=== PATIENT | female | born 1950 | race Caucasian/White ===

== ENCOUNTER 2019-02-05 02:49 | Emergency (ER) | payer MEDICARE, OTHER, SELFPAY ==
--- NOTE | 2019-02-05 02:56 | ED_ITS ---
HPI - General Adult General Chief complaint: Fever Stated complaint: cough, ear ache, fever Time Seen by Provider: 02/05/19 02:55 Source: patient Mode of arrival: ambulatory Limitations: no limitations History of Present Illness HPI narrative: Patient is a 68-year-old female here for evaluation of right ear pain and cough and sore throat. Patient states the symptoms been going on for the past couple days. She states she did have a fever of 100.5 at home. Has not taken anything for symptoms except for Claritin D. she recently finished a course of antibiotics for similar symptoms however after going on a trip she now has the symptoms return. Related Data Home Medications Medication Instructions Recorded Confirmed clopidogrel [Plavix] 75 mg PO QDAY #0 04/23/13 02/05/19 duloxetine [Cymbalta] 60 mg PO QDAY #0 04/23/13 02/05/19 Fish Oil 2,000 mg PO QDAY #0 08/06/16 02/05/19 [MAGNESIUM BIO CITRAT] 800 mg PO BID #0 08/06/16 02/05/19 [SUPER B COMPLEX] 1 tab PO QDAY #0 08/06/16 02/05/19 acetaminophen 650 mg PO Q6HP PRN #0 08/06/16 02/05/19 aspirin 81 mg PO QDAY #0 08/06/16 02/05/19 aspirin 325 mg PO PRN PRN #0 08/06/16 02/05/19 ranitidine HCl 75 mg PO BID #0 04/16/17 02/05/19 calcium citrate [Calcitrate] 600 mg PO BID #0 04/19/17 02/05/19 metoprolol tartrate 200 mg PO DAILY #0 04/19/17 02/05/19 Protonix 40 mg PO QDAY #0 09/17/17 02/05/19 ascorbic acid (vitamin C) 500 mg PO DAILY 02/05/19 02/05/19 biotin 1 tab PO DAILY 02/05/19 02/05/19 chlorthalidone 50 mg PO DAILY 02/05/19 02/05/19 cholecalciferol (vitamin D3) 12,000 unit PO DAILY 02/05/19 02/05/19 [Vitamin D3] lisinopril 10 mg PO DAILY 02/05/19 02/05/19 nitroglycerin 0.4 mg SUBLINGUAL Q5-15M PRN 02/05/19 02/05/19 rosuvastatin [Crestor] 40 mg PO DAILY 02/05/19 02/05/19 Previous Rx's Medication Instructions Recorded benzonatate [Tessalon Perles] 100 mg PO BID-TID PRN #30 cap 02/05/19 Allergies Allergy/AdvReac Type Severity Reaction Status Date / Time aripiprazole [From ABILIFY] Allergy Severe TREMORS, Verified 02/05/19 03:10 ANAPHYLAXIS bupropion [From WELLBUTRIN] AdvReac Severe HEADACHE Verified 02/05/19 03:10 citalopram [CITALOPRAM] AdvReac Intermediate headache, Verified 02/05/19 03:10 difficulty thinking indomethacin [INDOMETHACIN] AdvReac Intermediate GI UPSET Verified 02/05/19 03:10 phenobarbital [PHENOBARBITAL] AdvReac Intermediate DEPRESSION Verified 02/05/19 03:10 morphine [MORPHINE] AdvReac Mild 'LOOPY' Verified 02/05/19 03:10 PAPER TAPE Allergy Unknown RASH Uncoded 12/29/17 12:11 DARVON AdvReac Severe SEVERE Uncoded 12/29/17 12:11 HEADACHE PRESTIQUE AdvReac Intermediate TREMORS Uncoded 12/29/17 12:11 Review of Systems Constitutional Reports fever(s) ENT Comments: Right ear pain, sore throat, sinus congestion Respiratory Reports cough Integumentary/Breasts Denies rash Neurologic Denies behavioral changes Psychiatric Denies behavioral changes Allergic/Immunologic Denies urticaria [facility] Medical History Diabetes (Acute) Hypertension (Acute) Social History Smoking Status: Never smoker Social History Smoking Status: Never smoker Exam Initial Vital Signs Initial Vital Signs: Vital Signs Temperature 99.9 F H 02/05/19 02:58 Pulse Rate 82 02/05/19 02:58 Respiratory Rate 18 02/05/19 02:58 Blood Pressure 109/62 02/05/19 02:58 Pulse Oximetry 95 02/05/19 02:58 Const General: cooperative, well developed, well groomed and No acute distress Orientation: alert and awake HENMT Head: normal to inspection and normocephalic Ears: TM's normal bilaterally Nose: external nose normal Face and sinus: normal facial exam Mouth: oral mucosae normal Resp Effort & Inspection: normal respiratory effort Auscultation: clear to auscultation bilaterally Cardio Rate: regular rate Rhythm: regular rhythm Pulses: radial pulses present Skin Lesions: no lesions Rashes: no rashes Neuro General: alert, awake and oriented x3 Cognition: normal cognition Speech: speech normal Gait: normal gait Extrem General: normal to inspection and capillary refill normal Psych Appearance: grossly normal and well kempt Course Orders Ordered: ED Orders 02/05/19 03:03 XR chest 1V Stat Vital Signs - 8 hr 02/05/19 02:58 Temperature 99.9 F H Pulse Rate 82 Respiratory Rate 18 Blood Pressure 109/62 Pulse Oximetry 95 Medical Decision Making Imaging Data Chest x-ray: Attestation: I personally reviewed and interpreted this imaging study as follows: My impression: No focal consolidation Normal size heart MDM Narrative Medical decision making narrative: No pneumonia my read the chest x-ray. Her ears are clear. Throat is unremarkable. Not in any respiratory distress. No indication for antibiotics. This is a viral infection we did discuss the use of Claritin rather than the Claritin D since the Claritin D seems to cause her problems sleeping. Also sent home with Vinh Chin try to help with the cough. Instructed to follow up with her primary doctor. Patient expressed understanding and agreement with plan. Discharge Plan Departure Patient Disposition: Home Clinical Impression: Cough, Otalgia of right ear Upper respiratory infection Qualifiers: URI type: unspecified URI Qualified Code(s): J06.9 - Acute upper respiratory infection, unspecified Instructions: Amoxicillin Does Not Appear Effective for Acute Maxillary Sinusitis, DI for Viral Upper Respiratory Infection -- Adult Activity Restrictions/Additional Instructions: Recommend that you take a decongestant such as Claritin or Nelida or Zyrtec like we discussed. You can use the Tessalon Perles as needed for the cough. Contact your primary doctor for a follow-up. Return to the emergency department for any new or worsening symptoms Prescriptions: New benzonatate [Tessalon Perles] 100 mg capsule 100 mg PO BID-TID PRN (Reason: cough) Qty: 30 RF: 0 No Action clopidogrel [Plavix] 75 MG tablet 75 mg PO QDAY Qty: 0 RF: 0 duloxetine [Cymbalta] 60 MG capsule,delayed release(DR/EC) 60 mg PO QDAY Qty: 0 RF: 0 Fish Oil 2,000 mg PO QDAY Qty: 0 RF: 0 [SUPER B COMPLEX] 1 tab PO QDAY Qty: 0 RF: 0 aspirin 81 MG tablet,delayed release (DR/EC) 81 mg PO QDAY Qty: 0 RF: 0 [MAGNESIUM BIO CITRAT] 800 mg PO BID Qty: 0 RF: 0 acetaminophen 325 MG tablet 650 mg PO Q6HP PRN (Reason: Pain (Scale Score 1-3)) Qty: 0 RF: 0 aspirin 325 MG tablet 325 mg PO PRN PRN (Reason: Pain (Scale Score 1-3)) Qty: 0 RF: 0 ranitidine HCl 75 MG tablet 75 mg PO BID Qty: 0 RF: 0 calcium citrate [Calcitrate] 200 MG tablet 600 mg PO BID Qty: 0 RF: 0 metoprolol tartrate 100 MG tablet 200 mg PO DAILY Qty: 0 RF: 0 Protonix [address] for susp in packet 40 mg PO QDAY Qty: 0 RF: 0 chlorthalidone 50 mg Tablet 50 mg PO DAILY RF: 0 lisinopril 10 mg Tablet 10 mg PO DAILY RF: 0 rosuvastatin [Crestor] 40 mg Tablet 40 mg PO DAILY RF: 0 nitroglycerin 0.4 mg Tablet, Sublingual 0.4 mg SUBLINGUAL Q5-15M PRN (Reason: Chest Pain) RF: 0 ascorbic acid (vitamin C) 500 mg Tablet 500 mg PO DAILY RF: 0 Vitamin D3 4,000 unit Capsule 12,000 unit PO DAILY RF: 0 biotin tablet 1 tab PO DAILY RF: 0 Referrals: Tara Simons DO [Primary Care Provider] -
[2019-02-05 02:58] VITALS: BP 109/62; PULSE 82; RESP 18; TEMP 37.7; O2SAT 95; BMI 39.4
--- NOTE | 2019-02-05 03:03 | DI.RAD.S_ITS ---
PROCEDURE: XR CHEST 1V INDICATIONS: fever and cough TECHNIQUE: One view of the chest was acquired. COMPARISON: None. FINDINGS: Surgical changes and devices: None. Lungs and pleura: Lungs are clear. No pleural effusions or pneumothorax. Mediastinum: Mediastinal contours appear normal. Heart size is normal. Bones and chest wall: No suspicious bony lesions. Overlying soft tissues appear unremarkable. IMPRESSION: Negative chest. No acute cardiopulmonary process is suspected. Note: The preliminary ED findings and the final radiology report are concordant. Dictated by: Julio C Goldman M.D. on 02/05/2019 at 7:32 Approved by: Julio C Goldman M.D. on 02/05/2019 at 7:33
== END 2019-02-05 03:38 | disposition home or self-care (01) ==
LOC: ED 03:37
PROVIDERS: Emergency Provider Emergency Medicine; PCP Family Medicine
DX: J06.9 Acute upper respiratory infection, unspecified (principal); H92.01 Otalgia, right ear
CPT/HCPCS: 71045; 99282; 99283

== ENCOUNTER → 2019-06-23 09:49 | Outpatient (CLI) | payer MEDICARE, OTHER, SELFPAY | PROVIDERS: PCP Family Medicine; Visit Provider Family Medicine | DX: M85.852 Other specified disorders of bone density and structure, left thigh (principal); Z78.0 Asymptomatic menopausal state; Z82.62 Family history of osteoporosis | CPT/HCPCS: 77080; 77081 ==

== ENCOUNTER → 2019-07-14 12:03 | Outpatient (CLI) | payer MEDICARE, OTHER, SELFPAY ==
--- NOTE | 2019-07-14 | DI.MRI.S_ITS ---
PROCEDURE: MR LUMBAR SPINE WO CON INDICATIONS: Lumbago TECHNIQUE: Noncontrast sagittal T1 spin echo and T2 fast echo, sagittal STIR, axial T1 and T2 fast spin echo through the lumbar spine. In cases with scoliosis, additional coronal T2 fast spin echo may be performed. COMPARISON: Merged With [facility], MR, L-SPINE WITHOUT CONTRAST, 10/23/2014, 12:58. FINDINGS: Image quality: Excellent. Alignment and Curvature: Grade 1 anterolisthesis of L4 on L5. Levoscoliosis. Bone Marrow: Multilevel degenerative endplate sclerosis and spurring. Diffuse facet arthropathy. No acute vertebral body compression fractures. Spinal Cord: Conus medullaris terminates at the L1 level. Visualized cord demonstrates normal signal and size. Paraspinous Soft Tissues: No paravertebral masses. There is nonspecific, dependent posterior subcutaneous soft tissue edema from level of [id number] L1-L2: Minimal central canal narrowing. Lateral recesses patent Severe bilateral foraminal narrowing with nerve root compression. L2-L3: Mild canal narrowing. Partial effacement of both lateral recesses with bilaterally symmetric appearance. Severe right foraminal narrowing with nerve root compression, and moderate left foraminal narrowing . This appears progressed on the right. L3-L4: Mild central canal narrowing. Mild left foraminal narrowing. Moderate right foraminal stenosis with mild nerve root compression. L4-L5: Severe central canal narrowing. Near complete effacement of both lateral recesses with bilaterally symmetric appearance. Moderate bilateral foraminal narrowing with nerve root compression, which appears unchanged L5-S1: No definite central canal narrowing. Partial effacement of both lateral recesses with bilaterally symmetric appearance. Mild bilateral foraminal narrowing. No interval change in IMPRESSION: Multilevel lumbar spondylosis with grade 1 anterolisthesis of L4 on L5. Diffuse bilateral foraminal stenoses as detailed above by spinal level. Severe L4-L5 canal stenosis, minimally progressed. Dictated by: Malik Hodgson M.D. on 07/14/2019 at 13:20 Approved by: Malik Hodgson M.D. on 07/14/2019 at 13:29
== END ==
PROVIDERS: Family Provider Anesthesiology Pain Medicine; PCP Family Medicine; Visit Provider Acupuncturist
DX: M54.5 Low back pain (principal); M47.816 Spondylosis without myelopathy or radiculopathy, lumbar region; M43.16 Spondylolisthesis, lumbar region; M48.061 Spinal stenosis, lumbar region without neurogenic claudication; M48.07 Spinal stenosis, lumbosacral region
CPT/HCPCS: 72148

== ENCOUNTER 2019-10-25 11:13 | Inpatient (IN) | payer MEDICARE, OTHER, SELFPAY ==
[2019-10-10 14:39] VITALS: BMI 39.6
[2019-10-25] VITALS (22 sets, daily range): BP systolic 108–177; BP diastolic 63–106; PULSE 69–82; RESP 10–16; TEMP 35.9–36.8; O2SAT 91–100; BMI 42.7
--- NOTE | 2019-10-25 | DI.RAD.S_ITS ---
PROCEDURE: XR LUMBAR SPINE 2-3V INDICATIONS: L4-L5, L5-S1 TLIF TECHNIQUE: 2 views of the lumbar spine were acquired. COMPARISON: None. FINDINGS: Bones: L4-S1 transverse pedicle screw and vertical fixation lilian stabilization has been performed, performed, establishing normal alignment. Interbody disc cage prosthesis devices are present at the 2 intervening disc levels. Soft tissues: Overlying bowel gas pattern is normal. No suspicious soft tissue calcifications. IMPRESSION: Normal alignment established after L4-S1 fusion procedure. Dictated by: Ang Cornell M.D. on 10/25/2019 at 19:09 Approved by: Ang Cornell M.D. on 10/25/2019 at 19:10
[2019-10-25] MEDS: CELECOXIB 200 MG CAPSULE 400 MG PO (11:56)
[2019-10-25] MEDS: GABAPENTIN 300 MG CAPSULE PO (11:56)
[2019-10-25] MEDS: ACETAMINOPHEN 325 MG TABLET 975 MG PO (11:57)
[2019-10-25] MEDS: LACTATED RINGERS 1,000 ML 42 ML IV ×2 (12:23→17:46)
--- NOTE | 2019-10-25 13:52 | PM.PREOP ---
Pre-operative Note Interval Note History & Physical reviewed/Exam performed by Physician: Yes Changes to H&P: No
[2019-10-25] MEDS: CEFAZOLIN 2 GM/100 ML FROZ.PIGGY IV ×2 (14:40→22:12)
--- NOTE | 2019-10-25 15:14 | SUR.OPER ---
Prone on spine table, head in foam head support, padded chest and pelvic supports, gel pad at knees, lower legs supported by pillows; nipples, genitalia and toes free of pressure, arms secured on foam padded arm boards at <90 degrees abduction. Tape over blanket at thigh secured to table.
[2019-10-25] MEDS: BUPIVACAINE LIPOSOME 266 MG/20 ML VIAL INJ (15:24)
[2019-10-25] MEDS: BUPIVACAINE 0.25% W/ EPI 30 ML VIAL INJ (15:25)
--- NOTE | 2019-10-25 18:39 | P.OP_ITS ---
Operative Date/Time/Diagnoses Date of procedure: 10/25/19 Time of procedure: 13:39 Pre-op diagnosis: 1. L4-5, L5-S1 spondylolisthesis 2. L4-5, L5-S1 spinal stenosis 3. L4-5, L5-S1 spondylosis with radiculopathy Post-op diagnosis: same Procedure & Clinicians Procedure: 1. L4-5, L5-S1 Postero-lateral and posterior interbody fusion 2. L4-5, L5-S1 interbody cage placement. 3. L4-5, L5-S1 decompressive laminectomy with bilateral facetecomies 4. L4-5, L5-S1 Posterior segmental instrumentation 5. [place] of bone marrow from iliac crest 6. Utilization of microsurgical technique and operating microscope Same procedure as scheduled: Yes Indications: Patient has been having chronic back pain and worsening lumbar radiculopathy. Patient failed multiple conservative management with worsening pain weakness and numbness in her lower extremity. Patient has been having difficulty performing activity of daily living. After discussing risks benefits of treatment options, patient elected proceed with surgery. Surgeon: Rossi Gao Fine Patcher: Rebecca Crawford Click Yes if Unassisted: No Anesthesia Type: General Operative Notes Closure Type: primary Specimen(s): none sent Prosthetic devices, grafts, tissues, transplants, or devices: Globus revolve screws, Rise cages Applied: catheter Estimated Blood Loss (mL): 100 Blood products transfused: none Procedure in detail: Patient was seen in the preoperative area. Risks and benefits of the surgery was discussed with the patient. Informed consent was obtained from the patient and placed in the chart. Surgical site was marked. Patient was taken to the operative room. General anesthesia was administered. Prophylactic antibiotic was given to the patient less than 30 min before the incision was made. Patient was placed into a prone position on the George table. Patient's back was then prepped and draped in the sterile fashion. Time- out was performed at this time. Using AP and lateral C-arm imaging the interval between L4-S1 was identified and marked on patient's back. A 2 inch incision 2 in from midline was made on the left side first. The fascia was incised in line with skin incision. Globus MARS retractors was placed inside the incision and docked onto the L4 and L5 lamina. Using microsurgical technique and operating microscope, a L4 and L5 laminectomy and L4-5 L5-S1 facetectomy was performed using a Kerrison rongeur. During the process of decompression more than 75% of bilateral L4-5 L5-S1 facets were removed in order to decompress the spinal canal and the lateral recess. The L4- 5 L5-S1 level was grossly unstable after the decompression was completed and requiring the fusion procedure. The disc space at L4-5, L5-S1 was identified. And a total diskectomy was performed at L4-5, L5-S1 level. The endplates were decorticated using a rasp and shaver. The total diskectomy and decortication was performed at L4-5, L5-S1 level in order to to accomplish a L4-5, L5-S1 fusion. The local bone from the laminectomy and facetectomy was saved for local bone grafting. After the total diskectomy and decortication was completed, Bio4 bone graft material was combined with local bone that was harvested earlier. At this time, a separate skin is incision was made over the iliac crest. A Jamshidi needle was inserted into the iliac crest through a separate skin incision. 5 cc of bone marrow aspiration was obtained through the separate skin incision using a Jamshidi needle from the iliac crest. The bone marrow aspiration was combined with local bone and the Bio4 bone grafting material. The bone grafting material was placed into the L4-5, L5-S1 interbody space along with two cages, one expandable cage at each level. The cages were expanded to their maximum height using the torque limiting screwdriver. At this time a mirror image incision was made on the right side. The fascia was incised in line with the skin incision. Globus MARS retractor was inserted and docked onto the L4-5, L5-S1 posterolateral gutter. Using the power drill, posterior-lateral decortication was performed at L4-5, L5-S1 level until bleeding cortical bone was identified. The remaining bone grafting material was placed into the L4-5 L5-S1 posterior lateral gutter he order to accomplish posterolateral fusion at the L4-5 L5-S1 levels. Using the double C-arm technique, pedicle screws were placed into the L4, L5, S1 pedicles bilaterally. This was done by placing the Jamshidi needle into the pedicles, then placing the guidewires over the Jamshidi needle, and finally placing the cannulated screws over the guidewires bilaterally. After the pedicle screws were placed, 2 titanium rods was locked into the heads of the pedicle screws using locking caps and torque limiting screwdriver. Total 6 pedicles screws were placed. After all the hardware was placed, and confirmed with AP and lateral C-arm imaging, the wound was then irrigated with sterile normal saline and packed with Ray-Alicia gauze for 3 min to accomplish hemostasis. After the gauze was removed the deep fascia was closed with #1 Vicryl suture. The subcutaneous layer was closed with 2-0 Vicryl. The skin was closed with skin arabella. Patient tolerated the procedure well. There were no complications. Complications: none Post-operative Condition: stable Disposition: PACU Plan for aftercare: Admit to inpatient hospital
[2019-10-25] MEDS: HYDROMORPHONE 2 MG INJ IV (19:30)
[2019-10-25] MEDS: ONDANSETRON 4 MG/2 ML INJ IV (19:34)
[2019-10-25] MEDS: hydrOXYzine 50 MG/ML INJ 25 MG IM (19:56)
[2019-10-25] MEDS: OXYCODONE IR 5 MG TABLET PO (20:27)
[2019-10-25] MEDS: SODIUM CHLORIDE 0.9% 1,000 ML 100 ML IV (21:15)
--- NOTE | 2019-10-25 21:17 | SUR.PHASEI ---
Late entry for 2101: Transferred patient to floor in stable condition with all belongings in place. Patient AAO x 3. VSS. Report given to Eileen. Family in room on transfer. Patient remains stable.
[2019-10-25] MEDS: HYDROMORPHONE 0.5 MG INJ IV (21:18)
[2019-10-25] MEDS: DOCUSATE 100 MG CAPSULE PO (22:04)
[2019-10-25] MEDS: SENNOSIDES 8.6 MG TABLET 17.2 MG PO (22:04)
[2019-10-25] MEDS: METOPROLOL IR 50 MG TABLET 100 MG PO (22:04)
[2019-10-25] MEDS: POTASSIUM CHLORIDE 10 MEQ TAB 20 MEQ PO (22:05)
[2019-10-26] VITALS (7 sets, daily range): BP systolic 108–134; BP diastolic 61–94; PULSE 70–88; RESP 16–20; TEMP 36.4–37.6; O2SAT 90–98
[2019-10-26] MEDS: OXYCODONE IR 5 MG TABLET 10 MG PO ×6 (00:42→20:18)
--- NOTE | 2019-10-26 00:59 | PC.NURSE ---
Addendum entered by Esthela Mejia R.N. 10/26/19 06:21: States pain has now increased to 6/10 so medicated with 10mg of Oxycodone. No longer drowsy and no slurred speech. Assisted to reposition and ice applied to back. Oxygen turned off as sat is 96%; will monitor for any decrease in O2 sat on RA. Addendum entered by Esthela Mejia R.N. 10/26/19 05:48: Slept most of shift. Oxygen has been titrated down to 1L/min this morning. Denies pain and is turning well with minimal assistance. Original Note: Patient is drowsy but arouses easily although speech is slurred. Oriented except states month is September and day of week is Wednesday. Breath sounds CTA with sat of 93% on oxygen at 3L/min per NC. HRR. BP elevated at 148/94. Denies nausea. BT present but denies flatus. Indwelling catheter is patent; urine clear yellow. Able to turn with assistance for pillow placement. Dressing to back is CDI. CMS is intact. Wearing bilateral foot SCD's. After being repositioned states pain is 4/10 so medicated with 5mg of Oxycodone; verbalizes agreement with taking lower dose. Fall risk score is high and bed alarm is activated.
[2019-10-26 06:00] LABS: Hematocrit 38.4 % (36-46)
[2019-10-26] MEDS: CEFAZOLIN 2 GM/100 ML FROZ.PIGGY IV (06:19)
--- NOTE | 2019-10-26 07:17 | PM.PNPO.1 ---
Subjective Subjective Date Patient Seen: 10/26/19 Time Patient Seen: 07:17 Interval history: POD 1 s/p L45, L5S1 TLIF with Dr. Gao. Patient rates pain as 6/10 with movement, minimal at rest. Pain is in surgical site, does not radiate. Pain managed with oxycodone and vistaril. Patient has not ambulated or mobilized with PT. Yousif catheter in place. Denies fever, chills, chest pain, shortness of breath, nausea, vomiting, numbness, tingling, urinary/bowel incontinence Exam Vital Signs (past 8 hours): - 10/25/19 23:50 10/26/19 04:58 Temperature 98.2 F 97.6 F Pulse Rate 79 88 Respiratory Rate 16 16 Blood Pressure 148/94 H 134/94 H Pulse Oximetry 93 94 Oxygen Delivery Method Nasal Cannula Oxygen Flow Rate 1 Narrative Exam Narrative: 69 yo F is laying comfortably in bed, in no apparent distress. A&Ox3. Dressing CDI, SCDs in place, yousif catheter in place. Sensory function grossly intact to light touch in LE BL. Able to actively dorsiflex/plantar flex BL. Capillary refill <2 sec LE BL. Calves warm, soft, compressible, non tender to palpation. Objective Labs Result Diagrams: 10/26/19 05:35 Labs: Laboratory Results - last 24 hr 10/26/19 05:35 Hgb 13.0 Hct 38.4 Assessment & Plan Post-op Postoperative Procedures: Procedures Operation Date: 10/25/19 13:15 Actual Procedures Side Surgeon p L4-5,L5-S1 TLIF w/posterior instrumentation Rossi Gao MD Postoperative day: 1 Postoperative status: marginal pain control Postoperative plan: routine post-op care Postoperative plan narrative: Continue current pain management Continue SCDs Patient needs to mobilize with PT Keep yousif catheter in place, most likely d/c tomorrow AM Patient will likely discharge home in next 24 hours Time Spent With Patient Time with patient: less than 15 minutes
[2019-10-26] MEDS: SODIUM CHLORIDE 0.9% 1,000 ML 100 ML IV (08:20)
[2019-10-26] MEDS: ACETAMINOPHEN 325 MG TABLET 650 MG PO ×2 (08:31→15:52)
[2019-10-26] MEDS: ROSUVASTATIN 10 MG TABLET 40 MG PO ×2 (08:31→20:20)
[2019-10-26] MEDS: PANTOPRAZOLE 40 MG TABLET PO (08:31)
[2019-10-26] MEDS: DULOXETINE 30 MG CAPSULE 60 MG PO (08:32)
[2019-10-26] MEDS: MULTIVIT,CALC,MINS/IRON/FOLIC 1 TABLET 1 TAB PO (08:32)
[2019-10-26] MEDS: ASCORBIC ACID 500 MG TABLET 1000 MG PO (08:33)
[2019-10-26] MEDS: POTASSIUM CHLORIDE 10 MEQ TAB 20 MEQ PO ×2 (08:33→20:20)
[2019-10-26] MEDS: DOCUSATE 100 MG CAPSULE PO ×2 (08:33→20:19)
--- NOTE | 2019-10-26 08:47 | PC.NURSE ---
Addendum entered by Daisy Graham R.N. 10/26/19 11:49: MS/VITALS - bp 121/75, hr 78, pt assisted to dangle position, x2 person stood w/fww, gait belt, states initially a little lightheaded, stood at bedside for several minutes, lightheadedness resolved and took steps to chair, phys therapy arrived for addl mobilization. Original Note: AM NOTE - pt is awake at bedside shift report, states I'm doing OK,back discomfort /10 with earlier oxycodone, barrier dsg cdi, removed 02 and sat maintained [id number]%, enc freq use IS while awake, yousif w/clear yellow urine, bp 108/64, hr 80 this am and discussed waiting until after phys therapy and recheck before admin bp medications, denies nausea, lilia gen diet, footie scd on, denies numbness, moving le easily.
--- NOTE | 2019-10-26 10:40 | CM.DANOTE ---
DCP: Case received, EMR reviewed and met with patient. Introduced self and role. Was able to meet with patient to obtain baseline health history and activity information. DCP assessment completed with information currently available. Patient is a 69 year old female who admitted yesterday morning to the care of the orthopedic team. PCP: Dr. Simons. Payer: confirmed: Medicare/[employer]. Patient came to the hospital for a surgical procedure. She had L4-5, L5-S1 laminectomy. Patient has history of spinal stenosis. Met with patient in her room. She is alert and oriented. Stated that she has a cane and walker, stated, she mostly uses her cane, helps better because of her sciatica. 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 Patient has supportive named Adryan, and a friend named Sia, from [place], who will be staying with her for a while. P: DCP to continue to follow closely. She will be working with P.T. She should be able to go home when she is medically stable and cleared by P.T. as well. Yessenia Lynn RN/Chop Saw Operator
--- NOTE | 2019-10-26 11:25 | PT.IIE ---
Current Diagnoses Spondylolisthesis, lumbar region (10/25/19) Spinal stenosis, lumbar region with neurogenic claudication (10/25/19) Surgery Performed Operation Date: 10/25/19 13:15 Actual Procedures p L4-5,L5-S1 TLIF w/posterior instrumentation - Rossi Gao MD Surgical History (Last Updated 10/10/19 @ 16:22 by Geri Stanton, RN) H/O exploratory laparotomy (Acute ~2011) H/O heart artery stent (Acute) History of cardiac cath (Acute) History of total knee arthroplasty (Acute) History of total right hip arthroplasty (Acute) S/P foot surgery, left (Acute) S/P scar revision (Acute) Status post cataract extraction of both eyes with insertion of intraocular lens (Acute) Medical History (Last Updated 10/10/19 @ 16:22 by Geri Stanton, RN) Arthritis of both hands (Acute) Balance problem (Acute) Bilateral hearing loss (Acute) Concussion (Acute) Coronary artery disease (Acute) Diabetes (Acute) GERD (gastroesophageal reflux disease) (Acute) Hyperlipidemia (Acute) Hypertension (Acute) Mild sleep apnea (Acute) Myocardial infarction (Acute) Paraesophageal hernia (Acute) Unstable angina (Acute) Physical Therapy Inpatient Evaluation/Re-Eval M1 PT/OT-IP Prior Functional Status Start: 10/26/19 12:13 Freq: NEEDED Status: Active Protocol: Document 10/26/19 11:25 AB (Rec: 10/26/19 12:32 AB [id number]) Medical Review Prior Functional Status Medical History Reviewed Yes Communication able to make needs known Mobility and Gait pt stated that she is modified independent with all mobilities and ambulation using SPC outdoor and without AD indoors but occasionally uses SPC indoors as well Social History Household Members spouse Living Arrangements House Number of Floors (Floors) One Floor Number of Stairs To Enter/Railing? ramp to enter Home Environment High Toilet,Walk in Shower,Tub /Shower,Ramp Home Equipment Front Wheel Walker,Straight Cane,Bedside Commode,Tub Transfer Bench,Shower Seat with Backrest,Grab Bars Near Toilet,Grab Bars In Shower Additional Social History Comment friend will stay with pt for 2 weeks to assist her M2 PT-IP Current Condition Start: 10/26/19 12:13 Freq: NEEDED Status: Active Protocol: Document 10/26/19 11:25 AB (Rec: 10/26/19 12:32 AB [id number]) Physical Therapy Current Condition Current Condition Evaluation Date 10/26/19 Treatment Diagnosis s/p L4-5, L5S1 posterior fusion/lami; difficulty in walking Onset Date 10/25/2019 Precautions Lumbar Precautions Log Roll,No Twisting,Limit Bending,Lifting Restriction of 10 lbs,Gait Belt above Incisional Area M3 PT-IP Subjective Start: 10/26/19 12:13 Freq: NEEDED Status: Active Protocol: Document 10/26/19 11:25 AB (Rec: 10/26/19 12:32 AB [id number]) Subjective Physical Therapy Visit Type Type Initial Evaluation Visit Start Time 11:25 Visit Stop Time 12:08 Total Visit Minutes 43 Number of PROGRAM PROJECT ANALYST Visits 0 Physical Therapy Visit Comments Patient Comments pt is agreeable to do PT Therapy Pain Assessment Pain When Pain Assessed At Rest Pain Present Pain Present Pain Reported Location back Intensity 5 Scale Used increases to 8 with mobility Pain Management Techniques Apply Cold,Re-positioning, Timing of Activity with Medications M4 PT-IP Mobility and Gait Start: 10/26/19 12:13 Freq: NEEDED Status: Active Protocol: Document 10/26/19 11:25 AB (Rec: 10/26/19 12:32 AB [id number]) PT-Bed Mobility Assessment Rolling Type of Rolling Log Rolling Level of Assist Moderate Assistance Supine to Sit Supine to Sit Moderate Assistance Sit to Supine Sit to Supine Maximum Assistance,1 Person Assistance Scooting Scooting to Edge of Bed Minimal Assistance Scooting Up and Down in Bed Maximum Assistance PT-Transfer Assessment Sit to and From Stand Sit to and from Stand Minimal Assistance,1 Person Assistance,Use of Upper Extremities Equipment Transfer Assistive Device Gait Belt,Front Wheeled Walker Orthotic/Prosthetic Devices or Brace: No Transfers Transfer Destination Bed,Chair Transfer Technique ambulated using FWW Transfer Ability Level of Assist Minimal Assistance,1 Person Assistance,Use of Upper Extremities Comments Mobility Comments pt is sitting on chair and agreeable to do PT. reviewed back precautions and log roll bed mobility. pt completed sit to stand from chair min A and cues. ambulated in room using FWW ~ 12 ft. c/o increase back pain and lightheadedness. BP: 119/68. pt ambulated to the bed. completed bed mobility log roll sit to supine with max A to elevated BLE up to bed. required max A for positioning in bed. completed supine to sit mod A and cues. completed sit to stand from EOB min A and transferred to chair using FWW min A and cues. set up pt for lunch. call light and table placed within reach. Gait Assessment Gait Gait Assistance Required: Minimum Assistance Distance (Feet) 12 Able to Maintain Weight Bearing Status Yes During Gait Assistive Devices Assistive Device Gait Belt,Front Wheeled Walker Orthotic/Prosthetic Devices or Brace: No Gait Deviations General Gait Pattern Antalgic,Decreased Stride Length,Decreased Feet Clearance Factors Limiting Gait Function Factors Limiting Gait Function Decreased Activity Tolerance, Decreased Strength,Limited Range of Motion,Pain,Poor Balance,Poor Safety Awareness PT-Balance Assessment Sitting Balance and Reactions Static Sitting Balance Ability Good Dynamic Sitting Balance Ability Good Standing Balance and Reactions Static Standing Balance Ability Fair Dynamic Standing Balance Ability Fair Device Used FWW M5 PT-IP Objective Assessments Start: 10/26/19 12:13 Freq: NEEDED Status: Active Protocol: Document 10/26/19 11:25 AB (Rec: 10/26/19 12:32 AB [id number]) Orientation Orientation/Cognition Level of Alertness Alert Orientation Name,Place,Situation Language Function Ability Hard of Hearing Safety Awareness Decreased Safety Awareness Memory Description Short Term Impaired Gross Range of Motion Lower Extremity ROM Assessment Within Functional Limits Strength Lower Extremity Strength Hip 3+/5 Knee 4-/5 Coordination Assessment Gross Coordination Gross Coordination WNL Sensation Assessment Sensation Gross Sensation WNL Muscle Tone Muscle Tone WNL Yes M6 PT-IP Treatment Start: 10/26/19 12:13 Freq: NEEDED Status: Active Protocol: Document 10/26/19 11:25 AB (Rec: 10/26/19 12:32 AB [id number]) Physical Therapy Treatment Education Education Provided Precautions,Weight Bearing Status,Post-Op Packet,Safety M7 PT-IP Assessment and Plan Start: 10/26/19 12:13 Freq: NEEDED Status: Active Protocol: Document 10/26/19 11:25 AB (Rec: 10/26/19 12:32 AB [id number]) PT Summary Assessment and Plan Potential Rehabilitation Potential Good Status of Condition at Evaluation Stable Summary Impairments Pain,ROM,Strength,Balance, Coordination,Sensation,Tone, Cognition,Bed Mobility, Transfers,Gait,Activity Tolerance Assessment Summary pt requires min A and cues with transfers and ambulation but requires mod to max A with bed mobility. pt plans to go home and her friend will assist her at home. will conduct caregiver training when appropriate. will continue to assess progress. Goals Bed Mobility Goal Independent Transfer Goal Independent,Front Wheeled Walker Gait Goal Independent,Front Wheel Walker Gait Distance 150 Days to Meet Goals 5 Frequency of Treatment Frequency Of Treatment Twice a Day Treatment Plan Physical Therapy Treatment Plan Bed Mobility Training,Transfer Training,Gait Training, Therapeutic Exercise,Balance Retraining,Post Op Education, Discharge Planning,Hot or Cold Pack,Neuromuscular Re-ed, Coordination Retraining,Manual Therapy Other Recommendations and Next Treatment bed mobility, ambulation, Focus caregiver training Recommendations To Nursing Amount of Assist Needed 1 Person Assist Discharge Recommendations PT Discharge Recommendations Home with Assistance Transportation Needs at Discharge Private Vehicle
[2019-10-26] MEDS: METOPROLOL IR 50 MG TABLET 100 MG PO ×2 (12:15→20:20)
[2019-10-26] MEDS: CHLORTHALIDONE 25 MG TABLET 50 MG PO (12:16)
--- NOTE | 2019-10-26 14:23 | PT.IPTN ---
Current Diagnoses Spondylolisthesis, lumbar region (10/25/19) Spinal stenosis, lumbar region with neurogenic claudication (10/25/19) Surgery Performed Operation Date: 10/25/19 13:15 Actual Procedures p L4-5,L5-S1 TLIF w/posterior instrumentation - Rossi Gao MD Physical Therapy Treatment Note M2 PT-IP Current Condition Start: 10/26/19 12:13 Freq: NEEDED Status: Active Protocol: Document 10/26/19 11:25 AB (Rec: 10/26/19 12:32 AB [id number]) Physical Therapy Current Condition Current Condition Evaluation Date 10/26/19 Treatment Diagnosis s/p L4-5, L5S1 posterior fusion/lami; difficulty in walking Onset Date 10/25/2019 Precautions Lumbar Precautions Log Roll,No Twisting,Limit Bending,Lifting Restriction of 10 lbs,Gait Belt above Incisional Area M3 PT-IP Subjective Start: 10/26/19 12:13 Freq: NEEDED Status: Active Protocol: Document 10/26/19 14:23 AB (Rec: 10/26/19 16:44 AB [id number]) Subjective Physical Therapy Visit Type Type Treatment Note Visit Start Time 14:23 Visit Stop Time 15:12 Total Visit Minutes 49 Number of NAUTICAL INSTRUMENT MECHANIC Visits 0 Physical Therapy Visit Comments Patient Comments pt agreeable to do PT Therapy Pain Assessment Pain When Pain Assessed At Rest Pain Present Pain Present Pain Reported Location back Intensity 5 Scale Used Numeric (1 - 10) Pain Management Techniques Re-positioning,Timing of Activity with Medications M4 PT-IP Mobility and Gait Start: 10/26/19 12:13 Freq: NEEDED Status: Active Protocol: Document 10/26/19 14:23 AB (Rec: 10/26/19 16:44 AB [id number]) PT-Bed Mobility Assessment Rolling Type of Rolling Log Rolling Level of Assist Minimal Assistance Supine to Sit Supine to Sit Standby Assistance Sit to Supine Sit to Supine Moderate Assistance,Maximum Assistance,1 Person Assistance PT-Transfer Assessment Sit to and From Stand Sit to and from Stand Contact Guard Assistance Equipment Transfer Assistive Device Gait Belt,Front Wheeled Walker Orthotic/Prosthetic Devices or Brace: No Comments Mobility Comments pt's friend present for caregiver training. pt completed bed mobility supine <>sit log roll x 4 reps with PT assisting pt initially. pt required SBA with supine to sit but required mod A to max A for sit to supine to elevate BLE to the bed. instructed caregiver on how to assist pt and counter demonstrated and was able to assist the pt safely. pt sat on EOB. educated friend on how to use safety belt and how to assist pt. caregiver was able to put the belt on and assist the pt with sit to stand and ambulation in room ~ 30 ft CGA to min A. caregiver is worried about pt walking into the house due to the condition of the ground and if FWW will fit on the walkway. informed pt and friend that if that's the only way in, that they have to clear the pathway for pt's safety . Friend stated that she will measure the walkway if FWW will fit. informed pt and friend that pt can go sideways if needed and have seats in between the walkway for pt to sit on if needed. pt and friend understood. Gait Assessment Gait Gait Assistance Required: Contact Guard Assist,Minimum Assistance Distance (Feet) 30 Able to Maintain Weight Bearing Status Yes During Gait Assistive Devices Assistive Device Gait Belt,Front Wheeled Walker Orthotic/Prosthetic Devices or Brace: No Gait Deviations General Gait Pattern Antalgic,Decreased Stride Length,Decreased Feet Clearance Factors Limiting Gait Function Factors Limiting Gait Function Decreased Activity Tolerance, Decreased Strength,Limited Range of Motion,Pain,Poor Balance,Poor Safety Awareness Comments Gait Comments pt ambulated in room using FWW ~ 30 ft with friend assisting . pt initially requiring CGA and towards the end of ambulation requires min A. pt stated that she is getting tired. Pt presents with an antalgic gait with slow domingo, decrease step length. M5 PT-IP Objective Assessments Start: 10/26/19 12:13 Freq: NEEDED Status: Active Protocol: Document 10/26/19 11:25 AB (Rec: 10/26/19 12:32 AB [id number]) Orientation Orientation/Cognition Level of Alertness Alert Orientation Name,Place,Situation Language Function Ability Hard of Hearing Safety Awareness Decreased Safety Awareness Memory Description Short Term Impaired Gross Range of Motion Lower Extremity ROM Assessment Within Functional Limits Strength Lower Extremity Strength Hip 3+/5 Knee 4-/5 Coordination Assessment Gross Coordination Gross Coordination WNL Sensation Assessment Sensation Gross Sensation WNL Muscle Tone Muscle Tone WNL Yes M6 PT-IP Treatment Start: 10/26/19 12:13 Freq: NEEDED Status: Active Protocol: Document 10/26/19 14:23 AB (Rec: 10/26/19 16:44 AB [id number]) Physical Therapy Treatment Education Education Provided Precautions,Safety M7 PT-IP Assessment and Plan Start: 10/26/19 12:13 Freq: NEEDED Status: Active Protocol: Document 10/26/19 14:23 (Rec: 10/26/19 16:44 AB [id number]) PT Summary Assessment and Plan Potential Rehabilitation Potential Good Summary Impairments Pain,ROM,Strength,Balance, Coordination,Sensation,Tone, Cognition,Bed Mobility, Transfers,Gait,Activity Tolerance Progress Towards Goals Slow Progress due to Pain,Slow Progress due to Activity Tolerance Assessment Summary caregiver training conducted and pt's friend was able to assist pt with bed mobility, sit to stand and ambulation using FWW. pt presents with decrease activity tolerance affecting mobility and level of assistance. pt plans to go home with her friend to assist her. pt will also benefit from homehealth PT. Goals Bed Mobility Goal Independent Transfer Goal Independent,Front Wheeled Walker Gait Goal Independent,Front Wheel Walker Gait Distance 150 Days to Meet Goals 5 Frequency of Treatment Frequency Of Treatment Twice a Day Treatment Plan Physical Therapy Treatment Plan Bed Mobility Training,Transfer Training,Gait Training, Therapeutic Exercise,Balance Retraining,Post Op Education, Discharge Planning,Hot or Cold Pack,Neuromuscular Re-ed, Coordination Retraining,Manual Therapy Other Recommendations and Next Treatment up/down 1 step stool to get Focus into the bed, bed mobility, ambulation, caregiver training Recommendations To Nursing Amount of Assist Needed 1 Person Assist Discharge Recommendations PT Discharge Recommendations Home with Assistance,Home Health Transportation Needs at Discharge Private Vehicle
--- NOTE | 2019-10-26 14:29 | OT.IP.EVAL ---
Current Diagnoses Spondylolisthesis, lumbar region (10/25/19) Spinal stenosis, lumbar region with neurogenic claudication (10/25/19) Surgery Performed Operation Date: 10/25/19 13:15 Actual Procedures p L4-5,L5-S1 TLIF w/posterior instrumentation - Rossi Gao MD Past Medical History (Last Updated 10/10/19 @ 16:22 by Geri Stanton, RN) Arthritis of both hands (Acute) Balance problem (Acute) Bilateral hearing loss (Acute) Concussion (Acute) Coronary artery disease (Acute) Diabetes (Acute) GERD (gastroesophageal reflux disease) (Acute) Hyperlipidemia (Acute) Hypertension (Acute) Mild sleep apnea (Acute) Myocardial infarction (Acute) Paraesophageal hernia (Acute) Unstable angina (Acute) Surgical History (Last Updated 10/10/19 @ 16:22 by Geri Stanton, RN) H/O exploratory laparotomy (Acute ~2012) H/O heart artery stent (Acute) History of cardiac cath (Acute) History of total knee arthroplasty (Acute) History of total right hip arthroplasty (Acute) S/P foot surgery, left (Acute) S/P scar revision (Acute) Status post cataract extraction of both eyes with insertion of intraocular lens (Acute) Occupational Therapy Inpatient Evaluation/Re-Eval M1 PT/OT-IP Prior Functional Status Start: 10/26/19 12:13 Freq: NEEDED Status: Active Protocol: Document 10/26/19 14:29 PJM (Rec: 10/26/19 15:48 PJM [id number]) Medical Review Prior Functional Status Medical History Reviewed Yes Diet/Fluid Consistency Regular Communication WNL Mobility and Gait Pt states she ambulates without a device in the house except for occasional use of cane when back pain severe. She uses a cane in the community. Activities of Daily Living and IADL's Pt states she is independent with all self care and she and share cooking, shopping, shuttle threader at home. Pt independent with medications, finances and driving. 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 Social History Household Members spouse Living Arrangements House Number of Floors (Floors) One Floor Number of Stairs To Enter/Railing? 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 Additional Social History Comment friend will stay with pt for 1 week to assist her while at work, pt plans to use shower stall at home M2 OT-IP Current Condition Start: 10/26/19 13:24 Freq: Status: Active Protocol: Document 10/26/19 14:29 PJM (Rec: 10/26/19 15:48 PJ [id number]) Occupational Therapy Current Condition Current Condition Evaluation Date 10/26/19 Treatment Diagnosis decreased self care, mobility s/p L4-S1 PLIF/lami Post Operative Precautions Lumbar Precautions Log Roll,No Twisting,Limit Bending,Lifting Restriction of 10 lbs,Gait Belt above Incisional Area M3 OT- IP Subjective and Pain Start: 10/26/19 13:24 Freq: Status: Active Protocol: Document 10/26/19 14:29 PJM (Rec: 10/26/19 15:48 PJ [id number]) OT- Subjective Occupational Therapy Visit Type Type Initial Evaluation Visit Start Time 14:13 Visit Stop Time 14:29 Total Visit Minutes 16 Notes Pt's friend, Sia, here for education this session as she will be assisting pt after d/c for 1 week. Occupational Therapy Visit Comments Patient Comments I don't have any pain just resting here in bed. Patient/Caregiver Goals to return to independence OT Pain Assessment Pain When Pain Assessed At Rest Pain Present Pain Present Denied Pain M4 OT- IP ADL's Start: 10/26/19 13:24 Freq: Status: Active Protocol: Document 10/26/19 14:29 PJM (Rec: 10/26/19 15:48 PJ [id number]) OT [id number] General Evaluation Self-Feeding Ability Independent OT ADL-Grooming General Evaluation Grooming Ability Standby Assistance Areas Needing Assistance Face Washing Comments OT Grooming Comments after set up in bed or chair OT ADL-Oral Care Comments Oral Care Comments did not occur this session OT ADL-Dressing General Eval Lower Body Dressing Ability Moderate Assistance Assistive Devices Dressing Assistive Devices Long Handled Shoe Horn,Museum Exhibit Designer ,Sock Aid Comments OT Dressing Comments Began education re: use of associate professor of library media, sock aid, long shoe horn for lower body dressing. Pt familiar with this equipt from previous R [facility] OT ADL-Toileting Devices Toileting Assistive Devices Toilet Paper Aid Comments OT Toileting Comments provided education re: body mechanics and use of toilet paper aid and resources for obtaining one OT ADL-Bathing Comments OT Bathing Comments to be assessed in AM M5 OT- IP IADL's Start: 10/26/19 13:24 Freq: Status: Active Protocol: Document 10/26/19 14:29 PJM (Rec: 10/26/19 15:48 PJ [id number]) OT-Instrumental Activities of Daily Living Deficits IADL Deficits Identified Deficits Home Safety Awareness Awareness of Need for Assistance at Home Good Awareness Ability to Problem Solve Emergency Able to Problem Solve Situations Medication Management Medication Management No Deficits Identified Money Management Money Management No Deficits Identified Meal Preparation Meal Preparation Caregiver Provides Assist Meal Preparation Comments and friend to assist until pt able Sharepoint Designer Developer Sharepoint Designer Developer Caregiver Provides Assist Sharepoint Designer Developer Comments and friend to assist until pt able Driving Driving Caregiver Provides Assist Driving Comments and friend to assist until pt able M6 OT- IP Functional Cognition Start: 10/26/19 13:24 Freq: Status: Active Protocol: Document 10/26/19 14:29 PJM (Rec: 10/26/19 15:48 PJ [id number]) Cognitive Factors Limiting Selfcare Function Cognitive Ability Level of Alertness Alert Patient Orientation Name,Age,Birthday,Month,Date, Year,Day of Week,Place, Situation Attention Span Ability Capable of Focused Attention, Capable of Sustained Attention Ability to Follow Commands Able to Follow One Step Commands Memory Description No Deficits Noted Safety Awareness No Deficits Noted Problem Solving Ability No deficits Noted Cognitive Comments Cognitive Assessment Comments Pt verbalizes understanding of lumbar spine precautions and is familiar with some adapted ADL techniques from previous hip surgery. OT- Vision and Hearing OT- Hearing Assessment OT- Hearing Assessment WFL OT- Vision Assessment Visual Acuity WFL,Glasses All The Time M7 OT- IP Mobility and Balance Start: 10/26/19 13:24 Freq: Status: Active Protocol: Document 10/26/19 14:29 PJM (Rec: 10/26/19 15:48 PJ [id number]) OT-Transfer Assessment Comments Mobility Comments See P.T. notes OT- Gait Assessment Comments Gait Ability Comments See P.T. notes OT- Balance Assessment Comments Other Balance Tests/Deviations/Treatment See P.T. notes : M8 OT- IP Objective Assessments Start: 10/26/19 13:24 Freq: Status: Active Protocol: Document 10/26/19 14:29 PJM (Rec: 10/26/19 15:48 PJM [id number]) OT Gross Range of Motion Upper Extremity Range of Motion Assessment Within Functional Limits OT Strength Upper Extremity Strength Assessment Within Functional Limits OT- Coordination Assessment Comments Coordination Comments BUE WNL OT-Muscle Tone Assessment Muscle Tone WNL Yes OT Sensation Assessment Comments Summary Comments BUE WNL Edema Edema Absent M9 OT- IP Assessment and Plan Start: 10/26/19 13:24 Freq: Status: Active Protocol: Document 10/26/19 14:29 PJM (Rec: 10/26/19 15:48 PJM [id number]) OT Summary Assessment and Plan Potential Rehabilitation Potential Good Analytic Complexity at Evaluation Low Summary OT Impairments Pain,Functional Mobility, Grooming,Dressing,Toileting, Bathing,Toilet Transfers, Shower Transfers,Activity Tolerance Assessment Summary Low complexity OT assessment completed on this 69 yr old woman admitted for L4-S1 PLIF/ Lami. 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 Pt currently has performance deficits due to post op pain in all functional mobility/ transfers, standing grooming, lower body dressing, bathing and toileting. Pt will benefit from 1-2 additional OT sessions to address the goals below. Anticipate pt will be able to d/c home with assist from working and friend staying with her for 1 week after d/c. Goals Grooming Goal Independent Dressing Goal Standby Assistance,Long Handled Shoe Horn,Museum Exhibit Designer,Sock Aid Toileting Goal Standby Assistance,Toilet Paper Aid Bathing Goal Standby Assistance,Grab Bars, Hand Held Shower Sprayer,Long Handled Sponge or [place] Toilet Transfer Goal Standby Assistance Shower Transfer Goal Contact Guard Assistance Patient/Caregiver Education Goal Demonstrate Post-Op Precautions,Demonstrate Energy Conservation and Pacing, Caregiver Independent Assisting Patient OT-Other Goals Grooming to be done standing at sink with good body mechanics and safety awareness . Days to Meet Goals 2 Frequency of Treatment Frequency Of Treatment Once a Day Treatment Plan OT Treatment Plan ADL Training,Functional Mobility,Patient/Family Education,Discharge Planning Discharge Recommendations OT Discharge Recommendations Home with Assistance Home Equipment Needs sock aid, toilet paper aid Transportation Needs at Discharge Private Vehicle
[2019-10-26] MEDS: CALCIUM CARBONATE 500 MG TAB PO (15:50)
[2019-10-26] MEDS: MAG HYDROX/ALUM/SIMETH 30 ML UDC PO (15:52)
[2019-10-26] MEDS: ALBUTEROL 2.5 MG/3 ML NEB (ADULT) INH ×2 (17:15→21:12)
--- NOTE | 2019-10-26 19:49 | PC.NURSE ---
Assumed care of pt at 1500. Pt sitting up in bed visiting with friend during bedside hand-off. Reports GERD discomfort. PA notified. Tums and Maalox given. Medicated with analgesics per nov. Pt reports wheezing desats to 88%. 2L NC applied. R.T. notified for eval and treat. PA gave verbal to have C-Pap provided for use while in hospital. Communication order placed. R.T. aware and will set-up C-Pap this evening. Pt dangled at bedside with PIE ICER MACHINE this evening. calling appropriately for needs
[2019-10-26] MEDS: raNITIdine 150 MG CAPSULE PO (20:19)
[2019-10-26] MEDS: SENNOSIDES 8.6 MG TABLET 17.2 MG PO (20:20)
[2019-10-26] MEDS: CALCIUM CITRATE 200 MG TABLET 600 MG PO (20:21)
[2019-10-27] VITALS: BP 109/60; PULSE 72; RESP 18; TEMP 37
[2019-10-27] MEDS: OXYCODONE IR 5 MG TABLET 10 MG PO ×3 (00:07→08:30)
[2019-10-27 01:39] VITALS: O2SAT 93
--- NOTE | 2019-10-27 01:44 | PC.NURSE ---
Addendum entered by Esthela Mejia R.N. 10/27/19 06:31: Catheter d'cd at 0624 and patient tolerated well. Instructed in sx/prevention of UTI; verbalizes understanding. Addendum entered by Esthela Mejia R.N. 10/27/19 04:38: States pain is currently 5/10 but requests/medicated with 10mg of Oxycodone as wants to keep pain under better control. Repositioned onto back. Discussed removing catheter around 0600 and patient agreeable to doing so. Coughed up small amount yellow sputum. Original Note: 0010 Patient is alert and oriented. Breath sounds coarse and diminished with scattered expiratory wheeze. Has intermittent, tight non productive cough. Diagnosed in past with sleep apnea so is currently using CPAP with sat of 93% although when asleep will intermittently and briefly desat down to 88% so RT recommended adding oxygen at 2L/min which was done. HRR. Denies nausea. BT present and is passing flatus. Indwelling catheter is patent; urine is clear yellow. Needing assistance to reposition q2h. States pain is 6/10 after moving so ice applied and medicated with Oxycodone 10mg (her request for 10mg dose). CMS intact. Wearing bilateral foot SCD's. Fall risk score is high and bed alarm is activated.
[2019-10-27 04:44] VITALS: BP 121/52; PULSE 74; RESP 16; TEMP 36.3; O2SAT 95
[2019-10-27 07:07] VITALS: O2SAT 95
[2019-10-27 07:50] VITALS: BP 126/70; PULSE 68; PULSE 77; RESP 16; TEMP 37; O2SAT 93; O2SAT 96
[2019-10-27] MEDS: ALBUTEROL 2.5 MG/3 ML NEB (ADULT) INH (07:50)
[2019-10-27] MEDS: DULOXETINE 30 MG CAPSULE 60 MG PO (08:29)
[2019-10-27] MEDS: lisinopriL 10 MG TABLET PO (08:29)
[2019-10-27] MEDS: DOCUSATE 100 MG CAPSULE PO (08:29)
[2019-10-27] MEDS: PANTOPRAZOLE 40 MG TABLET PO (08:30)
[2019-10-27] MEDS: ASCORBIC ACID 500 MG TABLET 1000 MG PO (08:30)
[2019-10-27] MEDS: CHLORTHALIDONE 25 MG TABLET 50 MG PO (08:30)
[2019-10-27] MEDS: METOPROLOL IR 50 MG TABLET 100 MG PO (08:30)
[2019-10-27] MEDS: POTASSIUM CHLORIDE 10 MEQ TAB 20 MEQ PO (08:30)
[2019-10-27] MEDS: MULTIVIT,CALC,MINS/IRON/FOLIC 1 TABLET 1 TAB PO (08:30)
[2019-10-27] MEDS: CALCIUM CITRATE 200 MG TABLET 600 MG PO (08:30)
--- NOTE | 2019-10-27 10:54 | OT.IP.TRT ---
Current Diagnoses Spondylolisthesis, lumbar region (10/25/19) Spinal stenosis, lumbar region with neurogenic claudication (10/25/19) Surgery Performed Operation Date: 10/25/19 13:15 Actual Procedures p L4-5,L5-S1 TLIF w/posterior instrumentation - Rossi Gao MD Occupational Therapy Treatment Note M2 OT-IP Current Condition Start: 10/26/19 13:24 Freq: Status: Active Protocol: Document 10/26/19 14:29 PJM (Rec: 10/26/19 15:48 PJM [id number]) Occupational Therapy Current Condition Current Condition Evaluation Date 10/26/19 Treatment Diagnosis decreased self care, mobility s/p L4-S1 PLIF/lami Post Operative Precautions Lumbar Precautions Log Roll,No Twisting,Limit Bending,Lifting Restriction of 10 lbs,Gait Belt above Incisional Area M3 OT- IP Subjective and Pain Start: 10/26/19 13:24 Freq: Status: Active Protocol: Document 10/27/19 12:35 [facility] (Rec: 10/27/19 12:51 [facility] [id number]) OT- Subjective Occupational Therapy Visit Type Type Treatment Note Visit Start Time 09:30 Visit Stop Time 10:54 Total Visit Minutes 84 Occupational Therapy Visit Comments Patient Comments Pt a bit groogy but willing to take a shower. Patient/Caregiver Goals To go home. OT Pain Assessment Pain When Pain Assessed At Rest Pain Present Pain Present Denied Pain M4 OT- IP ADL's Start: 10/26/19 13:24 Freq: Status: Active Protocol: Document 10/27/19 12:35 CCC (Rec: 10/27/19 12:51 [facility] [id number]) OT [id number]-[id number] General Evaluation Self-Feeding Ability Independent OT ADL-Grooming General Evaluation Grooming Ability Standby Assistance Comments OT Grooming Comments SBA while standing with FWW at the sink. VC to spit into a cup or bend at her hips and lean to spit. OT ADL-Dressing General Eval Lower Body Dressing Ability Moderate Assistance Comments OT Dressing Comments Assist to tony socks, pt states friend will just assist at home. Pt not wanting to wear a brief at this time, but would benefit from use of technical trainer to help with socks/ brief, and other LB dressing clothing. OT ADL-Toileting General Evaluation Toileting Ability Standby Assistance,Moderate Assistance Comments OT Toileting Comments Pt not able to reach adequately to wipe from behind and would benefit from toilet aid. Pt states has not ordered one yet but planning to do so. OT ADL-Bathing Bathing Type Bathing Type Shower General Evaluation Bathing Ability Minimal Assistance Areas Needing Assistance Wash/Dry Back,Wash/Dry Lower Extremities Comments OT Bathing Comments Pt needing assist to wash/dry her back and feet. M5 OT- IP IADL's Start: 10/26/19 13:24 Freq: Status: Active Protocol: Document 10/26/19 14:29 PJM (Rec: 10/26/19 15:48 PJM [id number]) OT-Instrumental Activities of Daily Living Deficits IADL Deficits Identified Deficits Home Safety Awareness Awareness of Need for Assistance at Home Good Awareness Ability to Problem Solve Emergency Able to Problem Solve Situations Medication Management Medication Management No Deficits Identified Money Management Money Management No Deficits Identified Meal Preparation Meal Preparation Caregiver Provides Assist Meal Preparation Comments and friend to assist until pt able Upper Shaper Upper Shaper Caregiver Provides Assist Upper Shaper Comments and friend to assist until pt able Driving Driving Caregiver Provides Assist Driving Comments and friend to assist until pt able M6 OT- IP Functional Cognition Start: 10/26/19 13:24 Freq: Status: Active Protocol: Document 10/27/19 12:35 [facility] (Rec: 10/27/19 12:51 [facility] [id number]) Cognitive Factors Limiting Selfcare Function Cognitive Ability Level of Alertness Alert Patient Orientation Name,Age,Birthday,Month,Date, Year,Day of Week,Place, Situation Attention Span Ability Capable of Focused Attention, Capable of Sustained Attention Ability to Follow Commands Able to Follow One Step Commands Memory Description Short Term Impaired Safety Awareness Decreased Ability to Apply Precautions,Underestimates Need for Assistance Problem Solving Ability Needs Assist to Identify Solutions Cognitive Comments Cognitive Assessment Comments Pt a bit groggy and not remembering how to use her phone initially, or remember the back precautions. VC for safety awareness and use of FWW, cues to push up from surfaces versus just grab the FWW to stand. M7 OT- IP Mobility and Balance Start: 10/26/19 13:24 Freq: Status: Active Protocol: Document 10/27/19 12:35 [facility] (Rec: 10/27/19 12:51 [facility] [id number]) OT- Bed Mobility Assessment Rolling Type of Rolling Roll to Left Level of Assistance Standby Assistance Supine to Sit Supine to Sit Assist Standby Assistance OT-Transfer Assessment Sit to and From Stand Sit to and from Stand Standby Assistance,Contact Guard Assistance Transfers Transfer Ability Standby Assistance,Contact Guard Assistance Technique Transfer Destination Bed,Chair,Toilet Transfer Technique Stand Step Pivot Devices Transfer Assistive Devices Gait Belt,Front Wheeled Walker Comments Mobility Comments CGA when steeping over threshold of the shower, otherwise from CGA to BSA with FWW. OT- Balance Assessment Sitting Balance and Reactions Static Sitting Balance Ability Normal Dynamic Sitting Balance Ability Good Standing Balance and Reactions Static Standing Balance Ability Good M8 OT- IP Objective Assessments Start: 10/26/19 13:24 Freq: Status: Active Protocol: Document 10/26/19 14:29 PJM (Rec: 10/26/19 15:48 PJM [id number]) OT Gross Range of Motion Upper Extremity Range of Motion Assessment Within Functional Limits OT Strength Upper Extremity Strength Assessment Within Functional Limits OT- Coordination Assessment Comments Coordination Comments BUE WNL OT-Muscle Tone Assessment Muscle Tone WNL Yes OT Sensation Assessment Comments Summary Comments BUE WNL Edema Edema Absent M9 OT- IP Assessment and Plan Start: 10/26/19 13:24 Freq: Status: Active Protocol: Document 10/27/19 12:35 CCC (Rec: 10/27/19 12:51 [facility] [id number]) OT Summary Assessment and Plan Potential Rehabilitation Potential Good Analytic Complexity at Evaluation Low Summary OT Impairments Pain,Functional Mobility, Grooming,Dressing,Toileting, Bathing,Toilet Transfers, Shower Transfers,Activity Tolerance Progress Towards Goals Progressing Toward Goals Assessment Summary Pt a bit groggy and will benefit from friend to give her supervision especially for back precautions and assist for socks as needed. In addition pt's to assist at home after work. Pt looking to go home today. Goals Grooming Goal Independent Dressing Goal Standby Assistance,Long Handled Shoe Horn,Ob/Gyn Doctor,Sock Aid Toileting Goal Standby Assistance,Toilet Paper Aid Bathing Goal Standby Assistance,Grab Bars, Hand Held Shower Sprayer,Long Handled Sponge or [place] Toilet Transfer Goal Standby Assistance Shower Transfer Goal Contact Guard Assistance Patient/Caregiver Education Goal Demonstrate Post-Op Precautions,Demonstrate Energy Conservation and Pacing, Caregiver Independent Assisting Patient Days to Meet Goals 1 Frequency of Treatment Frequency Of Treatment Once a Day Treatment Plan OT Treatment Plan ADL Training,Functional Mobility,Patient/Family Education,Discharge Planning Discharge Recommendations OT Discharge Recommendations Home with Assistance Home Equipment Needs sock aid, toilet paper aid Transportation Needs at Discharge Private Vehicle
--- NOTE | 2019-10-27 11:16 | DI.US.S_ITS ---
PROCEDURE: US PERIPH VENOUS LOW EXTREM BI INDICATIONS: CALF PAIN TECHNIQUE: Real-time imaging, as well as color and pulse Doppler interrogation, were performed of the deep veins of both legs from the inguinal ligament to the popliteal fossa. COMPARISON: None. FINDINGS: Right: The common femoral, femoral and popliteal veins are normally compressible, and free of intraluminal thrombus. Color and pulse Doppler demonstrate normal phasic intravascular flow. There is normal augmentation response to distal compression maneuver. Left: The common femoral, femoral and popliteal veins are normally compressible, and free of intraluminal thrombus. Color and pulse Doppler demonstrate normal phasic intravascular flow. There is normal augmentation response to distal compression maneuver. IMPRESSION: Negative bilateral duplex lower extremity ultrasound for DVT. Dictated by: Caleb Bautista M.D. on 10/27/2019 at 12:07 Approved by: Caleb Bautista M.D. on 10/27/2019 at 12:08
--- NOTE | 2019-10-27 11:37 | CM.DPC ---
DCP: continued: Case received, EMR reviewed and plan for d/c to home setting is noted. DC to home is ordered now by ortho DARNELL Musa. Followup at ortho clinic is scheduled.
--- NOTE | 2019-10-27 11:54 | PT.IPTN ---
Current Diagnoses Spondylolisthesis, lumbar region (10/25/19) Spinal stenosis, lumbar region with neurogenic claudication (10/25/19) Surgery Performed Operation Date: 10/25/19 13:15 Actual Procedures p L4-5,L5-S1 TLIF w/posterior instrumentation - Rossi Gao MD Physical Therapy Treatment Note M2 PT-IP Current Condition Start: 10/26/19 12:13 Freq: NEEDED Status: Active Protocol: Document 10/26/19 11:25 AB (Rec: 10/26/19 12:32 AB [id number]) Physical Therapy Current Condition Current Condition Evaluation Date 10/26/19 Treatment Diagnosis s/p L4-5, L5S1 posterior fusion/lami; difficulty in walking Onset Date 10/25/2019 Precautions Lumbar Precautions Log Roll,No Twisting,Limit Bending,Lifting Restriction of 10 lbs,Gait Belt above Incisional Area M3 PT-IP Subjective Start: 10/26/19 12:13 Freq: NEEDED Status: Active Protocol: Document 10/27/19 11:54 AB (Rec: 10/27/19 13:03 AB [id number]) Subjective Physical Therapy Visit Type Type Treatment Note Visit Start Time 11:54 Visit Stop Time 12:38 Total Visit Minutes 44 Number of MANAGER OF PROCUREMENT Visits 0 Physical Therapy Visit Comments Patient Comments pt's friend present for caregiver training Therapy Pain Assessment Pain When Pain Assessed At Rest Pain Present Pain Present Pain Reported Location back Intensity 5 Scale Used Numeric (1 - 10) Pain Management Techniques Apply Cold,Re-positioning, Timing of Activity with Medications M4 PT-IP Mobility and Gait Start: 10/26/19 12:13 Freq: NEEDED Status: Active Protocol: Document 10/27/19 11:54 AB (Rec: 10/27/19 13:03 AB [id number]) PT-Bed Mobility Assessment Rolling Level of Assist Standby Assistance Supine to Sit Supine to Sit Standby Assistance Sit to Supine Sit to Supine Maximum Assistance,1 Person Assistance PT-Transfer Assessment Equipment Transfer Assistive Device Gait Belt,Front Wheeled Walker Transfers Transfer Destination Bed,Toilet Transfer Ability Level of Assist Contact Guard Assistance,1 Person Assistance,Use of Upper Extremities Comments Mobility Comments conducted caregiver training. pt completed bed mobility and caregiver was able to assist pt safely. pt requested to use the toilet and friend was able to assist pt with ambulation using FWW to the toilet CGA. simulated bed height at home and pt stepping on stool to get into the bed. pt completed with CGA and cues x 2 reps. friend was able to cue and assist pt safely. pt completed further ambulation in the hallway ~ 75 ft using FWW CGA. requiring stand rest breaks in between walks. pt sat on chair. positioned on chair. call light and table placed within reach. Gait Assessment Gait Gait Assistance Required: Contact Guard Assist Distance (Feet) 75 Able to Maintain Weight Bearing Status Yes During Gait Assistive Devices Assistive Device Gait Belt,Front Wheeled Walker Orthotic/Prosthetic Devices or Brace: No Gait Deviations General Gait Pattern Antalgic,Decreased Stride Length,Decreased Feet Clearance Factors Limiting Gait Function Factors Limiting Gait Function Decreased Activity Tolerance, Decreased Strength,Limited Range of Motion,Pain,Poor Balance,Poor Safety Awareness Comments Gait Comments presents with very slow domingo M5 PT-IP Objective Assessments Start: 10/26/19 12:13 Freq: NEEDED Status: Active Protocol: Document 10/26/19 11:25 AB (Rec: 10/26/19 12:32 AB [id number]) Orientation Orientation/Cognition Level of Alertness Alert Orientation Name,Place,Situation Language Function Ability Hard of Hearing Safety Awareness Decreased Safety Awareness Memory Description Short Term Impaired Gross Range of Motion Lower Extremity ROM Assessment Within Functional Limits Strength Lower Extremity Strength Hip 3+/5 Knee 4-/5 Coordination Assessment Gross Coordination Gross Coordination WNL Sensation Assessment Sensation Gross Sensation WNL Muscle Tone Muscle Tone WNL Yes M6 PT-IP Treatment Start: 10/26/19 12:13 Freq: NEEDED Status: Active Protocol: Document 10/27/19 11:54 AB (Rec: 10/27/19 13:03 AB [id number]) Physical Therapy Treatment Education Education Provided Precautions,Safety M7 PT-IP Assessment and Plan Start: 10/26/19 12:13 Freq: NEEDED Status: Active Protocol: Document 10/27/19 11:54 AB (Rec: 10/27/19 13:03 AB [id number]) PT Summary Assessment and Plan Potential Rehabilitation Potential Good Summary Impairments Pain,ROM,Strength,Balance, Coordination,Sensation,Tone, Cognition,Bed Mobility, Transfers,Gait,Activity Tolerance Progress Towards Goals Slow Progress due to Activity Tolerance Assessment Summary caregiver training conducted and pt's friend is able to assist pt safely. pt plans to go home later today. Goals Bed Mobility Goal Independent Transfer Goal Independent,Front Wheeled Walker Gait Goal Independent,Front Wheel Walker Gait Distance 150 Days to Meet Goals 5 Frequency of Treatment Frequency Of Treatment Twice a Day Treatment Plan Physical Therapy Treatment Plan Bed Mobility Training,Transfer Training,Gait Training, Therapeutic Exercise,Balance Retraining,Post Op Education, Discharge Planning,Hot or Cold Pack,Neuromuscular Re-ed, Coordination Retraining,Manual Therapy Other Recommendations and Next Treatment up/down 1 step stool to get Focus into the bed, bed mobility, ambulation, caregiver training Recommendations To Nursing Amount of Assist Needed 1 Person Assist Discharge Recommendations PT Discharge Recommendations Home with Assistance,Home Health Transportation Needs at Discharge Private Vehicle
--- NOTE | 2019-10-27 12:14 | PC.NURSE ---
Patient had a shower and her dressing has been changed. She is planning on going home today. She was given 2 oxycodone around 0830. Visiting with her friend who is going to do stairs with her and then help take care of her at her home. Patient is comfortable at this time.
[2019-10-27] MEDS: ACETAMINOPHEN 325 MG TABLET 650 MG PO (12:58)
--- NOTE | 2019-10-27 16:01 | PM.DS.1 ---
History of Present Illness History of Present Illness Date Patient Seen: 10/27/19 Time Patient Seen: 16:01 Chief complaint: [id number] Narrative: Patient has been having chronic back pain and worsening lumbar radiculopathy. Patient failed multiple conservative management with worsening pain weakness and numbness in her lower extremity. Patient has been having difficulty performing activity of daily living. After discussing risks benefits of treatment options, patient elected proceed with surgery. POD 2 s/p L45, L5S1 TLIF with Dr. Gao. Patient rates pain as 4/10 with movement, minimal at rest. Pain is in surgical site, does not radiate. Pain managed with oxycodone and vistaril. Patient mobilized well with PT. [place] catheter was removed and she is able to void without difficulty or assistance. Denies fever, chills, chest pain, shortness of breath, nausea, vomiting, numbness, tingling, urinary/bowel incontinence Discharge Providers Provider Date of admission: 10/25/19 11:13 Discharge Date: 10/27/19 Primary care physician: Tara Simons DO Consults: 10/10/19 15:20 Consult to Anesthesiology Routine Comment: Consulting Provider: Anesthesiologist Reason for consultation: Cardiac, PA, Stents x5 Consult to Pastoral Services Routine Comment: Henry, would enjoy a visit Consult to Respiratory Therapy Evaluate & Treat Comment: Sill try to get the parts for CPAP & bring it Physician Instructions: Evaluate and treat 10/25/19 20:59 Consult to Occupational Therapy Evaluate & Treat Comment: Physician Instructions: Evaluate and treat Consult to Physical Therapy Evaluate & Treat Comment: Physician Instructions: Evaluate and Treat Discharge provider: Valeri Paige PA-C Summary Hospital Course Hospital Course: Patient was admitted to hospital s/p TLIF with Dr. Gao. Patient ready for discharge home on POD #2. Hospital course was notable for marginal pain control on POD#1 that resolved and calves tender to palpation bilaterally, doppler ultrasound ruled out DVT. Pain was managed with oxycodone and vistaril. Patient mobilizing with PT prior to discharge. Voiding and eating without difficulty or assistance prior to discharge. Prescribed oxycodone 10mg for pain control at home. Exam Vital Signs (past 8 hours): Oxygen Delivery Method Nasal Cannula Oxygen Flow Rate 2 Narrative Exam Narrative: 69 yo F is laying comfortably in bed, in no apparent distress. A&Ox3. Dressing CDI, SCDs in place. Sensory function grossly intact to light touch in LE BL. Able to actively dorsiflex/plantar flex BL. Capillary refill <2 sec LE BL. Calves warm, soft, compressible, tender to palpation BL. Objective Labs Result Diagrams: 10/26/19 05:35 Discharge Plan Discharge Plan Patient Disposition: Home Discharge comment: follow up with [facility] on 11/08/2019 Discharge orders & Medications Prescriptions: New oxycodone 10 mg tablet 10 mg PO Q4-6H PRN (Reason: pain) Qty: 60 RF: 0 Continued clopidogrel [Plavix] 75 MG tablet 75 mg PO QDAY Qty: 0 RF: 0 duloxetine [Cymbalta] 60 MG capsule,delayed release(DR/EC) 60 mg PO QDAY Qty: 0 RF: 0 vitamin B complex-folic acid [Super B Maxi Complex] 0.4 mg Tablet 1 tab PO DAILY Qty: 0 RF: 0 omega 1-hed-erd-fish oil [Fish Oil] 1,000 mg (120 mg-180 mg) Capsule 2 cap PO DAILY Qty: 0 RF: 0 acetaminophen 325 MG tablet 650 mg PO Q6HP PRN (Reason: Pain (Scale Score 1-3)) Qty: 0 RF: 0 ranitidine HCl 75 MG tablet 150 mg PO DAILY Qty: 0 RF: 0 calcium citrate [Calcitrate] 200 MG tablet 600 mg PO BID Qty: 0 RF: 0 metoprolol tartrate 100 MG tablet 100 mg PO BID Qty: 0 RF: 0 potassium chloride 10 mEq Tablet Extended Release 20 meq PO BID RF: 0 pantoprazole 40 mg Tablet,Delayed Release (Dr/Ec) 40 mg PO DAILY RF: 0 magnesium 30 mg Tablet 60 mg PO DAILY PRN (Reason: Insomnia) RF: 0 Centrum Silver Women 8 mg iron-400 mcg-300 mcg Tablet 1 tab PO DAILY RF: 0 turmeric 400 mg Capsule 400 mg PO QMWFSU RF: 0 metoprolol tartrate 100 mg Tablet 100 mg PO BID RF: 0 lisinopril 10 mg Tablet 10 mg PO DAILY RF: 0 chlorthalidone 50 mg Tablet 50 mg PO DAILY RF: 0 lisinopril 10 mg Tablet 10 mg PO DAILY RF: 0 rosuvastatin [Crestor] 40 mg Tablet 40 mg PO DAILY RF: 0 nitroglycerin 0.4 mg Tablet, Sublingual 0.4 mg SUBLINGUAL Q5-15M PRN (Reason: Chest Pain) RF: 0 ascorbic acid (vitamin C) 500 mg Tablet 1,000 mg PO DAILY RF: 0 Vitamin D3 4,000 unit Capsule 12,000 unit PO DAILY RF: 0 biotin 5,000 mcg Tablet,Disintegrating 5,000 mcg PO DAILY RF: 0 Discontinued aspirin 81 MG tablet,delayed release (DR/EC) 81 mg PO QDAY Qty: 0 RF: 0 Follow up/Referrals: Rossi Gao MD [Physician] - Tara Simons DO [Primary Care Provider] - Diet/Activity/Treatments Diet: Regular Activity: no excessive bending, lifting, twisting Cold/Heat Therapy: continue cold therapy as needed Skin/Wound/Dressing Care Report to your healthcare provider any signs of infection, such as:: chills, fever, increased pain, unusual drainage and unusual redness Dressing: keep dressing dry. if saturated contact office for dressing changes Visit Report/Discharge Packet Instructions: DI for Prescription Opioid Use, Oxycodone, DI for Transforaminal Lumbar Interbody Fusion Stand Alone Forms: Surgery Discharge Discharge Data Primary Care Provider: Tara Simons
== END 2019-10-27 16:00 | disposition home or self-care (01) | DRG 454 ==
PROVIDERS: Admitting Provider Orthopaedic Surgery Orthopaedic Surgery of the Spine; Family Provider Anesthesiology Pain Medicine; PCP Family Medicine; Referring Provider Orthopaedic Surgery Orthopaedic Surgery of the Spine; Visit Provider Orthopaedic Surgery Orthopaedic Surgery of the Spine
PROC: 0SG00AJ Fusion of Lumbar Vertebral Joint with Interbody Fusion Device, Posterior Approach, Anterior Column, Open Approach (ICD-10-PCS; principal; 2019-10-25 13:15)
DX: M48.062 Spinal stenosis, lumbar region with neurogenic claudication (principal); Z68.41 Body mass index [BMI] 40.0-44.9, adult; M51.36 Other intervertebral disc degeneration, lumbar region; M43.16 Spondylolisthesis, lumbar region; M43.17 Spondylolisthesis, lumbosacral region; M48.07 Spinal stenosis, lumbosacral region; M47.27 Other spondylosis with radiculopathy, lumbosacral region; I25.10 Atherosclerotic heart disease of native coronary artery without angina pectoris; I10 Essential (primary) hypertension; E78.5 Hyperlipidemia, unspecified; G47.33 Obstructive sleep apnea (adult) (pediatric); E66.9 Obesity, unspecified; M79.605 Pain in left leg; M79.604 Pain in right leg; K21.9 Gastro-esophageal reflux disease without esophagitis; F32.9 Major depressive disorder, single episode, unspecified; F41.9 Anxiety disorder, unspecified; E11.9 Type 2 diabetes mellitus without complications; Z95.818 Presence of other cardiac implants and grafts
CPT/HCPCS: 36415; 72100; 76000; 85014; 85018; 93970; 94640; 94660; 94762; 97161; 97165; 97530; 97535; C1776; C9290; J0690; J1100; J1170; J2405; J2704; J3010; J3410; J7613

== ENCOUNTER 2019-11-23 14:11 | Emergency (ER) | payer MEDICARE, OTHER, SELFPAY ==
[2019-10-25 21:07] VITALS: BMI 42.7
[2019-11-23] VITALS (8 sets, daily range): BP systolic 114–145; BP diastolic 56–67; PULSE 66–73; RESP 18–23; TEMP 37.1; O2SAT 96–98
--- NOTE | 2019-11-23 14:56 | ED_ITS ---
HPI - General Adult General Chief complaint: Dizziness Stated complaint: vERTIGO Time Seen by Provider: 11/23/19 14:39 Source: patient and EMS Mode of arrival: EMS Limitations: no limitations History of Present Illness HPI narrative: 69-year-old female here for evaluation of vertigo. Patient states that it started approximately 30 minutes after she took some CBD oil. She states that it feels like the room is spinning. She feels somewhat nauseous. She has had this in the past but not associated with doing the CBD. No other associated symptoms Related Data Home Medications Medication Instructions Recorded Confirmed clopidogrel [Plavix] 75 mg PO DAILY #0 04/23/13 11/23/19 duloxetine [Cymbalta] 60 mg PO DAILY #0 04/23/13 11/23/19 acetaminophen 650 mg PO Q6HP PRN #0 08/06/16 11/23/19 omega 7-upo-qio-fish oil [Fish Oil] 2 cap PO DAILY #0 08/06/16 11/23/19 vitamin B complex-folic acid 1 tab PO DAILY #0 08/06/16 11/23/19 [Super B Maxi Complex] calcium citrate [Calcitrate] 600 mg PO BID #0 04/19/17 11/23/19 Vitamin D3 12,000 unit PO DAILY 02/05/19 11/23/19 ascorbic acid (vitamin C) 1,000 mg PO DAILY 02/05/19 11/23/19 biotin 5,000 mcg PO DAILY 02/05/19 11/23/19 nitroglycerin 0.4 mg SUBLINGUAL Q5-15M PRN 02/05/19 11/23/19 rosuvastatin [Crestor] 40 mg PO DAILY 02/05/19 11/23/19 Centrum Silver Women 1 tab PO DAILY 10/10/19 11/23/19 magnesium 60 mg PO DAILY PRN 10/10/19 11/23/19 pantoprazole 40 mg PO DAILY 10/10/19 11/23/19 turmeric 400 mg PO QMWFSU 10/10/19 11/23/19 lisinopril 10 mg PO DAILY 10/25/19 11/23/19 chlorthalidone 50 mg PO DAILY 11/23/19 11/23/19 codeine-guaifenesin [Guaiatussin 0 ml PO DIRECTED PRN 11/23/19 11/23/19 AC] flu vacc [id number] 6mos up(PF) 0.5 ml IM .ONCE 11/23/19 11/23/19 [Fluarix Quad (PF)] fluticasone propionate 1 spray INTRANASAL DIRECTED 11/23/19 11/23/19 lidocaine 1 patch TOPICAL DIRECTED 11/23/19 11/23/19 lorazepam 0.5 mg PO BID 11/23/19 11/23/19 metoprolol succinate 100 mg PO BID 11/23/19 11/23/19 ondansetron HCl 4 mg PO PRN PRN 11/23/19 11/23/19 potassium chloride 20 meq PO BID 11/23/19 11/23/19 ranitidine HCl 150 mg PO BID 11/23/19 11/23/19 Previous Rx's Medication Instructions Recorded oxycodone 10 mg PO Q4-6H PRN #60 tab 10/27/19 Allergies Allergy/AdvReac Type Severity Reaction Status Date / Time aripiprazole [From ABILIFY] Allergy Severe TREMORS, Verified 11/23/19 14:41 ANAPHYLAXIS bupropion [From WELLBUTRIN] AdvReac Severe HEADACHE Verified 11/23/19 14:41 citalopram [CITALOPRAM] AdvReac Intermediate headache, Verified 11/23/19 14:41 difficulty thinking indomethacin [INDOMETHACIN] AdvReac Intermediate GI UPSET Verified 11/23/19 14:41 phenobarbital [PHENOBARBITAL] AdvReac Intermediate DEPRESSION Verified 11/23/19 14:41 morphine [MORPHINE] AdvReac Mild 'LOOPY' Verified 11/23/19 14:41 PAPER TAPE Allergy Mild RASH Uncoded 11/23/19 14:41 DARVON AdvReac Severe SEVERE Uncoded 11/23/19 14:41 HEADACHE PRESTIQUE AdvReac Intermediate TREMORS Uncoded 11/23/19 14:41 Review of Systems Constitutional Constitutional: Denies fatigue, Denies fever(s) and Denies headache(s) Eyes Eyes: Denies change in vision and Denies diplopia ENT Ears, Nose, Mouth, and Throat: Reports vertigo, Reports dizziness and Denies headache(s) Cardiovascular Cardiovascular: Denies chest pain, Denies edema, Denies palpitations and Denies dyspnea Respiratory Respiratory: Denies cough and Denies dyspnea Gastrointestinal Gastrointestinal: Denies abdominal pain, Reports nausea and Denies vomiting Musculoskeletal Musculoskeletal: Denies myalgias and Denies arthralgias Integumentary/Breasts Skin/Breast: Denies lesions and Denies rash Neurologic Neurologic: Denies behavioral changes, Reports vertigo, Reports dizziness and Denies headache(s) Psychiatric Psychiatric: Denies behavioral changes Endocrine Endocrine: Denies fatigue and Denies palpitations Hematologic/Lymphatic Hematologic/Lymphatic: Denies easy bleeding and Denies easy bruising Patient History Medical History Arthritis of both hands (Acute) Balance problem (Acute) Bilateral hearing loss (Acute) Concussion (Acute) Coronary artery disease (Acute) Diabetes (Acute) GERD (gastroesophageal reflux disease) (Acute) Hyperlipidemia (Acute) Hypertension (Acute) Mild sleep apnea (Acute) Myocardial infarction (Acute) Paraesophageal hernia (Acute) Unstable angina (Acute) Surgical History (Updated 10/10/19 @ 16:22 by Geri Stanton RN) H/O exploratory laparotomy (Acute ~2011) H/O heart artery stent (Acute) History of cardiac cath (Acute) History of total knee arthroplasty (Acute) History of total right hip arthroplasty (Acute) S/P foot surgery, left (Acute) S/P scar revision (Acute) Status post cataract extraction of both eyes with insertion of intraocular lens (Acute) Social History household members: spouse Smoking Status: Never smoker alcohol intake: current Smoking Status: Never smoker alcohol intake frequency: holidays/special occasions only Substance Use Type: marijuana Exam Initial Vital Signs Initial Vital Signs: Vital Signs Pulse Rate 68 11/23/19 14:30 Respiratory Rate 20 11/23/19 14:30 Blood Pressure 137/64 11/23/19 14:30 Pulse Oximetry 98 11/23/19 14:30 Const General: cooperative, comfortable, well developed and well groomed Limitations: mental status not altered [facility] Head: normal to inspection and normocephalic Resp Effort & Inspection: normal respiratory effort Auscultation: clear to auscultation bilaterally Cardio Rate: regular rate Rhythm: regular rhythm GI Inspection: non-distended Palpation: soft and No firm Skin Lesions: no lesions Rashes: no rashes Neuro General: alert and awake Cognition: normal cognition Speech: speech normal Gait: normal gait Extrem General: normal to inspection and capillary refill normal Psych Appearance: grossly normal and well kempt Course Orders Ordered: ED Orders 11/23/19 14:40 EKG-12 Lead Stat 11/23/19 15:05 XR chest 1V Stat 11/23/19 15:06 EKG-12 Lead Stat 11/23/19 15:16 Complete Blood Count AUTO DIFF Stat Comprehensive Metabolic Panel Stat Lipase Stat NT-proBNP (BNP-Adult 18+) Stat Partial Thromboplastin Time Stat Procalcitonin Stat Prothrombin Time INR Stat Troponin I Stat 11/23/19 17:38 Troponin I Stat Discontinued Medications Acetaminophen (Tylenol) 650 mg PO NOW ONE Stop: 11/23/19 18:29 Last Admin: 11/23/19 18:30 Dose: 650 mg Documented by: MAHNAZ Nitroglycerin (Nitrostat) 0.4 mg SL [id number] PRN PRN Reason: Chest Pain Last Admin: 11/23/19 15:05 Dose: 0.4 mg Documented by: MAHNAZ Ondansetron HCl (Zofran) 4 mg IV NOW ONE Stop: 11/23/19 15:38 Last Admin: 11/23/19 15:40 Dose: 4 mg Documented by: MAHNZA Vital Signs Vital signs: Vital Signs - 8 hr 11/23/19 14:30 11/23/19 14:36 11/23/19 15:00 Temperature 98.8 F Pulse Rate 68 73 70 Respiratory Rate 20 23 18 Blood Pressure 145/67 H Blood Pressure [Left Arm] 137/64 120/58 L Pulse Oximetry 98 97 98 11/23/19 15:05 11/23/19 15:30 11/23/19 16:00 Temperature Pulse Rate 68 71 68 Respiratory Rate 18 20 Blood Pressure 120/58 L Blood Pressure [Left Arm] 122/56 L 114/57 L Pulse Oximetry 96 97 11/23/19 16:31 11/23/19 19:17 Temperature Pulse Rate 66 68 Respiratory Rate 20 20 Blood Pressure 120/59 L Blood Pressure [Left Arm] 114/56 L Pulse Oximetry 98 Medical Decision Making Lab Data Lab results reviewed: Yes I reviewed the patient's lab results. Result diagrams: 11/23/19 15:16 11/23/19 15:16 Labs: Lab Results 11/23/19 11/23/19 11/23/19 Range/Units 15:16 15:16 15:16 WBC 6.7 (4.5-11.0) X10^3/uL RBC 3.94 L (4.0-5.2) X10^6/uL Hgb 12.7 (12.0-16.0) g/dL Hct 37.1 (36-46) % MCV 94.2 (80-100) fL MCH 32.2 (26-34) PG MCHC 34.2 (30-36) % RDW 12.6 (11.6-14.8) % Plt Count 259 (150-400) X10^3/uL Neut % (Auto) 58.3 (50-75) % Lymph % (Auto) 24.2 L (25-40) % [place] % (Auto) 11.6 (3-14) % Eos % (Auto) 5.0 H (2-4) % Baso % (Auto) 0.9 (0-2) % Neut # (Auto) 3900 (4668-3895) /uL Lymph # (Auto) 1600 (3883-7999) /uL [place] # (Auto) 800 (0-900) /uL Eos # (Auto) 300 (0-450) /uL Baso # (Auto) 100 (0-100) /uL PT 11.8 (10.1-12.7) SECONDS INR 1.0 (0.9-1.3) APTT 29 (26.4-36.2) SECONDS Sodium 136 L (137-145) mmol/L Potassium 3.5 (3.4-5.1) mmol/L Chloride 97 L (98-107) mmol/L Carbon Dioxide 32 (22-32) mmol/L BUN 19 H (7-17) mg/dL Creatinine 0.70 (0.52-1.04) mg/dL Estimated GFR > 60.0 (>60) mL/min BUN/Creatinine Ratio 27.1 H (6-22) Glucose 118 H (80-110) mg/dL Calcium 9.4 (8.4-10.2) mg/dL Total Bilirubin 0.3 (0.2-1.3) mg/dL AST 54 H (14-36) IU/L ALT 38 H (<35) IU/L Alkaline Phosphatase 156 H (38-126) U/L Troponin I < 0.012 (0.01-0.034) ng/mL NT-Pro-B Natriuret Pep 290 H (<125) pg/mL Total Protein 7.2 (6.3-8.2) g/dL Albumin 4.0 (3.5-5.0) g/dL Globulin 3.2 (1.7-4.1) g/dL Albumin/Globulin Ratio 1.3 (1.0-2.8) Lipase 29 (23-300) U/L Procalcitonin (<0.5) ng/mL 11/23/19 11/23/19 Range/Units 15:16 17:38 WBC (4.5-11.0) X10^3/uL RBC (4.0-5.2) X10^6/uL Hgb (12.0-16.0) g/dL Hct (36-46) % MCV (80-100) fL MCH (26-34) PG MCHC (30-36) % RDW (11.6-14.8) % Plt Count (150-400) X10^3/uL Neut % (Auto) (50-75) % Lymph % (Auto) (25-40) % [place] % (Auto) (3-14) % Eos % (Auto) (2-4) % Baso % (Auto) (0-2) % Neut # (Auto) (0180-0072) /uL Lymph # (Auto) (3022-8940) /uL [place] # (Auto) (0-900) /uL Eos # (Auto) (0-450) /uL Baso # (Auto) (0-100) /uL PT (10.1-12.7) SECONDS INR (0.9-1.3) APTT (26.4-36.2) SECONDS Sodium (137-145) mmol/L Potassium (3.4-5.1) mmol/L Chloride (98-107) mmol/L Carbon Dioxide (22-32) mmol/L BUN (7-17) mg/dL Creatinine (0.52-1.04) mg/dL Estimated GFR (>60) mL/min BUN/Creatinine Ratio (6-22) Glucose (80-110) mg/dL Calcium (8.4-10.2) mg/dL Total Bilirubin (0.2-1.3) mg/dL AST (14-36) IU/L ALT (<35) IU/L Alkaline Phosphatase (38-126) U/L Troponin I < 0.012 (0.01-0.034) ng/mL NT-Pro-B Natriuret Pep (<125) pg/mL Total Protein (6.3-8.2) g/dL Albumin (3.5-5.0) g/dL Globulin (1.7-4.1) g/dL Albumin/Globulin Ratio (1.0-2.8) Lipase (23-300) U/L Procalcitonin < 0.05 (<0.5) ng/mL Imaging Data Chest x-ray: Radiologist's Impression: [address] [address] XRay Report Signed Patient: Nora Gil ZMR#: [id number] : 9Acct:[id number] Age/Sex: 69 / FDate of Service: 11/23/19 Loc: ED Accession Number: [id number] Procedure: XR chest 1V Ordering Provider: Robb Pettit D.O. PROCEDURE: XR CHEST 1V INDICATIONS: Chest pain TECHNIQUE: One view of the chest was acquired. COMPARISON: [facility], , XR CHEST 1V, 02/05/2019, 3:08. FINDINGS: Surgical changes and devices: None. Lungs and pleura: Lungs are clear. No pleural effusions or pneumothorax. Mediastinum: Mediastinal contours appear normal. Heart size is normal. Bones and chest wall: No suspicious bony lesions. Overlying soft tissues appear unremarkable. IMPRESSION: Stable chest. No acute cardiopulmonary process is evident. Dictated by: Julio C Goldman M.D. on 11/23/2019 at 14:58 Approved by: Julio C Goldman M.D. on 11/23/2019 at 15:00 ECG Data Attestation: I personally reviewed and interpreted this ECG as follows: Prior ECG tracings: not available for review Interpretation: Sinus rhythm Ventricular rate is 68 Normal axis Normal QRS Normal QTC No ST T wave changes EKG when patient is complaining of chest pain Sinus rhythm Ventricular rate is 71 Normal axis Normal QRS Normal QTC No ST T wave changes MDM Narrative Medical decision making narrative: Initially patient's symptoms very consistent with results of her taking the CBD oil which actually had THC in it. Patient st ates that she does feel like that she was high. During my initial evaluation patient was complaining of chest pain. Repeat EKG shows no changes from when patient was having no symptoms. Troponin was negative x2. Chest x-ray is unremarkable. I do suspect that her symptoms are related to the CBD awhile. Low suspicion for ACS. This does not her CVA. Patient ambulated around the emergency depart without any problems. Feel we can hold on any further workup for now. Patient was given return precautions. She expressed understanding and agreement. 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 Continue the rest of your medications as directed. Return to the emergency department for any new or worsening symptoms Prescriptions: No Action clopidogrel [Plavix] 75 MG tablet 75 mg PO DAILY Qty: 0 RF: 0 duloxetine [Cymbalta] 60 MG capsule,delayed release(DR/EC) 60 mg PO DAILY Qty: 0 RF: 0 vitamin B complex-folic acid [Super B Maxi Complex] 0.4 mg Tablet 1 tab PO DAILY Qty: 0 RF: 0 omega 7-dtn-cwh-fish oil [Fish Oil] 1,000 mg (120 mg-180 mg) Capsule 2 cap PO DAILY Qty: 0 RF: 0 acetaminophen 325 MG tablet 650 mg PO Q6HP PRN (Reason: Pain (Scale Score 1-3)) Qty: 0 RF: 0 calcium citrate [Calcitrate] 200 MG tablet 600 mg PO BID Qty: 0 RF: 0 pantoprazole 40 mg Tablet,Delayed Release (Dr/Ec) 40 mg PO DAILY RF: 0 magnesium 30 mg Tablet 60 mg PO DAILY PRN (Reason: Insomnia) RF: 0 Centrum Silver Women 8 mg iron-400 mcg-300 mcg Tablet 1 tab PO DAILY RF: 0 turmeric 400 mg Capsule 400 mg PO QMWFSU RF: 0 lisinopril 10 mg Tablet 10 mg PO DAILY RF: 0 oxycodone 10 mg tablet 10 mg PO Q4-6H PRN (Reason: pain) Qty: 60 RF: 0 fluticasone propionate 50 mcg/actuation spray,suspension 1 spray INTRANASAL DIRECTED RF: 0 potassium chloride 20 mEq tablet,ER particles/crystals 20 meq PO BID RF: 0 ranitidine HCl 150 mg tablet 150 mg PO BID RF: 0 ondansetron HCl 4 mg tablet 4 mg PO PRN PRN (Reason: Nausea) RF: 0 metoprolol succinate 100 mg tablet extended release 24 hr 100 mg PO BID RF: 0 chlorthalidone 25 mg tablet 50 mg PO DAILY RF: 0 lorazepam 0.5 mg tablet 0.5 mg PO BID RF: 0 lidocaine 5 % adhesive patch,medicated 1 patch topical DIRECTED RF: 0 codeine-guaifenesin [Guaiatussin AC] 10-100 mg/5 mL liquid 0 ml PO DIRECTED PRN (Reason: Cough) RF: 0 Fluarix Quad (PF) 60 mcg (15 mcg x 4)/0.5 mL syringe 0.5 ml IM .ONCE RF: 0 rosuvastatin [Crestor] 40 mg Tablet 40 mg PO DAILY RF: 0 nitroglycerin 0.4 mg Tablet, Sublingual 0.4 mg SUBLINGUAL Q5-15M PRN (Reason: Chest Pain) RF: 0 ascorbic acid (vitamin C) 500 mg Tablet 1,000 mg PO DAILY RF: 0 Vitamin D3 4,000 unit Capsule 12,000 unit PO DAILY RF: 0 biotin 5,000 mcg Tablet,Disintegrating 5,000 mcg PO DAILY RF: 0 Referrals: Tara Simons DO [Primary Care Provider] -
[2019-11-23] MEDS: NITROGLYCERIN 0.4 MG SL TAB SL (15:05)
--- NOTE | 2019-11-23 15:05 | DI.RAD.S_ITS ---
PROCEDURE: XR CHEST 1V INDICATIONS: Chest pain TECHNIQUE: One view of the chest was acquired. COMPARISON: [facility], CR, XR CHEST 1V, 02/05/2019, 3:08. FINDINGS: Surgical changes and devices: None. Lungs and pleura: Lungs are clear. No pleural effusions or pneumothorax. Mediastinum: Mediastinal contours appear normal. Heart size is normal. Bones and chest wall: No suspicious bony lesions. Overlying soft tissues appear unremarkable. IMPRESSION: Stable chest. No acute cardiopulmonary process is evident. Dictated by: Julio C Goldman M.D. on 11/23/2019 at 14:58 Approved by: Julio C Goldman M.D. on 11/23/2019 at 15:00
[2019-11-23 15:23] LABS: Add Manual Diff / Slide Review NO; Basophils Absolute Auto 100 /uL (0-100); Basophils Percent Auto 0.9 % (0-2); Eosinophils Absolute Auto 300 /uL (0-450); Hematocrit 37.1 % (36-46); Hemoglobin 12.7 g/dL (12.0-16.0); Lymphocytes Absolute Auto 1600 /uL (1100-4500); Lymphocytes Percent Auto 24.2 % (25-40); Mean Corpuscular HGB Conc 34.2 % (30-36); Mean Corpuscular Hemoglobin 32.2 PG (26-34); Mean Corpuscular Volume 94.2 fL (80-100); Monocytes Absolute Auto 800 /uL (0-900); Monocytes Percent Auto 11.6 % (3-14); Neutrophils Absolute Auto 3900 /uL (1500-7000); Neutrophils Percent Auto 58.3 % (50-75); Platelet Count 259 X10^3/uL (150-400); Red Blood Cell Count 3.94 X10^6/uL (4.0-5.2); Red Cell Distribution Width 12.6 % (11.6-14.8); White Blood Cell Count 6.7 X10^3/uL (4.5-11.0)
[2019-11-23 15:30] LABS: Prothrombin Time 11.8 SECONDS (10.1-12.7)
[2019-11-23 15:33] LABS: PTT Partial Thromboplastin Tim 29 SECONDS (26.4-36.2)
[2019-11-23] MEDS: ONDANSETRON 4 MG/2 ML INJ IV (15:40)
[2019-11-23 15:41] LABS: Alanine Aminotransferase 38 IU/L (<35); Albumin Globulin Ratio 1.3 (1.0-2.8); Alkaline Phosphatase 156 U/L (38-126); Aspartate Aminotransferase 54 IU/L (14-36); BUN Creatinine Ratio 27.1 (6-22); Bilirubin Total 0.3 mg/dL (0.2-1.3); Blood Urea Nitrogen 19 mg/dL (7-17); Calcium 9.4 mg/dL (8.4-10.2); Carbon Dioxide 32 mmol/L (22-32); Chloride 97 mmol/L (98-107); Estimated Glomerular Filt Rate > 60.0 mL/min (>60); Globulin 3.2 g/dL (1.7-4.1); Glucose 118 mg/dL (80-110); HEMOLYSIS 15 (0-50); Lipase 29 U/L (23-300); Potassium 3.5 mmol/L (3.4-5.1); Sodium 136 mmol/L (137-145); Total Protein 7.2 g/dL (6.3-8.2)
[2019-11-23 15:53] LABS: NT-proBNP (BNP-Adult 18+) 290 pg/mL (<125); Troponin I < 0.012 ng/mL (0.01-0.034)
[2019-11-23 15:56] LABS: Procalcitonin < 0.05 ng/mL (<0.5)
--- NOTE | 2019-11-23 16:25 | PC.NURSE ---
pt requests chap stick, pads, food, water, and blankets. Notified of NPO status. Provided with Chap stick and pads. Pt states she would like more to go home with. Informed her that I gave her two, if she needs more while she is here we can help her but we cannot give her additional to take home. Pt states she wants to talk to Dr. Pettit and notify him about her sinus's. I informed her that I already told him and he is with another pt and wants to check out her heart and chest pain first. Pt verbalizes understanding.
[2019-11-23 18:06] LABS: Troponin I < 0.012 ng/mL (0.01-0.034)
[2019-11-23] MEDS: ACETAMINOPHEN 325 MG TABLET 650 MG PO (18:30)
== END 2019-11-23 19:18 | disposition home or self-care (01) ==
PROVIDERS: Emergency Provider Emergency Medicine; Family Provider Anesthesiology Pain Medicine; PCP Family Medicine
DX: R42 Dizziness and giddiness (principal); R07.9 Chest pain, unspecified
CPT/HCPCS: 36415; 71045; 80053; 83690; 83880; 84145; 84484; 85025; 85610; 85730; 93005; 93010; 96374; 99284; J2405

== ENCOUNTER 2019-11-28 18:27 | Emergency (ER) | payer MEDICARE, OTHER, SELFPAY ==
[2019-10-25 21:07] VITALS: BMI 42.7
[2019-11-28 19:35] VITALS: BP 153/76; PULSE 86; RESP 18; TEMP 36.3; O2SAT 98; BMI 38.2
--- NOTE | 2019-11-28 19:46 | DI.RAD.S_ITS ---
PROCEDURE: XR CHEST 2V INDICATIONS: congested cough with SOB TECHNIQUE: 2 views of the chest were acquired. COMPARISON: [facility], CR, XR CHEST 1V, 02/05/2019, 3:08. [facility], CR, XR CHEST 1V, 11/23/2019, 15:36. FINDINGS: Surgical changes and devices: None. Lungs and pleura: Minimal streaky bibasilar opacities likely representing atelectasis. No focal consolidations. Lungs are otherwise clear. No pleural effusions or pneumothorax. Mediastinum: Mediastinal contours are normal. Heart size is normal. Bones and chest wall: No suspicious bony abnormalities. Soft tissues appear unremarkable. IMPRESSION: Stable examination of the chest without acute cardiopulmonary abnormalities. No focal consolidations. Dictated by: Elio Dasilva M.D. on 11/28/2019 at 21:37 Approved by: Elio Dasilva M.D. on 11/28/2019 at 21:38
[2019-11-28] MEDS: ERYTHROMYCIN OPHTH 1 GM OINT 1 APPLIC EYE-LEFT (20:48)
[2019-11-28] MEDS: ALBUTEROL HFA PREPACK 1 BOX MISC (20:49)
[2019-11-28] MEDS: AMOXICILLIN/CLAV 875/125 MG 1 TAB PO (20:49)
[2019-11-28 21:27] LABS: Add Manual Diff / Slide Review NO; Basophils Absolute Auto 0 /uL (0-100); Basophils Percent Auto 0.5 % (0-2); Eosinophils Absolute Auto 300 /uL (0-450); Hematocrit 40.1 % (36-46); Hemoglobin 13.6 g/dL (12.0-16.0); Lymphocytes Absolute Auto 1700 /uL (1100-4500); Lymphocytes Percent Auto 19.3 % (25-40); Mean Corpuscular HGB Conc 33.9 % (30-36); Mean Corpuscular Volume 94.5 fL (80-100); Monocytes Absolute Auto 800 /uL (0-900); Monocytes Percent Auto 9.3 % (3-14); Neutrophils Absolute Auto 5900 /uL (1500-7000); Neutrophils Percent Auto 67.9 % (50-75); Platelet Count 296 X10^3/uL (150-400); Red Blood Cell Count 4.25 X10^6/uL (4.0-5.2); Red Cell Distribution Width 13.2 % (11.6-14.8); White Blood Cell Count 8.6 X10^3/uL (4.5-11.0)
[2019-11-28 21:28] VITALS: BP 139/72
[2019-11-28] MEDS: NITROGLYCERIN 0.4 MG SL TAB SL ×2 (21:28→21:34)
[2019-11-28 21:30] LABS: INR 1.1 (0.9-1.3); Prothrombin Time 12.3 SECONDS (10.1-12.7)
[2019-11-28] MEDS: ASPIRIN 81 MG CHEW TAB 162 MG PO (21:31)
[2019-11-28 21:32] LABS: PTT Partial Thromboplastin Tim 27 SECONDS (26.4-36.2)
[2019-11-28] MEDS: ACETAMINOPHEN 325 MG TABLET 975 MG PO (21:33)
[2019-11-28 21:34] VITALS: BP 130/66; PULSE 88
[2019-11-28 21:34] LABS: Alanine Aminotransferase 23 IU/L (<35); Albumin 4.1 g/dL (3.5-5.0); Albumin Globulin Ratio 1.2 (1.0-2.8); Alkaline Phosphatase 141 U/L (38-126); Aspartate Aminotransferase 32 IU/L (14-36); BUN Creatinine Ratio 25.4 (6-22); Bilirubin Total 0.4 mg/dL (0.2-1.3); Blood Urea Nitrogen 16 mg/dL (7-17); Calcium 9.9 mg/dL (8.4-10.2); Carbon Dioxide 32 mmol/L (22-32); Chloride 98 mmol/L (98-107); Creatine Kinase 90 U/L (30-135); Estimated Glomerular Filt Rate > 60.0 mL/min (>60); Globulin 3.4 g/dL (1.7-4.1); Glucose 104 mg/dL (80-110); HEMOLYSIS < 15 (0-50); Lipase 23 U/L (23-300); Potassium 3.1 mmol/L (3.4-5.1); Sodium 137 mmol/L (137-145); Total Protein 7.5 g/dL (6.3-8.2)
[2019-11-28 21:43] VITALS: BP 127/61; PULSE 80; RESP 22; O2SAT 96
[2019-11-28 21:46] LABS: Troponin I < 0.012 ng/mL (0.01-0.034)
--- NOTE | 2019-11-28 21:59 | ED_ITS ---
HPI - URI/Sore Throat <KANWAL Ruggiero - Last Filed: 11/28/19 23:23> General Chief Complaint: Upper Respiratory Symptoms Stated Complaint: FEVER COUGH MUCUS Time Seen by Provider: 11/28/19 20:08 Source: patient Mode of arrival: Ambulatory Limitations: no limitations History of Present Illness HPI Narrative: This is a 69-year-old female, nonsmoker, who presents to ED with sore throat, cough, mild grade fever with T-max of 100.1?, body aches, nocturnal cough in supine position at nights. Patient also reports right ear pain and woke up with left eye who we discharge and itching sensation. Patient initially refused to talk during exam due to sore throat and she brought a note pad in with her illness progression information. Patient reports right flank discomfort and states as my right kidney is hurting. Patient states she initially had symptoms in November 17 and thought she was getting better but she had recurring symptoms last 5-6 days. Patient denies recent foreign travel, exposure to ill contact. patient reports she was seen in ED 5 days ago with vertigo and chest pain. She was discharged to home after she felt improved on the same day. Patient has history of 5 cardiac stents and angiogram, hypertension, GERD, hyperlipidemia, and she takes daily Plavix with baby aspirin. Related Data Home Medications Medication Instructions Recorded Confirmed clopidogrel [Plavix] 75 mg PO DAILY #0 04/23/13 11/23/19 duloxetine [Cymbalta] 60 mg PO DAILY #0 04/23/13 11/23/19 acetaminophen 650 mg PO Q6HP PRN #0 08/06/16 11/23/19 omega [id number]-fish oil [Fish Oil] 2 cap PO DAILY #0 08/06/16 11/23/19 vitamin B complex-folic acid 1 tab PO DAILY #0 08/06/16 11/23/19 [Super B Maxi Complex] calcium citrate [Calcitrate] 600 mg PO BID #0 04/19/17 11/23/19 Vitamin D3 12,000 unit PO DAILY 02/05/19 11/23/19 ascorbic acid (vitamin C) 1,000 mg PO DAILY 02/05/19 11/23/19 biotin 5,000 mcg PO DAILY 02/05/19 11/23/19 nitroglycerin 0.4 mg SUBLINGUAL Q5-15M PRN 02/05/19 11/23/19 rosuvastatin [Crestor] 40 mg PO DAILY 02/05/19 11/23/19 Centrum Silver Women 1 tab PO DAILY 10/10/19 11/23/19 magnesium 60 mg PO DAILY PRN 10/10/19 11/23/19 pantoprazole 40 mg PO DAILY 10/10/19 11/23/19 turmeric 400 mg PO QMWFSU 10/10/19 11/23/19 lisinopril 10 mg PO DAILY 10/25/19 11/23/19 chlorthalidone 50 mg PO DAILY 11/23/19 11/23/19 flu vacc [id number] 6mos up(PF) 0.5 ml IM .ONCE 11/23/19 11/23/19 [Fluarix Quad (PF)] fluticasone propionate 1 spray INTRANASAL DIRECTED 11/23/19 11/23/19 lidocaine 1 patch TOPICAL DIRECTED 11/23/19 11/23/19 lorazepam 0.5 mg PO BID 11/23/19 11/23/19 metoprolol succinate 100 mg PO BID 11/23/19 11/23/19 ondansetron HCl 4 mg PO PRN PRN 11/23/19 11/23/19 potassium chloride 20 meq PO BID 11/23/19 11/23/19 ranitidine HCl 150 mg PO BID 11/23/19 11/23/19 Previous Rx's Medication Instructions Recorded oxycodone 10 mg PO Q4-6H PRN #60 tab 10/27/19 amoxicillin-pot clavulanate 1 tab PO BID 7 Days #14 tab 11/28/19 codeine-guaifenesin 7.5 ml PO Q6H PRN #473 ml NS MDD 11/28/19 45ml per 24 hour period Allergies Allergy/AdvReac Type Severity Reaction Status Date / Time aripiprazole [From ABILIFY] Allergy Severe TREMORS, Verified 11/23/19 14:41 ANAPHYLAXIS bupropion [From WELLBUTRIN] AdvReac Severe HEADACHE Verified 11/23/19 14:41 citalopram [CITALOPRAM] AdvReac Intermediate headache, Verified 11/23/19 14:41 difficulty thinking indomethacin [INDOMETHACIN] AdvReac Intermediate GI UPSET Verified 11/23/19 14:41 phenobarbital [PHENOBARBITAL] AdvReac Intermediate DEPRESSION Verified 11/23/19 14:41 morphine [MORPHINE] AdvReac Mild 'LOOPY' Verified 11/23/19 14:41 PAPER TAPE Allergy Mild RASH Uncoded 11/23/19 14:41 DARVON AdvReac Severe SEVERE Uncoded 11/23/19 14:41 HEADACHE PRESTIQUE AdvReac Intermediate TREMORS Uncoded 11/23/19 14:41 Review of Systems <KANWAL Ruggiero - Last Filed: 11/28/19 23:23> Review of Systems Narrative: General: Denies (+) mild grade of fever, chills, (+) fatigue, malaise, sweats. HEENT: Denies sinus pain, (+) right ear pain, (+) sore throat, difficulty swallowing, dizziness. Respiratory: Denies dyspnea, (+) cough, wheezing, hemoptysis, sputum. Cardiovascular: Denies chest pain, palpitations, orthopnea, edema. Gastrointestinal: Denies nausea, vomiting, abdominal pain, diarrhea, constipation, melena. : Denies dysuria, frequency, incontinence, hematuria, urinary retention. Musculoskeletal: Denies weakness, joint pain or bony pain, (+) right thoracic pain. Skin: Denies rash, skin lesions, or other. Neurologic: Denies weakness, headache, numbness, change in speech, confusion, seizures, incoordination. Psychiatric: No concerning psychosocial issues. 12-point review of systems is negative except for those stated above. Patient History <KANWAL Ruggiero - Last Filed: 11/28/19 23:23> Medical History Arthritis of both hands (Acute) Balance problem (Acute) Bilateral hearing loss (Acute) Concussion (Acute) Coronary artery disease (Acute) Diabetes (Acute) GERD (gastroesophageal reflux disease) (Acute) Hyperlipidemia (Acute) Hypertension (Acute) Mild sleep apnea (Acute) Myocardial infarction (Acute) Paraesophageal hernia (Acute) Unstable angina (Acute) Surgical History H/O exploratory laparotomy (Acute ~2012) H/O heart artery stent (Acute) History of cardiac cath (Acute) History of total knee arthroplasty (Acute) History of total right hip arthroplasty (Acute) S/P foot surgery, left (Acute) S/P scar revision (Acute) Status post cataract extraction of both eyes with insertion of intraocular lens (Acute) Social History household members: spouse Smoking Status: Never smoker alcohol intake: current Smoking Status: Never smoker alcohol intake frequency: holidays/special occasions only Substance Use Type: marijuana Exam <KANWAL Ruggiero - Last Filed: 11/28/19 23:23> Narrative Exam Narrative: GEN: Alert, oriented x 3, well appearing and nourished, and in no acute distress. States the mask is causing symptoms claustrophobic. Head: Normal cephalic, atraumatic. No scalp or temporal tenderness, palpable mass or rash. EYES: Pupils are equal, round, and reactive to light and accommodation. Extraocular muscles are intact bilaterally. There is no subconjunctival he morrhage, left eye conjunctiva injection with mucoid exudate and sclera non- icteric. ENT: Bilateral auditory canals clear and right tympanic membranes injected and dull. Hearing grossly intact. Nose without bleeding, purulent discharge but erythematous and turbinate edema. Facial sinuses mildly tender and warm to palpate. Mucous membrane moist, no mucosal lesion. Throat without erythema, tonsillar hypertrophy or exudate. Uvula in midline, airway patent. Neck: Trachea in midline. No JVD, non-tender without lymphadenopathy. No masses or thyroid megaly. Supple, non-tender and no meningeal signs. CARDIAC: Normal regular rate and rhythm without murmurs, gallops, or rubs. No chest wall tenderness. No peripheral edema, cyanosis or pallor. Capillary refill is less than 2 seconds. RESPIRATORY: Lungs are clear to auscultate bilaterally but has wheezy cough. No rales, or rhonchi. No stridor, respiratory distress, increase work of breathing, or accessary muscle used. ABD: Abdomen soft, nontender and non-distended. No guarding or rebound tenderness to palpate. Bowel sounds are normal in all 4 quadrants. There is no palpable masses or organomegaly. EXT: Full painless ROM of all extremities with no loss of sensation, strength, effusion or edema. SKIN: Warm, dry, normal color for patient. No erythema, lesions or rash over visible areas. BACK: Nontender without deformity or crepitance. Right thoracic discomfort to palpate. No flank tenderness. NEUROLOGICAL: Alert and oriented to place, time and person. Sensation and motor function intact bilaterally. No facial droops, dysphasia. PSYCHIATRIC: Good judgement and reason, without hallucinations, abnormal affect or abnormal behaviors during the examination. Initial Vital Signs Initial Vital Signs: Vital Signs Temperature 97.3 F L 11/28/19 19:35 Pulse Rate 86 11/28/19 19:35 Respiratory Rate 18 11/28/19 19:35 Blood Pressure 153/76 H 11/28/19 19:35 Pulse Oximetry 98 11/28/19 19:35 <Whitney Winter DO - Last Filed: 11/29/19 03:35> Initial Vital Signs Initial Vital Signs: Vital Signs Temperature 97.3 F L 11/28/19 19:35 Pulse Rate 86 11/28/19 19:35 Respiratory Rate 18 11/28/19 19:35 Blood Pressure 153/76 H 11/28/19 19:35 Pulse Oximetry 98 11/28/19 19:35 Scores <KANWAL Ruggiero - Last Filed: 11/28/19 23:23> ABCD2 Citation: Centor score was -1. GCS Paige coma scale eye opening: Spontaneous [place] coma scale verbal response: Orientated [place] coma scale motor response: Obey commands [place] coma scale total score: 15 HEART Score Heart Score history: Slightly Suspicious Heart Score EKG: Normal Heart Score Age: > or = 65 years old Heart Score risk factors: > 3 risk factors or hx of atherosclerotic disease Heart Score troponin: < or = to normal limit Heart Score Total: 4 Course <KANWAL Ruggiero - Last Filed: 11/28/19 23:23> Orders Ordered: ED Orders 11/28/19 19:46 XR chest 2V Stat 11/28/19 19:50 Respiratory Panel (Film Array) Stat 11/28/19 20:50 EKG-12 Lead Stat 11/28/19 21:10 Complete Blood Count AUTO DIFF Stat Comprehensive Metabolic Panel Stat Lipase Stat NT-proBNP (BNP-Adult 18+) Stat Partial Thromboplastin Time Stat Prothrombin Time INR Stat Troponin & CK Cardiac Panel Stat Discontinued Medications Acetaminophen (Tylenol) 975 mg PO NOW ONE Stop: 11/28/19 21:31 Last Admin: 11/28/19 21:33 Dose: 975 mg Documented by: TAYLOR Albuterol (Ventolin Hfa Prepack) 1 box MISC SEEINSTR ONE Stop: 11/28/19 20:28 Last Admin: 11/28/19 20:49 Dose: 1 box Documented by: TAYLOR Amoxicillin/Clavulanate Potassium (Augmentin 875-125 Mg) 1 tab PO NOW ONE Stop: 11/28/19 20:28 Last Admin: 11/28/19 20:49 Dose: 1 tab Documented by: TAYLOR Aspirin (Aspirin Chew) 162 mg PO NOW ONE Stop: 11/28/19 21:17 Last Admin: 11/28/19 21:31 Dose: 162 mg Documented by: TAYLOR Erythromycin (Erythromycin Ophth Oint) 1 applic EYE-LEFT NOW ONE Stop: 11/28/19 20:34 Last Admin: 11/28/19 20:48 Dose: 1 applic Documented by: TAYLOR Nitroglycerin (Nitrostat) 0.4 mg SL [id number] PRN PRN Reason: Chest Pain Last Admin: 11/28/19 21:34 Dose: 0.4 mg Documented by: Admin: 11/28/19 21:28 Dose: 0.4 mg Documented by: TAYLOR Ondansetron HCl (Zofran) 4 mg IV NOW ONE Stop: 11/28/19 21:55 Last Admin: 11/28/19 22:02 Dose: 4 mg Documented by: TAYLOR Potassium Chloride (Klor-Con M20) 40 meq PO NOW ONE Stop: 11/28/19 21:51 Last Admin: 11/28/19 22:03 Dose: Not Given Documented by: TAYLOR Potassium Chloride (Klor-Con M20) 40 meq PO NOW ONE Stop: 11/28/19 21:55 Last Admin: 11/28/19 22:03 Dose: 40 meq Documented by: TAYLOR Vital Signs Vital signs: Vital Signs - 8 hr 11/28/19 19:35 11/28/19 21:28 11/28/19 21:34 Temperature 97.3 F L Pulse Rate 86 88 Respiratory Rate 18 Blood Pressure 153/76 H 139/72 130/66 Blood Pressure [Left Arm] Pulse Oximetry 98 11/28/19 21:43 11/28/19 23:03 Temperature Pulse Rate 80 77 Respiratory Rate 22 19 Blood Pressure Blood Pressure [Left Arm] 127/61 127/61 Pulse Oximetry 96 96 <Whitney Winter, - Last Filed: 11/29/19 03:35> Orders Ordered: ED Orders 11/28/19 19:46 XR chest 2V Stat 11/28/19 19:50 Respiratory Panel (Film Array) Stat 11/28/19 20:50 EKG-12 Lead Stat 11/28/19 21:10 Complete Blood Count AUTO DIFF Stat Comprehensive Metabolic Panel Stat Lipase Stat NT-proBNP (BNP-Adult 18+) Stat Partial Thromboplastin Time Stat Prothrombin Time INR Stat Troponin & CK Cardiac Panel Stat Discontinued Medications Acetaminophen (Tylenol) 975 mg PO NOW ONE Stop: 11/28/19 21:31 Last Admin: 11/28/19 21:33 Dose: 975 mg Documented by: TAYLOR Albuterol (Ventolin Hfa Prepack) 1 box MISC SEEINSTR ONE Stop: 11/28/19 20:28 Last Admin: 11/28/19 20:49 Dose: 1 box Documented by: TAYLOR Amoxicillin/Clavulanate Potassium (Augmentin 875-125 Mg) 1 tab PO NOW ONE Stop: 11/28/19 20:28 Last Admin: 11/28/19 20:49 Dose: 1 tab Documented by: TAYLOR Aspirin (Aspirin Chew) 162 mg PO NOW ONE Stop: 11/28/19 21:17 Last Admin: 11/28/19 21:31 Dose: 162 mg Documented by: TAYLOR Erythromycin (Erythromycin Ophth Oint) 1 applic EYE-LEFT NOW ONE Stop: 11/28/19 20:34 Last Admin: 11/28/19 20:48 Dose: 1 applic Documented by: TAYLOR Nitroglycerin (Nitrostat) 0.4 mg SL [id number] PRN PRN Reason: Chest Pain Last Admin: 11/28/19 21:34 Dose: 0.4 mg Documented by: Admin: 11/28/19 21:28 Dose: 0.4 mg Documented by: TAYLOR Ondansetron HCl (Zofran) 4 mg IV NOW ONE Stop: 11/28/19 21:55 Last Admin: 11/28/19 22:02 Dose: 4 mg Documented by: TAYLOR Potassium Chloride (Klor-Con M20) 40 meq PO NOW ONE Stop: 11/28/19 21:51 Last Admin: 11/28/19 22:03 Dose: Not Given Documented by: TAYLOR Potassium Chloride (Klor-Con M20) 40 meq PO NOW ONE Stop: 11/28/19 21:55 Last Admin: 11/28/19 22:03 Dose: 40 meq Documented by: TAYLOR Vital Signs Vital signs: Vital Signs - 8 hr 11/28/19 19:35 11/28/19 21:28 11/28/19 21:34 Temperature 97.3 F L Pulse Rate 86 88 Respiratory Rate 18 Blood Pressure 153/76 H 139/72 130/66 Blood Pressure [Left Arm] Pulse Oximetry 98 11/28/19 21:43 11/28/19 23:03 Temperature Pulse Rate 80 77 Respiratory Rate 22 19 Blood Pressure Blood Pressure [Left Arm] 127/61 127/61 Pulse Oximetry 96 96 MDM - URI/Sore Throat <KANWAL Ruggiero - Last Filed: 11/28/19 23:23> Differential Diagnosis Differential diagnosis: Likely upper respiratory infection, otitis media, sinusitis, viral infection, bronchitis, influenza and pharyngitis Medical Records Attestation: I reviewed the patient's medical records. Lab Data Attestation: I reviewed the patient's lab results. Result diagrams: 11/28/19 21:10 11/28/19 21:10 Labs: Lab Results 11/28/19 11/28/19 11/28/19 Range/Units 19:50 21:10 21:10 WBC 8.6 (4.5-11.0) X10^3/uL RBC 4.25 (4.0-5.2) X10^6/uL Hgb 13.6 (12.0-16.0) g/dL Hct 40.1 (36-46) % MCV 94.5 (80-100) fL MCH 32.0 (26-34) PG MCHC 33.9 (30-36) % RDW 13.2 (11.6-14.8) % Plt Count 296 (150-400) X10^3/uL Neut % (Auto) 67.9 (50-75) % Lymph % (Auto) 19.3 L (25-40) % Fleming % (Auto) 9.3 (3-14) % Eos % (Auto) 3.0 (2-4) % Baso % (Auto) 0.5 (0-2) % Neut # (Auto) 5900 (2445-9210) /uL Lymph # (Auto) 1700 (2218-0990) /uL Fleming # (Auto) 800 (0-900) /uL Eos # (Auto) 300 (0-450) /uL Baso # (Auto) 0 (0-100) /uL PT 12.3 (10.1-12.7) SECONDS INR 1.1 (0.9-1.3) APTT 27 D (26.4-36.2) SECONDS Sodium (137-145) mmol/L Potassium (3.4-5.1) mmol/L Chloride (98-107) mmol/L Carbon Dioxide (22-32) mmol/L BUN (7-17) mg/dL Creatinine (0.52-1.04) mg/dL Estimated GFR (>60) mL/min BUN/Creatinine Ratio (6-22) Glucose (80-110) mg/dL Calcium (8.4-10.2) mg/dL Total Bilirubin (0.2-1.3) mg/dL AST (14-36) IU/L ALT (<35) IU/L Alkaline Phosphatase (38-126) U/L Total Creatine Kinase (30-135) U/L CK-MB (CK-2) CK-MB (CK-2) Rel Index Troponin I (0.01-0.034) ng/mL NT-Pro-B Natriuret Pep (<125) pg/mL Total Protein (6.3-8.2) g/dL Albumin (3.5-5.0) g/dL Globulin (1.7-4.1) g/dL Albumin/Globulin Ratio (1.0-2.8) Lipase (23-300) U/L Chlamy pneumoniae PCR Not detected (Not Detect) Adenovirus (PCR) Not detected (Not Detect) B.parapertussis DNA PCR Not detected (Not Detect) Coronavirus OC43 (PCR) Not detected (Not Detect) Coronavirus HKU1 (PCR) Not detected (Not Detect) Coronavirus 229E (PCR) Not detected (Not Detect) Coronavirus NL63 (PCR) Not detected (Not Detect) Human Metapneumovir PCR Not detected (Not Detect) Influenza Type A (PCR) Not detected (Not Detect) Influenza Type B (PCR) Not detected (Not Detect) M. pneumoniae (PCR) Not detected (Not Detect) Parainfluenza 1 (PCR) Not detected (Not Detect) Parainfluenza 2 (PCR) Not detected (Not Detect) Parainfluenza 3 (PCR) Not detected (Not Detect) Parainfluenza 4 (PCR) Not detected (Not Detect) RSV (PCR) Not detected (Not Detect) Entero/Rhino (PCR) Not detected (Not Detect) 11/28/19 11/28/19 Range/Units 21:10 21:10 WBC (4.5-11.0) X10^3/uL RBC (4.0-5.2) X10^6/uL Hgb (12.0-16.0) g/dL Hct (36-46) % MCV (80-100) fL MCH (26-34) PG MCHC (30-36) % RDW (11.6-14.8) % Plt Count (150-400) X10^3/uL Neut % (Auto) (50-75) % Lymph % (Auto) (25-40) % Fleming % (Auto) (3-14) % Eos % (Auto) (2-4) % Baso % (Auto) (0-2) % Neut # (Auto) (7147-1470) /uL Lymph # (Auto) (9976-5050) /uL Fleming # (Auto) (0-900) /uL Eos # (Auto) (0-450) /uL Baso # (Auto) (0-100) /uL PT (10.1-12.7) SECONDS INR (0.9-1.3) APTT (26.4-36.2) SECONDS Sodium 137 (137-145) mmol/L Potassium 3.1 L (3.4-5.1) mmol/L Chloride 98 (98-107) mmol/L Carbon Dioxide 32 (22-32) mmol/L BUN 16 (7-17) mg/dL Creatinine 0.63 (0.52-1.04) mg/dL Estimated GFR > 60.0 (>60) mL/min BUN/Creatinine Ratio 25.4 H (6-22) Glucose 104 (80-110) mg/dL Calcium 9.9 (8.4-10.2) mg/dL Total Bilirubin 0.4 (0.2-1.3) mg/dL AST 32 (14-36) IU/L ALT 23 (<35) IU/L Alkaline Phosphatase 141 H (38-126) U/L Total Creatine Kinase 90 (30-135) U/L CK-MB (CK-2) TNP CK-MB (CK-2) Rel Index TNP Troponin I < 0.012 (0.01-0.034) ng/mL NT-Pro-B Natriuret Pep 175 H (<125) pg/mL Total Protein 7.5 (6.3-8.2) g/dL Albumin 4.1 (3.5-5.0) g/dL Globulin 3.4 (1.7-4.1) g/dL Albumin/Globulin Ratio 1.2 (1.0-2.8) Lipase 23 (23-300) U/L Chlamy pneumoniae PCR (Not Detect) Adenovirus (PCR) (Not Detect) B.parapertussis DNA PCR (Not Detect) Coronavirus OC43 (PCR) (Not Detect) Coronavirus HKU1 (PCR) (Not Detect) Coronavirus 229E (PCR) (Not Detect) Coronavirus NL63 (PCR) (Not Detect) Human Metapneumovir PCR (Not Detect) Influenza Type A (PCR) (Not Detect) Influenza Type B (PCR) (Not Detect) M. pneumoniae (PCR) (Not Detect) Parainfluenza 1 (PCR) (Not Detect) Parainfluenza 2 (PCR) (Not Detect) Parainfluenza 3 (PCR) (Not Detect) Parainfluenza 4 (PCR) (Not Detect) RSV (PCR) (Not Detect) Entero/Rhino (PCR) (Not Detect) Urine Dip Bedside Urine Glucose Negative Bedside Urine Bilirubin - Negative Bedside Urine Ketone - Negative Urine Specific [place] 1.015 Bedside Urine Occult Blood - Negative Bedside Urine pH 7.0 Bedside Urine Protein - Negative Bedside Urine Urobilinogen - Negative Bedside Urine Nitrite - Negative Bedside Urine Leukocytes - Negative Esterase Imaging Data Chest x-ray: Radiologist's Impression: [address] [address] XRay Report Signed Patient: Nora Gil ZMR#: [id number] : 9Acct:[id number] Age/Sex: 69 / FDate of Service: 11/28/19 Loc: ED Accession Number: [id number] Procedure: XR chest 2V Ordering Provider: Whitney Winter D.O. PROCEDURE: XR CHEST 2V INDICATIONS: congested cough with SOB TECHNIQUE: 2 views of the chest were acquired. COMPARISON: [facility], CR, XR CHEST 1V, 02/05/2019, 3:08. [facility], CR, XR CHEST 1V, 11/23/2019, 15:36. FINDINGS: Surgical changes and devices: None. Lungs and pleura: Minimal streaky bibasilar opacities likely representing atelectasis. No focal consolidations. Lungs are otherwise clear. No pleural effusions or pneumothorax. Mediastinum: Mediastinal contours are normal. Heart size is normal. Bones and chest wall: No suspicious bony abnormalities. Soft tissues appear unremarkable. IMPRESSION: Stable examination of the chest without acute cardiopulmonary abnormalities. No focal consolidations. Dictated by: Elio Dasilva M.D. on 11/28/2019 at 21:37 Approved by: Elio Dasilva M.D. on 11/28/2019 at 21:38 ECG Data Attestation: I personally reviewed and interpreted this ECG as follows: Prior ECG tracings: available for review Interpretation: Sinus rhythm rate at 79. ID int 170, QRS dur 66, QT/QTc 390/447. No ST elevation. Left [place] dominant. Nonspecific ST and T-wave abnormality No changes from the previous EKGs MDM Narrative Medical decision making narrative: This is a 69 year old female who presents to ED with upper respiratory infection symptoms and reports initial onset was about 2 weeks ago with some improvement then had double sickening. Patient's lung sounds were clear to auscultate but had wheezy cough without increased work of breathing. Patient reports low-grade or fever at home. Physical exam indicates right otitis media with injection and dull appearing TM. Left eye with conjunctivitis with injection, itching and mucoid discharge. Urine test does not indicate infection. Patient's complain of right thoracic pain was rep roducible by palpation and is likely due to frequent coughing. Chest x-ray does not show acute findings such as pneumonia but atelectasis. Centor score was -1 and negative respiratory virus panel. When patient was preparing for discharge to home with prepack teaching with home spacer and albuterol MDI, patient complained of reproducible left-sided chest pain and jaw pain. EKG was obtained and shows sinus rhythm without ST elevation. First cardiac enzyme was negative. Patient has hypokalemia of 3.1 which has been replaced with 40 mEq of KCl. Patient has nocturnal cough and difficulty with sleeping but BNP was unremarkable. Labs were assuring with no leukocytosis. Patient was treated with Augmentin for otitis media and erythromycin eye ointment and provided to patient use in next 5-7 days 4 times a day. Patient was treated with nitroglycerin 1 spray and Tylenol for post headache and provided 2 baby aspirin for chest pain. Patient declines to stay longer for 2nd troponin lab test. Given patient was here 5 days ago with similar symptoms and had 2 troponins were drawn with negative results. She has a follow-up appointment with [facility] and states she will return to ED if chest pain recurs or worsens. Patient requested to go home with codeine mixed cough syrups. Return precautions were discussed with the patient and advised to follow up with PCP in a couple of days . Patient verbalized understanding and agreement with the treatment plan. <Whitney Winter, - Last Filed: 11/29/19 03:35> Lab Data Labs: Lab Results 11/28/19 11/28/19 11/28/19 Range/Units 19:50 21:10 21:10 WBC 8.6 (4.5-11.0) X10^3/uL RBC 4.25 (4.0-5.2) X10^6/uL Hgb 13.6 (12.0-16.0) g/dL Hct 40.1 (36-46) % MCV 94.5 (80-100) fL MCH 32.0 (26-34) PG MCHC 33.9 (30-36) % RDW 13.2 (11.6-14.8) % Plt Count 296 (150-400) X10^3/uL Neut % (Auto) 67.9 (50-75) % Lymph % (Auto) 19.3 L (25-40) % Fleming % (Auto) 9.3 (3-14) % Eos % (Auto) 3.0 (2-4) % Baso % (Auto) 0.5 (0-2) % Neut # (Auto) 5900 (0660-5342) /uL Lymph # (Auto) 1700 (8225-6458) /uL Fleming # (Auto) 800 (0-900) /uL Eos # (Auto) 300 (0-450) /uL Baso # (Auto) 0 (0-100) /uL PT 12.3 (10.1-12.7) SECONDS INR 1.1 (0.9-1.3) APTT 27 D (26.4-36.2) SECONDS Sodium (137-145) mmol/L Potassium (3.4-5.1) mmol/L Chloride (98-107) mmol/L Carbon Dioxide (22-32) mmol/L BUN (7-17) mg/dL Creatinine (0.52-1.04) mg/dL Estimated GFR (>60) mL/min BUN/Creatinine Ratio (6-22) Glucose (80-110) mg/dL Calcium (8.4-10.2) mg/dL Total Bilirubin (0.2-1.3) mg/dL AST (14-36) IU/L ALT (<35) IU/L Alkaline Phosphatase (38-126) U/L Total Creatine Kinase (30-135) U/L CK-MB (CK-2) CK-MB (CK-2) Rel Index Troponin I (0.01-0.034) ng/mL NT-Pro-B Natriuret Pep (<125) pg/mL Total Protein (6.3-8.2) g/dL Albumin (3.5-5.0) g/dL Globulin (1.7-4.1) g/dL Albumin/Globulin Ratio (1.0-2.8) Lipase (23-300) U/L Chlamy pneumoniae PCR Not detected (Not Detect) Adenovirus (PCR) Not detected (Not Detect) B.parapertussis DNA PCR Not detected (Not Detect) Coronavirus OC43 (PCR) Not detected (Not Detect) Coronavirus HKU1 (PCR) Not detected (Not Detect) Coronavirus 229E (PCR) Not detected (Not Detect) Coronavirus NL63 (PCR) Not detected (Not Detect) Human Metapneumovir PCR Not detected (Not Detect) Influenza Type A (PCR) Not detected (Not Detect) Influenza Type B (PCR) Not detected (Not Detect) M. pneumoniae (PCR) Not detected (Not Detect) Parainfluenza 1 (PCR) Not detected (Not Detect) Parainfluenza 2 (PCR) Not detected (Not Detect) Parainfluenza 3 (PCR) Not detected (Not Detect) Parainfluenza 4 (PCR) Not detected (Not Detect) RSV (PCR) Not detected (Not Detect) Entero/Rhino (PCR) Not detected (Not Detect) 11/28/19 11/28/19 Range/Units 21:10 21:10 WBC (4.5-11.0) X10^3/uL RBC (4.0-5.2) X10^6/uL Hgb (12.0-16.0) g/dL Hct (36-46) % MCV (80-100) fL MCH (26-34) PG MCHC (30-36) % RDW (11.6-14.8) % Plt Count (150-400) X10^3/uL Neut % (Auto) (50-75) % Lymph % (Auto) (25-40) % Fleming % (Auto) (3-14) % Eos % (Auto) (2-4) % Baso % (Auto) (0-2) % Neut # (Auto) (9103-0309) /uL Lymph # (Auto) (6261-1610) /uL Fleming # (Auto) (0-900) /uL Eos # (Auto) (0-450) /uL Baso # (Auto) (0-100) /uL PT (10.1-12.7) SECONDS INR (0.9-1.3) APTT (26.4-36.2) SECONDS Sodium 137 (137-145) mmol/L Potassium 3.1 L (3.4-5.1) mmol/L Chloride 98 (98-107) mmol/L Carbon Dioxide 32 (22-32) mmol/L BUN 16 (7-17) mg/dL Creatinine 0.63 (0.52-1.04) mg/dL Estimated GFR > 60.0 (>60) mL/min BUN/Creatinine Ratio 25.4 H (6-22) Glucose 104 (80-110) mg/dL Calcium 9.9 (8.4-10.2) mg/dL Total Bilirubin 0.4 (0.2-1.3) mg/dL AST 32 (14-36) IU/L ALT 23 (<35) IU/L Alkaline Phosphatase 141 H (38-126) U/L Total Creatine Kinase 90 (30-135) U/L CK-MB (CK-2) TNP CK-MB (CK-2) Rel Index TNP Troponin I < 0.012 (0.01-0.034) ng/mL NT-Pro-B Natriuret Pep 175 H (<125) pg/mL Total Protein 7.5 (6.3-8.2) g/dL Albumin 4.1 (3.5-5.0) g/dL Globulin 3.4 (1.7-4.1) g/dL Albumin/Globulin Ratio 1.2 (1.0-2.8) Lipase 23 (23-300) U/L Chlamy pneumoniae PCR (Not Detect) Adenovirus (PCR) (Not Detect) B.parapertussis DNA PCR (Not Detect) Coronavirus OC43 (PCR) (Not Detect) Coronavirus HKU1 (PCR) (Not Detect) Coronavirus 229E (PCR) (Not Detect) Coronavirus NL63 (PCR) (Not Detect) Human Metapneumovir PCR (Not Detect) Influenza Type A (PCR) (Not Detect) Influenza Type B (PCR) (Not Detect) M. pneumoniae (PCR) (Not Detect) Parainfluenza 1 (PCR) (Not Detect) Parainfluenza 2 (PCR) (Not Detect) Parainfluenza 3 (PCR) (Not Detect) Parainfluenza 4 (PCR) (Not Detect) RSV (PCR) (Not Detect) Entero/Rhino (PCR) (Not Detect) Urine Dip Bedside Urine Glucose Negative Bedside Urine Bilirubin - Negative Bedside Urine Ketone - Negative Urine Specific [place] 1.015 Bedside Urine Occult Blood - Negative Bedside Urine pH 7.0 Bedside Urine Protein - Negative Bedside Urine Urobilinogen - Negative Bedside Urine Nitrite - Negative Bedside Urine Leukocytes - Negative Esterase Discharge Plan Departure Patient Disposition: Home Clinical Impression: Acute upper respiratory infection, Hypokalemia, Atypical chest pain Otitis media Qualifiers: Otitis media type: unspecified Laterality: right Qualified Code(s): H66.91 - Otitis media, unspecified, right ear Conjunctivitis Qualifiers: Conjunctivitis type: unspecified Laterality: left Qualified Code(s): H10.9 - Unspecified conjunctivitis Discharge Date/Time: 11/28/19 23:27 Instructions: DI for Conjunctivitis, DI for Viral Upper Respiratory Infection -- Adult, DI for Atypical Chest Pain, DI for Hypokalemia, DI for Middle Ear Infection-Adult Activity Restrictions/Additional Instructions: You have been diagnosed with [upper respiratory infection, otitis media in right ear and conjunctivitis in left eye. EKG is normal w/o changes from the previous ones. Negative cardiac enzymes today. Chest x-ray does not show acute findings such as pneumonia. Respiratory panel swab was negative including flu. There was no increase in WBC indicating infection. Chemistry test was unremarkable except mildly decreased potassium level as 3.1 which your received replacement with 40 mEQ orally. Heart failure indicator was unremarkable. You were given 1st dose of Augmentin and erythromycin eye ointment. Please use albuterol inhaler as needed for frequent coughing, chest tightness, and wheezing with spacer that has been provided to you. Eat potassium rich foods]. What to do: *Take your medications as directed. Continue with Augmentin for next 7 days twice a day. You can take codeine with guaifenesin as needed up to 4 times a day. This medication will cause drowsiness so please take precautions not to drive, drink alcohol, or operate heavy equipments. It can also cause constipation so please increase hydration. Please use good hand hygiene to prevent transmitting illness to others. Increase rest and take uepj-pig-yhujord Tylenol as needed for discomfort or fever. These medications were transmitted to [facility] in [place]. *Follow up with your primary care provider and globe tester in 2-3 days, call for an appointment. Let them know you were seen in the ED and that we asked you to be seen in follow up. *Return to ED if you have any new, worsening, or concerning symptoms, such as [increasing chest pain, different chest pain, breathing difficulty, fever, able to tolerate medications, or any acute concerns]. Prescriptions: New amoxicillin-pot clavulanate 875-125 mg tablet 1 tab PO BID 7 Days Qty: 14 RF: 0 codeine-guaifenesin 7.5-225 mg/5 mL liquid 7.5 ml PO Q6H MDD 45ml per 24 hour period PRN (Reason: cough) Qty: 473 RF: 0 Discontinued codeine-guaifenesin [Guaiatussin AC] 10-100 mg/5 mL liquid 0 ml PO DIRECTED PRN (Reason: Cough) RF: 0 No Action clopidogrel [Plavix] 75 MG tablet 75 mg PO DAILY Qty: 0 RF: 0 duloxetine [Cymbalta] 60 MG capsule,delayed release(DR/EC) 60 mg PO DAILY Qty: 0 RF: 0 vitamin B complex-folic acid [Super B Maxi Complex] 0.4 mg Tablet 1 tab PO DAILY Qty: 0 RF: 0 omega 7-qbg-dzh-fish oil [Fish Oil] 1,000 mg (120 mg-180 mg) Capsule 2 cap PO DAILY Qty: 0 RF: 0 acetaminophen 325 MG tablet 650 mg PO Q6HP PRN (Reason: Pain (Scale Score 1-3)) Qty: 0 RF: 0 calcium citrate [Calcitrate] 200 MG tablet 600 mg PO BID Qty: 0 RF: 0 pantoprazole 40 mg Tablet,Delayed Release (Dr/Ec) 40 mg PO DAILY RF: 0 magnesium 30 mg Tablet 60 mg PO DAILY PRN (Reason: Insomnia) RF: 0 Centrum Silver Women 8 mg iron-400 mcg-300 mcg Tablet 1 tab PO DAILY RF: 0 turmeric 400 mg Capsule 400 mg PO QMWFSU RF: 0 lisinopril 10 mg Tablet 10 mg PO DAILY RF: 0 oxycodone 10 mg tablet 10 mg PO Q4-6H PRN (Reason: pain) Qty: 60 RF: 0 fluticasone propionate 50 mcg/actuation spray,suspension 1 spray INTRANASAL DIRECTED RF: 0 potassium chloride 20 mEq tablet,ER particles/crystals 20 meq PO BID RF: 0 ranitidine HCl 150 mg tablet 150 mg PO BID RF: 0 ondansetron HCl 4 mg tablet 4 mg PO PRN PRN (Reason: Nausea) RF: 0 metoprolol succinate 100 mg tablet extended release 24 hr 100 mg PO BID RF: 0 chlorthalidone 25 mg tablet 50 mg PO DAILY RF: 0 lorazepam 0.5 mg tablet 0.5 mg PO BID RF: 0 lidocaine 5 % adhesive patch,medicated 1 patch topical DIRECTED RF: 0 Fluarix Quad (PF) 60 mcg (15 mcg x 4)/0.5 mL syringe 0.5 ml IM .ONCE RF: 0 rosuvastatin [Crestor] 40 mg Tablet 40 mg PO DAILY RF: 0 nitroglycerin 0.4 mg Tablet, Sublingual 0.4 mg SUBLINGUAL Q5-15M PRN (Reason: Chest Pain) RF: 0 ascorbic acid (vitamin C) 500 mg Tablet 1,000 mg PO DAILY RF: 0 Vitamin D3 4,000 unit Capsule 12,000 unit PO DAILY RF: 0 biotin 5,000 mcg Tablet,Disintegrating 5,000 mcg PO DAILY RF: 0 Referrals: Tara Simons DO [Primary Care Provider] -
[2019-11-28] MEDS: ONDANSETRON 4 MG/2 ML INJ IV (22:02)
[2019-11-28] MEDS: POTASSIUM CHLORIDE 20 MEQ TAB 40 MEQ PO (22:03)
[2019-11-28 22:09] LABS: Adenovirus Not Detected (Not Detect); Bordetella pertussis Not Detected (Not Detect); Chlamydophila pneumoniae Not Detected (Not Detect); Coronavirus 229E Not Detected (Not Detect); Coronavirus HKU1 Not Detected (Not Detect); Coronavirus NL 63 Not Detected (Not Detect); Coronavirus OC43 Not Detected (Not Detect); Human Metapneumovirus Not Detected (Not Detect); Human Rhinovirus/Enterovirus Not Detected (Not Detect); Influenza A Not Detected (Not Detect); Influenza B Not Detected (Not Detect); Mycoplasma pneumoniae Not Detected (Not Detect); Parainfluenza Virus 1 Not Detected (Not Detect); Parainfluenza Virus 2 Not Detected (Not Detect); Parainfluenza Virus 3 Not Detected (Not Detect); Parainfluenza Virus 4 Not Detected (Not Detect); Respiratory Syncytial Virus Not Detected (Not Detect)
[2019-11-28 22:24] LABS: NT-proBNP (BNP-Adult 18+) 175 pg/mL (<125)
[2019-11-28 23:03] VITALS: BP 127/61; PULSE 77; RESP 19; O2SAT 96
== END 2019-11-28 23:27 | disposition home or self-care (01) ==
PROVIDERS: Emergency Medicine; Emergency Provider Nurse Practitioner Family; Family Provider Anesthesiology Pain Medicine; PCP Family Medicine
DX: J06.9 Acute upper respiratory infection, unspecified (principal); E87.6 Hypokalemia; R07.89 Other chest pain; H66.91 Otitis media, unspecified, right ear; H10.9 Unspecified conjunctivitis; Z95.5 Presence of coronary angioplasty implant and graft; I10 Essential (primary) hypertension; K21.9 Gastro-esophageal reflux disease without esophagitis; E78.5 Hyperlipidemia, unspecified; Z79.82 Long term (current) use of aspirin
CPT/HCPCS: 36415; 71046; 80053; 81003; 82550; 83690; 83880; 84484; 85025; 85610; 85730; 87633; 93005; 93010; 96374; 99285; J2405

== ENCOUNTER 2019-12-22 16:05 | Emergency (ER) | payer MEDICARE, OTHER, SELFPAY ==
[2019-10-25 21:07] VITALS: BMI 42.7
[2019-12-22 16:15] VITALS: BP 162/76; PULSE 70; RESP 17; TEMP 36.8; O2SAT 100
--- NOTE | 2019-12-22 16:26 | DI.RAD.S_ITS ---
PROCEDURE: XR CHEST 1V INDICATIONS: Short of breath TECHNIQUE: One view of the chest was acquired. COMPARISON: [facility], CR, XR CHEST 1V, 02/05/2019, 3:08. [facility], CR, XR CHEST 1V, 11/23/2019, 15:36. [facility], CR, XR CHEST 2V, 11/28/2019, 19:42. FINDINGS: Surgical changes and devices: None. Lungs and pleura: Lungs are clear. No pleural effusions or pneumothorax. Mediastinum: The cardiac contours are within normal limits. The aorta demonstrates calcification and tortuosity. Bones and chest wall: Age-appropriate bony degenerative changes are seen. No suspicious bony lesions. Overlying soft tissues appear unremarkable. IMPRESSION: Portable chest within normal limits. Dictated by: Gerardo Rosario M.D. on 12/22/2019 at 16:05 Approved by: Gerardo Rosario M.D. on 12/22/2019 at 16:06
[2019-12-22 16:30] VITALS: BP 115/72; PULSE 68; RESP 20; O2SAT 98
--- NOTE | 2019-12-22 17:10 | ED.GENADULT ---
HPI - General Adult General Chief complaint: Shortness of Breath/Dyspnea Stated complaint: chest pain, thinks lungs, SOB Time Seen by Provider: 12/22/19 16:25 Source: patient Mode of arrival: Ambulatory Limitations: no limitations History of Present Illness HPI narrative: 69-year-old female here for evaluation of chest pain, sore throat, left ear pain and concern for sinus infection. Patient was just recently admitted to hospital and had stress test and echocardiogram which she states was negative. Was also tested for COVID which he states was negative. She was just recently started on antibiotics for her sinus infection and ear pain. States the pain is epigastric region. Has not tried anything for the symptoms prior to arrival. Related Data Home Medications Medication Instructions Recorded Confirmed omega 0-rsc-awa-fish oil [Fish Oil] 2 cap PO DAILY #0 08/06/16 12/22/19 vitamin B complex-folic acid 1 tab PO DAILY #0 08/06/16 12/22/19 [Super B Maxi Complex] calcium citrate [Calcitrate] 600 mg PO BID #0 04/19/17 12/22/19 Vitamin D3 12,000 unit PO DAILY 02/05/19 12/22/19 ascorbic acid (vitamin C) 1,000 mg PO DAILY 02/05/19 12/22/19 rosuvastatin [Crestor] 40 mg PO DAILY 02/05/19 12/22/19 Centrum Silver Women 1 tab PO DAILY 10/10/19 12/22/19 magnesium 60 mg PO DAILY PRN 10/10/19 12/22/19 pantoprazole 40 mg PO DAILY 10/10/19 12/22/19 turmeric 400 mg PO QMWFSU 10/10/19 12/22/19 lisinopril 10 mg PO DAILY 10/25/19 12/22/19 chlorthalidone 50 mg PO DAILY 11/23/19 12/22/19 metoprolol succinate 100 mg PO BID 11/23/19 12/22/19 potassium chloride 20 meq PO BID 11/23/19 12/22/19 amoxicillin 500 mg PO BID 12/22/19 12/22/19 aspirin [Adult Low Dose Aspirin] 81 mg PO DAILY 12/22/19 12/22/19 clopidogrel 75 mg PO DAILY 12/22/19 12/22/19 codeine-guaifenesin 5 ml PO DAILY 12/22/19 12/22/19 duloxetine 60 mg PO DAILY 12/22/19 12/22/19 Previous Rx's Medication Instructions Recorded ondansetron 4 mg PO Q6H PRN #10 tab 12/22/19 Allergies Allergy/AdvReac Type Severity Reaction Status Date / Time aripiprazole [From ABILIFY] Allergy Severe TREMORS, Verified 12/22/19 16:50 ANAPHYLAXIS bupropion [From WELLBUTRIN] AdvReac Severe HEADACHE Verified 12/22/19 16:50 propoxyphene AdvReac Severe Headache Verified 12/22/19 18:27 citalopram [CITALOPRAM] AdvReac Intermediate headache, Verified 12/22/19 16:50 difficulty thinking desvenlafaxine [From Pristiq] AdvReac Intermediate Shakiness Verified 12/22/19 18:27 indomethacin [INDOMETHACIN] AdvReac Intermediate GI UPSET Verified 12/22/19 16:50 phenobarbital [PHENOBARBITAL] AdvReac Intermediate DEPRESSION Verified 12/22/19 16:50 morphine [MORPHINE] AdvReac Mild 'LOOPY' Verified 12/22/19 16:50 PAPER TAPE Allergy Mild RASH Uncoded 12/22/19 16:50 Review of Systems Constitutional Constitutional: Denies fever(s) and Denies headache(s) ENT Ears, Nose, Mouth, and Throat: Denies headache(s) and Reports sore throat Comments: Left ear pain Cardiovascular Cardiovascular: Reports chest pain and Denies dyspnea Respiratory Respiratory: Denies cough and Denies dyspnea Gastrointestinal Gastrointestinal: Denies abdominal pain and Denies vomiting Musculoskeletal Musculoskeletal: Denies myalgias and Denies arthralgias Integumentary/Breasts Skin/Breast: Denies lesions and Denies rash Neurologic Neurologic: Denies behavioral changes and Denies headache(s) Psychiatric Psychiatric: Denies behavioral changes Hematologic/Lymphatic Hematologic/Lymphatic: Denies easy bleeding and Denies easy bruising Patient History Medical History Arthritis of both hands (Acute) Balance problem (Acute) Bilateral hearing loss (Acute) Concussion (Acute) Coronary artery disease (Acute) Diabetes (Acute) GERD (gastroesophageal reflux disease) (Acute) Hyperlipidemia (Acute) Hypertension (Acute) Mild sleep apnea (Acute) Myocardial infarction (Acute) Paraesophageal hernia (Acute) Unstable angina (Acute) Surgical History H/O exploratory laparotomy (Acute ~2012) H/O heart artery stent (Acute) History of cardiac cath (Acute) History of total knee arthroplasty (Acute) History of total right hip arthroplasty (Acute) S/P foot surgery, left (Acute) S/P scar revision (Acute) Status post cataract extraction of both eyes with insertion of intraocular lens (Acute) Social History household members: spouse Smoking Status: Never smoker alcohol intake: current Smoking Status: Never smoker alcohol intake frequency: holidays/special occasions only Substance Use Type: marijuana Exam Initial Vital Signs Initial Vital Signs: Vital Signs Temperature 98.2 F 12/22/19 16:15 Pulse Rate 70 12/22/19 16:15 Respiratory Rate 17 12/22/19 16:15 Blood Pressure 162/76 H 12/22/19 16:15 Pulse Oximetry 100 12/22/19 16:15 Const General: cooperative, comfortable and well developed Limitations: mental status not altered HENMT Head: normal to inspection and normocephalic Ears: TM's normal bilaterally Resp Effort & Inspection: normal respiratory effort Auscultation: clear to auscultation bilaterally Cardio Rate: regular rate Rhythm: regular rhythm GI Inspection: non-distended Palpation: soft Skin Lesions: no lesions Rashes: no rashes Neuro General: alert and awake Cognition: normal cognition Speech: speech normal Extrem General: normal to inspection and capillary refill normal Scores GCS Paige coma scale eye opening: Spontaneous [place] coma scale verbal response: Orientated [place] coma scale motor response: Obey commands Paige coma scale total score: 15 Course Orders Ordered: ED Orders 12/22/19 16:26 XR chest 1V Stat EKG-12 Lead Stat 12/22/19 18:14 Basic Metabolic Panel Stat Complete Blood Count AUTO DIFF Stat Discontinued Medications Nitroglycerin (Nitrostat) 0.4 mg SL NOW ONE Stop: 12/22/19 18:24 Last Admin: 12/22/19 18:27 Dose: 0.4 mg Documented by: PRICILA Vital Signs Vital signs: Vital Signs - 8 hr 12/22/19 16:15 12/22/19 16:30 12/22/19 17:30 Temperature 98.2 F Pulse Rate 70 68 67 Respiratory Rate 17 20 22 Blood Pressure 162/76 H Blood Pressure [Left Arm] 115/72 121/74 Pulse Oximetry 100 98 98 12/22/19 18:00 12/22/19 18:27 Temperature Pulse Rate 69 69 Respiratory Rate 20 Blood Pressure 124/62 Blood Pressure [Left Arm] 124/62 Pulse Oximetry 97 Medical Decision Making Lab Data Lab results reviewed: Yes I reviewed the patient's lab results. Result diagrams: 12/22/19 18:14 12/22/19 18:14 Labs: Lab Results 12/22/19 12/22/19 Range/Units 18:14 18:14 WBC 4.8 (4.5-11.0) X10^3/uL RBC 4.36 (4.0-5.2) X10^6/uL Hgb 13.8 (12.0-16.0) g/dL Hct 41.4 (36-46) % MCV 95.0 (80-100) fL MCH 31.8 (26-34) PG MCHC 33.5 (30-36) % RDW 13.2 (11.6-14.8) % Plt Count 300 (150-400) X10^3/uL Neut % (Auto) 57.6 (50-75) % Lymph % (Auto) 28.4 (25-40) % Green % (Auto) 9.7 (3-14) % Eos % (Auto) 3.6 (2-4) % Baso % (Auto) 0.7 (0-2) % Neut # (Auto) 2800 (4560-7626) /uL Lymph # (Auto) 1400 (1066-3537) /uL Green # (Auto) 500 (0-900) /uL Eos # (Auto) 200 (0-450) /uL Baso # (Auto) 0 (0-100) /uL Sodium 137 (137-145) mmol/L Potassium 3.8 (3.4-5.1) mmol/L Chloride 101 (98-107) mmol/L Carbon Dioxide 31 (22-32) mmol/L BUN 16 (7-17) mg/dL Creatinine 0.60 (0.52-1.04) mg/dL Estimated GFR > 60.0 (>60) mL/min BUN/Creatinine Ratio 26.7 H (6-22) Glucose 107 (80-110) mg/dL Calcium 9.8 (8.4-10.2) mg/dL Imaging Data Chest x-ray: Radiologist's Impression: [address] [address] XRay Report Signed Patient: Nora Gil ZMR#: [id number] : 9Acct:[id number] Age/Sex: 69 / FDate of Service: 12/22/19 Loc: ED Accession Number: [id number] Procedure: XR chest 1V Ordering Provider: Robb Pettit D.O. PROCEDURE: XR CHEST 1V INDICATIONS: Short of breath TECHNIQUE: One view of the chest was acquired. COMPARISON: [facility], CR, XR CHEST 1V, 02/05/2019, 3:08. [facility], CR, XR CHEST 1V, 11/23/2019, 15:36. [facility], CR, XR CHEST 2V, 11/28/2019, 19:42. FINDINGS: Surgical changes and devices: None. Lungs and pleura: Lungs are clear. No pleural effusions or pneumothorax. Mediastinum: The cardiac contours are within normal limits. The aorta demonstrates calcification and tortuosity. Bones and chest wall: Age-appropriate bony degenerative changes are seen. No suspicious bony lesions. Overlying soft tissues appear unremarkable. IMPRESSION: Portable chest within normal limits. Dictated by: Gerardo Rosario M.D. on 12/22/2019 at 16:05 Approved by: Gerardo Rosario M.D. on 12/22/2019 at 16:06 ECG Data Attestation: I personally reviewed and interpreted this ECG as follows: Prior ECG tracings: not available for review Interpretation: Sinus bradycardia Ventricular rate of 59 Normal axis LVH No ST T wave changes MDM Narrative Medical decision making narrative: Low suspicion for ACS, EKG is unremarkable, chest x-ray is unremarkable, just had an echocardiogram and stress test within the past week which were negative. Patient stated that nitro his help her ?costochondritis? in the past and she was asking for 1 here. Is also having some nausea. Was given Zofran for this. No indication for switching the antibiotics she is currently on. She does point to the epigastric region as the source of her discomfort in has had issues with reflux in the past. I do suspect this is going on. We also discussed other treatments to include antihistamines. She was given return precautions. She expressed understanding and agreement. Discharge Plan Departure Patient Disposition: Home Clinical Impression: Atypical chest pain, Shortness of breath Instructions: DI for Atypical Chest Pain Activity Restrictions/Additional Instructions: Your potassium and the rest of her electrolytes were unremarkable. Your chest x-ray and EKG were unremarkable. I have low suspicion for a cardiac etiology of your chest pain especially since he just had a full workup within the past 10 days. I do recommend that you start taking Pepcid/famotidine like we discussed. I also recommend you start taking a decongestant such as Claritin or Nelida or Zyrtec. The generic version of these medications is okay as well. Contact your primary provider for follow-up. Continue the rest of your medications as directed. Prescriptions: New ondansetron 4 mg tablet,disintegrating 4 mg PO Q6H PRN (Reason: nausea and vomiting) Qty: 10 RF: 0 No Action vitamin B complex-folic acid [Super B Maxi Complex] 0.4 mg Tablet 1 tab PO DAILY Qty: 0 RF: 0 omega 3-vou-ybt-fish oil [Fish Oil] 1,000 mg (120 mg-180 mg) Capsule 2 cap PO DAILY Qty: 0 RF: 0 calcium citrate [Calcitrate] 200 MG tablet 600 mg PO BID Qty: 0 RF: 0 pantoprazole 40 mg Tablet,Delayed Release (Dr/Ec) 40 mg PO DAILY RF: 0 magnesium 30 mg Tablet 60 mg PO DAILY PRN (Reason: Insomnia) RF: 0 Centrum Silver Women 8 mg iron-400 mcg-300 mcg Tablet 1 tab PO DAILY RF: 0 turmeric 400 mg Capsule 400 mg PO QMWFSU RF: 0 lisinopril 10 mg Tablet 10 mg PO DAILY RF: 0 potassium chloride 20 mEq tablet,ER particles/crystals 20 meq PO BID RF: 0 metoprolol succinate 100 mg tablet extended release 24 hr 100 mg PO BID RF: 0 chlorthalidone 25 mg tablet 50 mg PO DAILY RF: 0 rosuvastatin [Crestor] 40 mg Tablet 40 mg PO DAILY RF: 0 ascorbic acid (vitamin C) 500 mg Tablet 1,000 mg PO DAILY RF: 0 Vitamin D3 4,000 unit Capsule 12,000 unit PO DAILY RF: 0 aspirin [Adult Low Dose Aspirin] 81 mg Tablet,Delayed Release (Dr/Ec) 81 mg PO DAILY RF: 0 amoxicillin 500 mg Capsule 500 mg PO BID RF: 0 clopidogrel 75 mg tablet 75 mg PO DAILY RF: 0 codeine-guaifenesin 10-100 mg/5 mL liquid 5 ml PO DAILY RF: 0 duloxetine 60 mg capsule,delayed release(DR/EC) 60 mg PO DAILY RF: 0 Referrals: Tara Simons DO [Primary Care Provider] -
[2019-12-22 17:30] VITALS: BP 121/74; PULSE 67; RESP 22; O2SAT 98
[2019-12-22 18:00] VITALS: BP 124/62; PULSE 69; RESP 20; O2SAT 97
[2019-12-22 18:19] LABS: Add Manual Diff / Slide Review NO; Basophils Absolute Auto 0 /uL (0-100); Basophils Percent Auto 0.7 % (0-2); Eosinophils Absolute Auto 200 /uL (0-450); Eosinophils Percent Auto 3.6 % (2-4); Hematocrit 41.4 % (36-46); Hemoglobin 13.8 g/dL (12.0-16.0); Lymphocytes Absolute Auto 1400 /uL (1100-4500); Lymphocytes Percent Auto 28.4 % (25-40); Mean Corpuscular HGB Conc 33.5 % (30-36); Mean Corpuscular Hemoglobin 31.8 PG (26-34); Monocytes Absolute Auto 500 /uL (0-900); Monocytes Percent Auto 9.7 % (3-14); Neutrophils Absolute Auto 2800 /uL (1500-7000); Neutrophils Percent Auto 57.6 % (50-75); Platelet Count 300 X10^3/uL (150-400); Red Blood Cell Count 4.36 X10^6/uL (4.0-5.2); Red Cell Distribution Width 13.2 % (11.6-14.8); White Blood Cell Count 4.8 X10^3/uL (4.5-11.0)
[2019-12-22 18:27] VITALS: BP 124/62; PULSE 69
[2019-12-22] MEDS: NITROGLYCERIN 0.4 MG SL TAB SL (18:27)
[2019-12-22 18:29] LABS: BUN Creatinine Ratio 26.7 (6-22); Blood Urea Nitrogen 16 mg/dL (7-17); Calcium 9.8 mg/dL (8.4-10.2); Carbon Dioxide 31 mmol/L (22-32); Chloride 101 mmol/L (98-107); Estimated Glomerular Filt Rate > 60.0 mL/min (>60); Glucose 107 mg/dL (80-110); HEMOLYSIS < 15 (0-50); Potassium 3.8 mmol/L (3.4-5.1); Sodium 137 mmol/L (137-145)
[2019-12-23 22:53] LABS: COVID19 Sendout Not Detected (Not Detected)
== END 2019-12-22 18:50 | disposition home or self-care (01) ==
PROVIDERS: Emergency Provider Emergency Medicine; Family Provider Anesthesiology Pain Medicine; PCP Family Medicine
DX: R07.89 Other chest pain (principal); R06.02 Shortness of breath; J02.9 Acute pharyngitis, unspecified; H92.02 Otalgia, left ear
CPT/HCPCS: 36415; 71045; 80048; 85025; 87635; 93005; 99284

== ENCOUNTER → 2020-04-02 09:20 | Outpatient (CLI) | payer MEDICARE, OTHER, SELFPAY ==
[2019-10-25 21:07] VITALS: BMI 42.7
[2020-04-03 14:46] LABS: COVID19 Sendout Not Detected (Not Detect)
== END ==
PROVIDERS: Family Provider Anesthesiology Pain Medicine; PCP Family Medicine; Visit Provider Physician Assistant
DX: Z01.812 Encounter for preprocedural laboratory examination (principal)
CPT/HCPCS: 87635

== ENCOUNTER 2020-04-05 07:08 | Day surgery (SDC) | payer MEDICARE, OTHER, SELFPAY ==
[2019-10-25 21:07] VITALS: BMI 42.7
--- NOTE | 2020-04-05 | PATH_ITS ---
[facility] Accession Number: [id number] . 01 Material submitted: . PART A: colon - COLON POLYP AT 15CM PART B: colon - CECAL POLYPS X2 PART C: colon - COLON POLYP AT 55CM . 02 Diagnosis: A. Colon at 15 cm, Polyp: Tubular adenoma. . B. Cecum, Polyps: Fragments of tubular adenoma (two polyps removed). . C. Colon at 55 cm, Polyp: Tubular adenoma. MRV 04/08/2020 1026 Local . 02 Electronically signed: . Rick Villegas MD, PhD, Pathologist NPI- [id number] . 01 Gross description: . Part A: COLON POLYP AT 15CM: Received in formalin is 1 fragment(s) of ballesteros, soft tissue measuring 0.5 x 0.3 x 0.8 cm which is inked, trisected and submitted entirely in 1 cassette(s) Part B: CECAL POLYPS X2: Received in formalin are 5 fragment(s) of ballesteros, soft tissue measuring 0.2 x 0.2 x 0.2 cm to 0.1 x 0.1 x 0.1 cm submitted entirely in 1 cassette(s) Part C: COLON POLYP AT 55CM: Received in formalin is 1 fragment(s) of ballesteros, soft tissue measuring 0.3 x 0.2 x 0.1 cm submitted entirely in 1 cassette(s) /QBJ 04/06/2020 0440 Local . 02 Pathologist provided ICD-10: D12.6, D12.0 . 02 CPT . 928425, [id number], [id number] Performed at: [address], [place], [place] [id number] MD Diallo Christiansen MD Phone: [phone] Performed at: 02 [facility] [place] [address] [place] [id number] MD Norma Trevino MD Phone: [phone]
--- NOTE | 2020-04-05 07:36 | PM.HP.1 ---
History of Present Illness History of Present Illness Date Patient Seen: 04/05/20 Time Patient Seen: 07:36 Chief complaint: [id number] Narrative: This is a 70 yo woman with personal history of colon polyps, who's last colonoscopy was 15 years ago. She denies any recent history of melana, hematochezia, unexplained abdominal pain, or unexplained weight loss. She has a significant cardiac history including stents and angioplasty, most recently in 2017. 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 She has stopped her Plavix for 7 days prior to this procedure. She had surgery in October under general anesthesia and tolerated that well. ROS: Pt c/o diarrhea. No other GI complaints. Thirteen system review is otherwise negative other than as mentioned below and in HPI. PE: GENERAL: Well groomed and cooperative. Appears stated age. Answers questions promptly and appropriately. Vital signs noted. HENT: Normocephalic, atraumatic. Hearing intact. EYES: Conjunctiva pink, sclera white, no periorbital swelling. CARDIOVASCULAR: Regular rate. No pedal edema. RESPIRATORY: Non-tachypneic, breathing comfortably on room air. GASTROINTESTINAL: Abdomen soft and non-distended GENITALURINARY: No flank tenderness. MUSCULOSKELETAL: Equal tone and mass bilaterally. SKIN: Warm, dry, soft, appropriate color for ethnicity. No other lesions, rashes, or wounds. NEURO: Alert and Oriented X 3. No gross sensory deficits, or cognitive issues. PSYCH: Appropriate affect and mood. Patient History Medical History Arthritis of both hands (Acute) Balance problem (Acute) Bilateral hearing loss (Acute) Concussion (Acute) Coronary artery disease (Acute) Diabetes (Acute) GERD (gastroesophageal reflux disease) (Acute) Hard of hearing (Acute) History of angina (Acute ~11/2019) Hyperlipidemia (Acute) Hypertension (Acute) Mild sleep apnea (Acute) Myocardial infarction (Acute) Paraesophageal hernia (Acute) Unstable angina (Acute) Surgical History H/O exploratory laparotomy (Acute ~2011) H/O heart artery stent (Acute) History of cardiac cath (Acute) History of total knee arthroplasty (Acute) History of total right hip arthroplasty (Acute) S/P foot surgery, left (Acute) S/P scar revision (Acute) Status post cataract extraction of both eyes with insertion of intraocular lens (Acute) Family & Social History Social History: household members spouse Tobacco & Substance use: Smoking Status Never smoker alcohol intake current alcohol intake frequency holiday/special occasion Substance Use Type marijuana Meds Home Medications and Allergies Home Medications Medication Instructions Recorded Confirmed Type omega 1-fys-swv-fish oil [Fish Oil] 2 cap PO DAILY #0 08/06/16 12/22/19 History vitamin B complex-folic acid 1 tab PO DAILY #0 08/06/16 12/22/19 History [Super B Maxi Complex] calcium citrate [Calcitrate] 600 mg PO BID #0 04/19/17 12/22/19 History Vitamin D3 12,000 unit PO DAILY 02/05/19 12/22/19 History ascorbic acid (vitamin C) 1,000 mg PO DAILY 02/05/19 12/22/19 History rosuvastatin [Crestor] 40 mg PO DAILY 02/05/19 12/22/19 History Centrum Silver Women 1 tab PO DAILY 10/10/19 12/22/19 History magnesium 60 mg PO DAILY PRN 10/10/19 12/22/19 History pantoprazole 40 mg PO DAILY 10/10/19 12/22/19 History turmeric 400 mg PO QMWFSU 10/10/19 04/05/20 History lisinopril 10 mg PO DAILY 10/25/19 04/05/20 History chlorthalidone 50 mg PO DAILY 11/23/19 12/22/19 History metoprolol succinate 100 mg PO BID 11/23/19 04/05/20 History potassium chloride 20 meq PO BID 11/23/19 12/22/19 History aspirin [Adult Low Dose Aspirin] 81 mg PO DAILY 12/22/19 04/05/20 History clopidogrel 75 mg PO DAILY 12/22/19 04/05/20 History codeine-guaifenesin 5 ml PO DAILY 12/22/19 12/22/19 History duloxetine 60 mg PO DAILY 12/22/19 12/22/19 History ondansetron 4 mg PO Q6H PRN #10 tab 12/22/19 Rx Allergies Allergy/AdvReac Type Severity Reaction Status Date / Time [facility] Allergy Severe TREMORS, Verified 04/05/20 07:34 ANAPHYLAXIS bupropion [From WELLBUTRIN] AdvReac Severe HEADACHE Verified 04/05/20 07:34 propoxyphene AdvReac Severe Headache Verified 04/05/20 07:34 citalopram [CITALOPRAM] AdvReac Intermediate headache, Verified 04/05/20 07:34 difficulty thinking desvenlafaxine [From Pristiq] AdvReac Intermediate Shakiness Verified 04/05/20 07:34 indomethacin [INDOMETHACIN] AdvReac Intermediate GI UPSET Verified 04/05/20 07:34 phenobarbital [PHENOBARBITAL] AdvReac Intermediate DEPRESSION Verified 04/05/20 07:34 morphine [MORPHINE] AdvReac Mild 'LOOPY' Verified 04/05/20 07:34 PAPER TAPE Allergy Mild RASH Uncoded 04/02/20 16:37 Assessment & Plan Assessment and plan (1) Personal history of colonic polyps: Status: Acute (2) Diarrhea: Status: Acute Assessment & Plan narrative: Risks and benefits of screening colonoscopy and possible polypectomy were discussed with the patient including risk of bleeding, perforation, need for additional procedures, risks of anesthesia. The patient desires to proceed with the colonoscopy procedure. COVID-19 COVID-19 status: Negative Result date/Date tested (Pos, Neg/Pending): 04/02/20 Time Spent With Patient Time with patient: 15-24 minutes Quality VTE Deep Vein Thrombosis/Pulmonary Embolism Present on Admission: No
[2020-04-05] MEDS: SODIUM CHLORIDE 0.9% 1,000 ML 200 ML IV (07:42)
[2020-04-05 07:43] VITALS: BP 134/87; PULSE 71; RESP 20; TEMP 36.4; O2SAT 96
[2020-04-05 07:49] VITALS: BMI 37.8
[2020-04-05] MEDS: ONDANSETRON 4 MG/2 ML INJ IV (08:17)
[2020-04-05] MEDS: MIDAZOLAM 5 MG/5 ML VIAL IV (09:01)
[2020-04-05] MEDS: fentaNYL 250 MCG/5 ML INJ IV (09:01)
--- NOTE | 2020-04-05 09:17 | PM.OP.ENDO ---
Operative Date/Time/Diagnoses Date of procedure: 04/05/20 Time of procedure: 09:17 Pre-op diagnosis: Personal history of colon polyps Post-op diagnosis: other (Multiple polyps) Procedure & Clinicians Study performed: Colonoscopy, removal of rectal polyp with hot snare. Removal of cecal polyp x 2 and descending colon polyp x 1 with cold forceps Conscious sedation with Versed and fentanyl performed by the endoscopist Same procedure as scheduled: Yes Indications: Personal history of colon polyps Surgeon: Priya Sutton Procedure Notes SCOAP/Timeout: Performed Procedure in detail: The patient was brought to the room and placed in left lateral decubitus position with all bony prominences padded. A time-out was performed and then the patient was given procedural sedation starting with 2 mg of Versed and [100] mcg of fentanyl. A total of 5 mg of Versed and 250 micro g of fentanyl were given for the entire procedure. Vitals were monitored throughout the procedure and remained stable. Once adequately sedated, the procedure was begun. A rectal exam was performed revealing [no abnormalities]. The colonoscope was then introduced to the rectum and advanced to the cecum. There were very tight turns in the sigmoid colon, and had to switch from an adult scope to a pediatric scope, and performed multiple maneuvers in order to get past the tortuous sigmoid colon. []The cecum was identified by the appendiceal orifice, the mucosal tri-fold, and the ileocecal valve. The scope was then retracted while rotating side to side and examining each mucosal fold. A large pedunculated polyp was removed from the rectum at 15 cm, 3 small polyps were removed with cold forceps. Two from the cecum, and 1 from the descending colon at 55 cm. [] At the conclusion of the procedure retroflexion was performed and [small grade 1-2 internal hemorrhoids without stigmata of bleeding were seen]. The scope was then withdrawn from the rectum the procedure was concluded. The patient tolerated the procedure well and was transferred to the PACU in stable condition. Scope withdrawal time: 13 Sedation minutes: 51 Findings: polyp Specimen(s): other (Large polyp from 15 cm, small polyps from cecum and descending colon) Complications: none Impression: Multiple polyps completely removed Post-procedure Recommendations: Colonscopy in 5 years (As long as pathology is favorable) Follow up: as needed Disposition: PACU
[2020-04-05 09:24] VITALS: BP 139/75; PULSE 66; RESP 13; TEMP 36.5; O2SAT 95
[2020-04-05 09:28] VITALS: BP 108/66; PULSE 65; O2SAT 92
[2020-04-05 09:33] VITALS: BP 114/71; PULSE 67; RESP 19; O2SAT 94
[2020-04-05 09:40] VITALS: BP 115/75; PULSE 64; RESP 16; TEMP 36.3; O2SAT 97
== END 2020-04-05 10:15 | disposition home or self-care (01) ==
PROVIDERS: Family Provider Anesthesiology Pain Medicine; PCP Family Medicine; Referring Provider Surgery; Visit Provider Surgery
PROC: 0DJD8ZZ Inspection of Lower Intestinal Tract, Via Natural or Artificial Opening Endoscopic (ICD-10-PCS; CPT 45378; principal; 2020-04-05 08:30)
DX: Z12.11 Encounter for screening for malignant neoplasm of colon (principal); Z86.010 Personal history of colon polyps; Z79.01 Long term (current) use of anticoagulants; K64.0 First degree hemorrhoids; D12.0 Benign neoplasm of cecum; D12.6 Benign neoplasm of colon, unspecified
CPT/HCPCS: 45385; 45380; 99152; 99153; J2250; J2405; J3010

== ENCOUNTER → 2020-09-30 13:50 | Outpatient (CLI) | payer MEDICARE, OTHER, SELFPAY ==
[2020-05-14 09:47] VITALS: BMI 42.7
[2020-10-01 04:37] LABS: Valproic Acid (Depakene) Total 52 ug/mL (50-100)
== END ==
PROVIDERS: Family Provider Anesthesiology Pain Medicine; PCP Family Medicine; Referring Provider Psychiatry & Neurology Psychiatry; Visit Provider Psychiatry & Neurology Psychiatry
DX: F33.2 Major depressive disorder, recurrent severe without psychotic features (principal)
CPT/HCPCS: 36415; 80164

== ENCOUNTER 2021-12-11 16:53 | Emergency (ER) | payer MEDICARE, OTHER, SELFPAY ==
[2020-05-14 09:47] VITALS: BMI 42.7
[2021-12-11 17:19] VITALS: BP 145/67; PULSE 70; RESP 16; TEMP 36.8; O2SAT 97; BMI 38.2
[2021-12-11 18:40] VITALS: BP 143/74; PULSE 69; RESP 18; O2SAT 96
--- NOTE | 2021-12-11 18:40 | DI.CT.S_ITS ---
PROCEDURE: CT HEAD/BRAIN WO CON INDICATIONS: fall, hit head, on plavix, no LOC TECHNIQUE: Noncontrast 4.5 mm thick angled axial sections acquired from the foramen magnum to the vertex, with coronal and sagittal reformats. For radiation dose reduction, the following was used: automated exposure control, adjustment of mA and/or kV according to patient size. COMPARISON: None. FINDINGS: Image quality: Excellent. CSF spaces: Basal cisterns are patent. No extra-axial fluid collections. The ventricles are symmetric in size and shape. Brain: No acute intracranial hemorrhage or mass effect. There is mild cerebral volume loss for age, with resultant ventricular and sulcal prominence. There are periventricular and deep white matter chronic small vessel ischemic changes. There is intracranial internal carotid artery atherosclerosis. Skull and face: Calvarium and visualized facial bones appear intact, without suspicious lesions. Sinuses: Visualized sinuses and mastoids are clear. IMPRESSION: No acute intracranial abnormality. Dictated by: Thomas Schmitz M.D. on 12/11/2021 at 18:01 Approved by: Thomas Schmitz M.D. on 12/11/2021 at 18:03
--- NOTE | 2021-12-11 18:40 | DI.RAD.S_ITS ---
PROCEDURE: XR LUMBAR SPINE 2-3V INDICATIONS: fall onto coccyx, lumbar and coccygeal pain TECHNIQUE: 3 views of the lumbar spine were acquired. COMPARISON: MR, MR LUMBAR SPINE WO CON, 07/14/2019, 12:20. [facility] [place], CR, XR LUMBAR SPINE 2 OR 3 VIEWS, 03/06/2020, 10:18. Merged With [facility], CR, XR LUMBAR SPINE 2-3V, 10/25/2019, 17:13. FINDINGS: Bones: Pedicle screw fixation at L4-S1 with intervertebral body spacers. 5 [id number] vertebrae are present. Mild scoliosis and kyphosis is. No vertebral body compression fractures. No suspicious bony lesions. Right hip total arthroplasty. Soft tissues: Overlying bowel gas pattern is normal. No suspicious soft tissue calcifications. Aortic vascular calcification. IMPRESSION: No fracture is identified. Dictated by: Cornell Pal M.D. on 12/11/2021 at 19:08 Approved by: Cornell Pal M.D. on 12/11/2021 at 19:11
--- NOTE | 2021-12-11 18:45 | ED_ITS ---
HPI - Fall <Norma KANWAL Silva - Last Filed: 12/11/21 20:19> General Chief Complaint: Fall Stated Complaint: head and tailbone injury s/p fall Time Seen by Provider: 12/11/21 17:34 Source: patient Mode of arrival: Ambulatory History of Present Illness HPI Narrative: 71-year-old female presents to the emergency department after a fall off of a bench seat earlier today where she fell onto her coccyx and hit her head on the wall. Patient is Plavix and takes a daily baby aspirin, states that she was sliding from the bench and accidentally slipped off falling directly onto her buttocks and now has low back pain, coccygeal pain, mild headache, denies any loss of consciousness but states she did hit her head on the wall. She does not have any wound or lump on her scalp. She denies any vision changes, dizziness, alteration in her gait, difficulty ambulating. She states that this happened this morning, and over the course of the day her neck has started to hurt. She states that she did not take any pain medication prior to her arrival. Patient has multiple allergies and in is unable to take NSAIDs due to her anticoagulant use. Patient denies any mental status changes, speech difficulty, weakness, or dizziness. She states that she has a prior fusion of her L5-S1 lumbar spine. Related Data Home Medications Medication Instructions Recorded Confirmed ascorbic acid (vitamin C) 500 mg 1,000 mg PO DAILY 02/05/19 07/28/21 tablet rosuvastatin 40 mg tablet (Crestor) 40 mg PO DAILY 02/05/19 07/28/21 lisinopril 10 mg tablet 10 mg PO DAILY 10/25/19 07/28/21 chlorthalidone 25 mg tablet 50 mg PO DAILY 11/23/19 07/28/21 metoprolol succinate 100 mg 100 mg PO BID 11/23/19 07/28/21 tablet,extended release 24 hr aspirin 81 mg tablet,delayed 81 mg PO DAILY 12/22/19 07/28/21 release (Adult Low Dose Aspirin) clopidogrel 75 mg tablet 75 mg PO DAILY 12/22/19 07/28/21 cholecalciferol (vitamin D3) 100 100 mcg PO DAILY 07/29/20 07/28/21 mcg (4,000 unit) capsule multivitamin with folic acid 400 1 tab PO DAILY 07/29/20 07/28/21 mcg tablet (One Daily Multivitamin) Previous Rx's Medication Instructions Recorded divalproex 500 mg tablet,extended 500 mg PO DAILY #90 tab 07/28/21 release 24 hr duloxetine 60 mg capsule,delayed 60 mg PO DAILY #90 cap 10/30/21 release diclofenac sodium 1 % topical gel 2 g TOPICAL QID #100 g 12/11/21 (Voltaren Arthritis Pain) diclofenac sodium 1 % topical gel 2 g TOPICAL QID PRN #100 g 12/11/21 (Voltaren Arthritis Pain) lidocaine 5 % topical patch 1 patch TOPICAL DAILY PRN #15 ea 12/11/21 lidocaine 5 % topical patch 1 patch TOPICAL DAILY PRN #15 ea 12/11/21 methocarbamol 500 mg tablet 500 mg PO Q8H PRN #20 tab 12/11/21 methocarbamol 500 mg tablet 500 mg PO TID PRN #20 tab 12/11/21 oxycodone-acetaminophen 5 mg-325 1 tab PO Q8H PRN #10 tab 12/11/21 mg tablet (Percocet) Allergies Allergy/AdvReac Type Severity Reaction Status Date / Time aripiprazole [From ABILIFY] Allergy Severe TREMORS, Verified 07/28/21 13:03 ANAPHYLAXIS bupropion [From WELLBUTRIN] AdvReac Severe HEADACHE Verified 07/28/21 13:03 propoxyphene AdvReac Severe Headache Verified 07/28/21 13:03 citalopram [CITALOPRAM] AdvReac Intermediate headache, Verified 07/28/21 13:03 difficulty thinking desvenlafaxine [From Pristiq] AdvReac Intermediate Shakiness Verified 07/28/21 13:03 indomethacin [INDOMETHACIN] AdvReac Intermediate GI UPSET Verified 07/28/21 13:03 phenobarbital [PHENOBARBITAL] AdvReac Intermediate DEPRESSION Verified 07/28/21 13:03 morphine [MORPHINE] AdvReac Mild 'LOOPY' Verified 07/28/21 13:03 PAPER TAPE Allergy Mild RASH Uncoded 07/28/21 13:03 Review of Systems <KANWAL Morales - Last Filed: 12/11/21 20:19> Review of Systems Narrative: General: denies fever, chills, malaise, sweats, fatigue Head/Neck: Denies dizziness, endorses having a mild headache, bilateral neck pain and shoulder pain, denies any cervical pain Eyes: denies visual changes, eye pain Cardio: denies chest pain, palpitations, edema Respiratory: denies dyspnea, cough, orthopnea GI: denies abdominal pain, nausea, vomiting, or diarrhea : denies dysuria, hematuria, urinary retention, frequency or incontinence MSK: denies joint pain, muscle weakness Skin: denies rash, itching, skin lesions or other Neuro: denies numbness, tingling Patient History <KANWAL Morales - Last Filed: 12/11/21 20:19> Medical History (Updated 12/11/21 @ 19:35 by KANWAL Morales) Arthritis of both hands Balance problem Bilateral hearing loss Concussion Coronary artery disease Diabetes GERD (gastroesophageal reflux disease) Hard of hearing History of angina (~11/2019) Hyperlipidemia Hypertension Mild sleep apnea Myocardial infarction Paraesophageal hernia Unstable angina Surgical History H/O exploratory laparotomy (~2011) H/O heart artery stent History of cardiac cath History of total knee arthroplasty History of total right hip arthroplasty S/P foot surgery, left S/P scar revision Status post cataract extraction of both eyes with insertion of intraocular lens Social History household members: spouse Smoking Status: Never smoker alcohol intake: current Smoking Status: Never smoker alcohol intake frequency: holidays/special occasions only Substance Use Type: marijuana Exam <KANWAL Morales - Last Filed: 12/11/21 20:19> Narrative Exam Narrative: Independently reviewed vitals signs and nursing notes. General: cooperative, comfortable, in no acute distress, well developed and well groomed Head: atraumatic, symmetrical facial expressions Neck: supple, atraumatic, without lymphadenopathy. Eyes: pupils equal round and reactive, EOMI, conjunctiva normal Nose: nares patent, no rhinorrhea Mouth/Throat: uvula midline, moist mucus membranes Cardiovascular: regular rate and rhythm, no peripheral edema, warm extremities Respiratory: normal effort, able to speak in complete sentences, no audible wheezing, stridor, or rales. No retractions or tachypnea. GI: abdomen soft, nontender to palpation, nondistended, no masses, no exquisite tenderness with exam, without guarding or rebound. MSK: moves all extremities, ambulatory w/steady gait, neurovascularly intact, no weakness, no wounds Skin: brisk capillary refill, no rash, no erythema Neuro: normal speech and cognition, A&O x3, normal tone, no focal neuro deficits, no weakness Psych: mental status is grossly normal, congruent mood, normal affect, pleasant and cooperative Initial Vital Signs Initial Vital Signs: Vital Signs Temperature 98.2 F 12/11/21 17:19 Pulse Rate 70 12/11/21 17:19 Respiratory Rate 16 12/11/21 17:19 Blood Pressure 145/67 H 12/11/21 17:19 Pulse Oximetry 97 12/11/21 17:19 <Whitney Winter DO - Last Filed: 12/20/21 08:51> Initial Vital Signs Initial Vital Signs: Vital Signs Temperature 98.2 F 12/11/21 17:19 Pulse Rate 70 12/11/21 17:19 Respiratory Rate 16 12/11/21 17:19 Blood Pressure 145/67 H 12/11/21 17:19 Pulse Oximetry 97 12/11/21 17:19 Course <KANWAL Morales - Last Filed: 12/11/21 20:19> Orders Ordered: Discontinued Medications Hydrocodone Bitart/Acetaminophen (Hydrocodone/Acet 5/325 Tablet) 1 tab PO NOW ONE Stop: 12/11/21 18:41 Last Admin: 12/11/21 19:06 Dose: Not Given Documented by: TANG Lidocaine (Lidocaine Patch 1 Each Adh..Patch) 1 each TOP NOW ONE Stop: 12/11/21 18:41 Last Admin: 12/11/21 18:54 Dose: 1 each Documented by: TANG Methocarbamol (Methocarbamol 500 Mg Tablet) 500 mg PO NOW ONE Stop: 12/11/21 18:41 Last Admin: 12/11/21 18:54 Dose: 500 mg Documented by: TANG Oxycodone/Acetaminophen (Oxycodone/Acetaminophen 5/325 Tablet) 1 tab PO NOW ONE Stop: 12/11/21 18:45 Last Admin: 12/11/21 18:55 Dose: 1 tab Documented by: TANG Vital Signs Vital signs: Vital Signs - 8 hr 12/11/21 17:19 12/11/21 18:40 12/11/21 19:40 Temperature 98.2 F Pulse Rate 70 69 67 Respiratory Rate 16 18 16 Blood Pressure 145/67 H 143/74 H 150/79 H Pulse Oximetry 97 96 97 12/11/21 19:59 Temperature Pulse Rate 69 Respiratory Rate 16 Blood Pressure 149/83 H Pulse Oximetry 98 <Whitney Winter DO - Last Filed: 12/20/21 08:51> Orders Ordered: Discontinued Medications Hydrocodone Bitart/Acetaminophen (Hydrocodone/Acet 5/325 Tablet) 1 tab PO NOW ONE Stop: 12/11/21 18:41 Last Admin: 12/11/21 19:06 Dose: Not Given Documented by: TANG Lidocaine (Lidocaine Patch 1 Each Adh..Patch) 1 each TOP NOW ONE Stop: 12/11/21 18:41 Last Admin: 12/11/21 18:54 Dose: 1 each Documented by: TANG Methocarbamol (Methocarbamol 500 Mg Tablet) 500 mg PO NOW ONE Stop: 12/11/21 18:41 Last Admin: 12/11/21 18:54 Dose: 500 mg Documented by: TANG Oxycodone/Acetaminophen (Oxycodone/Acetaminophen 5/325 Tablet) 1 tab PO NOW ONE Stop: 12/11/21 18:45 Last Admin: 12/11/21 18:55 Dose: 1 tab Documented by: TANG Vital Signs Vital signs: Vital Signs - 8 hr 12/11/21 17:19 12/11/21 18:40 12/11/21 19:40 Temperature 98.2 F Pulse Rate 70 69 67 Respiratory Rate 16 18 16 Blood Pressure 145/67 H 143/74 H 150/79 H Pulse Oximetry 97 96 97 12/11/21 19:59 Temperature Pulse Rate 69 Respiratory Rate 16 Blood Pressure 149/83 H Pulse Oximetry 98 MDM - Fall <KANWAL Morales - Last Filed: 12/11/21 20:19> Lab Data Result diagrams: 12/11/21 19:30 Labs: Lab Results 12/11/21 Range/Units 19:30 Sodium 136 L (137-145) mmol/L Potassium 4.3 (3.4-5.1) mmol/L Chloride 101 (98-107) mmol/L Carbon Dioxide 34 H (22-32) mmol/L BUN 19 H (7-17) mg/dL Creatinine 0.67 (0.52-1.04) mg/dL Estimated GFR > 60.0 (>60) mL/min BUN/Creatinine Ratio 28.4 H (6-22) Glucose 105 (80-110) mg/dL Calcium 9.3 (8.4-10.2) mg/dL Total Bilirubin 0.4 (0.2-1.3) mg/dL AST 31 (14-36) IU/L ALT 18 (<35) IU/L Alkaline Phosphatase 87 (38-126) U/L Total Protein 7.0 (6.3-8.2) g/dL Albumin 3.9 (3.5-5.0) g/dL Globulin 3.1 (1.7-4.1) g/dL Albumin/Globulin Ratio 1.3 (1.0-2.8) Imaging Data Extremity x-ray #1: Radiologist's Impression: PROCEDURE:? XR LUMBAR SPINE 2-3V ? INDICATIONS:? fall onto coccyx, lumbar and coccygeal pain ? TECHNIQUE:? 3 views of the lumbar spine were acquired.? ? COMPARISON:? MR, MR LUMBAR SPINE WO CON, 07/14/2019, 12:20.? [facility], CR, XR LUMBAR SPINE 2 OR 3 VIEWS, 03/06/2020, 10:18.? [facility], CR, XR LUMBAR SPINE 2-3V, 10/25/2019, 17:13. ? FINDINGS:? ? Bones:? Pedicle screw fixation at L4-S1 with intervertebral body spacers.? 5 [id number] vertebrae are present.? Mild scoliosis and kyphosis is.? No vertebral body compression fractures.? No suspicious bony lesions.? Right hip total arthroplasty. ? Soft tissues:? Overlying bowel gas pattern is normal.? No suspicious soft tissue calcifications.? Aortic vascular calcification. ? ? IMPRESSION:? No fracture is identified. ? ? Dictated by: Cornell Pal M.D. on 12/11/2021 at 19:08 ? ? Approved by: Cornell Pal M.D. on 12/11/2021 at 19:11 ? CT scan - head: Radiologist's Impression: PROCEDURE:? CT HEAD/BRAIN WO CON ? INDICATIONS:? fall, hit head, on plavix, no LOC ? TECHNIQUE:? Noncontrast 4.5 mm thick angled axial sections acquired from the foramen magnum to the vertex, with coronal and sagittal reformats.? For radiation dose reduction, the following was used:? automated exposure control, adjustment of mA and/or kV according to patient size.? ? COMPARISON:? None. ? FINDINGS:? Image quality:? Excellent.? ? CSF spaces:? Basal cisterns are patent.? No extra-axial fluid collections.? The ventricles are symmetric in size and shape.? ? Brain:? No acute intracranial hemorrhage or mass effect.? There is mild cerebral volume loss for age, with resultant ventricular and sulcal prominence.? There are periventricular and deep white matter chronic small vessel ischemic changes.? There is intracranial internal carotid artery atherosclerosis.? ? Skull and face:? Calvarium and visualized facial bones appear intact, without suspicious lesions.? ? Sinuses:? Visualized sinuses and mastoids are clear.? ? IMPRESSION:? No acute intracranial abnormality. ? ? Dictated by: Thomas Schmitz M.D. on 12/11/2021 at 18:01 ? ? Approved by: Thomas Schmitz M.D. on 12/11/2021 at 18:03 ? MDM Narrative Medical decision making narrative: 71-year-old female presents to the emergency department after she slipped off of a bench from a sitting position directly onto her buttocks onto the floor can now complaining of low back pain and also head pain because she states she hit her head against the wall. Patient is on Plavix and a daily baby aspirin, she states this incident happened this morning and she has been getting more sore throughout the day in her shoulders her neck and her low back. She denies any weakness, difficulties ambulating, changes with her gait, or any radiation of her pain. She states she had a lumbar fusion L5-S1 years ago, she is concerned about this. X-ray of her lumbar spine shows no fracture, vehicle screw at L4-S1 with intervertebral body spaces are intact, patient has mild scoliosis and kyphosis, no vertebral body compression fractures, visible right hip total arthroplasty. Abnormality and hemorrhage. Patient was alert and oriented, without any neuro deficits, she was given a lidocaine patch for her low back, given Percocet, lidocaine patches and Robaxin prescriptions. Patient states that she feels much better, she understands to follow-up with her primary care provider for physical therapy referral, rest, use heat packs, topical medications as prescribed and discussed, gentle range of motion and light stretching. Patient is given strict return precautions. Patient is appropriate and amenable to discharge home. Vital signs are stable on repeat examination is unremarkable. Patient has been informed of results. Patient has been given strict return to ER precautions for any new or worsening symptoms. Patient understands to follow up closely with outpatient providers as instructed. Caio hernandez understands plan and agrees to discharge home. All questions and concerns answered at this time. <Whitney Winter DO - Last Filed: 12/20/21 08:51> Lab Data Labs: Lab Results 12/11/21 Range/Units 19:30 Sodium 136 L (137-145) mmol/L Potassium 4.3 (3.4-5.1) mmol/L Chloride 101 (98-107) mmol/L Carbon Dioxide 34 H (22-32) mmol/L BUN 19 H (7-17) mg/dL Creatinine 0.67 (0.52-1.04) mg/dL Estimated GFR > 60.0 (>60) mL/min BUN/Creatinine Ratio 28.4 H (6-22) Glucose 105 (80-110) mg/dL Calcium 9.3 (8.4-10.2) mg/dL Total Bilirubin 0.4 (0.2-1.3) mg/dL AST 31 (14-36) IU/L ALT 18 (<35) IU/L Alkaline Phosphatase 87 (38-126) U/L Total Protein 7.0 (6.3-8.2) g/dL Albumin 3.9 (3.5-5.0) g/dL Globulin 3.1 (1.7-4.1) g/dL Albumin/Globulin Ratio 1.3 (1.0-2.8) Discharge Plan Departure Patient Disposition: Home Clinical Impression: Fall from ground level, Coccydynia Concussion Qualifiers: Encounter type: initial encounter Loss of consciousness presence/duration: without LOC Qualified Code(s): S06.0X0A - Concussion without loss of consciousness, initial encounter Injury of low back Qualifiers: Encounter type: initial encounter Qualified Code(s): S39.92XA - Unspecified injury of lower back, initial encounter Instructions: DI for Low Back Pain, DI for Coccydynia, DI for Muscle Spasm Activity Restrictions/Additional Instructions: *You have been diagnosed with muscle strains in your back, low back, and neck. Your CT brain did not show any bleed, fracture, or any other abnormality in your head. Your lumbar spine x-ray did not show any fracture, joint space changes or acute abnormality. You will likely be sore for the next few days, please use heat packs, stay hydrated, you can use the Voltaren gel and lidocaine patches as needed for your soreness. Please use muscle relaxers when your at home resting, they will make you very sleepy, please do not drive with them. If you are fee ling tired or have a headache or difficulty concentrating, these are signs of concussion, please rest, and avoid whatever activity were doing until the symptoms go way. Please gradually resume activities only when you do not have these symptoms. Please see your primary care provider as soon as possible for a referral to physical therapy. It would be good to do gentle stretching and light range of motion so you do not become too stiff. Please return to the emergency department if you have any worsening of your symptoms, weakness, syncope, or other worrisome symptoms. You may want to get a small pillow or round donut to sit on if you are having lots of pain with sitting. Thank You for trusting us with your care, I hope you feel better soon. *What to do: *Please continue to take your regular medications as directed. [ x] New medication prescriptions sent to your pharmacy: [[facility] ] [ ] New medication written as a paper prescription [ ] No new medications given *Please follow up with your primary care provider in 2-3 days, call for an appointment. Let them know you were seen in the Emergency Department and that we asked that you be seen for follow-up. We will electronically transmit a record of today's note if your PCP is in our system *If you do not have a primary care provider please contact [phone] to establish care with one of the [facility] primary care providers. *Return to Emergency Department if you should have any new, worsening or concerning symptoms, such as [fever greater than 101F, chills, worsening pain, persistent vomiting or other bothersome symptoms] Prescriptions: New methocarbamol 500 mg tablet 500 mg PO Q8H PRN (Reason: muscle spasm) Qty: 20 0RF lidocaine 5 % adhesive patch,medicated 1 patch topical DAILY PRN (Reason: pain) Qty: 15 0RF Rx Instructions: leave on most painful area for up to 12 hrs diclofenac sodium [Voltaren Arthritis Pain] 1 % gel 2 g topical QID Qty: 100 0RF Rx Instructions: apply to single elbow, wrist or hand; for hand includes palm/fingers/back of hand oxycodone-acetaminophen [Percocet] 5-325 mg tablet 1 tab PO Q8H PRN (Reason: pain) Qty: 10 0RF lidocaine 5 % adhesive patch,medicated 1 patch topical DAILY PRN (Reason: pain at injection site) Qty: 15 0RF Rx Instructions: leave on most painful area for up to 12 hrs methocarbamol 500 mg tablet 500 mg PO TID PRN (Reason: muscle spasms) Qty: 20 0RF diclofenac sodium [Voltaren Arthritis Pain] 1 % gel 2 g topical QID PRN (Reason: pain) Qty: 100 0RF Rx Instructions: apply to single elbow, wrist or hand; for hand includes palm/fingers/back of hand No Action cholecalciferol (vitamin D3) 100 mcg (4,000 unit) capsule 100 mcg PO DAILY 0RF One Daily Multivitamin 400 mcg tablet 1 tab PO DAILY 0RF duloxetine 60 mg capsule,delayed release(DR/EC) 60 mg PO DAILY Qty: 90 3RF divalproex 500 mg tablet extended release 24 hr 500 mg PO DAILY Qty: 90 3RF lisinopril 10 mg Tablet 10 mg PO DAILY 0RF metoprolol succinate 100 mg tablet extended release 24 hr 100 mg PO BID 0RF chlorthalidone 25 mg tablet 50 mg PO DAILY 0RF rosuvastatin [Crestor] 40 mg Tablet 40 mg PO DAILY 0RF ascorbic acid (vitamin C) 500 mg Tablet 1,000 mg PO DAILY 0RF aspirin [Adult Low Dose Aspirin] 81 mg Tablet,Delayed Release (Dr/Ec) 81 mg PO DAILY 0RF clopidogrel 75 mg tablet 75 mg PO DAILY 0RF Referrals: Tara Simons DO [Primary Care Provider] - <Whitney Winter DO - Last Filed: 12/20/21 08:51> Cosign ED Attending Cosignature Attestation: I was immediately available in the department for consultation. Documentation h as been reviewed.
[2021-12-11] MEDS: methocarbamoL 500 MG TABLET PO (18:54)
[2021-12-11] MEDS: LIDOCAINE PATCH 1 EACH ADH..PATCH TOP (18:54)
[2021-12-11] MEDS: OXYCODONE/ACETAMINOPHEN 5/325 TABLET 1 TAB PO (18:55)
[2021-12-11 19:40] VITALS: BP 150/79; PULSE 67; RESP 16; O2SAT 97
[2021-12-11 19:59] VITALS: BP 149/83; PULSE 69; RESP 16; O2SAT 98
[2021-12-11 20:02] LABS: Alanine Aminotransferase 18 IU/L (<35); Albumin 3.9 g/dL (3.5-5.0); Albumin Globulin Ratio 1.3 (1.0-2.8); Alkaline Phosphatase 87 U/L (38-126); Aspartate Aminotransferase 31 IU/L (14-36); BUN Creatinine Ratio 28.4 (6-22); Bilirubin Total 0.4 mg/dL (0.2-1.3); Blood Urea Nitrogen 19 mg/dL (7-17); Calcium 9.3 mg/dL (8.4-10.2); Carbon Dioxide 34 mmol/L (22-32); Chloride 101 mmol/L (98-107); Estimated Glomerular Filt Rate > 60.0 mL/min (>60); Globulin 3.1 g/dL (1.7-4.1); Glucose 105 mg/dL (80-110); HEMOLYSIS < 15 (0-50); Potassium 4.3 mmol/L (3.4-5.1); Sodium 136 mmol/L (137-145)
== END 2021-12-11 20:00 | disposition home or self-care (01) ==
PROVIDERS: Emergency Provider Nurse Practitioner Critical Care Medicine; Family Provider Anesthesiology Pain Medicine; PCP Family Medicine
DX: S39.012A Strain of muscle, fascia and tendon of lower back, initial encounter (principal); S16.1XXA Strain of muscle, fascia and tendon at neck level, initial encounter; S06.0X0A Concussion without loss of consciousness, initial encounter; W07.XXXA Fall from chair, initial encounter; Z79.01 Long term (current) use of anticoagulants
CPT/HCPCS: 36415; 70450; 72100; 80053; 99284

== ENCOUNTER → 2023-01-15 07:56 | Outpatient (CLI) | payer MEDICARE, OTHER, SELFPAY ==
[2020-05-14 09:47] VITALS: BMI 42.7
--- NOTE | 2023-01-15 | DI.US.S_ITS ---
PROCEDURE: US ARTERIAL DUPLEX LE BI INDICATIONS: PERIPHERAL VASCULAR DISEASE TECHNIQUE: Color and pulse Doppler interrogation was performed of both lower extremity arterial systems, with image documentation. COMPARISON: None. FINDINGS: Right lower extremity: Common femoral artery: 169 cm/sec, with triphasic flow. Deep femoral artery: 101 cm/sec, with triphasic flow. Proximal superficial femoral artery: 119 cm/sec, with triphasic flow. Mid superficial femoral artery: 89 cm/sec, with triphasic flow. Distal superficial femoral artery: 65 cm/sec, with triphasic flow. Popliteal artery: 82 cm/sec, with triphasic flow. Posterior tibial artery: 37 cm/sec, with triphasic flow. Anterior tibial artery/dorsalis pedis: 54 cm/sec, with triphasic flow. Webb-scale imaging description: Mild diffuse plaque Left lower extremity: Common femoral artery: 112 cm/sec, with triphasic flow. Deep femoral artery: 65 cm/sec, with triphasic flow. Proximal superficial femoral artery: 106 cm/sec, with triphasic flow. Mid superficial femoral artery: 90 cm/sec, with triphasic flow. Distal superficial femoral artery: 79 cm/sec, with triphasic flow. Popliteal artery: 73 cm/sec, with biphasic flow. Posterior tibial artery: 64 cm/sec, with triphasic flow. Anterior tibial artery/dorsalis pedis: 36 cm/sec, with biphasic flow. Webb-scale imaging description: Mild diffuse plaque IMPRESSION: No evidence of arterial insufficiency to the bilateral lower extremities. Dictated by: Federico Howard M.D. on 01/15/2023 at 13:43 Transcribed by: FRANCISCO on 01/15/2023 at 13:45 Approved by: Federico Howard M.D. on 01/15/2023 at 16:21
== END ==
PROVIDERS: Family Provider Anesthesiology Pain Medicine; PCP Physician Assistant; Referring Provider Physician Assistant; Visit Provider Physician Assistant
DX: I73.9 Peripheral vascular disease, unspecified (principal)
CPT/HCPCS: 93925

== ENCOUNTER 2024-02-22 15:06 | Emergency (ER) | payer MEDICARE, OTHER, SELFPAY ==
[2023-10-01 14:04] VITALS: BMI 42.7
[2024-02-22] VITALS (15 sets, daily range): BP systolic 141–179; BP diastolic 69–85; PULSE 66–78; RESP 18–32; TEMP 36.8; O2SAT 92–96
--- NOTE | 2024-02-22 15:22 | DI.RAD.S_ITS ---
PROCEDURE: XR CHEST 1V INDICATIONS: chest pain TECHNIQUE: One view of the chest was acquired. COMPARISON: [facility], CR, XR CHEST 1V, 12/22/2019, 16:42. [facility], CR, XR CHEST 2V, 11/28/2019, 19:42. FINDINGS: Surgical changes and devices: None. Lungs and pleura: Low lung volumes. Slight blurring of the right hemidiaphragm. No drainable pleural effusions. Mediastinum: Heart size is at the upper limit of normal. Bones and chest wall: Degenerative changes. IMPRESSION: Slight blurring of the right hemidiaphragm may represent mild infectious/inflammatory opacity versus atelectasis in the right lower lobe. Consider future imaging surveillance to assess for resolution. Heart size is at the upper limit of normal allowing for low lung volumes. Dictated by: Berry Au M.D. on 02/22/2024 at 16:51 Approved by: Berry Au M.D. on 02/22/2024 at 16:52
[2024-02-22 16:20] LABS: Add Manual Diff / Slide Review NO; Basophils Absolute Auto 0 /uL (0-100); Basophils Percent Auto 0.8 % (0-2); Eosinophils Absolute Auto 100 /uL (0-450); Eosinophils Percent Auto 2.3 % (2-4); Hematocrit 37.9 % (36-46); Hemoglobin 12.6 g/dL (12.0-16.0); Lymphocytes Absolute Auto 1600 /uL (1100-4500); Lymphocytes Percent Auto 31.5 % (25-40); Mean Corpuscular HGB Conc 33.4 % (30-36); Mean Corpuscular Hemoglobin 31.2 PG (26-34); Mean Corpuscular Volume 93.4 fL (80-100); Monocytes Absolute Auto 600 /uL (0-900); Neutrophils Absolute Auto 2800 /uL (1500-7000); Neutrophils Percent Auto 54.4 % (50-75); Platelet Count 288 X10^3/uL (150-400); Red Blood Cell Count 4.05 X10^6/uL (4.0-5.2); Red Cell Distribution Width 13.5 % (11.6-14.8); White Blood Cell Count 5.1 X10^3/uL (4.5-11.0)
[2024-02-22 16:37] LABS: Prothrombin Time 10.9 SECONDS (9.4-12.5)
[2024-02-22 16:40] LABS: PTT Partial Thromboplastin Tim 29 SECONDS (25.1-36.5)
[2024-02-22 16:42] LABS: Alanine Aminotransferase 32 IU/L (<35); Albumin 3.9 g/dL (3.5-5.0); Albumin Globulin Ratio 1.4 (1.0-2.8); Alkaline Phosphatase 130 U/L (38-126); Aspartate Aminotransferase 37 IU/L (14-36); BUN Creatinine Ratio 34.7 (6-22); Bilirubin Total 0.5 mg/dL (0.2-1.3); Blood Urea Nitrogen 26 mg/dL (7-17); Calcium 8.9 mg/dL (8.4-10.2); Carbon Dioxide 28 mmol/L (22-32); Chloride 109 mmol/L (98-107); Creatine Kinase 68 U/L (30-135); Estimated Glomerular Filt Rate > 60 mL/min (>60); Globulin 2.8 g/dL (1.7-4.1); Glucose 100 mg/dL (80-110); HEMOLYSIS 15 (0-50); Lipase 32 U/L (23-300); Magnesium 2.1 mg/dL (1.6-2.3); Potassium 4.2 mmol/L (3.4-5.1); Sodium 138 mmol/L (137-145); Total Protein 6.7 g/dL (6.3-8.2)
[2024-02-22 16:54] LABS: Troponin I < 0.012 ng/mL (0.01-0.034)
[2024-02-22] MEDS: MORPHINE 4 MG/ML INJ IV ×2 (17:04→19:44)
[2024-02-22] MEDS: ONDANSETRON 4 MG/2 ML INJ IV (17:04)
--- NOTE | 2024-02-22 17:32 | PC.NURSE ---
nurse went into see patient for assessment. 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 but then states it feels different. pt states she is having substernal chest pain prior to arrival that resolved. EMS gave nitro paste and ASA. pt request some IV tylenol thinking this might help. before i could speak with provider, pt used call light again stating her pain is now 9/10. rads down left arm. and she is having some SOB states it does not feel like an elephant on her chest but like a squeezing sensation and hard to take a deep breath. notified provider of this, order for morphine and zofran given. patient given medications and she requested to be placed on oxygen. informed patient that i would like to monitor her oxygen first to see how the morphine effects her. patient used called light again to inform me that she is feeling confused but this started after she was given the nitro and she thinks it is from that but she is concerned with this feeling. patient requested warm blankets. patient requested to be placed on oxygen again. provider made aware of patient's condition.
[2024-02-22 18:53] LABS: Creatine Kinase 68 U/L (30-135)
[2024-02-22] MEDS: ACETAMINOPHEN IV 1,000 MG/100 ML VIAL 400 MG IV (18:53)
[2024-02-22 19:06] LABS: Troponin I < 0.012 ng/mL (0.01-0.034)
--- NOTE | 2024-02-22 19:25 | ED_ITS ---
HPI - Chest Pain General Chief Complaint: Chest Pain Stated Complaint: Chest Pain Time Seen by Provider: 02/22/24 17:57 Source: patient and EMS Mode of arrival: EMS Limitations: no limitations History of Present Illness HPI narrative: 69-year-old female. Known history coronary disease stents also has a history of a DVT. She was not currently on anticoagulation she was recently admitted to facility for cardiac chest pain. Did not have a stress test. Was told that she would costochondritis. Has followed up with a international sales manager who wanted to see her back in 6 months. She stated that she started to chest discomfort earlier this morning. Has been consistent all day long. Has not left side of her chest. She received an aspirin by EMS prior to arrival. Received nitro by EMS. Potentially some improvement with the nitro. By the time I evaluated the patient she was asymptomatic. She states the discomfort is not worse with palpation and movement. It feels different than what she has had yd attack in the past. She states that she occasionally feels like her right leg is more swollen than the left but this is mostly night and seems to get better in the morning. Related Data Home Medications Medication Instructions Recorded Confirmed ascorbic acid (vitamin C) 500 mg 1,000 mg PO DAILY 02/05/19 02/22/24 tablet lisinopril 10 mg tablet 10 mg PO DAILY 10/25/19 02/22/24 clopidogrel 75 mg tablet 75 mg PO DAILY 12/22/19 02/22/24 cholecalciferol (vitamin D3) 100 100 mcg PO DAILY 07/29/20 02/22/24 mcg (4,000 unit) capsule multivitamin with folic acid 400 1 tab PO DAILY 07/29/20 02/22/24 mcg tablet (One Daily Multivitamin) atorvastatin 80 mg tablet 80 mg PO BEDTIME 10/18/23 02/22/24 furosemide 20 mg tablet 20 mg PO DAILY 10/18/23 02/22/24 loperamide 2 mg capsule 2 mg PO Q6H PRN Diarrhea 10/18/23 02/22/24 metoprolol tartrate 100 mg tablet 100 mg PO BID 10/18/23 02/22/24 lorazepam 0.5 mg tablet 0.5 mg PO PRN Anxiety 02/22/24 Previous Rx's Medication Instructions Recorded diclofenac sodium 1 % topical gel 2 g topical QID pain #100 grams 03/24/22 (Voltaren Arthritis Pain) duloxetine 60 mg capsule,delayed 60 mg PO DAILY #90 caps 11/29/23 release mirtazapine 45 mg tablet 45 mg PO BEDTIME #90 tabs 12/06/23 quetiapine 50 mg tablet 50 mg PO BEDTIME #90 tabs 12/06/23 temazepam 15 mg capsule 15 mg PO BEDTIME PRN sleep #14 caps 02/10/24 Allergies Allergy/AdvReac Type Severity Reaction Status Date / Time aripiprazole [From ABILIFY] Allergy Severe TREMORS, Verified 03/16/23 10:26 ANAPHYLAXIS adhesive tape Allergy Mild Rash Verified 02/22/24 15:24 bupropion [From WELLBUTRIN] AdvReac Severe HEADACHE Verified 03/16/23 10:26 propoxyphene AdvReac Severe Headache Verified 03/16/23 10:26 citalopram [CITALOPRAM] AdvReac Intermediate headache, Verified 03/16/23 10:26 difficulty thinking desvenlafaxine [From Pristiq] AdvReac Intermediate Shakiness Verified 03/16/23 10:26 indomethacin [INDOMETHACIN] AdvReac Intermediate GI UPSET Verified 03/16/23 10:26 phenobarbital [PHENOBARBITAL] AdvReac Intermediate DEPRESSION Verified 03/16/23 10:26 morphine [MORPHINE] AdvReac Mild 'LOOPY' Verified 03/16/23 10:26 Review of Systems Review of Systems ROS Unobtainable: All systems reviewed & are unremarkable except as noted in HPI and below Patient History Medical History Hard of hearing History of angina (~11/2019) Unstable angina Paraesophageal hernia Hyperlipidemia GERD (gastroesophageal reflux disease) Coronary artery disease Concussion Myocardial infarction Mild sleep apnea Arthritis of both hands Balance problem Bilateral hearing loss Hypertension Diabetes Surgical History History of cardiac cath H/O heart artery stent S/P scar revision H/O exploratory laparotomy (~2011) Status post cataract extraction of both eyes with insertion of intraocular lens History of total right hip arthroplasty S/P foot surgery, left History of total knee arthroplasty Social History household members: spouse Smoking Status: Never smoker alcohol intake: current Smoking Status: Never smoker alcohol intake frequency: holidays/special occasions only Substance Use Type: marijuana Exam Initial Vital Signs Initial Vital Signs: Vital Signs Temperature 98.3 F 02/22/24 15:32 Pulse Rate 66 02/22/24 15:32 Respiratory Rate 20 02/22/24 15:32 Blood Pressure 179/83 H 02/22/24 15:32 Oxygen Delivery Method Room Air 02/22/24 15:32 Const General: cooperative HENMT Head: normal to inspection and normocephalic Resp Effort & Inspection: normal respiratory effort Auscultation: clear to auscultation bilaterally Cardio Rate: regular rate Rhythm: regular rhythm GI Inspection: normal to inspection Skin General: no rashes or lesions noted Neuro General: patient alert, patient awake and moves all extremities Extrem General: No edema Course Orders Ordered: ED Orders 02/22/24 19:25 CT angio chest PE protocol Stat Discontinued Medications Hydrocodone Bitart/Acetaminophen (Hydrocodone/Acet 5/325 Tablet) 1 tab PO NOW ONE Stop: 02/22/24 21:50 Last Admin: 02/22/24 21:53 Dose: 1 tab Documented By: JEAN PAUL Aspirin (Aspirin 81 Mg Chew Tab) 324 mg PO NOW ONE Stop: 02/22/24 15:23 Last Admin: 02/22/24 16:29 Dose: Not Given Documented By: JESSICA Acetaminophen (Ofirmev) 1,000 mg in 100 mls @ 400 mls/hr IV NOW ONE Stop: 02/22/24 18:41 Last Infusion: 02/22/24 19:18 Dose: Infused Documented By: JEAN PAUL Admin: 02/22/24 18:53 Dose: 400 mls/hr Documented By: PETE Sodium Chloride (Normal Saline 0.9%) 1,000 mls @ 500 mls/hr IV BOLUS ONE Stop: 02/22/24 22:12 Last Infusion: 02/22/24 22:17 Dose: 500 mls/hr Documented By: JEAN PAUL Admin: 02/22/24 20:19 Dose: 500 mls/hr Documented By: JEAN PAUL Morphine Sulfate (Morphine 4 Mg/Ml Inj) 4 mg IV NOW ONE Stop: 02/22/24 16:55 Last Admin: 02/22/24 17:04 Dose: 4 mg Documented By: PETE Morphine Sulfate (Morphine 4 Mg/Ml Inj) 4 mg IV NOW ONE Stop: 02/22/24 19:26 Last Admin: 02/22/24 19:44 Dose: 4 mg Documented By: JEAN PAUL Ondansetron HCl (Ondansetron 4 Mg/2 Ml Inj) 4 mg IV NOW ONE Stop: 02/22/24 16:55 Last Admin: 02/22/24 17:04 Dose: 4 mg Documented By: PETE Vital Signs Vital signs: Vital Signs - 8 hr 02/22/24 19:53 02/22/24 19:53 02/22/24 20:00 Pulse Rate 78 Blood Pressure 146/69 H 147/70 H Pulse Oximetry 92 02/22/24 20:00 Pulse Rate 75 Blood Pressure Pulse Oximetry 93 MDM - Chest Pain Lab Data Attestation: I reviewed the patient's lab results. 02/22/24 16:10 02/22/24 16:10 Labs: Lab Results 02/22/24 02/22/24 Range/Units 16:10 18:36 WBC 5.1 (4.5-11.0) X10^3/uL RBC 4.05 (4.0-5.2) X10^6/uL Hgb 12.6 (12.0-16.0) g/dL Hct 37.9 (36-46) % MCV 93.4 (80-100) fL MCH 31.2 (26-34) PG MCHC 33.4 (30-36) % RDW 13.5 (11.6-14.8) % Plt Count 288 (150-400) X10^3/uL Neut % (Auto) 54.4 (50-75) % Lymph % (Auto) 31.5 (25-40) % [place] % (Auto) 11.0 (3-14) % Eos % (Auto) 2.3 (2-4) % Baso % (Auto) 0.8 (0-2) % Neut # (Auto) 2800 (0873-4228) /uL Lymph # (Auto) 1600 (2638-1140) /uL [place]vin # (Auto) 600 (0-900) /uL Eos # (Auto) 100 (0-450) /uL Baso # (Auto) 0 (0-100) /uL PT 10.9 (9.4-12.5) SECONDS INR 1.0 (0.9-1.3) APTT 29 (25.1-36.5) SECONDS Sodium 138 (137-145) mmol/L Potassium 4.2 (3.4-5.1) mmol/L Chloride 109 H (98-107) mmol/L Carbon Dioxide 28 (22-32) mmol/L BUN 26 H (7-17) mg/dL Creatinine 0.75 (0.52-1.04) mg/dL Estimated GFR > 60 (>60) mL/min BUN/Creatinine Ratio 34.7 H (6-22) Glucose 100 (80-110) mg/dL Calcium 8.9 (8.4-10.2) mg/dL Magnesium 2.1 (1.6-2.3) mg/dL Total Bilirubin 0.5 (0.2-1.3) mg/dL AST 37 H (14-36) IU/L ALT 32 (<35) IU/L Alkaline Phosphatase 130 H (38-126) U/L Total Creatine Kinase 68 68 (30-135) U/L Troponin I < 0.012 < 0.012 (0.01-0.034) ng/mL Total Protein 6.7 (6.3-8.2) g/dL Albumin 3.9 (3.5-5.0) g/dL Globulin 2.8 (1.7-4.1) g/dL Albumin/Globulin Ratio 1.4 (1.0-2.8) Lipase 32 (23-300) U/L Urine Dip Bedside Urine Glucose Negative Bedside Urine Bilirubin - Negative Bedside Urine Ketone - Negative Urine Specific [place] 1.010 Bedside Urine Occult Blood - Negative Bedside Urine pH 5.5 Bedside Urine Protein - Negative Bedside Urine Urobilinogen - Negative Bedside Urine Nitrite - Negative Bedside Urine Leukocytes - Negative Esterase Imaging Data Chest x-ray: Radiologist's Impression: PROCEDURE: XR CHEST 1V INDICATIONS: chest pain TECHNIQUE: One view of the chest was acquired. COMPARISON: [facility], , XR CHEST 1V, 12/22/2019, 16:42. [facility], , XR CHEST 2V, 11/28/2019, 19:42. FINDINGS: Surgical changes and devices: None. Lungs and pleura: Low lung volumes. Slight blurring of the right hemidiaphragm. No drainable pleural effusions. Mediastinum: Heart size is at the upper limit of normal. Bones and chest wall: Degenerative changes. IMPRESSION: Slight blurring of the right hemidiaphragm may represent mild infectious/inflammatory opacity versus atelectasis in the right lower lobe. Consider future imaging surveillance to assess for resolution. Heart size is at the upper limit of normal allowing for low lung volumes. CT scan - chest: Radiologist's Impression: PROCEDURE: CT ANGIO CHEST PE PROTOCOL INDICATIONS: Chest pain, shortness of breath, tachycardia TECHNIQUE: After the administration of intravenous contrast, 2 mm thick sections acquired from the pulmonary apices to the posterior costophrenic angles. 3-dimensional maximum intensity projection (MIP) coronal and sagittal reformats were then acquired through the thorax. For radiation dose reduction, the following was used: automated exposure control, adjustment of mA and/or kV according to patient size. COMPARISON: [facility], CT, CT ANGIO CHEST PE, 11/30/2019, 1:13. [facility], CR, XR CHEST 1V, 02/22/2024, 15:27. FINDINGS: Image quality: Diagnostic. Pulmonary arteries: Pulmonary arteries are normal in size, and demonstrate no intraluminal filling defects to suggest central pulmonary embolism. Lower Neck: No enlarged lymph nodes. Thyroid: No thyroid nodules which require sonographic follow up, per consensus guidelines. Axillae: No enlarged lymph nodes. Chest Wall: Unremarkable. Bones: Unremarkable. Lungs and Pleura: No pneumothorax or pleural effusions. Mild dependent atelectasis in the lung bases. No consolidation or suspicious nodules. Heart: Heart size is mildly enlarged. No pericardial effusion. Three-vessel coronary artery calcifications. Thoracic Vessels: No aortic aneurysm. Mediastinum and [place]: No enlarged lymph nodes. Esophagus: No wall thickening. Moderate hiatal hernia. Upper Abdomen: Visualized upper abdomen solid organs and bowel loops appear normal. IMPRESSION: 1. No acute pulmonary embolus. No acute abnormality identified in the chest. 2. Mild cardiomegaly. Coronary artery calcifications. 3. Moderate hiatal hernia. ECG Data Attestation: I personally reviewed and interpreted this ECG as follows: Interpretation: Sinus the rate is [address] T wave MDM Narrative Medical decision making narrative: Patient is asymptomatic upon my evaluation. Has had 2- troponins with greater than 6 hours of consistent pain. Chest x-ray shows no signs of pneumonia. Has a nonischemic EKG. CT scan of the chest shows no signs of pulmonary embolism I did discuss the case with hospitalist who recommended discharge home and follow up with Cardiology since the patient has had 2- troponins. Discussed the case the patient. Will discharge patient home with instructions to contact your international sales manager for follow-up. She was given return precautions. She expressed understanding and agreement with the plan. Discharge Plan Departure Patient Disposition: Home Clinical Impression: Chest pain Instructions: DI for Chest Pain Activity Restrictions/Additional Instructions: I do recommend that you continue to take all of your medications as directed. Contact your primary provider and also your international sales manager for a follow-up. Return to the emergency department for new symptoms. Prescriptions: No Action cholecalciferol (vitamin D3) 100 mcg (4,000 unit) capsule 100 mcg PO DAILY One Daily Multivitamin 400 mcg tablet 1 tab PO DAILY atorvastatin 80 mg tablet 80 mg PO BEDTIME furosemide 20 mg tablet 20 mg PO DAILY loperamide 2 mg capsule 2 mg PO Q6H PRN (Reason: Diarrhea) metoprolol tartrate 100 mg tablet 100 mg PO BID duloxetine 60 mg capsule,delayed release(DR/EC) 60 mg PO DAILY Qty: 90 3RF mirtazapine 45 mg tablet 45 mg PO BEDTIME Qty: 90 1RF quetiapine 50 mg tablet 50 mg PO BEDTIME Qty: 90 1RF temazepam 15 mg capsule 15 mg PO BEDTIME PRN (Reason: sleep) Qty: 14 0RF lisinopril 10 mg Tablet 10 mg PO DAILY diclofenac sodium [Voltaren Arthritis Pain] 1 % gel 2 g topical QID Qty: 100 0RF Rx Instructions: apply to single elbow, wrist or hand; for hand includes palm/fingers/back of hand ascorbic acid (vitamin C) 500 mg Tablet 1,000 mg PO DAILY clopidogrel 75 mg tablet 75 mg PO DAILY lorazepam 0.5 mg Tablet 0.5 mg PO PRN (Reason: Anxiety) Referrals: Salena Long PA-C [Primary Care Provider] - Stand Alone Forms: Patient Portal/API
[2024-02-22] MEDS: SODIUM CHLORIDE 0.9% 1,000 ML 500 ML IV (20:19)
--- NOTE | 2024-02-22 21:16 | PC.NURSE ---
with assistance of ALBANIA Jones we changed pt depends;
[2024-02-22] MEDS: HYDROCODONE/ACET 5/325 TABLET 1 TAB PO (21:53)
== END 2024-02-22 22:16 | disposition home or self-care (01) ==
PROVIDERS: Emergency Medicine; Emergency Provider Emergency Medicine; Family Provider Anesthesiology Pain Medicine; PCP Physician Assistant
DX: R07.9 Chest pain, unspecified (principal); Z95.5 Presence of coronary angioplasty implant and graft; Z79.01 Long term (current) use of anticoagulants
CPT/HCPCS: 36415; 71045; 71275; 80053; 81003; 82550; 83690; 83735; 84484; 85025; 85610; 85730; 93005; 96361; 96365; 96375; 96376; 99284; J0136; J2270; J2405; Q9967

== ENCOUNTER 2024-02-24 13:24 | Inpatient (IN) | payer MEDICARE, OTHER, SELFPAY ==
[2023-10-01 14:04] VITALS: BMI 42.7
[2024-02-24] VITALS (18 sets, daily range): BP systolic 110–145; BP diastolic 55–73; PULSE 68–82; RESP 16–32; TEMP 37.2; O2SAT 92–98; BMI 42.5; BMI 40.8
--- NOTE | 2024-02-24 13:32 | DI.RAD.S_ITS ---
PROCEDURE: XR CHEST 1V INDICATIONS: chest pain TECHNIQUE: One view of the chest was acquired. COMPARISON: [facility], CR, XR CHEST 1V, 02/22/2024, 15:27. [facility], CR, XR CHEST 1V, 12/22/2019, 16:42. FINDINGS: Surgical changes and devices: None. Lungs and pleura: Lungs are clear. No pleural effusions or pneumothorax. Mediastinum: Mediastinal contours appear normal. Heart size is normal. Moderate hiatal hernia. Bones and chest wall: No suspicious bony lesions. Overlying soft tissues appear unremarkable. IMPRESSION: No acute cardiopulmonary abnormality is seen. Moderate hiatal hernia. Dictated by: Danyel Naidu M.D. on 02/24/2024 at 14:11 Approved by: Danyel Naidu M.D. on 02/24/2024 at 14:11
--- NOTE | 2024-02-24 13:44 | PC.NURSE ---
patient was here on the for chest pain. she was discharged with a follow up to a object oriented developer. She made and nory. and has an ECHO scheduled soon. She is also getting an MRI on the and a barium swallow on the . She had surgery to reposition her stomach in the past. She has been taking 2 tylenol and 3 ibuprophen BID for costochondritis for about a month now. She states that the nitro she had in the ambulance took her pain from a 8/10 to a 5/10. She is back up to a 8/10 and now has a nitro headache
[2024-02-24 13:54] LABS: Add Manual Diff / Slide Review NO; Basophils Absolute Auto 0 /uL (0-100); Basophils Percent Auto 0.3 % (0-2); Eosinophils Absolute Auto 100 /uL (0-450); Eosinophils Percent Auto 1.4 % (2-4); Hematocrit 35.8 % (36-46); Hemoglobin 11.9 g/dL (12.0-16.0); Lymphocytes Absolute Auto 1400 /uL (1100-4500); Lymphocytes Percent Auto 18.3 % (25-40); Mean Corpuscular HGB Conc 33.2 % (30-36); Mean Corpuscular Hemoglobin 31.2 PG (26-34); Mean Corpuscular Volume 93.8 fL (80-100); Monocytes Absolute Auto 700 /uL (0-900); Monocytes Percent Auto 9.1 % (3-14); Neutrophils Absolute Auto 5300 /uL (1500-7000); Neutrophils Percent Auto 70.9 % (50-75); Platelet Count 290 X10^3/uL (150-400); Prothrombin Time 11.1 SECONDS (9.4-12.5); Red Blood Cell Count 3.82 X10^6/uL (4.0-5.2); Red Cell Distribution Width 13.8 % (11.6-14.8); White Blood Cell Count 7.4 X10^3/uL (4.5-11.0)
[2024-02-24 13:57] LABS: PTT Partial Thromboplastin Tim 31 SECONDS (25.1-36.5)
[2024-02-24 13:59] LABS: Alanine Aminotransferase 43 IU/L (<35); Albumin 3.6 g/dL (3.5-5.0); Albumin Globulin Ratio 1.3 (1.0-2.8); Alkaline Phosphatase 122 U/L (38-126); Aspartate Aminotransferase 60 IU/L (14-36); BUN Creatinine Ratio 27.1 (6-22); Bilirubin Total 0.5 mg/dL (0.2-1.3); Blood Urea Nitrogen 19 mg/dL (7-17); Calcium 8.6 mg/dL (8.4-10.2); Carbon Dioxide 29 mmol/L (22-32); Chloride 109 mmol/L (98-107); Creatine Kinase 534 U/L (30-135); Estimated Glomerular Filt Rate > 60 mL/min (>60); Globulin 2.7 g/dL (1.7-4.1); Glucose 99 mg/dL (80-110); HEMOLYSIS < 15 (0-50); Lipase 33 U/L (23-300); Magnesium 2.1 mg/dL (1.6-2.3); Sodium 141 mmol/L (137-145); Total Protein 6.3 g/dL (6.3-8.2)
[2024-02-24 14:10] LABS: Troponin I < 0.012 ng/mL (0.01-0.034)
[2024-02-24] MEDS: MAG HYDROX/ALUMINUM/SIMETH SUS 20 ML, LIDOCAINE VISCOUS 2% 15 ML PO (14:18)
[2024-02-24] MEDS: FAMOTIDINE 20 MG/2 ML VIAL IV (14:19)
[2024-02-24] MEDS: ONDANSETRON 4 MG/2 ML INJ IV (14:21)
[2024-02-24] MEDS: SODIUM CHLORIDE 0.9% 1,000 ML 150 ML IV (14:21)
[2024-02-24] MEDS: MORPHINE 4 MG/ML INJ IV (14:36)
--- NOTE | 2024-02-24 15:04 | DI.ECHO.S_ITS ---
[facility]+ [facility] : : [address] : : [place] : : [id number] : : Phone: [phone] Echocardiogram Report + + :Name: SOCORRO ANDRADE Study Date: 02/24/2024 Height: 63 in : :Hospital ReadingLocation: Weight: 240 lb : : Gender: Female BSA: 2.1 m2 : :: 1950 Age: 73 yrs BP: 134/63 mmHg: :Reason For Study: STEMI : :Ordering Physician: THIAGO : :JACQUELIN Performed By: Belen De Santiago : :Referring: JACQUELIN DAS : + + Interpretation Summary Left ventricular wall thickness is mildly increased. Left ventricular systolic function appears normal without focal wall motion abnormalities. The ejection fraction is estimated to be 60-65%. Diastolic parameters suggest probable normal left ventricular diastolic function and normal filling pressures. The right ventricle is normal in size and function. The right ventricular systolic pressure is estimated to be at least 35 mmHg based on an estimated right atrial pressure of 3 mm Hg. Borderline left atrial enlargement. There is no significant valvular heart disease. The aortic root is normal size. Procedure: A two-dimensional transthoracic echocardiogram with color flow and Doppler was performed. The study quality was technically difficult. Comparison is made with the echocardiogram of 12/01/2019. The patient was in sinus rhythm with heart rates between 76-81 bpm during the exam. Left Ventricle: The left ventricle is normal in size. Left ventricular wall thickness is mildly increased. Left ventricular systolic function appears normal without focal wall motion abnormalities. The ejection fraction is estimated to be 60-65%. Diastolic parameters suggest probable normal left ventricular diastolic function and normal filling pressures. Right Ventricle: The right ventricle is normal in size and function. Atria: Borderline left atrial enlargement. Right atrial size is normal. There is no Doppler evidence for an interatrial shunt. Mitral Valve: The mitral valve is normal in structure and function. There is trace mitral regurgitation. Aortic Valve: The aortic valve is slightly calcified. There is mild aortic valve sclerosis. The peak aortic velocity is 1.9 m/sec. The aortic valve mean gradient is 8 mmHg. The calculated aortic valve area is 2.0 cm2. No aortic regurgitation is present. Tricuspid Valve: The tricuspid valve is normal in structure and function. There is trace tricuspid regurgitation. The right ventricular systolic pressure is estimated to be at least 35 mmHg based on an estimated right atrial pressure of 3 mm Hg. Pulmonic Valve: The pulmonic valve is not well seen, but is grossly normal. There is no pulmonic valvular regurgitation. There is no significant valvular heart disease. Great Vessels: The aortic root is normal size. The dimensions of the ascending aorta are normal. The IVC is of normal diameter and collapses greater than 50% with a sniff. This suggests a low right atrial pressure of 3 mm Hg. Pericardium/ Pleura There is no pericardial effusion. There is no pleural effusion. MMode/2D Measurements & Calculations LVIDd: 4.3 cm LVOT diam: 2.2 cm LVIDs: 2.7 cm Ao root diam: 3.6 cm FS: 38.4 % asc Aorta Diam: 3.3 cm IVSd: 1.2 cm Ao Arch Diam (Prox Trans): 3.0 cm LVPWd: 1.1 cm LV duran. diameter/BSA (cm/m^2): 2.1 LV sys. diameter/BSA (cm/m^2): 1.3 LA A2 area: 21.7 cm2 RA long axis: 4.9 cm LA A4 area: 19.7 cm2 RA area: 13.9 cm2 LA length (vol): 5.4 cm RA vol: 33.4 ml LA vol: 67.3 ml RA : 16.0 ml/m2 LA vol index: 32.2 ml/m2 IVC diam: 1.2 cm RVD1 (basal): 3.8 cm TAPSE: 1.9 cm Doppler Measurements & Calculations Ao V2 max: 190.4 cm/sec LVOT Max Foreign: 102.8 cm/sec Ao V2 mean: 138.1 cm/sec LV V1 max P.2 mmHg Ao max P.5 mmHg LV V1 VTI: 24.0 cm Ao mean P.4 mmHg LAN(I,D): 2.3 cm2 Ao V2 VTI: 38.0 cm LAN(V,D): 2.0 cm2 sev ratio: 0.63 LAN indexed to BSA (cm^2/m^2): 1.1 MV E max foreign: 97.8 cm/sec TR max foreign: 282.7 cm/sec MV A max foreign: 86.3 cm/sec TR max P.0 mmHg MV E/A: 1.1 PA V2 max: 93.3 cm/sec Med Peak E' Foreign: 9.7 cm/sec PA V2 mean: 70.5 cm/sec E/E' med: 10.1 PA mean P.1 mmHg Lat Peak E' Foreign: 10.6 cm/sec PA pr(Accel): 37.9 mmHg E/E' lat: 9.2 E/e' average: 9.6 MV dec time: 0.23 sec SV(LVOT): 87.9 ml Reading Physician:04:47 PM
--- NOTE | 2024-02-24 15:06 | DI.US.S_ITS ---
PROCEDURE: US ABDOMEN LIMITED INDICATIONS: ruq abd pain TECHNIQUE: Real-time scanning was performed of the abdominal and retroperitoneal organs, with image documentation. COMPARISON: None. FINDINGS: Liver: Increased liver echogenicity with posterior attenuation, most consistent with moderate to severe steatosis. Gallbladder: No gallstones. Distended. Right upper quadrant tenderness on palpation. Biliary ducts: Intrahepatic bile ducts are non-dilated. Extrahepatic bile duct caliber measures 1.3 mm. Normal is 6-7 mm or less in diameter, or 10 mm or less post-cholecystectomy. Pancreas: Visualized portions of the pancreas are sonographically normal. Miscellaneous: No free abdominal fluid. IMPRESSION: Right upper quadrant tenderness on examination. The gallbladder is distended, without stones. This could be due to a fasting state, less likely obstructing stone at the gallbladder neck that is not visualized. If there is concern about gallbladder pathology, consider MRCP. At least moderate hepatic steatosis. Correlate with elevated liver enzymes, as findings could indicate steatohepatitis. Dictated by: Danyel Naidu M.D. on 02/24/2024 at 17:33 Approved by: Danyel Naidu M.D. on 02/24/2024 at 17:35
[2024-02-24] MEDS: ACETAMINOPHEN IV 1,000 MG/100 ML VIAL 400 MG IV (15:27)
[2024-02-24] MEDS: NITROGLYCERIN 50 MG/250 ML INFUS..BTL IV (15:35)
--- NOTE | 2024-02-24 15:41 | ED_ITS ---
HPI - Chest Pain General Chief Complaint: Chest Pain Stated Complaint: chest pain Time Seen by Provider: 02/24/24 14:48 Source: patient and EMS Mode of arrival: EMS History of Present Illness HPI narrative: 73-year-old female with a history of known coronary disease, remote history of DVT not anticoagulated, costochondritis and paraesophageal hernia. She is here today with substernal chest pain that she describes as squeezing, has been present for greater than 6 hours today has had multiple episodes of it over the last month, reports that it improves with nitroglycerin, gets worse with exertion and food. It is associated with shortness of breath and nausea she does not have diaphoresis. Has previously had stents in [place], last saw her stone and concrete washer earlier last month, was also here 2 days ago and had normal tropes x2 in spite of prolonged chest pain and a nonischemic EKG. Negative CT angiogram and 2- troponins last visit. Forty she has a headache today after receiving nitroglycerin. She is out of her home nitroglycerin. Spoke to the on-call stone and concrete washer in [place] last night and they are planning for an outpatient echo. Related Data Home Medications Medication Instructions Recorded Confirmed ascorbic acid (vitamin C) 500 mg 1,000 mg PO DAILY 02/05/19 02/22/24 tablet lisinopril 10 mg tablet 10 mg PO DAILY 10/25/19 02/22/24 clopidogrel 75 mg tablet 75 mg PO DAILY 12/22/19 02/22/24 cholecalciferol (vitamin D3) 100 100 mcg PO DAILY 07/29/20 02/22/24 mcg (4,000 unit) capsule multivitamin with folic acid 400 1 tab PO DAILY 07/29/20 02/22/24 mcg tablet (One Daily Multivitamin) atorvastatin 80 mg tablet 80 mg PO BEDTIME 10/18/23 02/22/24 furosemide 20 mg tablet 20 mg PO DAILY 10/18/23 02/22/24 loperamide 2 mg capsule 2 mg PO Q6H PRN Diarrhea 10/18/23 02/22/24 metoprolol tartrate 100 mg tablet 100 mg PO BID 10/18/23 02/22/24 lorazepam 0.5 mg tablet 0.5 mg PO PRN Anxiety 02/22/24 Previous Rx's Medication Instructions Recorded diclofenac sodium 1 % topical gel 2 g topical QID pain #100 grams 12/11/21 (Voltaren Arthritis Pain) duloxetine 60 mg capsule,delayed 60 mg PO DAILY #90 caps 11/29/23 release mirtazapine 45 mg tablet 45 mg PO BEDTIME #90 tabs 12/06/23 quetiapine 50 mg tablet 50 mg PO BEDTIME #90 tabs 12/06/23 temazepam 15 mg capsule 15 mg PO BEDTIME PRN sleep #14 caps 02/10/24 Allergies Allergy/AdvReac Type Severity Reaction Status Date / Time aripiprazole [From ABILIFY] Allergy Severe TREMORS, Verified 02/24/24 13:33 ANAPHYLAXIS adhesive tape Allergy Mild Rash Verified 02/24/24 13:33 bupropion [From WELLBUTRIN] AdvReac Severe HEADACHE Verified 02/24/24 13:33 propoxyphene AdvReac Severe Headache Verified 02/24/24 13:33 citalopram [CITALOPRAM] AdvReac Intermediate headache, Verified 02/24/24 13:33 difficulty thinking desvenlafaxine [From Pristiq] AdvReac Intermediate Shakiness Verified 02/24/24 13:33 indomethacin [INDOMETHACIN] AdvReac Intermediate GI UPSET Verified 02/24/24 13:33 phenobarbital [PHENOBARBITAL] AdvReac Intermediate DEPRESSION Verified 02/24/24 13:33 morphine [MORPHINE] AdvReac Mild 'LOOPY' Verified 02/24/24 13:33 Patient History Medical History (Updated 02/24/24 @ 17:09 by Jacquelin Das MD) Hard of hearing History of angina (~11/2019) Unstable angina Paraesophageal hernia Hyperlipidemia GERD (gastroesophageal reflux disease) Coronary artery disease Concussion Myocardial infarction Mild sleep apnea Arthritis of both hands Balance problem Bilateral hearing loss Hypertension Diabetes Surgical History History of cardiac cath H/O heart artery stent S/P scar revision H/O exploratory laparotomy (~2011) Status post cataract extraction of both eyes with insertion of intraocular lens History of total right hip arthroplasty S/P foot surgery, left History of total knee arthroplasty Social History household members: spouse Smoking Status: Never smoker alcohol intake: current Smoking Status: Never smoker alcohol intake frequency: holidays/special occasions only Substance Use Type: marijuana Exam Initial Vital Signs Initial Vital Signs: Vital Signs Temperature 98.9 F 02/24/24 13:24 Pulse Rate 68 02/24/24 13:24 Respiratory Rate 16 02/24/24 13:24 Blood Pressure 110/57 L 02/24/24 13:24 Pulse Oximetry 94 02/24/24 13:24 Oxygen Delivery Method Room Air 02/24/24 13:24 Vital signs noted, she appears to be in no distress [facility] Head: normocephalic and atraumatic Neck Other: Supple without jugular venous distention Chest Other: Does have tenderness to the anterior chest. Resp Other: Lungs are clear, equal breath sounds Cardio Other: Regular rhythm and rate with a systolic murmur GI Other: Normal bowel sounds soft with right upper quadrant tenderness no guarding Skin Other: Warm and dry Neuro Other: Alert, fluent speech no motor deficits Course Orders Ordered: ED Orders 02/24/24 13:32 XR chest 1V Stat 02/24/24 13:41 Complete Blood Count AUTO DIFF Stat Comprehensive Metabolic Panel Stat Lipase Stat Magnesium Stat PTT Partial Thromboplastin [place] Stat Prothrombin Time INR Stat Troponin & CK Cardiac Panel Stat EKG-12 Lead Stat 02/24/24 15:04 EC echo limited Stat 02/24/24 15:06 US abdomen limited Stat 02/24/24 15:53 Trop I [Troponin I] Stat Famotidine (Famotidine 20 Mg/2 Ml Vial) 20 mg IV NOW [facility] Last Admin: 02/24/24 14:19 Dose: 20 mg Documented By: WANDA Sodium Chloride (Normal Saline 0.9%) 1,000 mls @ 150 mls/hr IV CONT [facility] Last Admin: 02/24/24 14:21 Dose: 150 mls/hr Documented By: WANDA Nitroglycerin (Nitroglycerin) 50 mg in 250 mls @ 1.5 mls/hr IV TITRATE [facility]; Protocol Last Admin: 02/24/24 15:35 Dose: 5 mcg/min, 1.5 mls/hr Documented By: WANDA Discontinued Medications Al Hydrox/Mg Hydrox/Simethicone 20 ml/ Lidocaine HCl 15 ml 0 ml PO NOW ONE Stop: 02/24/24 14:12 Last Admin: 02/24/24 14:18 Dose: 45 ml Documented By: WANDA Acetaminophen (Ofirmev) 1,000 mg in 100 mls @ 400 mls/hr IV NOW ONE Stop: 02/24/24 15:18 Last Admin: 02/24/24 15:27 Dose: 400 mls/hr Documented By: REZA Morphine Sulfate (Morphine 4 Mg/Ml Inj) 4 mg IV NOW ONE Stop: 02/24/24 14:35 Last Admin: 02/24/24 14:36 Dose: 4 mg Documented By: WANDA Ondansetron HCl (Ondansetron 4 Mg/2 Ml Inj) 4 mg IV NOW ONE Stop: 02/24/24 14:14 Last Admin: 02/24/24 14:21 Dose: 4 mg Documented By: WANDA Reevaluation(s) Reevaluation #1: Nitroglycerin drip has been ineffective at resolving her chest pain. She has having a headache as a result of the nitro. We discussed findings of 2 normal troponins reassuring EKG and her stone and concrete washer's perspective that this is likely musculoskeletal, patient was still anxious that this could be cardiac in his now interested in pursuing a stress test. I am going to stop her nitroglycerin drip as it does not appear to be effective and I have a low suspicion that this is ischemic. Consultations Consultation #1: Discussed with Cardiology, Dr. Thornton, CK is quite nonspecific, recommends following tropes, recommends admission and stress test his troponins are negative Consultation #2: D/W Dr Newton, hospitalist, accepts admission Vital Signs Vital signs: Vital Signs - 8 hr 02/24/24 13:24 02/24/24 13:31 02/24/24 13:32 Temperature 98.9 F Pulse Rate 68 68 Respiratory Rate 16 16 Blood Pressure 110/57 L 110/55 L Pulse Oximetry 94 94 Oxygen Delivery Method Room Air 02/24/24 14:00 02/24/24 14:01 02/24/24 14:01 Temperature Pulse Rate 73 70 Respiratory Rate 30 H 21 Blood Pressure 130/63 Pulse Oximetry Oxygen Delivery Method 02/24/24 14:30 02/24/24 14:30 02/24/24 15:00 Temperature Pulse Rate 71 80 Respiratory Rate 23 32 H Blood Pressure 115/56 L Pulse Oximetry 96 98 Oxygen Delivery Method 02/24/24 15:01 02/24/24 15:01 02/24/24 15:30 Temperature Pulse Rate 80 80 Respiratory Rate 19 25 H Blood Pressure 145/64 H Pulse Oximetry 97 95 Oxygen Delivery Method 02/24/24 15:31 02/24/24 15:31 02/24/24 16:00 Temperature Pulse Rate 82 Respiratory Rate 28 H Blood Pressure 134/63 133/61 Pulse Oximetry 93 Oxygen Delivery Method 02/24/24 16:00 02/24/24 16:30 02/24/24 16:31 Temperature Pulse Rate 78 77 77 Respiratory Rate 18 26 H 28 H Blood Pressure Pulse Oximetry 96 95 95 Oxygen Delivery Method 02/24/24 16:31 Temperature Pulse Rate Respiratory Rate Blood Pressure 122/58 L Pulse Oximetry Oxygen Delivery Method MDM - Chest Pain Medical Records Data Medical records narrative: Obtain records from [facility], echocardiogram done at [facility] in 2019, normal LVEF mild tricuspid regurg cardiology note from 02/22, phone call to on-call reporting chest pain advised to go to the ER, cardiology office visit January 20 stents to the right coronary LAD and diagonal in 2005 stable cardiac catheterization in 2010, balloon angioplasty for unstable angina in 2016 stable cardiac catheterization in 2016 cardiology opinion at that time was at this was musculoskeletal, Lab Data Lab results narrative: 1st troponin is normal, CBC with diff and CMP are unremarkable, total CK is elevated, nonspecific per cardiology. Repeat troponin is normal 02/24/24 13:41 02/24/24 13:41 Labs: Lab Results 02/24/24 02/24/24 Range/Units 13:41 15:53 WBC 7.4 (4.5-11.0) X10^3/uL RBC 3.82 L (4.0-5.2) X10^6/uL Hgb 11.9 L (12.0-16.0) g/dL Hct 35.8 L (36-46) % MCV 93.8 (80-100) fL MCH 31.2 (26-34) PG MCHC 33.2 (30-36) % RDW 13.8 (11.6-14.8) % Plt Count 290 (150-400) X10^3/uL Neut % (Auto) 70.9 (50-75) % Lymph % (Auto) 18.3 L (25-40) % [place] % (Auto) 9.1 (3-14) % Eos % (Auto) 1.4 L (2-4) % Baso % (Auto) 0.3 (0-2) % Neut # (Auto) 5300 (0776-2765) /uL Lymph # (Auto) 1400 (6079-9840) /uL [place] # (Auto) 700 (0-900) /uL Eos # (Auto) 100 (0-450) /uL Baso # (Auto) 0 (0-100) /uL PT 11.1 (9.4-12.5) SECONDS INR 1.0 (0.9-1.3) APTT 31 (25.1-36.5) SECONDS Sodium 141 (137-145) mmol/L Potassium 4.0 (3.4-5.1) mmol/L Chloride 109 H (98-107) mmol/L Carbon Dioxide 29 (22-32) mmol/L BUN 19 H (7-17) mg/dL Creatinine 0.70 (0.52-1.04) mg/dL Estimated GFR > 60 (>60) mL/min BUN/Creatinine Ratio 27.1 H (6-22) Glucose 99 (80-110) mg/dL Calcium 8.6 (8.4-10.2) mg/dL Magnesium 2.1 (1.6-2.3) mg/dL Total Bilirubin 0.5 (0.2-1.3) mg/dL AST 60 H (14-36) IU/L ALT 43 H (<35) IU/L Alkaline Phosphatase 122 (38-126) U/L Total Creatine Kinase 534 H D (30-135) U/L Troponin I < 0.012 < 0.012 (0.01-0.034) ng/mL Total Protein 6.3 (6.3-8.2) g/dL Albumin 3.6 (3.5-5.0) g/dL Globulin 2.7 (1.7-4.1) g/dL Albumin/Globulin Ratio 1.3 (1.0-2.8) Lipase 33 (23-300) U/L Imaging Data Chest x-ray: My Impression: Independent review of chest x-ray, no acute finding Radiologist's Impression: Radiologist report indicates no acute cardiopulmonary disease US - abdomen: My Impression: senior cytogenetic technologist reports no gallstones no gallbladder wall thickening on right upper quadrant ultrasound echo: Radiologist's Impression: [facility]+ [facility] : : [address] [place] [address] : : [place] : : [id number] : : Phone: [phone] Echocardiogram Report + + :Name: SOCORRO ANDRADE Study Date: 02/24/2024 Height: 63 in : :[facility] ReadingLocation: Weight: 240 lb : : Gender: Female BSA: 2.1 m2 : :: 1950 Age: 73 yrs BP: 134/63 mmHg: :Reason For Study: STEMI : :Ordering Physician: THIAGO, : :JACQUELIN Performed By: Belen De Santiago : :Referring: JACQUELIN DAS : + + Interpretation Summary Left ventricular wall thickness is mildly increased. Left ventricular systolic function appears normal without focal wall motion abnormalities. The ejection fraction is estimated to be 60-65%. Diastolic parameters suggest probable normal left ventricular diastolic function and normal filling pressures. The right ventricle is normal in size and function. The right ventricular systolic pressure is estimated to be at least 35 mmHg based on an estimated right atrial pressure of 3 mm Hg. Borderline left atrial enlargement. There is no significant valvular heart disease. The aortic root is normal size. Procedure: A two-dimensional transthoracic echocardiogram with color flow and Doppler was performed. The study quality was technically difficult. Comparison is made with the echocardiogram of 12/01/2019. The patient was in sinus rhythm with heart rates between 76-81 bpm during the exam. Left Ventricle: The left ventricle is normal in size. Left ventricular wall thickness is mildly increased. Left ventricular systolic function appears normal without focal wall motion abnormalities. The ejection fraction is estimated to be 60-65%. Diastolic parameters suggest probable normal left ventricular diastolic function and normal filling pressures. Right Ventricle: The right ventricle is normal in size and function. Atria: Borderline left atrial enlargement. Right atrial size is normal. There is no Doppler evidence for an interatrial shunt. Mitral Valve: The mitral valve is normal in structure and function. There is trace mitral regurgitation. Aortic Valve: The aortic valve is slightly calcified. There is mild aortic valve sclerosis. The peak aortic velocity is 1.9 m/sec. The aortic valve mean gradient is 8 mmHg. The calculated aortic valve area is 2.0 cm2. No aortic regurgitation is present. Tricuspid Valve: The tricuspid valve is normal in structure and function. There is trace tricuspid regurgitation. The right ventricular systolic pressure is estimated to be at least 35 mmHg based on an estimated right atrial pressure of 3 mm Hg. Pulmonic Valve: The pulmonic valve is not well seen, but is grossly normal. There is no pulmonic valvular regurgitation. There is no significant valvular heart disease. Great Vessels: The aortic root is normal size. The dimensions of the ascending aorta are normal. The IVC is of normal diameter and collapses greater than 50% with a sniff. This suggests a low right atrial pressure of 3 mm Hg. Pericardium/ Pleura There is no pericardial effusion. There is no pleural effusion. MMode/2D Measurements & Calculations LVIDd: 4.3 cm LVOT diam: 2.2 cm LVIDs: 2.7 cm Ao root diam: 3.6 cm FS: 38.4 % asc Aorta Diam: 3.3 cm IVSd: 1.2 cm Ao Arch Diam (Prox Trans): 3.0 cm LVPWd: 1.1 cm LV duran. diameter/BSA (cm/m^2): 2.1 LV sys. diameter/BSA (cm/m^2): 1.3 LA A2 area: 21.7 cm2 RA long axis: 4.9 cm LA A4 area: 19.7 cm2 RA area: 13.9 cm2 LA length (vol): 5.4 cm RA vol: 33.4 ml LA vol: 67.3 ml RA : 16.0 ml/m2 LA vol index: 32.2 ml/m2 IVC diam: 1.2 cm RVD1 (basal): 3.8 cm TAPSE: 1.9 cm Doppler Measurements & Calculations Ao V2 max: 190.4 cm/sec LVOT Max Foreign: 102.8 cm/sec Ao V2 mean: 138.1 cm/sec LV V1 max P.2 mmHg Ao max P.5 mmHg LV V1 VTI: 24.0 cm Ao mean P.4 mmHg LAN(I,D): 2.3 cm2 Ao V2 VTI: 38.0 cm LAN(V,D): 2.0 cm2 sev ratio: 0.63 LAN indexed to BSA (cm^2/m^2): 1.1 MV E max foreign: 97.8 cm/sec TR max foreign: 282.7 cm/sec MV A max foreign: 86.3 cm/sec TR max P.0 mmHg MV E/A: 1.1 PA V2 max: 93.3 cm/sec Med Peak E' Foreign: 9.7 cm/sec PA V2 mean: 70.5 cm/sec E/E' med: 10.1 PA mean P.1 mmHg Lat Peak E' Foreign: 10.6 cm/sec PA pr(Accel): 37.9 mmHg E/E' lat: 9.2 E/e' average: 9.6 MV dec time: 0.23 sec SV(LVOT): 87.9 ml Reading Physician:04:47 PM ECG Data Interpretation: ECG shows normal sinus rhythm of 60 without ischemic change MDM Narrative Medical decision making narrative: 73-year-old female with known history of coronary artery disease presenting with substernal pressure-like chest pain that sounds ischemic but is associated with normal troponins and spite of prolonged symptoms multiple normal EKGs, normal echocardiogram in terms of wall motion. I do not think that this is ischemic at this point however given her history I also think that it warrants observation in the hospital and a stress test particularly given that the patient is concerned and wishes to have definitive evaluation. Pulmonary embolism was considered, she recently had a negative CT angiogram I do not think that that is likely. Case has been discussed with Cardiology, we have obtained records from her primary stone and concrete washer. She will be admitted to the hospitalist service with a plan for stress test. I will not heparinize at this point. Discharge Plan Departure Patient Disposition: Admitted as Observation Clinical Impression: Chest pain Qualifiers: Chest pain type: other chest pain Qualified Code(s): R07.89 - Other chest pain
[2024-02-24 16:33] LABS: Troponin I < 0.012 ng/mL (0.01-0.034)
[2024-02-24] MEDS: MORPHINE 2 MG/ML INJ IV (17:34)
--- NOTE | 2024-02-24 18:11 | PC.NURSE ---
Nitro gtt stopped @ 1717
--- NOTE | 2024-02-24 18:13 | PM.HP.1 ---
History of Present Illness History of Present Illness Date Patient Seen: 02/24/24 Chief complaint: chest pain Narrative: Nora Gil is a 73yo F with PMH of CAD s/p 2 stents, HTN, HLD, GERD, and morbid obesity who presents with chest pain. Patient states she has been having chest tightness especially after she ate a [employer] burger the other day. She takes 3 advils, 3 tylenol and 3 nitro and the pain goes away. She says anesthesia makes her depressed, so she is somewhat hesitant about surgery. She has had 5 stress tests in the past. Says she also has costochondritis and this feels different from that. Denies NV, SOB, LE swelling, or diarrhea. [facility] Medical History (Updated 02/24/24 @ 17:09 by Deng Almonte MD) Hard of hearing History of angina (~11/2019) Unstable angina Paraesophageal hernia Hyperlipidemia GERD (gastroesophageal reflux disease) Coronary artery disease Concussion Myocardial infarction Mild sleep apnea Arthritis of both hands Balance problem Bilateral hearing loss Hypertension Diabetes Surgical History (Reviewed 12/11/21 @ 18:49 by Norma Mahmood [facility]) History of cardiac cath H/O heart artery stent S/P scar revision H/O exploratory laparotomy (~2011) Status post cataract extraction of both eyes with insertion of intraocular lens History of total right hip arthroplasty S/P foot surgery, left History of total knee arthroplasty Social History household members: spouse Smoking Status: Never smoker alcohol intake: current Meds Home Medications and Allergies Home Medications Medication Instructions Recorded Confirmed Type ascorbic acid (vitamin C) 500 mg 1,000 mg PO DAILY 02/05/19 02/22/24 History tablet lisinopril 10 mg tablet 10 mg PO DAILY 10/25/19 02/22/24 History clopidogrel 75 mg tablet 75 mg PO DAILY 12/22/19 02/22/24 History cholecalciferol (vitamin D3) 100 100 mcg PO DAILY 07/29/20 02/22/24 History mcg (4,000 unit) capsule multivitamin with folic acid 400 1 tab PO DAILY 07/29/20 02/22/24 History mcg tablet (One Daily Multivitamin) diclofenac sodium 1 % topical gel 2 g topical QID pain #100 grams 03/24/22 11/01/23 Rx (Voltaren Arthritis Pain) atorvastatin 80 mg tablet 80 mg PO BEDTIME 10/18/23 02/22/24 History furosemide 20 mg tablet 20 mg PO DAILY 10/18/23 02/22/24 History loperamide 2 mg capsule 2 mg PO Q6H PRN Diarrhea 10/18/23 02/22/24 History metoprolol tartrate 100 mg tablet 100 mg PO BID 10/18/23 02/22/24 History duloxetine 60 mg capsule,delayed 60 mg PO DAILY #90 caps 11/29/23 02/22/24 Rx release mirtazapine 45 mg tablet 45 mg PO BEDTIME #90 tabs 12/06/23 02/22/24 Rx quetiapine 50 mg tablet 50 mg PO BEDTIME #90 tabs 12/06/23 02/22/24 Rx temazepam 15 mg capsule 15 mg PO BEDTIME PRN sleep #14 caps 02/10/24 02/22/24 Rx lorazepam 0.5 mg tablet 0.5 mg PO PRN Anxiety 02/22/24 History Allergies Allergy/AdvReac Type Severity Reaction Status Date / Time aripiprazole [From ABILIFY] Allergy Severe TREMORS, Verified 02/24/24 13:33 ANAPHYLAXIS adhesive tape Allergy Mild Rash Verified 02/24/24 13:33 bupropion [From WELLBUTRIN] AdvReac Severe HEADACHE Verified 02/24/24 13:33 propoxyphene AdvReac Severe Headache Verified 02/24/24 13:33 citalopram [CITALOPRAM] AdvReac Intermediate headache, Verified 02/24/24 13:33 difficulty thinking desvenlafaxine [From Pristiq] AdvReac Intermediate Shakiness Verified 02/24/24 13:33 indomethacin [INDOMETHACIN] AdvReac Intermediate GI UPSET Verified 02/24/24 13:33 phenobarbital [PHENOBARBITAL] AdvReac Intermediate DEPRESSION Verified 02/24/24 13:33 morphine [MORPHINE] AdvReac Mild 'LOOPY' Verified 02/24/24 13:33 Review of Systems Review of Systems Narrative: All other systems reviewed with the patient and are negative unless otherwise stated. Exam Vital Signs (past 8 hours): - 02/24/24 13:24 02/24/24 13:31 02/24/24 13:32 Temperature 98.9 F Pulse Rate 68 68 Respiratory Rate 16 16 Blood Pressure 110/57 L 110/55 L Pulse Oximetry 94 94 Oxygen Delivery Method Room Air 02/24/24 14:00 02/24/24 14:01 02/24/24 14:01 Temperature Pulse Rate 73 70 Respiratory Rate 30 H 21 Blood Pressure 130/63 Pulse Oximetry Oxygen Delivery Method 02/24/24 14:30 02/24/24 14:30 02/24/24 15:00 Temperature Pulse Rate 71 80 Respiratory Rate 23 32 H Blood Pressure 115/56 L Pulse Oximetry 96 98 Oxygen Delivery Method 02/24/24 15:01 02/24/24 15:01 02/24/24 15:30 Temperature Pulse Rate 80 80 Respiratory Rate 19 25 H Blood Pressure 145/64 H Pulse Oximetry 97 95 Oxygen Delivery Method 02/24/24 15:31 02/24/24 15:31 02/24/24 16:00 Temperature Pulse Rate 82 Respiratory Rate 28 H Blood Pressure 134/63 133/61 Pulse Oximetry 93 Oxygen Delivery Method 02/24/24 16:00 02/24/24 16:30 02/24/24 16:31 Temperature Pulse Rate 78 77 77 Respiratory Rate 18 26 H 28 H Blood Pressure Pulse Oximetry 96 95 95 Oxygen Delivery Method 02/24/24 16:31 Temperature Pulse Rate Respiratory Rate Blood Pressure 122/58 L Pulse Oximetry Oxygen Delivery Method Oxygen Delivery Method Room Air Narrative Exam Narrative: GEN: no acute distress, obese HEENT: moist mucous membranes, PERRL NECK: trachea midline, no JVD CV: regular rate and rhythm, no murmurs PULM: clear bilaterally ABD: soft, tender to palpation of RUQ, nondistended, no organomegaly EXT: warm and well perfused with no edema NEURO: awake, alert, oriented, no focal deficits Objective Labs 02/24/24 13:41 02/24/24 13:41 Labs: Laboratory Results - last 24 hr 02/24/24 02/24/24 13:41 15:53 WBC 7.4 RBC 3.82 L Hgb 11.9 L Hct 35.8 L MCV 93.8 MCH 31.2 MCHC 33.2 RDW 13.8 Plt Count 290 Neut % (Auto) 70.9 Lymph % (Auto) 18.3 L [place] % (Auto) 9.1 Eos % (Auto) 1.4 L Baso % (Auto) 0.3 Neut # (Auto) 5300 Lymph # (Auto) 1400 [place] # (Auto) 700 Eos # (Auto) 100 Baso # (Auto) 0 PT 11.1 INR 1.0 APTT 31 Sodium 141 Potassium 4.0 Chloride 109 H Carbon Dioxide 29 BUN 19 H Creatinine 0.70 Estimated GFR > 60 BUN/Creatinine Ratio 27.1 H Glucose 99 Calcium 8.6 Magnesium 2.1 Total Bilirubin 0.5 AST 60 H ALT 43 H Alkaline Phosphatase 122 Total Creatine Kinase 534 H D Troponin I < 0.012 < 0.012 Total Protein 6.3 Albumin 3.6 Globulin 2.7 Albumin/Globulin Ratio 1.3 Lipase 33 Assessment & Plan Assessment & Plan narrative: # atypical chest pain, likely biliary colic -trops negative, and chest pain reproducible on exam -abd US shows distended gallbladder and positive maddox's, LFT's elevated, will trend -doubt cholecocho with normal T-bili -gen surg consulted -NPO for possible lap manjit in AM -trops neg x2, recheck in AM -echo in ED reassuring without WMA, EF 60-65% -tele # HLD -continue lipitor -check lipid panel # HTN -hold lisinopril for surgery -continue metoprolol # CAD s/p stents -hold plavix for surgery # depression -continue cymbalta # insomnia -continue seroquel, mirtazapine and temazepam PRN Code status is full code. DVT prophylaxis with SCD's. Proxy is Adryan. I have reviewed home meds and used all available resources to reconcile the home meds. Case discussed with ED physician/APC and patient will be admitted to the hospitalist service for further workup and management. This patient will be admitted as obs and will require greater than 2 midnights of hospital time to treat biliary colic.
[2024-02-24 18:22] LABS: Cholesterol 156 mg/dL (140-199); HDL Cholesterol 45 mg/dL (40-60); LDL Cholesterol Calculated 79 mg/dL (<100); Triglycerides 158 mg/dL (35-150)
[2024-02-24 18:24] LABS: Hemoglobin A1C% w Est Avg Glu 5.7 % (4.0-6.0)
[2024-02-24] MEDS: HYDROMORPHONE 0.5 MG INJ IV (20:48)
[2024-02-24] MEDS: QUETIAPINE 25 MG TABLET 50 MG PO (21:06)
[2024-02-24] MEDS: ATORVASTATIN 20 MG TABLET 80 MG PO (21:06)
[2024-02-24] MEDS: METOPROLOL IR 50 MG TABLET 100 MG PO (21:06)
[2024-02-24] MEDS: MIRTAZAPINE 15 MG TABLET 45 MG PO (21:07)
[2024-02-24] MEDS: diphenhydrAMINE 50 MG/ML VIAL 25 MG IV (23:06)
[2024-02-25 03:15] VITALS: BP 124/67; PULSE 64; RESP 18; TEMP 35.8; O2SAT 95
[2024-02-25] MEDS: SODIUM CHLORIDE 0.9% 1,000 ML 150 ML IV (04:07)
[2024-02-25] MEDS: diphenhydrAMINE 50 MG/ML VIAL 25 MG IV ×2 (06:42→11:44)
[2024-02-25] MEDS: HYDROMORPHONE 0.5 MG INJ IV ×3 (06:43→21:14)
[2024-02-25 07:08] LABS: Add Manual Diff / Slide Review NO; Basophils Absolute Auto 0 /uL (0-100); Basophils Percent Auto 0.5 % (0-2); Eosinophils Absolute Auto 100 /uL (0-450); Eosinophils Percent Auto 2.3 % (2-4); Hematocrit 35.9 % (36-46); Hemoglobin 11.8 g/dL (12.0-16.0); Lymphocytes Absolute Auto 1400 /uL (1100-4500); Lymphocytes Percent Auto 26.6 % (25-40); Mean Corpuscular HGB Conc 32.8 % (30-36); Mean Corpuscular Hemoglobin 31.3 PG (26-34); Mean Corpuscular Volume 95.3 fL (80-100); Monocytes Absolute Auto 400 /uL (0-900); Monocytes Percent Auto 8.3 % (3-14); Neutrophils Absolute Auto 3200 /uL (1500-7000); Neutrophils Percent Auto 62.3 % (50-75); Platelet Count 259 X10^3/uL (150-400); Red Blood Cell Count 3.77 X10^6/uL (4.0-5.2); Red Cell Distribution Width 14.2 % (11.6-14.8); White Blood Cell Count 5.1 X10^3/uL (4.5-11.0)
[2024-02-25 07:20] LABS: Alanine Aminotransferase 75 IU/L (<35); Albumin 3.6 g/dL (3.5-5.0); Albumin Globulin Ratio 1.3 (1.0-2.8); Alkaline Phosphatase 170 U/L (38-126); Aspartate Aminotransferase 99 IU/L (14-36); BUN Creatinine Ratio 21.3 (6-22); Bilirubin Total 0.9 mg/dL (0.2-1.3); Blood Urea Nitrogen 17 mg/dL (7-17); Calcium 8.7 mg/dL (8.4-10.2); Carbon Dioxide 29 mmol/L (22-32); Chloride 109 mmol/L (98-107); Estimated Glomerular Filt Rate > 60 mL/min (>60); Globulin 2.8 g/dL (1.7-4.1); Glucose 102 mg/dL (80-110); HEMOLYSIS < 15 (0-50); Potassium 4.4 mmol/L (3.4-5.1); Sodium 139 mmol/L (137-145); Total Protein 6.4 g/dL (6.3-8.2)
[2024-02-25 07:30] LABS: Troponin I < 0.012 ng/mL (0.01-0.034)
[2024-02-25 08:00] VITALS: BP 136/64; PULSE 71; RESP 16; TEMP 36.2; O2SAT 95
[2024-02-25] MEDS: OXYCODONE IR 5 MG TABLET PO ×2 (08:39→17:22)
[2024-02-25] MEDS: DULOXETINE 30 MG CAPSULE 60 MG PO (08:39)
[2024-02-25] MEDS: METOPROLOL IR 50 MG TABLET 100 MG PO ×2 (08:40→21:14)
[2024-02-25 09:00] VITALS: BP 117/53; PULSE 69
--- NOTE | 2024-02-25 09:57 | P.CONS_ITS ---
History of Present Illness Consult details Date Patient Seen: 02/25/24 Time Patient Seen: 09:57 Chief complaint: chest pain Narrative: Nora Gil 73-year-old woman obesity, coronary artery disease, bipolar who presented to [facility] Emergency Department yesterday with chest pain. Cardiac enzymes and EKG normal. She had a abdominal ultrasound of the right upper quadrant which demonstrated gallbladder absent of stones no wall thickening or pericholecystic fluid. However her laboratory studies were notable for total bilirubin 0.9, AST 99, ALT 75, alk phos 170, no leukocytosis. Was question as to whether she had cardiac source of pain or gallbladder dysfunction. She has had 2 prior hiatal hernia repairs and she reports her last surgeon told her she should never have further abdominal surgery unless life- threatening. Meds Home Medications and Allergies Home Medications Medication Instructions Recorded Confirmed Type ascorbic acid (vitamin C) 500 mg 1,000 mg PO DAILY 02/05/19 02/25/24 History tablet lisinopril 10 mg tablet 10 mg PO DAILY 10/25/19 02/25/24 History clopidogrel 75 mg tablet 75 mg PO DAILY 12/22/19 02/25/24 History cholecalciferol (vitamin D3) 100 100 mcg PO DAILY 07/29/20 02/25/24 History mcg (4,000 unit) capsule multivitamin with folic acid 400 1 tab PO DAILY 07/29/20 02/25/24 History mcg tablet (One Daily Multivitamin) atorvastatin 80 mg tablet 80 mg PO BEDTIME 10/18/23 02/25/24 History furosemide 20 mg tablet 20 mg PO DAILY 10/18/23 02/25/24 History loperamide 2 mg capsule 2 mg PO Q6H PRN Diarrhea 10/18/23 02/25/24 History metoprolol tartrate 100 mg tablet 100 mg PO BID 10/18/23 02/25/24 History duloxetine 60 mg capsule,delayed 60 mg PO DAILY #90 caps 11/29/23 02/25/24 Rx release mirtazapine 45 mg tablet 45 mg PO BEDTIME #90 tabs 12/06/23 02/25/24 Rx quetiapine 50 mg tablet 50 mg PO BEDTIME #90 tabs 12/06/23 02/25/24 Rx temazepam 15 mg capsule 15 mg PO BEDTIME PRN sleep #14 caps 02/10/24 02/25/24 Rx lorazepam 0.5 mg tablet 0.5 mg PO DAILY Panic 02/22/24 02/25/24 History Allergies Allergy/AdvReac Type Severity Reaction Status Date / Time aripiprazole [From ABILIFY] Allergy Severe TREMORS, Verified 02/24/24 13:33 ANAPHYLAXIS adhesive tape Allergy Mild Rash Verified 02/24/24 13:33 bupropion [From WELLBUTRIN] AdvReac Severe HEADACHE Verified 02/24/24 13:33 propoxyphene AdvReac Severe Headache Verified 02/24/24 13:33 citalopram [CITALOPRAM] AdvReac Intermediate headache, Verified 02/24/24 13:33 difficulty thinking desvenlafaxine [From Pristiq] AdvReac Intermediate Shakiness Verified 02/24/24 13:33 indomethacin [INDOMETHACIN] AdvReac Intermediate GI UPSET Verified 02/24/24 13:33 phenobarbital [PHENOBARBITAL] AdvReac Intermediate DEPRESSION Verified 02/24/24 13:33 morphine [MORPHINE] AdvReac Mild 'LOOPY' Verified 02/24/24 13:33 Exam Vital Signs (past 8 hours): - 02/25/24 03:15 02/25/24 08:00 Temperature 96.5 F L 97.1 F L Pulse Rate 64 71 Respiratory Rate 18 16 Blood Pressure 124/67 136/64 Pulse Oximetry 95 95 Oxygen Flow Rate 2 2 Oxygen Delivery Method Room Air,CPAP Oxygen Flow Rate 2 Narrative Exam Narrative: General elderly woman alert oriented no distress Chest nonlabored respiration Abdomen somewhat tender right upper quadrant no peritonitis. Extremities warm well perfused with edema. Objective Labs 02/25/24 06:30 02/25/24 06:30 Labs: Laboratory Results - last 24 hr 02/24/24 02/24/24 02/25/24 13:41 15:53 06:30 WBC 7.4 5.1 RBC 3.82 L 3.77 L Hgb 11.9 L 11.8 L Hct 35.8 L 35.9 L MCV 93.8 95.3 MCH 31.2 31.3 MCHC 33.2 32.8 RDW 13.8 14.2 Plt Count 290 259 Neut % (Auto) 70.9 62.3 Lymph % (Auto) 18.3 L 26.6 [place] % (Auto) 9.1 8.3 Eos % (Auto) 1.4 L 2.3 Baso % (Auto) 0.3 0.5 Neut # (Auto) 5300 3200 Lymph # (Auto) 1400 1400 [place] # (Auto) 700 400 Eos # (Auto) 100 100 Baso # (Auto) 0 0 PT 11.1 INR 1.0 APTT 31 Sodium 141 139 Potassium 4.0 4.4 Chloride 109 H 109 H Carbon Dioxide 29 29 BUN 19 H 17 Creatinine 0.70 0.80 Estimated GFR > 60 > 60 BUN/Creatinine Ratio 27.1 H 21.3 Glucose 99 102 Hemoglobin A1c 5.7 Calcium 8.6 8.7 Magnesium 2.1 Total Bilirubin 0.5 0.9 AST 60 H 99 H ALT 43 H 75 H Alkaline Phosphatase 122 170 H Total Creatine Kinase 534 H D Troponin I < 0.012 < 0.012 < 0.012 Total Protein 6.3 6.4 Albumin 3.6 3.6 Globulin 2.7 2.8 Albumin/Globulin Ratio 1.3 1.3 Triglycerides 158 H Cholesterol 156 LDL Cholesterol, Calc 79 HDL Cholesterol 45 Lipase 33 [facility] Medical History (Updated 02/24/24 @ 17:09 by Deng Almonte MD) Hard of hearing History of angina (~11/2019) Unstable angina Paraesophageal hernia Hyperlipidemia GERD (gastroesophageal reflux disease) Coronary artery disease Concussion Myocardial infarction Mild sleep apnea Arthritis of both hands Balance problem Bilateral hearing loss Hypertension Diabetes Surgical History History of cardiac cath H/O heart artery stent S/P scar revision H/O exploratory laparotomy (~2011) Status post cataract extraction of both eyes with insertion of intraocular lens History of total right hip arthroplasty S/P foot surgery, left History of total knee arthroplasty Social History household members: spouse Tobacco & Substance Use Smoking Status: Never smoker alcohol intake: current Assessment & Plan Assessment and plan (1) Chest pain: Qualifiers: Chest pain type: other chest pain Qualified Code(s): R07.89 - Other chest pain Status: Acute Assessment & Plan narrative: 73-year-old woman admitted to the hospital with chest pain, unclear if cardiac or intra-abdominal in nature. Laboratory studies and imaging are reviewed. In regards to her biliary system she may well have passed a stone recently. She does not appear to have acute cholecystitis. No plans for any surgical intervention.
--- NOTE | 2024-02-25 12:39 | P.PN_ITS ---
Subjective Subjective Interval history: continue to have reproducible L chest pain, though this is less bothersome than RUQ abdominal pain. Notes this pain after solid foods. Discussed with surgery, whom given patient's complex surgical history would ideally avoid lap manjit if possible given no evidence of current cholecystitis. However with LFTs rising slightly today some concern for obstructing stone. Will restart diet to see if patient can tolerate food without pain, and if LFTs worsening can persue MRCP. Exam Vital Signs (past 8 hours): - 02/25/24 08:00 02/25/24 09:00 Temperature 97.1 F L Pulse Rate 71 69 Respiratory Rate 16 Blood Pressure 136/64 117/53 L Pulse Oximetry 95 Oxygen Flow Rate 2 Oxygen Delivery Method Room Air,CPAP Oxygen Flow Rate 2 Narrative Exam Narrative: GEN: no acute distress, obese HEENT: moist mucous membranes, PERRL NECK: trachea midline, no JVD CV: regular rate and rhythm, no murmurs, tenderness with palpation of sternum PULM: clear bilaterally ABD: soft, tender to palpation of RUQ, nondistended, no organomegaly EXT: warm and well perfused with no edema NEURO: awake, alert, oriented, no focal deficits Objective Labs 02/25/24 06:30 02/25/24 06:30 Labs: Laboratory Results - last 24 hr 02/24/24 02/24/24 02/25/24 13:41 15:53 06:30 WBC 7.4 5.1 RBC 3.82 L 3.77 L Hgb 11.9 L 11.8 L Hct 35.8 L 35.9 L MCV 93.8 95.3 MCH 31.2 31.3 MCHC 33.2 32.8 RDW 13.8 14.2 Plt Count 290 259 Neut % (Auto) 70.9 62.3 Lymph % (Auto) 18.3 L 26.6 [place] % (Auto) 9.1 8.3 Eos % (Auto) 1.4 L 2.3 Baso % (Auto) 0.3 0.5 Neut # (Auto) 5300 3200 Lymph # (Auto) 1400 1400 [place] # (Auto) 700 400 Eos # (Auto) 100 100 Baso # (Auto) 0 0 PT 11.1 INR 1.0 APTT 31 Sodium 141 139 Potassium 4.0 4.4 Chloride 109 H 109 H Carbon Dioxide 29 29 BUN 19 H 17 Creatinine 0.70 0.80 Estimated GFR > 60 > 60 BUN/Creatinine Ratio 27.1 H 21.3 Glucose 99 102 Hemoglobin A1c 5.7 Calcium 8.6 8.7 Magnesium 2.1 Total Bilirubin 0.5 0.9 AST 60 H 99 H ALT 43 H 75 H Alkaline Phosphatase 122 170 H Total Creatine Kinase 534 H D Troponin I < 0.012 < 0.012 < 0.012 Total Protein 6.3 6.4 Albumin 3.6 3.6 Globulin 2.7 2.8 Albumin/Globulin Ratio 1.3 1.3 Triglycerides 158 H Cholesterol 156 LDL Cholesterol, Calc 79 HDL Cholesterol 45 Lipase 33 [facility] Medical History (Updated 02/24/24 @ 17:09 by Deng Almonte MD) Hard of hearing History of angina (~11/2019) Unstable angina Paraesophageal hernia Hyperlipidemia GERD (gastroesophageal reflux disease) Coronary artery disease Concussion Myocardial infarction Mild sleep apnea Arthritis of both hands Balance problem Bilateral hearing loss Hypertension Diabetes Surgical History History of cardiac cath H/O heart artery stent S/P scar revision H/O exploratory laparotomy (~2011) Status post cataract extraction of both eyes with insertion of intraocular lens History of total right hip arthroplasty S/P foot surgery, left History of total knee arthroplasty Social History household members: spouse Smoking Status: Never smoker alcohol intake: current Assessment & Plan Assessment & Plan narrative: #cholelithiasis, possible choledocholithiasis -abd US shows distended gallbladder and positive maddox's, LFT's elevated, will continue to trend, MRCP if continuing to increase. -gen surg consulted, ideally will avoid surgery, discussed with surgeon today. -resume diet, advance as tolerated. If unable to tolerate further workup may include re-consult with surgery, MRCP for possible choledocholithiasis as noted above. -trops neg -echo in ED reassuring without WMA, EF 60-65% -continue telemetry #costochronitis vs chronic stable angina - patient has reproducible tenderness on exam though symptoms are mixed and with her history of CAD could represent chronic stable angina. She has negative troponins and echo without wall motion abnormalities. Will continue symptom relief for costochondritis, consider addition of imdur. - will not order stress testing at this time. # HLD -continue lipitor 80 mg -Lipid panel TG 158, TC 156, LDL 156, HDL 45 which is suboptimal given known CAD. # HTN -continue metoprolol, will continue to hold home furosemide and lisinopril today and tomorrow as she is normotensive thus far. # CAD s/p stents -resume plavix today. # depression -continue cymbalta # insomnia -continue seroquel, mirtazapine and temazepam PRN Code status is full code. DVT prophylaxis with Lovenox. Proxy is Adryan. I have reviewed home meds and used all available resources to reconcile the home meds. Dispo: remain observation for now pending above evaluation. Quality VTE Deep Vein Thrombosis/Pulmonary Embolism Present on Admission: No
[2024-02-25] MEDS: LIDOCAINE 5% PATCH 1 EACH TOP (14:17)
[2024-02-25 14:30] VITALS: PULSE 97; TEMP 36.7
[2024-02-25 14:35] VITALS: BP 116/58; PULSE 61; TEMP 36.2; O2SAT 94
--- NOTE | 2024-02-25 15:56 | CM.DANOTE ---
Initial DCP Assessment Note Pt is a 73 yo female, resident of [place], arrives with CP, admitted for work up. PCP: Salena Long and Theo Hernandez Payer: [facility]/[employer] Reviewed chart, met w/patient to introduce self and role. Patient reports she is indp in all aspects and denies needs from this [employer] currently. Patient lives w/spouse and reports supportive friends and family. No barriers identified at this time to patient's safe discharge home w/family to assist; close outpatient f/u recommended. CM team will plan to follow clinical course closely in case any DC needs or concerns arise. 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 Yes Advance Directives on File No History Provided By Patient,Medical Record Prior Living Arrangements House Household Members spouse Type of transporation used prior to Drives own vehicle admit Independent with ADL's Yes Is patient alert and oriented? Yes Barriers to Discharge No Comment Has supportive and friends Discharge Plan Home Transportation Arrangement Family or friends Referrals Initiated None needed
[2024-02-25] MEDS: hydrOXYzine HCL 25 MG TABLET PO ×2 (16:35→21:14)
[2024-02-25 18:00] VITALS: BP 129/69; PULSE 76; RESP 18; TEMP 36.5; O2SAT 97
[2024-02-25] MEDS: ONDANSETRON 4 MG/2 ML INJ IV (19:08)
[2024-02-25] MEDS: MIRTAZAPINE 15 MG TABLET 45 MG PO (21:14)
[2024-02-25] MEDS: ATORVASTATIN 20 MG TABLET 80 MG PO (21:14)
[2024-02-25] MEDS: QUETIAPINE 25 MG TABLET 50 MG PO (21:14)
[2024-02-25] MEDS: ENOXAPARIN 40 MG/0.4 ML SYRINGE SUBCUT (21:14)
[2024-02-26] MEDS: ONDANSETRON 4 MG/2 ML INJ IV ×2 (07:55→15:30)
[2024-02-26] MEDS: HYDROMORPHONE 0.5 MG INJ IV ×4 (07:55→22:26)
[2024-02-26] MEDS: DULOXETINE 30 MG CAPSULE 60 MG PO (08:00)
[2024-02-26] MEDS: ENOXAPARIN 40 MG/0.4 ML SYRINGE SUBCUT ×2 (08:00→20:16)
[2024-02-26] MEDS: LIDOCAINE 5% PATCH 1 EACH TOP (08:20)
[2024-02-26] MEDS: METOPROLOL IR 50 MG TABLET 100 MG PO ×2 (08:20→20:17)
[2024-02-26] MEDS: CLOPIDOGREL 75 MG TABLET PO (09:00)
[2024-02-26] MEDS: OXYCODONE IR 5 MG TABLET PO ×3 (10:50→19:27)
[2024-02-26] MEDS: ACETAMINOPHEN 325 MG TABLET 650 MG PO ×2 (10:50→17:36)
[2024-02-26 11:50] VITALS: BP 117/63; PULSE 71
[2024-02-26] MEDS: MAG HYDROX/ALUM/SIMETH 30 ML UDC (11:50)
[2024-02-26] MEDS: NITROGLYCERIN 0.4 MG SL TAB SL ×3 (11:50→12:15)
[2024-02-26 12:00] VITALS: BP 104/56; PULSE 71
[2024-02-26 12:15] VITALS: BP 115/62; PULSE 78
[2024-02-26] MEDS: LORazepam 0.5 MG TABLET PO (13:10)
[2024-02-26] MEDS: diphenhydrAMINE 50 MG/ML VIAL 25 MG IV (15:30)
[2024-02-26 16:00] VITALS: BP 118/47; PULSE 64; RESP 19; TEMP 35.9; O2SAT 96
--- NOTE | 2024-02-26 16:56 | PC.NURSE ---
Computer downtime 02/24 at 1900 till 02/25 at 1600. See paper documentation on downtime forms.
[2024-02-26 18:36] LABS: Add Manual Diff / Slide Review NO; Basophils Absolute Auto 0 /uL (0-100); Basophils Percent Auto 0.6 % (0-2); Eosinophils Absolute Auto 100 /uL (0-450); Eosinophils Percent Auto 3.2 % (2-4); Hematocrit 33.6 % (36-46); Hemoglobin 11.1 g/dL (12.0-16.0); Lymphocytes Absolute Auto 1700 /uL (1100-4500); Lymphocytes Percent Auto 36.9 % (25-40); Mean Corpuscular HGB Conc 32.9 % (30-36); Mean Corpuscular Hemoglobin 31.2 PG (26-34); Mean Corpuscular Volume 94.7 fL (80-100); Monocytes Absolute Auto 500 /uL (0-900); Monocytes Percent Auto 11.6 % (3-14); Neutrophils Absolute Auto 2200 /uL (1500-7000); Neutrophils Percent Auto 47.7 % (50-75); Platelet Count 239 X10^3/uL (150-400); Red Blood Cell Count 3.55 X10^6/uL (4.0-5.2); Red Cell Distribution Width 13.9 % (11.6-14.8); White Blood Cell Count 4.6 X10^3/uL (4.5-11.0)
[2024-02-26 18:38] LABS: Alanine Aminotransferase 76 IU/L (<35); Albumin 3.4 g/dL (3.5-5.0); Albumin Globulin Ratio 1.3 (1.0-2.8); Alkaline Phosphatase 175 U/L (38-126); Aspartate Aminotransferase 101 IU/L (14-36); BUN Creatinine Ratio 22.9 (6-22); Bilirubin Total 0.8 mg/dL (0.2-1.3); Blood Urea Nitrogen 16 mg/dL (7-17); Calcium 8.5 mg/dL (8.4-10.2); Carbon Dioxide 26 mmol/L (22-32); Chloride 109 mmol/L (98-107); Estimated Glomerular Filt Rate > 60 mL/min (>60); Globulin 2.6 g/dL (1.7-4.1); Glucose 107 mg/dL (80-110); HEMOLYSIS 16 (0-50); Sodium 137 mmol/L (137-145)
[2024-02-26] MEDS: hydrOXYzine HCL 25 MG TABLET PO (20:16)
[2024-02-26] MEDS: QUETIAPINE 25 MG TABLET 50 MG PO (20:16)
[2024-02-26] MEDS: MIRTAZAPINE 15 MG TABLET 45 MG PO (20:17)
[2024-02-26] MEDS: ATORVASTATIN 20 MG TABLET 80 MG PO (20:17)
[2024-02-26 20:26] VITALS: BP 118/47; PULSE 67; RESP 16; TEMP 35.9; O2SAT 95
[2024-02-26 23:32] VITALS: BP 111/62; PULSE 58; RESP 18; TEMP 35.7; O2SAT 94
[2024-02-27] MEDS: HYDROMORPHONE 0.5 MG INJ IV ×5 (02:30→21:50)
[2024-02-27 03:54] VITALS: BP 130/76; PULSE 69; RESP 18; TEMP 35.8; O2SAT 99
[2024-02-27] MEDS: ACETAMINOPHEN 325 MG TABLET 650 MG PO ×2 (05:57→15:02)
[2024-02-27] MEDS: OXYCODONE IR 5 MG TABLET PO ×3 (05:58→16:11)
[2024-02-27] MEDS: polyethylene glycoL 3350 17 GM POWD.PACK PO (06:01)
[2024-02-27 06:21] LABS: Add Manual Diff / Slide Review NO; Basophils Absolute Auto 0 /uL (0-100); Basophils Percent Auto 0.6 % (0-2); Eosinophils Absolute Auto 200 /uL (0-450); Eosinophils Percent Auto 3.6 % (2-4); Hemoglobin 11.3 g/dL (12.0-16.0); Lymphocytes Absolute Auto 1400 /uL (1100-4500); Lymphocytes Percent Auto 32.3 % (25-40); Mean Corpuscular HGB Conc 33.2 % (30-36); Mean Corpuscular Hemoglobin 31.2 PG (26-34); Mean Corpuscular Volume 94.1 fL (80-100); Monocytes Absolute Auto 600 /uL (0-900); Monocytes Percent Auto 14.1 % (3-14); Neutrophils Absolute Auto 2100 /uL (1500-7000); Neutrophils Percent Auto 49.4 % (50-75); Platelet Count 263 X10^3/uL (150-400); Red Blood Cell Count 3.61 X10^6/uL (4.0-5.2); Red Cell Distribution Width 13.9 % (11.6-14.8); White Blood Cell Count 4.3 X10^3/uL (4.5-11.0)
[2024-02-27 06:32] LABS: Alanine Aminotransferase 98 IU/L (<35); Albumin 3.4 g/dL (3.5-5.0); Albumin Globulin Ratio 1.3 (1.0-2.8); Alkaline Phosphatase 239 U/L (38-126); Aspartate Aminotransferase 130 IU/L (14-36); BUN Creatinine Ratio 20.5 (6-22); Bilirubin Total 0.8 mg/dL (0.2-1.3); Blood Urea Nitrogen 16 mg/dL (7-17); Calcium 8.7 mg/dL (8.4-10.2); Carbon Dioxide 31 mmol/L (22-32); Chloride 105 mmol/L (98-107); Estimated Glomerular Filt Rate > 60 mL/min (>60); Globulin 2.7 g/dL (1.7-4.1); Glucose 101 mg/dL (80-110); HEMOLYSIS < 15 (0-50); Potassium 4.1 mmol/L (3.4-5.1); Sodium 138 mmol/L (137-145); Total Protein 6.1 g/dL (6.3-8.2)
[2024-02-27 08:00] VITALS: BP 124/49; PULSE 66; RESP 18; TEMP 36; O2SAT 95
[2024-02-27] MEDS: LIDOCAINE 5% PATCH 1 EACH TOP (09:00)
[2024-02-27] MEDS: ENOXAPARIN 40 MG/0.4 ML SYRINGE SUBCUT ×2 (09:01→20:21)
[2024-02-27] MEDS: METOPROLOL IR 50 MG TABLET 100 MG PO ×2 (09:01→20:20)
[2024-02-27] MEDS: DULOXETINE 30 MG CAPSULE 60 MG PO (09:01)
[2024-02-27] MEDS: hydrOXYzine HCL 25 MG TABLET PO (10:13)
--- NOTE | 2024-02-27 10:19 | PM.PN.1 ---
Subjective Subjective Date Patient Seen: 02/27/24 Time Patient Seen: 10:19 Interval history: MRCP yesterday showed dilation of the gallbladder and biliary ducts with a smooth tapering of the distal common bile duct. She continues to experience right upper quadrant pain. Exam Vital Signs (past 8 hours): - 02/27/24 03:54 02/27/24 08:00 Temperature 96.5 F L 96.8 F L Pulse Rate 69 66 Respiratory Rate 18 18 Blood Pressure 130/76 124/49 L Pulse Oximetry 99 95 Oxygen Flow Rate 2 Oxygen Delivery Method Nasal Cannula,CPAP Oxygen Flow Rate 2 Narrative Exam Narrative: Upper midline surgical scar Right upper quadrant is tender to palpation Objective Labs 02/27/24 05:30 02/27/24 05:30 Labs: Laboratory Results - last 24 hr 02/26/24 02/27/24 06:19 05:30 WBC 4.6 4.3 L RBC 3.55 L 3.61 L Hgb 11.1 L 11.3 L Hct 33.6 L 34.0 L MCV 94.7 94.1 MCH 31.2 31.2 MCHC 32.9 33.2 RDW 13.9 13.9 Plt Count 239 263 Neut % (Auto) 47.7 L 49.4 L Lymph % (Auto) 36.9 32.3 [place] % (Auto) 11.6 14.1 H Eos % (Auto) 3.2 3.6 Baso % (Auto) 0.6 0.6 Neut # (Auto) 2200 2100 Lymph # (Auto) 1700 1400 [place] # (Auto) 500 600 Eos # (Auto) 100 200 Baso # (Auto) 0 0 Sodium 137 138 Potassium 4.0 4.1 Chloride 109 H 105 Carbon Dioxide 26 31 BUN 16 16 Creatinine 0.70 0.78 Estimated GFR > 60 > 60 BUN/Creatinine Ratio 22.9 H 20.5 Glucose 107 101 Calcium 8.5 8.7 Total Bilirubin 0.8 0.8 AST 101 H 130 H ALT 76 H 98 H Alkaline Phosphatase 175 H 239 H Total Protein 6.0 L 6.1 L Albumin 3.4 L 3.4 L Globulin 2.6 2.7 Albumin/Globulin Ratio 1.3 1.3 [facility] Medical History (Updated 02/27/24 @ 10:21 by Pablo Aleman MD) Hard of hearing History of angina (~11/2019) Unstable angina Paraesophageal hernia Hyperlipidemia GERD (gastroesophageal reflux disease) Coronary artery disease Concussion Myocardial infarction Mild sleep apnea Arthritis of both hands Balance problem Bilateral hearing loss Hypertension Diabetes Surgical History History of cardiac cath H/O heart artery stent S/P scar revision H/O exploratory laparotomy (~2011) Status post cataract extraction of both eyes with insertion of intraocular lens History of total right hip arthroplasty S/P foot surgery, left History of total knee arthroplasty Social History household members: spouse Smoking Status: Never smoker alcohol intake: current Assessment & Plan Assessment and plan (1) Dilation of biliary tract: Status: Acute Plan I talked to Nora about the appearance of her MRCP which indicates that there is narrowing of the distal common bile duct causing dilation of the entire biliary tract as well as her gallbladder. There is no obvious cholelithiasis or choledocholithiasis seen. I talked to her about the possibility of very small stones or gallbladder sludge causing a blockage versus some extrinsic process involving her distal common bile duct. We also talked quite a bit about her prior surgical history and the fact that she was warned by her last surgeon that she should not have additional surgery because of her adhesions. I talked to her about the option of a laparoscopic cholecystectomy with a cholangiogram versus ERCP. Adhesions would likely cause additional risk with a laparoscopic cholecystectomy if they involve her right upper quadrant or midline incision. There would not be a problem if they just involved the left upper quadrant where her hiatal hernia surgery was done. Alternatively she could have an ERCP to start out which should not be significantly impacted by the presence of adhesions. There is a slight possibility that her symptoms could be completely treatable with an ERCP if it is related to some sort of obstructive process just involving the distal common bile duct. We will investigate the option of transfer. Her last dose of Plavix was yesterday. Quality VTE Deep Vein Thrombosis/Pulmonary Embolism Present on Admission: No
[2024-02-27] MEDS: IBUPROFEN 600 MG TABLET PO ×2 (11:19→15:03)
[2024-02-27 12:00] VITALS: BP 113/54; PULSE 63; RESP 18; TEMP 35.8; O2SAT 95
--- NOTE | 2024-02-27 13:12 | CM.DPNOTE ---
DCP note SOAP CHIPPER reviewed EMR/paper chart information. Per hospitalist in morning rounds, surgery to take out pt's gallbladder tomorrow (Wednesday) Per surgeon note, continued upper rt quadrant pain. Surgeon note reports on different options for intervention, one of them being transfer, due to pt's complex hx of abdominal surgeries. P: medical POC continues to unfold. ANticipate home with spouse no needs from CM team when medically stabe. CM team will continue to follow as needed. SL
[2024-02-27] MEDS: diphenhydrAMINE 50 MG/ML VIAL 25 MG IV ×2 (13:57→20:54)
[2024-02-27] MEDS: MAG HYDROX/ALUM/SIMETH 30 ML UDC PO (15:44)
--- NOTE | 2024-02-27 15:53 | P.PN_ITS ---
Subjective Subjective Interval history: Continues to have difficulty tolerating foods, liquids seem to be okay. started ibuprofen standing today for costochondritis as these symptoms also continue. MRCP showed CBD of 1.3 cm, with tapering at the ampulla. Surgery recommended ERCP after discussion. I discussed with [facility] and proceduralist whom did not recommend ERCP in this scenario. Exam Vital Signs (past 8 hours): - 02/27/24 08:00 02/27/24 12:00 Temperature 96.8 F L 96.5 F L Pulse Rate 66 63 Respiratory Rate 18 18 Blood Pressure 124/49 L 113/54 L Pulse Oximetry 95 95 Oxygen Flow Rate 2 2 Oxygen Delivery Method Nasal Cannula,CPAP Oxygen Flow Rate 2 Narrative Exam Narrative: GEN: no acute distress, obese HEENT: moist mucous membranes, PERRL NECK: trachea midline, no JVD CV: regular rate and rhythm, no murmurs, tenderness with palpation of sternum PULM: clear bilaterally ABD: soft, tender to palpation of RUQ, nondistended, no organomegaly EXT: warm and well perfused with no edema NEURO: awake, alert, oriented, no focal deficits Objective Labs 02/27/24 05:30 02/27/24 05:30 Labs: Laboratory Results - last 24 hr 02/26/24 02/27/24 06:19 05:30 WBC 4.6 4.3 L RBC 3.55 L 3.61 L Hgb 11.1 L 11.3 L Hct 33.6 L 34.0 L MCV 94.7 94.1 MCH 31.2 31.2 MCHC 32.9 33.2 RDW 13.9 13.9 Plt Count 239 263 Neut % (Auto) 47.7 L 49.4 L Lymph % (Auto) 36.9 32.3 [place] % (Auto) 11.6 14.1 H Eos % (Auto) 3.2 3.6 Baso % (Auto) 0.6 0.6 Neut # (Auto) 2200 2100 Lymph # (Auto) 1700 1400 [place] # (Auto) 500 600 Eos # (Auto) 100 200 Baso # (Auto) 0 0 Sodium 137 138 Potassium 4.0 4.1 Chloride 109 H 105 Carbon Dioxide 26 31 BUN 16 16 Creatinine 0.70 0.78 Estimated GFR > 60 > 60 BUN/Creatinine Ratio 22.9 H 20.5 Glucose 107 101 Calcium 8.5 8.7 Total Bilirubin 0.8 0.8 AST 101 H 130 H ALT 76 H 98 H Alkaline Phosphatase 175 H 239 H Total Protein 6.0 L 6.1 L Albumin 3.4 L 3.4 L Globulin 2.6 2.7 Albumin/Globulin Ratio 1.3 1.3 [facility] Medical History (Updated 02/27/24 @ 10:21 by Pablo Aleman MD) Hard of hearing History of angina (~11/2019) Unstable angina Paraesophageal hernia Hyperlipidemia GERD (gastroesophageal reflux disease) Coronary artery disease Concussion Myocardial infarction Mild sleep apnea Arthritis of both hands Balance problem Bilateral hearing loss Hypertension Diabetes Surgical History History of cardiac cath H/O heart artery stent S/P scar revision H/O exploratory laparotomy (~2011) Status post cataract extraction of both eyes with insertion of intraocular lens History of total right hip arthroplasty S/P foot surgery, left History of total knee arthroplasty Social History household members: spouse Smoking Status: Never smoker alcohol intake: current Assessment & Plan Assessment & Plan narrative: #cholelithiasis, possible choledocholithiasis -abd US shows distended gallbladder and positive maddox's, LFT's elevated but fairly stable and no bili elevation. MRCP showed CBD of 1.3 cm, discussed with GI at [facility] whom did not think that patient needed ERCP. -gen surg consulted. Possible cholecystectomy. Discussed with surgery today, awaiting further recommendations after MRCP not recommended -resume diet, advance as tolerated. If unable to tolerate further workup may include re-consult with surgery, MRCP for possible choledocholithiasis as noted above. -trops neg -echo in ED reassuring without WMA, EF 60-65% -continue telemetry #costochronitis vs chronic stable angina - patient has reproducible tenderness on exam though symptoms are mixed and with her history of CAD could represent chronic stable angina. She has negative troponins and echo without wall motion abnormalities. Will continue symptom relief for costochondritis. Started standing ibuprofen today as her plavix has been held for possible surgery, though monitor for bleeding. - will not order stress testing at this time. # HLD -continue lipitor 80 mg -Lipid panel TG 158, TC 156, LDL 156, HDL 45 which is suboptimal given known CAD. # HTN -continue metoprolol, will continue to hold home furosemide and lisinopril today and tomorrow as she is normotensive thus far. # CAD s/p stents -plavix on hold as noted above. Continue to hold. # depression -continue cymbalta # insomnia -continue seroquel, mirtazapine and temazepam PRN Code status is full code. DVT prophylaxis with Lovenox. Proxy is Adryan. I have reviewed home meds and used all available resources to reconcile the home meds. Dispo: inpatient, probable discharge home after above problems are managed fully. Likely 2-3 more days. Quality VTE Deep Vein Thrombosis/Pulmonary Embolism Present on Admission: No
[2024-02-27 19:00] VITALS: BP 135/68; PULSE 68; RESP 16; TEMP 36.1; O2SAT 95
[2024-02-27] MEDS: QUETIAPINE 25 MG TABLET 50 MG PO (20:19)
[2024-02-27] MEDS: MIRTAZAPINE 15 MG TABLET 45 MG PO (20:19)
[2024-02-27] MEDS: DOCUSATE 100 MG CAPSULE PO (20:19)
[2024-02-27] MEDS: ATORVASTATIN 20 MG TABLET 80 MG PO (20:20)
[2024-02-28] VITALS (7 sets, daily range): BP systolic 115–163; BP diastolic 56–79; PULSE 62–81; RESP 18; TEMP 36–36.3; O2SAT 93–96
[2024-02-28] MEDS: HYDROMORPHONE 0.5 MG INJ IV ×2 (05:49→12:29)
[2024-02-28] MEDS: ONDANSETRON 4 MG/2 ML INJ IV ×2 (05:49→18:03)
[2024-02-28 06:21] LABS: Add Manual Diff / Slide Review NO; Basophils Absolute Auto 0 /uL (0-100); Basophils Percent Auto 0.6 % (0-2); Eosinophils Absolute Auto 100 /uL (0-450); Eosinophils Percent Auto 3.5 % (2-4); Hematocrit 39.3 % (36-46); Hemoglobin 13.1 g/dL (12.0-16.0); Lymphocytes Absolute Auto 1500 /uL (1100-4500); Lymphocytes Percent Auto 43.1 % (25-40); Mean Corpuscular HGB Conc 33.3 % (30-36); Mean Corpuscular Hemoglobin 31.4 PG (26-34); Mean Corpuscular Volume 94.4 fL (80-100); Monocytes Absolute Auto 400 /uL (0-900); Monocytes Percent Auto 12.1 % (3-14); Neutrophils Absolute Auto 1400 /uL (1500-7000); Neutrophils Percent Auto 40.7 % (50-75); Platelet Count 214 X10^3/uL (150-400); Red Blood Cell Count 4.16 X10^6/uL (4.0-5.2); Red Cell Distribution Width 14.1 % (11.6-14.8); White Blood Cell Count 3.5 X10^3/uL (4.5-11.0)
[2024-02-28 06:33] LABS: Alanine Aminotransferase 93 IU/L (<35); Albumin 3.7 g/dL (3.5-5.0); Albumin Globulin Ratio 1.3 (1.0-2.8); Alkaline Phosphatase 251 U/L (38-126); Aspartate Aminotransferase 113 IU/L (14-36); BUN Creatinine Ratio 22.5 (6-22); Bilirubin Total 0.7 mg/dL (0.2-1.3); Blood Urea Nitrogen 16 mg/dL (7-17); Calcium 8.9 mg/dL (8.4-10.2); Carbon Dioxide 30 mmol/L (22-32); Chloride 106 mmol/L (98-107); Estimated Glomerular Filt Rate > 60 mL/min (>60); Globulin 2.9 g/dL (1.7-4.1); Glucose 107 mg/dL (80-110); HEMOLYSIS 28 (0-50); Sodium 138 mmol/L (137-145); Total Protein 6.6 g/dL (6.3-8.2)
[2024-02-28] MEDS: PANTOPRAZOLE DR 20 MG TABLET PO (06:44)
--- NOTE | 2024-02-28 07:29 | P.PN_ITS ---
Subjective Subjective Interval history: Persistent right upper quadrant abdominal pain. No nausea. No diarrhea. No abdominal distention. Discussed with her Dipika sánchez and their opinion that she does not require ERCP and that her bilirubin is normal. Discussed with Dr. Aleman, he was considering a cholecystectomy. Exam Vital Signs (past 8 hours): - 02/28/24 05:00 Temperature 97.3 F L Pulse Rate 81 Respiratory Rate 18 Blood Pressure 163/79 H Pulse Oximetry 95 Oxygen Flow Rate 0 Oxygen Delivery Method Nasal Cannula Oxygen Flow Rate 0 Narrative Exam Narrative: NAD, alert and oriented. Fluent speech. Lungs are clear, normal rate and effort. Heart is regular, no murmur gallop or rub. Abdomen is soft, non distended. Extremities are free of edema. Objective Labs 02/28/24 06:03 02/28/24 06:03 Labs: Laboratory Results - last 24 hr 02/28/24 06:03 WBC 3.5 L RBC 4.16 Hgb 13.1 Hct 39.3 MCV 94.4 MCH 31.4 MCHC 33.3 RDW 14.1 Plt Count 214 Neut % (Auto) 40.7 L Lymph % (Auto) 43.1 H [place] % (Auto) 12.1 Eos % (Auto) 3.5 Baso % (Auto) 0.6 Neut # (Auto) 1400 L Lymph # (Auto) 1500 [place] # (Auto) 400 Eos # (Auto) 100 Baso # (Auto) 0 Sodium 138 Potassium 4.0 Chloride 106 Carbon Dioxide 30 BUN 16 Creatinine 0.71 Estimated GFR > 60 BUN/Creatinine Ratio 22.5 H Glucose 107 Calcium 8.9 Total Bilirubin 0.7 AST 113 H ALT 93 H Alkaline Phosphatase 251 H Total Protein 6.6 Albumin 3.7 Globulin 2.9 Albumin/Globulin Ratio 1.3 [facility] TO [facility] Medical History Hard of hearing History of angina (~11/2019) Unstable angina Paraesophageal hernia Hyperlipidemia GERD (gastroesophageal reflux disease) Coronary artery disease Concussion Myocardial infarction Mild sleep apnea Arthritis of both hands Balance problem Bilateral hearing loss Hypertension Diabetes Surgical History History of cardiac cath H/O heart artery stent S/P scar revision H/O exploratory laparotomy (~2011) Status post cataract extraction of both eyes with insertion of intraocular lens History of total right hip arthroplasty S/P foot surgery, left History of total knee arthroplasty Social History household members: spouse Smoking Status: Never smoker alcohol intake: current Assessment & Plan Assessment & Plan narrative: #cholelithiasis, possible choledocholithiasis. Present on admission and active. -abd US shows distended gallbladder and positive maddox's, LFT's elevated but fairly stable and no bili elevation. MRCP showed CBD of 1.3 cm, discussed with GI at [facility] whom did not think that patient needed ERCP. -troponins neg -echo in ED reassuring without WMA, EF 60-65% -continue telemetry #costochronitis, present on admission and stable. - patient has reproducible tenderness on exam though symptoms are mixed and with her history of CAD could represent chronic stable angina. She has negative troponins and echo without wall motion abnormalities. Will continue symptom relief for costochondritis. Started standing ibuprofen today as her plavix has been held for possible surgery, though monitor for bleeding. - will not order stress testing at this time. # HLD, present on admission and stable. -continue lipitor 80 mg -Lipid panel TG 158, TC 156, LDL 156, HDL 45 which is suboptimal given known CAD. # HTN, present on admission and stable. -continue metoprolol, will continue to hold home furosemide and lisinopril today and tomorrow as she is normotensive thus far. # CAD s/p stents, present on admission and stable. -plavix on hold as noted above. Continue to hold. # depression, present on admission and stable. -continue cymbalta # insomnia, present on admission and stable. -continue seroquel, mirtazapine and temazepam PRN Plan: Dr. Aleman if surgery is going to evaluate for a possible laparoscopic cholecystectomy. Hold Plavix, continue all other cardiac medications at this point. Monitor blood pressure. Code status is full code. DVT prophylaxis with Lovenox. Proxy is Adryan. Quality VTE Deep Vein Thrombosis/Pulmonary Embolism Present on Admission: No
[2024-02-28] MEDS: diphenhydrAMINE 50 MG/ML VIAL 25 MG IV ×3 (07:45→22:16)
[2024-02-28] MEDS: ACETAMINOPHEN 325 MG TABLET 650 MG PO ×2 (07:45→21:19)
[2024-02-28] MEDS: DOCUSATE 100 MG CAPSULE PO ×2 (09:29→21:07)
[2024-02-28] MEDS: IBUPROFEN 600 MG TABLET PO ×3 (09:30→21:06)
[2024-02-28] MEDS: LIDOCAINE 5% PATCH 1 EACH TOP (09:30)
[2024-02-28] MEDS: METOPROLOL IR 50 MG TABLET 100 MG PO ×2 (09:31→21:08)
[2024-02-28] MEDS: ENOXAPARIN 40 MG/0.4 ML SYRINGE SUBCUT ×2 (09:31→21:07)
[2024-02-28] MEDS: OXYCODONE IR 5 MG TABLET PO ×2 (09:33→18:01)
[2024-02-28] MEDS: DULOXETINE 30 MG CAPSULE 60 MG PO (09:35)
[2024-02-28] MEDS: hydrOXYzine HCL 25 MG TABLET PO ×2 (12:59→21:08)
--- NOTE | 2024-02-28 15:29 | PM.PN.1 ---
Subjective Subjective Date Patient Seen: 02/28/24 Time Patient Seen: 15:29 Interval history: Continues to have right upper quadrant pain. Her case was discussed with GI from [facility] s[facility] yesterday and they determined that she did not need ERCP. Exam Vital Signs (past 8 hours): - 02/28/24 08:00 02/28/24 11:44 Temperature 97.1 F L 96.8 F L Pulse Rate 76 62 Respiratory Rate 18 18 Blood Pressure 130/72 118/62 Pulse Oximetry 93 95 Oxygen Flow Rate 0 2 Oxygen Delivery Method Nasal Cannula Oxygen Flow Rate 2 Const General: No acute distress Objective Labs 02/28/24 06:03 02/28/24 06:03 Labs: Laboratory Results - last 24 hr 02/28/24 06:03 WBC 3.5 L RBC 4.16 Hgb 13.1 Hct 39.3 MCV 94.4 MCH 31.4 MCHC 33.3 RDW 14.1 Plt Count 214 Neut % (Auto) 40.7 L Lymph % (Auto) 43.1 H [place] % (Auto) 12.1 Eos % (Auto) 3.5 Baso % (Auto) 0.6 Neut # (Auto) 1400 L Lymph # (Auto) 1500 [place] # (Auto) 400 Eos # (Auto) 100 Baso # (Auto) 0 Sodium 138 Potassium 4.0 Chloride 106 Carbon Dioxide 30 BUN 16 Creatinine 0.71 Estimated GFR > 60 BUN/Creatinine Ratio 22.5 H Glucose 107 Calcium 8.9 Total Bilirubin 0.7 AST 113 H ALT 93 H Alkaline Phosphatase 251 H Total Protein 6.6 Albumin 3.7 Globulin 2.9 Albumin/Globulin Ratio 1.3 [facility] Medical History Hard of hearing History of angina (~11/2019) Unstable angina Paraesophageal hernia Hyperlipidemia GERD (gastroesophageal reflux disease) Coronary artery disease Concussion Myocardial infarction Mild sleep apnea Arthritis of both hands Balance problem Bilateral hearing loss Hypertension Diabetes Surgical History History of cardiac cath H/O heart artery stent S/P scar revision H/O exploratory laparotomy (~2011) Status post cataract extraction of both eyes with insertion of intraocular lens History of total right hip arthroplasty S/P foot surgery, left History of total knee arthroplasty Social History household members: spouse Smoking Status: Never smoker alcohol intake: current Assessment & Plan Assessment and plan (1) Dilation of biliary tract: Status: Acute Plan I recommend laparoscopic cholecystectomy, possible open cholecystectomy and cholangiogram once her Plavix has worn off which should be Wednesday or . Quality VTE Deep Vein Thrombosis/Pulmonary Embolism Present on Admission: No
--- NOTE | 2024-02-28 15:45 | CM.DPC ---
DCP Cont: Per MD and Surgeon, per consult with Dipika Swanson no ERCP needed at this time and Surgeon recommends Lap vs open Lilli for gallbladder issues and pt in agreement and to hold Plavix and then pt likely can have surgical intervention on Wed this week. Plan: SW to follow closely post surgical intervention towards determining any discharge planning needs and if safe for d/c home with spouse assist. DIGNA Mendez
--- NOTE | 2024-02-28 19:36 | RT ---
1935 - Noting home CPAP unit at bedside. RT offered help with placement of CPAP for nocturnal use. Pt stated that she gets a dry throat from use here at the hospital, despite adjustment to humidifier. Pt stated that she would like to use oxygen at night instead. Currently, she is supported on 2L NC.
[2024-02-28] MEDS: ATORVASTATIN 20 MG TABLET 80 MG PO (21:07)
[2024-02-28] MEDS: MIRTAZAPINE 15 MG TABLET 45 MG PO (21:07)
[2024-02-28] MEDS: QUETIAPINE 25 MG TABLET 50 MG PO (21:07)
[2024-02-29] VITALS (10 sets, daily range): BP systolic 128–143; BP diastolic 60–72; PULSE 61–84; RESP 17–18; TEMP 35.9–36.4; O2SAT 93–99
[2024-02-29] MEDS: OXYCODONE IR 5 MG TABLET PO ×4 (02:09→18:06)
[2024-02-29] MEDS: ONDANSETRON 4 MG/2 ML INJ IV ×2 (05:10→18:08)
[2024-02-29 05:12] LABS: Add Manual Diff / Slide Review NO; Basophils Absolute Auto 0 /uL (0-100); Basophils Percent Auto 0.6 % (0-2); Eosinophils Absolute Auto 200 /uL (0-450); Eosinophils Percent Auto 4.3 % (2-4); Hematocrit 35.3 % (36-46); Hemoglobin 11.6 g/dL (12.0-16.0); Lymphocytes Absolute Auto 1600 /uL (1100-4500); Lymphocytes Percent Auto 40.9 % (25-40); Mean Corpuscular HGB Conc 32.9 % (30-36); Mean Corpuscular Volume 94.1 fL (80-100); Monocytes Absolute Auto 500 /uL (0-900); Neutrophils Absolute Auto 1600 /uL (1500-7000); Neutrophils Percent Auto 40.2 % (50-75); Platelet Count 256 X10^3/uL (150-400); Red Blood Cell Count 3.75 X10^6/uL (4.0-5.2); Red Cell Distribution Width 14.5 % (11.6-14.8); White Blood Cell Count 3.9 X10^3/uL (4.5-11.0)
[2024-02-29 05:40] LABS: Alanine Aminotransferase 85 IU/L (<35); Albumin 3.6 g/dL (3.5-5.0); Albumin Globulin Ratio 1.3 (1.0-2.8); Alkaline Phosphatase 246 U/L (38-126); Aspartate Aminotransferase 108 IU/L (14-36); BUN Creatinine Ratio 21.4 (6-22); Bilirubin Total 0.6 mg/dL (0.2-1.3); Blood Urea Nitrogen 18 mg/dL (7-17); Calcium 8.7 mg/dL (8.4-10.2); Carbon Dioxide 31 mmol/L (22-32); Chloride 106 mmol/L (98-107); Estimated Glomerular Filt Rate > 60 mL/min (>60); Globulin 2.8 g/dL (1.7-4.1); Glucose 110 mg/dL (80-110); HEMOLYSIS < 15 (0-50); Potassium 4.1 mmol/L (3.4-5.1); Sodium 138 mmol/L (137-145); Total Protein 6.4 g/dL (6.3-8.2)
[2024-02-29] MEDS: diphenhydrAMINE 50 MG/ML VIAL 25 MG IV ×2 (06:04→21:20)
[2024-02-29] MEDS: ACETAMINOPHEN 325 MG TABLET 650 MG PO ×3 (06:05→21:22)
[2024-02-29] MEDS: PANTOPRAZOLE DR 20 MG TABLET PO (06:17)
--- NOTE | 2024-02-29 07:41 | P.PN_ITS ---
Subjective Subjective Interval history: She was having lot of anxiety and concerns about depression. She was an aching right upper quadrant which has increased pain if she eats. She was going to have a laparoscopic cholecystectomy in the next 1-2 days pending general surgeries scheduled. No nausea, no vomiting. No recent BM, 5 days. Exam Vital Signs (past 8 hours): - 02/29/24 02:00 Temperature 96.7 F L Pulse Rate 61 Respiratory Rate 17 Blood Pressure 142/72 H Pulse Oximetry 97 Oxygen Flow Rate 2 Fraction of Inspired Oxygen 28 SaO2/FiO2 Ratio 342 Oxygen Delivery Method Nasal Cannula Oxygen Flow Rate 2 Narrative Exam Narrative: NAD, alert and oriented. Fluent speech. Lungs are clear, normal rate and effort. Heart is regular, no murmur gallop or rub. Abdomen is soft, non distended. Mild RUQ tenderness. Extremities are free of edema. Objective Labs 02/29/24 05:00 02/29/24 05:00 Labs: Laboratory Results - last 24 hr 02/29/24 05:00 WBC 3.9 L RBC 3.75 L Hgb 11.6 L Hct 35.3 L MCV 94.1 MCH 31.0 MCHC 32.9 RDW 14.5 Plt Count 256 Neut % (Auto) 40.2 L Lymph % (Auto) 40.9 H [place] % (Auto) 14.0 Eos % (Auto) 4.3 H Baso % (Auto) 0.6 Neut # (Auto) 1600 Lymph # (Auto) 1600 [place] # (Auto) 500 Eos # (Auto) 200 Baso # (Auto) 0 Sodium 138 Potassium 4.1 Chloride 106 Carbon Dioxide 31 BUN 18 H Creatinine 0.84 Estimated GFR > 60 BUN/Creatinine Ratio 21.4 Glucose 110 Calcium 8.7 Total Bilirubin 0.6 AST 108 H ALT 85 H Alkaline Phosphatase 246 H Total Protein 6.4 Albumin 3.6 Globulin 2.8 Albumin/Globulin Ratio 1.3 PFSH Medical History Hard of hearing History of angina (~11/2019) Unstable angina Paraesophageal hernia Hyperlipidemia GERD (gastroesophageal reflux disease) Coronary artery disease Concussion Myocardial infarction Mild sleep apnea Arthritis of both hands Balance problem Bilateral hearing loss Hypertension Diabetes Surgical History History of cardiac cath H/O heart artery stent S/P scar revision H/O exploratory laparotomy (~2011) Status post cataract extraction of both eyes with insertion of intraocular lens History of total right hip arthroplasty S/P foot surgery, left History of total knee arthroplasty Social History household members: spouse Smoking Status: Never smoker alcohol intake: current Assessment & Plan Assessment & Plan narrative: #cholelithiasis, possible choledocholithiasis. Present on admission and active. #costochronitis, present on admission and stable. - patient has reproducible tenderness on exam though symptoms are mixed and with her history of CAD could represent chronic stable angina. She has negative troponins and echo without wall motion abnormalities. Will continue symptom relief for costochondritis. Started standing ibuprofen today as her plavix has been held for possible surgery, though monitor for bleeding. # HLD, present on admission and stable. -continue lipitor 80 mg # HTN, present on admission and stable. -continue metoprolol, will continue to hold home furosemide and lisinopril today and tomorrow as she is normotensive thus far. # CAD s/p stents (around 15 years ago), present on admission and stable. -plavix on hold as noted above. Continue to hold. # depression, present on admission and stable. -continue cymbalta # insomnia, present on admission and stable. -continue seroquel, mirtazapine and temazepam PRN Plan: laparoscopic cholecystectomy 1-2 days. Hold Plavix, continue all other cardiac medications at this point. Monitor blood pressure. Hold lisinopril. Restart lasix She is going to call her psychiatrist, Dr. Hadley. She requires hospital care until she receives her cholecystectomy. Quality VTE Deep Vein Thrombosis/Pulmonary Embolism Present on Admission: No
[2024-02-29] MEDS: METOPROLOL IR 50 MG TABLET 100 MG PO ×2 (08:08→21:23)
[2024-02-29] MEDS: DULOXETINE 30 MG CAPSULE 60 MG PO (08:08)
[2024-02-29] MEDS: IBUPROFEN 600 MG TABLET PO ×3 (08:08→21:21)
[2024-02-29] MEDS: DOCUSATE 100 MG CAPSULE PO ×2 (08:08→21:23)
[2024-02-29] MEDS: LIDOCAINE 5% PATCH 1 EACH TOP (08:09)
[2024-02-29] MEDS: polyethylene glycoL 3350 17 GM POWD.PACK PO (08:11)
[2024-02-29] MEDS: ENOXAPARIN 40 MG/0.4 ML SYRINGE SUBCUT ×2 (09:30→21:24)
[2024-02-29] MEDS: FUROSEMIDE 20 MG TABLET PO (10:41)
[2024-02-29] MEDS: MIRTAZAPINE 15 MG TABLET 45 MG PO (21:21)
[2024-02-29] MEDS: QUETIAPINE 25 MG TABLET 50 MG PO (21:22)
[2024-02-29] MEDS: ATORVASTATIN 20 MG TABLET 80 MG PO (21:23)
[2024-02-29] MEDS: SODIUM CHLORIDE 0.9% FLUSH 10 ML IV (21:25)
[2024-02-29] MEDS: hydrOXYzine HCL 25 MG TABLET PO (23:06)
[2024-03-01] VITALS (18 sets, daily range): BP systolic 127–173; BP diastolic 62–95; PULSE 60–178; RESP 12–21; TEMP 36.3–37; O2SAT 92–98; BMI 40.8
--- NOTE | 2024-03-01 | PATH_ITS ---
[facility] Accession Number: [id number] No. of containers..01 Tissue . 01 Material submitted: . gallbladder - GALLBLADDER . 01 Diagnosis: GALLBLADDER, CHOLECYSTECTOMY: Mild chronic cholecystitis. MRV 03/07/2024 1244 Local . 01 Electronically signed: . Bronwyn Barajas MD, Pathologist NPI- [id number] . 01 Gross description: . Received in formalin with two patient identifiers and gallbladder, is an intact gallbladder, 9.7 x 5.6 x 4.5 cm, with an unremarkable external surface. The cystic duct margin is inked blue, and no pericystic lymph node is identified. The lumen contains dark green viscous bile with no calculi identified in the lumen or the container. The mucosa is green and velvety with no yellow discoloration, polyps, or lesions identified. The hernandez average 0.2 cm thick, and digital media representative sections to include the cystic duct margin and full thickness sections are submitted in A1. ([id number]) /MRV 03/02/2024 1521 Local . 01 Pathologist provided ICD-10: K81.1 . 01 CPT . 883890 Specimen Comment: A courtesy copy of this report has been sent to [phone] Performed at: [address] [facility], [place], [place] [id number] MD Diallo Christiansen MD Phone: [phone]
--- NOTE | 2024-03-01 02:52 | PC.NURSE ---
Patient is alert and oriented but highly anxious with frequent use of call light and asking for multiple different medications at beginning of shift. Breath sounds CTA and denied SOB but is on oxygen at 1L/min per NC as patient has hx of sleep apnea with prn use of CPAP and states it helps the pain caused by the costocondritis in area under left breast; sat was 95%. HRR. Did complain of nausea medicated with Zofran with resolution of nausea. BT present and abdomen is soft; reported having had BM on previous shift. Reports urinary incontinence and is wearing pull-up but also gets up to bathroom. Is able to move herself in bed. Gets out of bed with use of walker and SBA for safety related to episodes of dizziness. Has 1+ bilateral LE edema. Had tylenol for pain in upper abdomen R>L, costocondritis and headache and at time of assessment stated pain was down to 3/10 and tolerable. Did receive Benadryl for complaint of itching and vistaril to aid sleep. She has bilateral hand tremors which she attributes to taking Dilaudid earlier in hospital stay (also stated headache and dizziness were also related to use of Dilaudid). Is wearing bilateral calf SCD's. Fall risk score is high and bed alarm is activated.
[2024-03-01] MEDS: PANTOPRAZOLE DR 20 MG TABLET PO (06:43)
--- NOTE | 2024-03-01 07:23 | PM.PN.1 ---
Subjective Subjective Interval history: Will have a lap cholecystectomy. She was ongoing right upper quadrant pain. Less chest pain today. She denies any nausea. She was nauseated earlier this morning. Exam Vital Signs (past 8 hours): - 02/29/24 23:25 03/01/24 04:00 Temperature 97.3 F L 97.6 F Pulse Rate 68 80 Respiratory Rate 17 17 Blood Pressure 128/60 130/66 Pulse Oximetry 93 96 Oxygen Flow Rate 1 1 Fraction of Inspired Oxygen 28 SaO2/FiO2 Ratio 339 Oxygen Delivery Method Nasal Cannula Oxygen Flow Rate 1 Narrative Exam Narrative: NAD, alert and oriented. Fluent speech. Lungs are clear, normal rate and effort. Heart is regular, no murmur gallop or rub. Abdomen is soft, non distended. She does have some right upper quadrant pain and tenderness with palpation. Extremities are free of edema. Objective Labs 02/29/24 05:00 02/29/24 05:00 [facility] Medical History Hard of hearing History of angina (~11/2019) Unstable angina Paraesophageal hernia Hyperlipidemia GERD (gastroesophageal reflux disease) Coronary artery disease Concussion Myocardial infarction Mild sleep apnea Arthritis of both hands Balance problem Bilateral hearing loss Hypertension Diabetes Surgical History History of cardiac cath H/O heart artery stent S/P scar revision H/O exploratory laparotomy (~2011) Status post cataract extraction of both eyes with insertion of intraocular lens History of total right hip arthroplasty S/P foot surgery, left History of total knee arthroplasty Social History household members: spouse Smoking Status: Never smoker alcohol intake: current Assessment & Plan Assessment & Plan narrative: 1. Cholelithiasis, possible choledocholithiasis with abdomen pain. Present on admission and active. 2. Costochronitis, present on admission and stable. 3. HLD, present on admission and stable. 4. HTN, present on admission and stable. -continue metoprolol, will continue to hold home furosemide and lisinopril today and tomorrow as she is normotensive thus far. 5. CAD s/p stents (around 15 years ago), present on admission and stable. -plavix on hold as noted above. Continue to hold. 6. Depression, present on admission and stable. -continue cymbalta 7. Insomnia, present on admission and stable. -continue seroquel, mirtazapine and temazepam PRN PLAN: -NPO for surgery today. -holding Plavix until the postoperative phase. She would cardiac stents over 10 years ago. -continue all other medications without change. She requires another night of hospital care. Quality VTE Deep Vein Thrombosis/Pulmonary Embolism Present on Admission: No
[2024-03-01] MEDS: HYDROMORPHONE 0.5 MG INJ IV ×2 (07:41→16:52)
[2024-03-01] MEDS: ONDANSETRON 4 MG/2 ML INJ IV ×5 (07:41→21:33)
[2024-03-01] MEDS: diphenhydrAMINE 50 MG/ML VIAL 25 MG IV ×2 (08:37→17:12)
[2024-03-01] MEDS: DOCUSATE 100 MG CAPSULE PO ×2 (08:41→21:31)
[2024-03-01] MEDS: DULOXETINE 30 MG CAPSULE 60 MG PO (08:42)
[2024-03-01] MEDS: FUROSEMIDE 20 MG TABLET PO (08:42)
[2024-03-01] MEDS: SODIUM CHLORIDE 0.9% FLUSH 10 ML IV ×4 (08:43→21:32)
[2024-03-01] MEDS: METOPROLOL IR 50 MG TABLET 100 MG PO ×2 (08:43→21:32)
[2024-03-01] MEDS: LIDOCAINE 5% PATCH 1 EACH TOP (08:43)
[2024-03-01] MEDS: OXYCODONE IR 5 MG TABLET PO ×3 (11:03→20:03)
[2024-03-01] MEDS: CEFAZOLIN 2 GM/100 ML PREMIX 100 ML IV (11:07)
[2024-03-01] MEDS: LACTATED RINGERS 1,000 ML 42 ML IV (12:01)
[2024-03-01] MEDS: SCOPOLAMINE 1 PATCH TOP (12:03)
[2024-03-01] MEDS: ACETAMINOPHEN IV 1,000 MG/100 ML VIAL 400 MG IV (12:04)
--- NOTE | 2024-03-01 12:31 | P.CALLCOV_ITS ---
Call Coverage Note Note Date of Patient Contact: 03/01/24 Time of Patient Contact: 12:31 Narrative of Care Provided: 73-year-old woman with ongoing right upper quadrant pain. Imaging demonstrates a distended gallbladder unclear if biliary dyskinesia versus acalculous cholecystitis versus sludge causing biliary colic. She has significant comorbidities and previous abdominal surgery potentially extensive intra- abdominal adhesions. She is frustrated with her ongoing pain and this is keeping her hospitalized and she requests proceeding with cholecystectomy. Explained to her that this is high-risk given her comorbidities. She understands this and wishes to proceed. We have discussed potential surgical risks including hemorrhage, infection, damage to surrounding structures, biliary injury, conversion to. Her questions have been answered she is in agreement with this plan. I discussed with her that we will begin with diagnostic laparoscopy but if the right upper quadrant is not readily accessible the operation will be aborted.
--- NOTE | 2024-03-01 13:12 | SUR.OPER ---
Supine on padded OR bed, head on pillow, arms secured on padded arm boards at <90 degrees abduction, legs uncrossed, safety belt at thigh, tape over blanket over lower legs.
[2024-03-01] MEDS: BUPIVACAINE 0.25% (PF) VIAL 30 ML INJ (13:19)
--- NOTE | 2024-03-01 13:47 | P.OP_ITS ---
Operative Date/Time/Diagnoses Date of procedure: 03/01/24 Time of procedure: 13:51 Pre-op diagnosis: Acalculous cholecystitis Post-op diagnosis: same Procedure & Clinicians Procedure: Laparoscopic lysis of adhesions Laparoscopic cholecystectomy Same procedure as scheduled: Yes Indications: 73-year-old woman with right upper quadrant pain, mild transaminitis and imaging demonstrating a distended gallbladder. Surgeon: Delmer Stauffer Riveter Helper: Anthony Vasquez Anesthesia Type: General Operative Notes Findings: Large distended gallbladder, small palpable stones Specimen(s): other (Gallbladder) Estimated Blood Loss (mL): 20 Procedure in detail: The patient was placed supine on the table and bilateral lower extremity compression devices were applied. Anesthesia was induced they were intubated with an endotracheal tube and received 2g of Ancef. A time-out was performed. They were prepped and draped in sterile fashion. An infraumbilical incision was made. The fascia was elevated incised and the abdomen was entered atraumatically. A blunt tip 12mm balloon trocar was then inserted, pneu moperitoneum was established and inspection of the abdomen demonstrated no evidence of injury. They were placed head up and right side up and then a 11 mm port was placed high in the epigastrium and two 5mm in the right upper quadrant. There were numerous adhesions of omentum to the abdominal wall. We inserted an additional 5 mm port in the left upper quadrant and using the LigaSure a lysis of adhesions was performed. The gallbladder was large and distended. It was grasped by the fundus and retracted over the liver and retracted laterally by the infundibulum. Using electrocautery the lateral plane between the gallbladder and the liver was opened towards the fundus. The gallbladder was then retracted laterally and the medial plane was developed in the same manner. With the gallbladder mobilized the bottom of the cystic plate was visualized. The hepatocystic triangle was meticulosly skeletonized with blunt dissection of fat and fibrous tissue from both the front and the back. Only two structures were then clearly seen entering the gallbladder the cystic duct and the cystic artery. With the critical view of safety fully established the cystic duct was clipped twice proximally and once distally using the 10 mm Weck hemoclip applied under direct visualization and then sharply divided. The cystic artery was divided in the same fashion. The gallbladder was removed from the liver bed using electro cautery. The liver bed was then inspected for hemostasis and this was achieved. The abdomen was irrigated with sterile saline and inspection was made that showed the clips in good position. The specimen was removed using Endo-Catch. The abdomen was desufflated. The umbilical fascia was closed with 0 Vicryl in a [id number] fashion under direct visualization. Skin incisions were irrigated and closed with 4-0 Monocryl. 30 ml of 0.25% bupivacaine was infiltrated into the subcutaneous tissue of the incisions. The wounds were sealed with Dermabond. Patient emerged from anesthesia was extubated and transferred to recovery in stable condition. The sponge and instrument count at the end of the operation was correct. Complications: none Post-operative Condition: stable Disposition: Acute Care
--- NOTE | 2024-03-01 13:58 | CM.DPC ---
DCP Cont. Reviewed EMR and team rounds for status updates. Pt had her cholecystectomy completed today, likely will d/c home tomorrow. No CM needs identified at this time.
[2024-03-01] MEDS: hydrOXYzine 50 MG/ML INJ 25 MG IM (14:05)
[2024-03-01] MEDS: METOCLOPRAMIDE 10 MG/2 ML INJ IV (14:22)
[2024-03-01] MEDS: ACETAMINOPHEN 325 MG TABLET 650 MG PO (20:04)
[2024-03-01] MEDS: MIRTAZAPINE 15 MG TABLET 45 MG PO (21:32)
[2024-03-01] MEDS: ATORVASTATIN 20 MG TABLET 80 MG PO (21:32)
[2024-03-01] MEDS: QUETIAPINE 25 MG TABLET 50 MG PO (21:32)
[2024-03-01] MEDS: ENOXAPARIN 40 MG/0.4 ML SYRINGE SUBCUT (21:33)
[2024-03-01] MEDS: hydrOXYzine HCL 25 MG TABLET PO (21:48)
[2024-03-02] MEDS: diphenhydrAMINE 50 MG/ML VIAL 25 MG IV ×2 (00:14→06:53)
[2024-03-02] MEDS: SODIUM CHLORIDE 0.9% FLUSH 10 ML IV ×3 (00:14→20:36)
[2024-03-02] MEDS: ACETAMINOPHEN 325 MG TABLET 650 MG PO ×3 (01:58→20:35)
[2024-03-02] MEDS: OXYCODONE IR 5 MG TABLET PO ×3 (01:58→20:35)
[2024-03-02] MEDS: hydrOXYzine HCL 25 MG TABLET PO ×2 (03:20→20:34)
[2024-03-02 04:30] VITALS: BP 122/54; PULSE 73; RESP 17; TEMP 37; O2SAT 95
[2024-03-02] MEDS: PANTOPRAZOLE DR 20 MG TABLET PO (06:53)
[2024-03-02 07:00] VITALS: O2SAT 92
[2024-03-02 08:00] VITALS: BP 112/71; PULSE 76; RESP 16; TEMP 36.3; O2SAT 95
[2024-03-02] MEDS: METOPROLOL IR 50 MG TABLET 100 MG PO ×2 (08:17→20:34)
[2024-03-02] MEDS: DULOXETINE 30 MG CAPSULE 60 MG PO (08:17)
[2024-03-02] MEDS: FUROSEMIDE 20 MG TABLET PO (08:17)
[2024-03-02] MEDS: LIDOCAINE 5% PATCH 1 EACH TOP (08:17)
[2024-03-02] MEDS: DOCUSATE 100 MG CAPSULE PO ×2 (08:17→20:34)
[2024-03-02] MEDS: ENOXAPARIN 40 MG/0.4 ML SYRINGE SUBCUT ×2 (08:18→20:36)
[2024-03-02] MEDS: ONDANSETRON 4 MG ODT SL ×3 (11:14→20:32)
[2024-03-02] MEDS: IBUPROFEN 600 MG TABLET PO (11:36)
--- NOTE | 2024-03-02 11:36 | CM.DPC ---
DCP Cont. Reviewed EMR and team rounds for status updates. Per Surgery, pt will be medically cleared for home d/c today. No further DCP needs are indicated at this time. Her spouse will transport her home.
[2024-03-02 12:00] VITALS: BP 124/52; PULSE 63; RESP 14; TEMP 36.6; O2SAT 98
--- NOTE | 2024-03-02 13:25 | P.PN_ITS ---
Subjective Subjective Interval history: Pain is more muscle aches today, feels much improved just a bit sore now. Does have LE swelling which is new today, gave dose of IV lasix. Exam Vital Signs (past 8 hours): - 03/02/24 07:00 03/02/24 08:00 03/02/24 12:00 Temperature 97.3 F L 97.8 F Pulse Rate 76 63 Respiratory Rate 16 14 Blood Pressure 112/71 124/52 L Pulse Oximetry 92 95 98 Oxygen Delivery Method Room Air Oxygen Flow Rate 0 2 0 Fraction of Inspired Oxygen 28 SaO2/FiO2 Ratio 339 Oxygen Delivery Method Room Air Oxygen Flow Rate 0 Narrative Exam Narrative: NAD, alert and oriented. Fluent speech. Lungs are clear, normal rate and effort. Heart is regular, no murmur gallop or rub. Abdomen is soft, non distended. She does have some right upper quadrant pain and tenderness with palpation. Extremities have 1+ pedal edema. Objective Labs 02/29/24 05:00 02/29/24 05:00 [facility] Medical History Hard of hearing History of angina (~11/2019) Unstable angina Paraesophageal hernia Hyperlipidemia GERD (gastroesophageal reflux disease) Coronary artery disease Concussion Myocardial infarction Mild sleep apnea Arthritis of both hands Balance problem Bilateral hearing loss Hypertension Diabetes Surgical History History of cardiac cath H/O heart artery stent S/P scar revision H/O exploratory laparotomy (~2011) Status post cataract extraction of both eyes with insertion of intraocular lens History of total right hip arthroplasty S/P foot surgery, left History of total knee arthroplasty Social History household members: spouse Smoking Status: Never smoker alcohol intake: current Assessment & Plan Assessment & Plan narrative: 1. Cholelithiasis, possible choledocholithiasis with abdomen pain. Present on admission and active. 2. Costochronitis, present on admission and stable. 3. HLD, present on admission and stable. 4. HTN, present on admission and stable. -continue metoprolol, will continue to hold home furosemide and lisinopril today and tomorrow as she is normotensive thus far. 5. CAD s/p stents (around 15 years ago), present on admission and stable. -plavix on hold as noted above. Continue to hold but will resume tomorrow. 6. Depression, present on admission and stable. -continue cymbalta 7. Insomnia, present on admission and stable. -continue seroquel, mirtazapine and temazepam PRN PLAN: -Resume plavix tomorrow -diurese with single dose IV lasix today. -continue all other medications without change. Likely discharge tomorrow home if no dyspnea and LE edema improved. Quality VTE Deep Vein Thrombosis/Pulmonary Embolism Present on Admission: No
[2024-03-02] MEDS: SUMAtriptan 25 MG TABLET 50 MG PO ×2 (14:15→20:34)
[2024-03-02] MEDS: FUROSEMIDE 40 MG/4 ML VIAL IV (14:15)
--- NOTE | 2024-03-02 15:46 | PC.NURSE ---
Patient complaining intermittently of headache accompanied with dizziness, nausea, and seeing stars. Informed MD and Imitrix ordered. pt feeling much better after imitrex and is resting comfortably in bed with lights dimmed for comfort. Call light and belongings within reach.
[2024-03-02 16:00] VITALS: BP 132/60; PULSE 85; RESP 14; TEMP 36.4; O2SAT 93
[2024-03-02 20:00] VITALS: BP 132/64; PULSE 72; RESP 18; TEMP 36.9; O2SAT 95
[2024-03-02] MEDS: ATORVASTATIN 20 MG TABLET 80 MG PO (20:33)
[2024-03-02] MEDS: MIRTAZAPINE 15 MG TABLET 45 MG PO (20:33)
[2024-03-02] MEDS: QUETIAPINE 25 MG TABLET 50 MG PO (20:34)
[2024-03-03] VITALS: BP 140/88; PULSE 84; RESP 18; TEMP 37; O2SAT 97
[2024-03-03 04:00] VITALS: BP 136/86; PULSE 74; RESP 17; TEMP 36.9; O2SAT 96
[2024-03-03] MEDS: PANTOPRAZOLE DR 20 MG TABLET PO (06:15)
[2024-03-03] MEDS: SODIUM CHLORIDE 0.9% FLUSH 10 ML IV ×2 (06:15→08:51)
[2024-03-03] MEDS: SUMAtriptan 25 MG TABLET 50 MG PO (06:24)
[2024-03-03] MEDS: ONDANSETRON 4 MG ODT SL (06:59)
[2024-03-03 07:00] VITALS: O2SAT 98
[2024-03-03 07:02] LABS: Alanine Aminotransferase 79 IU/L (<35); Albumin 3.4 g/dL (3.5-5.0); Albumin Globulin Ratio 1.3 (1.0-2.8); Alkaline Phosphatase 208 U/L (38-126); Aspartate Aminotransferase 86 IU/L (14-36); BUN Creatinine Ratio 25.7 (6-22); Bilirubin Total 0.5 mg/dL (0.2-1.3); Blood Urea Nitrogen 18 mg/dL (7-17); Calcium 8.4 mg/dL (8.4-10.2); Carbon Dioxide 33 mmol/L (22-32); Chloride 106 mmol/L (98-107); Estimated Glomerular Filt Rate > 60 mL/min (>60); Globulin 2.7 g/dL (1.7-4.1); Glucose 112 mg/dL (80-110); HEMOLYSIS 19 (0-50); Potassium 3.6 mmol/L (3.4-5.1); Sodium 141 mmol/L (137-145); Total Protein 6.1 g/dL (6.3-8.2)
[2024-03-03 08:00] VITALS: BP 140/54; PULSE 70; RESP 16; TEMP 36.2; O2SAT 98
--- NOTE | 2024-03-03 08:46 | DIET.CONS2 ---
Dietary Inpatient Consultation Note Admission Date: 02/26/2024 10:52 73 y F presented with chest pain, had lap cholecystectomy. Nutrition screened for LOS. Chart reviewed. Adequate po intakes, no weight loss noted. No nutritional interventions needed at this time. F/u prn. Diet: 03/01/24 Dinner Regular [General (Regular) Diet] Diet Modifications: Food Texture: Level 7 - Regular Liquid Consistency: Level 0 - Thin Nutrition Percent Meal Consumed 100% 03/02/24 18:36 Percent Meal Consumed 100% 03/02/24 12:50 Percent Meal Consumed 50% 03/02/24 08:00 Electronically Signed by: Amirah Chapman 03/03/24 08:46 Clinical Dietitian [address] [address]
[2024-03-03] MEDS: DOCUSATE 100 MG CAPSULE PO (08:49)
[2024-03-03] MEDS: ENOXAPARIN 40 MG/0.4 ML SYRINGE SUBCUT (08:49)
[2024-03-03] MEDS: FUROSEMIDE 20 MG TABLET PO (08:49)
[2024-03-03] MEDS: CLOPIDOGREL 75 MG TABLET PO (08:49)
[2024-03-03] MEDS: METOPROLOL IR 50 MG TABLET 100 MG PO (08:49)
[2024-03-03] MEDS: LIDOCAINE 5% PATCH 1 EACH TOP (08:50)
[2024-03-03] MEDS: DULOXETINE 30 MG CAPSULE 60 MG PO (08:51)
[2024-03-03] MEDS: OXYCODONE IR 5 MG TABLET PO (08:52)
--- NOTE | 2024-03-03 10:22 | CM.DPC ---
DCP Continued: Reviewed EMR and team rounds for pt's medical status. Per hospitalist, pt is medically cleared to discharge today. No discharge needs identified at this time. Plan: Anticipating dc home with spouse to transport when medically cleared. JOVANNY Butler
[2024-03-03] MEDS: ACETAMINOPHEN 325 MG TABLET 650 MG PO (11:57)
[2024-03-03] MEDS: IBUPROFEN 600 MG TABLET PO (11:57)
[2024-03-03] MEDS: FUROSEMIDE 40 MG/4 ML VIAL 20 MG IV (12:57)
--- NOTE | 2024-03-03 14:54 | P.DS_ITS ---
History of Present Illness History of Present Illness Date Patient Seen: 03/03/24 Time Patient Seen: 14:54 Chief complaint: chest pain Narrative: Nora Gil is a 73yo F with PMH of CAD s/p 2 stents, HTN, HLD, GERD, and morbid obesity who presents with chest pain. Patient states she has been having chest tightness especially after she ate a [employer] burger the other day. She takes 3 advils, 3 tylenol and 3 nitro and the pain goes away. She says anesthesia makes her depressed, so she is somewhat hesitant about surgery. She has had 5 stress tests in the past. Says she also has costochondritis and this feels different from that. Denies NV, SOB, LE swelling, or diarrhea. Discharge Providers Provider Date of admission: 02/26/24 10:52 Discharge Date: 03/03/24 Primary care physician: Salena Long PA-C Consults: 02/24/24 18:05 Consult to General Surgery Routine Comment: Consulting Provider: Delmer Stauffer Reason for consultation: distended gallbladder, biliary colic Discharge provider: Pierce Childress DO Summary Hospital Course Discharge Diagnosis: 1. Cholelithiasis, possible choledocholithiasis with abdomen pain. Present on admission and active. 2. Costochronitis, present on admission and stable. 3. HLD, present on admission and stable. 4. HTN, present on admission and stable. 5. CAD s/p stents (around 15 years ago), present on admission and stable. 6. Depression, present on admission and stable. 7. Insomnia, present on admission and stable. Hospital Course: 73 F with PMH of CAD, HTN, HLD, depression and insomnia who presented with complex mix of left sided chest pain and right upper quadrant abdominal pain. Her left chest pain was evaluated, ACS was ruled out, and was reproducible and was deemed to be due to her recent chronic costochondritis. Her RUQ pain was more bothersome, and continued to worsen, and was highly consistent with biliary colic. She had extensive workup including MRI for possible choledocholithiasis, which showed CBD dilatation but no stone. Discussed with GI provider whom did not recommend ERCP. Her plavix was held, and her laparoscopic cholecystectomy was performed a couple of days later. She did well following procedure, though had some worsened lower extremity edema which required IV diuresis. Her pain was controlled and she tolerated a diet. No other medication changes were recommended on discharge, and a few doses of pain medications and antinauseal medications were sent to her pharmacy, along with pantoprazole. Course was complicated by near constant costochondritis pain, along with near constant headache. At one point she developed vision changes and visual auras which resolved, this was consistent with migraines likely due in part to a number of her pain medications. Sumatriptan was attempted but did not help her symptoms. Time Spent with Patient Time spent: Greater than 30 minutes Exam Vital Signs (past 8 hours): - 03/03/24 07:00 03/03/24 08:00 Temperature 97.1 F L Pulse Rate 70 Respiratory Rate 16 Blood Pressure 140/54 L Pulse Oximetry 98 98 Oxygen Delivery Method Room Air Fraction of Inspired Oxygen 28 SaO2/FiO2 Ratio 339 Oxygen Delivery Method Room Air Oxygen Flow Rate 0 Narrative Exam Narrative: NAD, alert and oriented. Fluent speech. Lungs are clear, normal rate and effort. Heart is regular, no murmur gallop or rub. Abdomen is soft, non distended. Incisions c/d/i. Extremities have 1+ pedal edema. Objective Labs 02/29/24 05:00 03/03/24 06:36 Labs: Laboratory Results - last 24 hr 03/03/24 06:36 Sodium 141 Potassium 3.6 Chloride 106 Carbon Dioxide 33 H BUN 18 H Creatinine 0.70 Estimated GFR > 60 BUN/Creatinine Ratio 25.7 H Glucose 112 H Calcium 8.4 Total Bilirubin 0.5 AST 86 H ALT 79 H Alkaline Phosphatase 208 H Total Protein 6.1 L Albumin 3.4 L Globulin 2.7 Albumin/Globulin Ratio 1.3 [facility] Medical History Hard of hearing History of angina (~11/2019) Unstable angina Paraesophageal hernia Hyperlipidemia GERD (gastroesophageal reflux disease) Coronary artery disease Concussion Myocardial infarction Mild sleep apnea Arthritis of both hands Balance problem Bilateral hearing loss Hypertension Diabetes Surgical History History of cardiac cath H/O heart artery stent S/P scar revision H/O exploratory laparotomy (~2011) Status post cataract extraction of both eyes with insertion of intraocular lens History of total right hip arthroplasty S/P foot surgery, left History of total knee arthroplasty Social History household members: spouse Smoking Status: Never smoker alcohol intake: current Discharge Plan Discharge Plan Patient Disposition: Home Provider Discharge Comment: You were admitted to the hospital with abdominal pain, eventually had your gallbladder removed with improvement. Please resume prior home medications, no changes are recommended, except for addition of pain med (sent in case of severe pain), zofran, and panoprazole (reflux med). Please call your primary care office to schedule a hospital follow up visit as soon as possible after discharge. Discharge orders & Medications Prescriptions: New clopidogrel 75 mg Tablet 75 mg PO DAILY Qty: 30 0RF pantoprazole 20 mg Tablet,Delayed Release (Dr/Ec) 20 mg PO 0700 30 Days Qty: 30 0RF ondansetron 4 mg Tablet,Disintegrating 4 mg sublingual Q4HR PRN (Reason: Nausea) 30 Days Qty: 30 0RF oxycodone 5 mg Tablet 5 mg PO Q4HR PRN (Reason: Pain, Moderate (4-6)) 7 Days Qty: 10 0RF Continued cholecalciferol (vitamin D3) 100 mcg (4,000 unit) capsule 100 mcg PO DAILY One Daily Multivitamin 400 mcg tablet 1 tab PO DAILY atorvastatin 80 mg tablet 80 mg PO BEDTIME furosemide 20 mg tablet 20 mg PO DAILY loperamide 2 mg capsule 2 mg PO Q6H PRN (Reason: Diarrhea) metoprolol tartrate 100 mg tablet 100 mg PO BID duloxetine 60 mg capsule,delayed release(DR/EC) 60 mg PO DAILY Qty: 90 3RF mirtazapine 45 mg tablet 45 mg PO BEDTIME Qty: 90 1RF quetiapine 50 mg tablet 50 mg PO BEDTIME Qty: 90 1RF temazepam 15 mg capsule 15 mg PO BEDTIME PRN (Reason: sleep) Qty: 14 0RF lisinopril 10 mg Tablet 10 mg PO DAILY estradiol 0.01 % (0.1 mg/gram) cream 1 applic vaginal BEDTIME Eliquis 5 mg tablet 5 mg PO BID ascorbic acid (vitamin C) 500 mg Tablet 1,000 mg PO DAILY lorazepam 0.5 mg Tablet 0.5 mg PO DAILY Follow up/Referrals: Salena Long PA-C [Primary Care Provider] - Diet/Activity/Treatments Diet: Diet as Tolerated Activity: As tolerated, no restrictions Visit Report/Discharge Packet Stand Alone Forms: Patient Portal/API, Stroke Signs & Symptoms Discharge Data Primary Care Provider: Salena Long VTE Deep Vein Thrombosis/Pulmonary Embolism Present on Admission: No
[2024-03-03 16:00] VITALS: BP 113/57; PULSE 68; RESP 16; TEMP 36.3; O2SAT 98
--- NOTE | 2024-03-03 18:15 | PC.NURSE ---
Patient is A&OX4, VSS, afebrile on RA. She is medically cleared for discharge home today by hospitalist. Patient's adomen pain and L sided upper abdomen\rib pain continues as well as her headache. She is tolerating food well, has a BM today and transports herself using FWW. She verbalizes understanding of discharge medications, activity and follow up recommendations. She is escorted to private vehicle with her and all of her belongings for discharge home this evening at 1800.
== END 2024-03-03 18:00 | disposition home or self-care (01) | DRG 418 ==
LOC: ED 17:09 → AC 17:55
PROVIDERS: Emergency Medicine; Internal Medicine; Surgery; Admitting Provider Student in an Organized Health Care Education/Training Program; Emergency Provider Emergency Medicine; Family Provider Anesthesiology Pain Medicine; PCP Physician Assistant; Referring Provider Emergency Medicine; Visit Provider Student in an Organized Health Care Education/Training Program
PROC: 0FT44ZZ Resection of Gallbladder, Percutaneous Endoscopic Approach (ICD-10-PCS; CPT 47562; principal; 2024-03-01 12:30)
DX: K80.00 Calculus of gallbladder with acute cholecystitis without obstruction (principal); Z68.41 Body mass index [BMI] 40.0-44.9, adult; I25.10 Atherosclerotic heart disease of native coronary artery without angina pectoris; I10 Essential (primary) hypertension; K21.9 Gastro-esophageal reflux disease without esophagitis; Z95.5 Presence of coronary angioplasty implant and graft; F32.A Depression, unspecified; G47.00 Insomnia, unspecified; E66.01 Morbid (severe) obesity due to excess calories; M94.0 Chondrocostal junction syndrome [Tietze]
CPT/HCPCS: 36415; 36592; 71045; 76705; 80053; 80061; 82550; 83036; 83690; 83735; 84484; 85025; 85610; 85730; 93005; 93010; 93307; 94760; 96365; 96366; 96368; 96375; 96376; 99284; G0378; A9270; J0136; J0330; J0690; J1100; J1170; J1200; J1642; J1650; J1940; J2270; J2405; J2704; J2765; J3010; J3410; J3490

== ENCOUNTER 2024-03-13 22:52 | Emergency (ER) | payer MEDICARE, OTHER, SELFPAY ==
[2024-02-24 17:56] VITALS: BMI 40.8
[2024-03-13 22:59] VITALS: PULSE 74; RESP 16; O2SAT 94
[2024-03-13 23:00] VITALS: PULSE 75; RESP 17; O2SAT 95
[2024-03-13 23:06] VITALS: BP 135/63; PULSE 71; PULSE 72; RESP 16; RESP 20; TEMP 36.9; O2SAT 96; BMI 36.6
[2024-03-13] MEDS: ONDANSETRON 4 MG/2 ML INJ (23:10)
--- NOTE | 2024-03-13 23:13 | EKG_ITS ---
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
--- NOTE | 2024-03-13 23:15 | ED_ITS ---
HPI - Chest Pain General Chief Complaint: Chest Pain Stated Complaint: Chest Pain Time Seen by Provider: 03/13/24 22:53 Source: patient and EMS Mode of arrival: EMS Limitations: no limitations History of Present Illness HPI narrative: 74-year-old female with history coronary artery disease status post stents (last stent 15 years ago, followed by Cardiology in [place]), bipolar disorder, costochondritis presents by EMS from home for left-sided chest pain. Patient states that approximately 1 hour prior to arrival she was sitting at home on her couch while scrolling on her phone when she began to feel chest pain. Patient states that the pain is sharp, radiates upwards into her chest, and feels different from her costochondritis pain. Patient took ASA prior to arrival and was given nitroglycerin by EMS. EKG NSR en route Of note, patient has been seen multiple times this month for chest pain. She has undergone [address] angio PE studies and had an echocardiogram on 02/23 that showed an EF of 60-65% with normal left ventricular function and no wall abnormalities. Patient states that after her discharge she saw her mulling machine operator, who ordered a cardiac MRI, but she was not know the results of this test. Related Data Home Medications Medication Instructions Recorded Confirmed ascorbic acid (vitamin C) 500 mg 1,000 mg PO DAILY 02/05/19 02/25/24 tablet lisinopril 10 mg tablet 10 mg PO DAILY 10/25/19 02/25/24 cholecalciferol (vitamin D3) 100 100 mcg PO DAILY 07/29/20 02/25/24 mcg (4,000 unit) capsule multivitamin with folic acid 400 1 tab PO DAILY 07/29/20 02/25/24 mcg tablet (One Daily Multivitamin) atorvastatin 80 mg tablet 80 mg PO BEDTIME 10/18/23 02/25/24 furosemide 20 mg tablet 20 mg PO DAILY 10/18/23 02/25/24 loperamide 2 mg capsule 2 mg PO Q6H PRN Diarrhea 10/18/23 02/25/24 metoprolol tartrate 100 mg tablet 100 mg PO BID 10/18/23 02/25/24 lorazepam 0.5 mg tablet 0.5 mg PO DAILY Panic 02/22/24 02/25/24 apixaban 5 mg tablet (Eliquis) 5 mg PO BID 02/28/24 02/28/24 estradiol 0.01% (0.1 mg/gram) 1 applic vaginal BEDTIME 02/28/24 02/28/24 vaginal cream Previous Rx's Medication Instructions Recorded duloxetine 60 mg capsule,delayed 60 mg PO DAILY #90 caps 11/29/23 release mirtazapine 45 mg tablet 45 mg PO BEDTIME #90 tabs 12/06/23 quetiapine 50 mg tablet 50 mg PO BEDTIME #90 tabs 12/06/23 temazepam 15 mg capsule 15 mg PO BEDTIME PRN sleep #14 caps 02/10/24 clopidogrel 75 mg tablet 75 mg PO DAILY #30 tabs 03/03/24 ondansetron 4 mg disintegrating 4 mg sublingual Q4HR PRN Nausea 30 03/03/24 tablet days #30 tabs pantoprazole 20 mg tablet,delayed 20 mg PO 0700 30 days #30 tabs 03/03/24 release Allergies Allergy/AdvReac Type Severity Reaction Status Date / Time aripiprazole [From ABILIFY] Allergy Severe TREMORS, Verified 02/24/24 13:33 ANAPHYLAXIS adhesive tape Allergy Mild Rash Verified 02/24/24 13:33 bupropion [From WELLBUTRIN] AdvReac Severe HEADACHE Verified 02/24/24 13:33 propoxyphene AdvReac Severe Headache Verified 02/24/24 13:33 citalopram [CITALOPRAM] AdvReac Intermediate headache, Verified 02/24/24 13:33 difficulty thinking desvenlafaxine [From Pristiq] AdvReac Intermediate Shakiness Verified 02/24/24 13:33 indomethacin [INDOMETHACIN] AdvReac Intermediate GI UPSET Verified 02/24/24 13:33 phenobarbital [PHENOBARBITAL] AdvReac Intermediate DEPRESSION Verified 02/24/24 13:33 morphine [MORPHINE] AdvReac Mild 'LOOPY' Verified 02/24/24 13:33 Patient History Medical History (Updated 03/14/24 @ 02:37 by Whitney Gonzalez MD) Hard of hearing History of angina (~11/2019) Unstable angina Paraesophageal hernia Hyperlipidemia GERD (gastroesophageal reflux disease) Coronary artery disease Concussion Myocardial infarction Mild sleep apnea Arthritis of both hands Balance problem Bilateral hearing loss Hypertension Diabetes Surgical History History of cardiac cath H/O heart artery stent S/P scar revision H/O exploratory laparotomy (~2011) Status post cataract extraction of both eyes with insertion of intraocular lens History of total right hip arthroplasty S/P foot surgery, left History of total knee arthroplasty Social History household members: spouse Smoking Status: Never smoker alcohol intake: current Smoking Status: Never smoker alcohol intake frequency: holidays/special occasions only Substance Use Type: marijuana Exam Initial Vital Signs Initial Vital Signs: Vital Signs Pulse Rate 74 03/13/24 22:59 Respiratory Rate 16 03/13/24 22:59 Pulse Oximetry 94 03/13/24 22:59 Oxygen Delivery Method Room Air 03/13/24 22:59 Const: Awake, alert, no acute distress, nontoxic appearing Cardiac: regular rate, regular rhythm RESP: unlabored, clear bilaterally, no wheezing GI: Soft, nontender, nondistended, no rebound, no guarding MSK: Atraumatic, full range of motion, pulses equal Skin: Warm, Dry, intact, no rashes Neuro: AO x3, CN II-XII grossly intact, moves all extremities Course Orders Ordered: ED Orders 03/13/24 23:00 Complete Blood Count AUTO DIFF Stat Comprehensive Metabolic Panel Stat Lipase Stat Magnesium Stat PTT Partial Thromboplastin [place] Stat Prothrombin Time INR Stat Troponin & CK Cardiac Panel Stat 03/13/24 23:13 XR chest 1V Stat EKG-12 Lead Stat 03/14/24 01:05 Trop I [Troponin I] Stat Discontinued Medications Acetaminophen (Ofirmev) 1,000 mg in 100 mls @ 400 mls/hr IV NOW ONE Stop: 03/14/24 00:22 Last Infusion: 03/14/24 00:30 Dose: Infused Documented By: Admin: 03/14/24 00:13 Dose: 400 mls/hr Documented By: AB Metoclopramide HCl (Metoclopramide 10 Mg/2 Ml Inj) 10 mg IV NOW ONE Stop: 03/14/24 00:09 Last Admin: 03/14/24 00:13 Dose: 10 mg Documented By: AB Morphine Sulfate (Morphine 4 Mg/Ml Inj) 4 mg IV NOW ONE Stop: 03/13/24 23:27 Last Admin: 03/13/24 23:32 Dose: 4 mg Documented By: AB Vital Signs Vital signs: Vital Signs - 8 hr 03/13/24 22:59 03/13/24 23:00 03/13/24 23:06 Temperature 98.4 F Pulse Rate 74 75 71 Respiratory Rate 16 17 16 Blood Pressure 135/63 Pulse Oximetry 94 95 96 Oxygen Delivery Method Room Air Room Air Room Air 03/13/24 23:06 03/13/24 23:06 03/13/24 23:30 Temperature Pulse Rate 72 69 Respiratory Rate 20 18 Blood Pressure 135/63 Pulse Oximetry 96 96 Oxygen Delivery Method Room Air Room Air 03/13/24 23:30 03/14/24 00:00 03/14/24 00:01 Temperature Pulse Rate 74 74 Respiratory Rate 30 H 30 H Blood Pressure 138/71 Pulse Oximetry 98 98 Oxygen Delivery Method 03/14/24 00:01 03/14/24 00:30 03/14/24 00:30 Temperature Pulse Rate 74 Respiratory Rate 42 H Blood Pressure 140/61 128/63 Pulse Oximetry 96 Oxygen Delivery Method 03/14/24 01:00 03/14/24 01:00 03/14/24 01:30 Temperature Pulse Rate 74 69 Respiratory Rate 24 21 Blood Pressure 127/61 Pulse Oximetry 96 95 Oxygen Delivery Method Room Air 03/14/24 01:30 03/14/24 02:00 03/14/24 02:00 Temperature Pulse Rate 70 Respiratory Rate 20 Blood Pressure 135/60 140/65 Pulse Oximetry 94 Oxygen Delivery Method Room Air 03/14/24 02:30 03/14/24 02:31 03/14/24 02:31 Temperature Pulse Rate 66 66 Respiratory Rate 23 20 Blood Pressure 125/60 Pulse Oximetry 93 93 Oxygen Delivery Method Room Air Room Air MDM - Chest Pain Differential Diagnosis Differential diagnosis: Likely pneumothorax, atypical chest pain and costochondritis Lab Data 03/13/24 23:00 03/13/24 23:00 Labs: Lab Results 03/13/24 03/14/24 Range/Units 23:00 01:05 WBC 6.1 (4.5-11.0) X10^3/uL RBC 3.72 L (4.0-5.2) X10^6/uL Hgb 11.5 L (12.0-16.0) g/dL Hct 34.9 L (36-46) % MCV 93.8 (80-100) fL MCH 30.8 (26-34) PG MCHC 32.9 (30-36) % RDW 14.3 (11.6-14.8) % Plt Count 349 (150-400) X10^3/uL Neut % (Auto) 56.2 (50-75) % Lymph % (Auto) 30.1 (25-40) % [place] % (Auto) 10.4 (3-14) % Eos % (Auto) 2.8 (2-4) % Baso % (Auto) 0.5 (0-2) % Neut # (Auto) 3400 (5513-8350) /uL Lymph # (Auto) 1800 (8983-1420) /uL [place] # (Auto) 600 (0-900) /uL Eos # (Auto) 200 (0-450) /uL Baso # (Auto) 0 (0-100) /uL PT 10.8 (9.4-12.5) SECONDS INR 0.9 (0.9-1.3) APTT 30 (25.1-36.5) SECONDS Sodium 138 (137-145) mmol/L Potassium 4.3 (3.4-5.1) mmol/L Chloride 107 (98-107) mmol/L Carbon Dioxide 29 (22-32) mmol/L BUN 23 H (7-17) mg/dL Creatinine 0.83 (0.52-1.04) mg/dL Estimated GFR > 60 (>60) mL/min BUN/Creatinine Ratio 27.7 H (6-22) Glucose 107 (80-110) mg/dL Calcium 8.9 (8.4-10.2) mg/dL Magnesium 1.9 (1.6-2.3) mg/dL Total Bilirubin 0.5 (0.2-1.3) mg/dL AST 190 H (14-36) IU/L ALT 143 H (<35) IU/L Alkaline Phosphatase 195 H (38-126) U/L Total Creatine Kinase 83 (30-135) U/L Troponin I < 0.012 < 0.012 (0.01-0.034) ng/mL Total Protein 6.9 (6.3-8.2) g/dL Albumin 3.9 (3.5-5.0) g/dL Globulin 3.0 (1.7-4.1) g/dL Albumin/Globulin Ratio 1.3 (1.0-2.8) Lipase 124 (23-300) U/L Imaging Data Chest x-ray: Radiologist's Impression: PROCEDURE: XR CHEST 1V INDICATIONS: chest pain TECHNIQUE: One view of the chest was acquired. COMPARISON: [facility], CR, XR CHEST 1V, 02/24/2024, 13:43. FINDINGS: Surgical changes and devices: None. Lungs and pleura: Lungs are clear. No pleural effusions or pneumothorax. Mediastinum: Mediastinal contours appear normal. Heart size is normal. Bones and chest wall: No suspicious bony lesions. Overlying soft tissues appear unremarkable. IMPRESSION: No acute cardiopulmonary pathology. Dictated by: Víctor Dotson M.D. on 03/13/2024 at 23:42 Approved by: Víctor Dotson M.D. on 03/13/2024 at 23:44 ECG Data Interpretation: Normal sinus rhythm at 71 beats per minute. Normal FL, no ST T wave changes, no STEMI MDM Narrative Medical decision making narrative: Well-appearing patient with left-sided chest pain. Patient is seen here twice in the last month for same. Multiple negative workups including CT angio, x- ray, EKG, and echocardiogram. EKG today normal sinus rhythm without any concerning findings. Laboratory work and chest x-ray imaging ordered. Patient did have recent surgery but is currently on Eliquis and has had 2 recent negative angio studies for similar presenting chest pains. Laboratory work shows WBC count 6.1, hemoglobin 11.5, platelets 349, sodium 138, potassium 4.3, creatinine 0.83, chronically elevated liver enzymes, likely secondary to recent cholecystectomy, troponins undetectable x2. Able to obtain cardiac MRI report from [facility] dated 03/08/24: 1. Normal left ventricular size and global function. There are no focal wall motion abnormalities present. LVEF 76% 2. There are vasodilator perfusion deficits present in the mid anteroseptal segments 3. Normal right ventricular size and function. RV EF 69% 4. There is subendocardial late gadolinium enhancement to suggest prior infarction involving the mid anteroseptum with up to 74% transmural extent 5. No significant valvular heart disease identified on this study 6. This is an intermediate risk perfusion MRI study due to presence of anteroseptal infarct without myocardial ischemia Patient was informed of lab and imaging findings. She states on reassessment that her pain has significantly improved. She does report pushing and moving furniture earlier today which she thinks may have caused some strain to her chest wall. At this time based on multiple negative troponins, recent cardiac MRI, and no active chest pain patient will be discharged home. She was advised to call her mulling machine operator's office in the morning for follow up and further advice. Discharge Plan Departure Patient Disposition: Home Clinical Impression: Chest pain Instructions: DI for Chest Pain Activity Restrictions/Additional Instructions: Your EKG, troponins, and chest x-ray were normal today. Call your cardiology office in the morning for a follow up appointment and see if you can get the results of your cardiac MRI. Prescriptions: No Action cholecalciferol (vitamin D3) 100 mcg (4,000 unit) capsule 100 mcg PO DAILY One Daily Multivitamin 400 mcg tablet 1 tab PO DAILY atorvastatin 80 mg tablet 80 mg PO BEDTIME furosemide 20 mg tablet 20 mg PO DAILY loperamide 2 mg capsule 2 mg PO Q6H PRN (Reason: Diarrhea) metoprolol tartrate 100 mg tablet 100 mg PO BID duloxetine 60 mg capsule,delayed release(DR/EC) 60 mg PO DAILY Qty: 90 3RF mirtazapine 45 mg tablet 45 mg PO BEDTIME Qty: 90 1RF quetiapine 50 mg tablet 50 mg PO BEDTIME Qty: 90 1RF temazepam 15 mg capsule 15 mg PO BEDTIME PRN (Reason: sleep) Qty: 14 0RF lisinopril 10 mg Tablet 10 mg PO DAILY estradiol 0.01 % (0.1 mg/gram) cream 1 applic vaginal BEDTIME Eliquis 5 mg tablet 5 mg PO BID clopidogrel 75 mg Tablet 75 mg PO DAILY Qty: 30 0RF pantoprazole 20 mg Tablet,Delayed Release (Dr/Ec) 20 mg PO 0700 30 Days Qty: 30 0RF ondansetron 4 mg Tablet,Disintegrating 4 mg sublingual Q4HR PRN (Reason: Nausea) 30 Days Qty: 30 0RF ascorbic acid (vitamin C) 500 mg Tablet 1,000 mg PO DAILY lorazepam 0.5 mg Tablet 0.5 mg PO DAILY Referrals: Salena Long PA-C [Primary Care Provider] - Stand Alone Forms: Patient Portal/API
[2024-03-13 23:20] LABS: Add Manual Diff / Slide Review NO; Basophils Absolute Auto 0 /uL (0-100); Basophils Percent Auto 0.5 % (0-2); Eosinophils Absolute Auto 200 /uL (0-450); Eosinophils Percent Auto 2.8 % (2-4); Hematocrit 34.9 % (36-46); Hemoglobin 11.5 g/dL (12.0-16.0); Lymphocytes Absolute Auto 1800 /uL (1100-4500); Lymphocytes Percent Auto 30.1 % (25-40); Mean Corpuscular HGB Conc 32.9 % (30-36); Mean Corpuscular Hemoglobin 30.8 PG (26-34); Mean Corpuscular Volume 93.8 fL (80-100); Monocytes Absolute Auto 600 /uL (0-900); Monocytes Percent Auto 10.4 % (3-14); Neutrophils Absolute Auto 3400 /uL (1500-7000); Neutrophils Percent Auto 56.2 % (50-75); Platelet Count 349 X10^3/uL (150-400); Red Blood Cell Count 3.72 X10^6/uL (4.0-5.2); Red Cell Distribution Width 14.3 % (11.6-14.8); White Blood Cell Count 6.1 X10^3/uL (4.5-11.0)
[2024-03-13 23:21] LABS: INR 0.9 (0.9-1.3); Prothrombin Time 10.8 SECONDS (9.4-12.5)
[2024-03-13 23:24] LABS: PTT Partial Thromboplastin Tim 30 SECONDS (25.1-36.5)
[2024-03-13 23:26] LABS: Alanine Aminotransferase 143 IU/L (<35); Albumin 3.9 g/dL (3.5-5.0); Albumin Globulin Ratio 1.3 (1.0-2.8); Alkaline Phosphatase 195 U/L (38-126); Aspartate Aminotransferase 190 IU/L (14-36); BUN Creatinine Ratio 27.7 (6-22); Bilirubin Total 0.5 mg/dL (0.2-1.3); Blood Urea Nitrogen 23 mg/dL (7-17); Calcium 8.9 mg/dL (8.4-10.2); Carbon Dioxide 29 mmol/L (22-32); Chloride 107 mmol/L (98-107); Creatine Kinase 83 U/L (30-135); Estimated Glomerular Filt Rate > 60 mL/min (>60); Glucose 107 mg/dL (80-110); HEMOLYSIS < 15 (0-50); Lipase 124 U/L (23-300); Magnesium 1.9 mg/dL (1.6-2.3); Potassium 4.3 mmol/L (3.4-5.1); Sodium 138 mmol/L (137-145); Total Protein 6.9 g/dL (6.3-8.2)
[2024-03-13 23:30] VITALS: BP 138/71; PULSE 69; RESP 18; O2SAT 96
[2024-03-13] MEDS: MORPHINE 4 MG/ML INJ IV (23:32)
[2024-03-13 23:37] LABS: Troponin I < 0.012 ng/mL (0.01-0.034)
[2024-03-14] VITALS (8 sets, daily range): BP systolic 125–140; BP diastolic 60–65; PULSE 66–74; RESP 20–42; O2SAT 93–98
[2024-03-14] MEDS: METOCLOPRAMIDE 10 MG/2 ML INJ IV (00:13)
[2024-03-14] MEDS: ACETAMINOPHEN IV 1,000 MG/100 ML VIAL 400 MG IV (00:13)
[2024-03-14 01:41] LABS: Troponin I < 0.012 ng/mL (0.01-0.034)
== END 2024-03-14 02:54 | disposition home or self-care (01) ==
PROVIDERS: Emergency Provider Emergency Medicine; Family Provider Anesthesiology Pain Medicine; PCP Physician Assistant
DX: R07.9 Chest pain, unspecified (principal)
CPT/HCPCS: 36415; 71045; 80053; 82550; 83690; 83735; 84484; 85025; 85610; 85730; 93005; 96365; 96375; 99284; J0136; J2270; J2405; J2765

== ENCOUNTER 2024-03-14 16:23 | Emergency (ER) | payer MEDICARE, OTHER, SELFPAY ==
[2024-02-24 17:56] VITALS: BMI 40.8
[2024-03-14 16:33] VITALS: BP 155/85; PULSE 61; RESP 17; TEMP 37.2; O2SAT 96; BMI 36.6
--- NOTE | 2024-03-14 16:33 | DI.RAD.S_ITS ---
PROCEDURE: XR CHEST 1V INDICATIONS: chest pain TECHNIQUE: One view of the chest was acquired. COMPARISON: [facility], CR, XR CHEST 1V, 03/13/2024, 23:13. [facility], CR, XR CHEST 1V, 02/24/2024, 13:43. FINDINGS: Surgical changes and devices: None. Lungs and pleura: Lungs are clear. No pleural effusions or pneumothorax. Mediastinum: Mediastinal contours appear normal. Heart size is normal. Bones and chest wall: No suspicious bony lesions. Overlying soft tissues appear unremarkable. IMPRESSION: No acute cardiopulmonary abnormality is seen. Dictated by: Frederic Mays M.D. on 03/14/2024 at 17:15 Approved by: Frederic Mays M.D. on 03/14/2024 at 17:15
--- NOTE | 2024-03-14 16:38 | EKG_ITS ---
[address] [address] Test Date: 2024-03-14 Pat Name: Nora Gil Department: Room: Gender: Female Time Recorder: HEATH : 1950 Requested By: Order Number: [id number] Reading MD: Pierce Childress Measurements Intervals [place] Rate: 62 P: 23 TN: 152 QRS: 9 QRSD: 72 T: 17 QT: 418 QTc: 424 Interpretive Statements Normal sinus rhythm Electronically Signed On 03-15-2024 19:42:59 PDT by Pierce Childress
[2024-03-14 16:45] VITALS: BP 139/65; PULSE 64; O2SAT 96
[2024-03-14 16:51] LABS: Add Manual Diff / Slide Review NO; Basophils Absolute Auto 0 /uL (0-100); Basophils Percent Auto 0.5 % (0-2); Eosinophils Absolute Auto 200 /uL (0-450); Eosinophils Percent Auto 3.6 % (2-4); Hemoglobin 11.2 g/dL (12.0-16.0); Lymphocytes Absolute Auto 1600 /uL (1100-4500); Lymphocytes Percent Auto 31.4 % (25-40); Mean Corpuscular HGB Conc 32.9 % (30-36); Mean Corpuscular Volume 94.3 fL (80-100); Monocytes Absolute Auto 500 /uL (0-900); Monocytes Percent Auto 10.7 % (3-14); Neutrophils Absolute Auto 2700 /uL (1500-7000); Neutrophils Percent Auto 53.8 % (50-75); Platelet Count 345 X10^3/uL (150-400); Red Cell Distribution Width 14.8 % (11.6-14.8)
[2024-03-14 16:57] LABS: INR 0.9 (0.9-1.3); Prothrombin Time 10.3 SECONDS (9.4-12.5)
[2024-03-14 17:00] VITALS: PULSE 60; RESP 15; O2SAT 96
[2024-03-14 17:00] LABS: PTT Partial Thromboplastin Tim 30 SECONDS (25.1-36.5)
[2024-03-14 17:01] VITALS: BP 127/73; PULSE 60; RESP 16; O2SAT 96
[2024-03-14 17:03] LABS: Alanine Aminotransferase 204 IU/L (<35); Albumin 3.9 g/dL (3.5-5.0); Albumin Globulin Ratio 1.4 (1.0-2.8); Alkaline Phosphatase 221 U/L (38-126); Aspartate Aminotransferase 251 IU/L (14-36); BUN Creatinine Ratio 32.9 (6-22); Bilirubin Total 0.6 mg/dL (0.2-1.3); Blood Urea Nitrogen 28 mg/dL (7-17); Calcium 8.5 mg/dL (8.4-10.2); Carbon Dioxide 27 mmol/L (22-32); Chloride 108 mmol/L (98-107); Creatine Kinase 89 U/L (30-135); Estimated Glomerular Filt Rate > 60 mL/min (>60); Globulin 2.8 g/dL (1.7-4.1); Glucose 109 mg/dL (80-110); HEMOLYSIS < 15 (0-50); Lipase 137 U/L (23-300); Magnesium 2.1 mg/dL (1.6-2.3); Potassium 4.3 mmol/L (3.4-5.1); Sodium 139 mmol/L (137-145); Total Protein 6.7 g/dL (6.3-8.2)
[2024-03-14 17:06] LABS: D Dimer 1879 ng/ml (<500)
--- NOTE | 2024-03-14 17:14 | DI.US.S_ITS ---
PROCEDURE: US ABDOMEN LIMITED INDICATIONS: ruq TECHNIQUE: Real-time scanning was performed of the abdominal and retroperitoneal organs, with image documentation. COMPARISON: [facility], MR, MR AB PANCREATIC/MRCP PROTOCOL, 02/26/2024, 13:06. [facility], US, US ABDOMEN LIMITED, 02/24/2024, 16:23. FINDINGS: Liver: Liver is normal in size and homogeneous in echotexture. Gallbladder: Status post cholecystectomy. Biliary ducts: Intrahepatic bile ducts are non-dilated. Extrahepatic bile duct caliber measures 13 mm. Normal is 6-7 mm or less in diameter, or 10 mm or less post-cholecystectomy. Pancreas: Visualized portions of the pancreas are sonographically normal. Miscellaneous: No free abdominal fluid. IMPRESSION: 1. Status post cholecystectomy. No fluid in the gallbladder fossa. 2. Mildly dilated common bile duct is likely related to the recent postcholecystectomy state, but correlation with clinical laboratory findings is recommended to exclude biliary obstruction. Approved by: Thomas Schmitz M.D. on 03/14/2024 at 19:05
[2024-03-14 17:15] LABS: NT-proBNP (BNP-Adult 18+) 349 pg/mL (<450); Troponin I < 0.012 ng/mL (0.01-0.034)
[2024-03-14 17:37] LABS: Ethanol (ETOH) < 10 mg/dL
[2024-03-14] MEDS: ASPIRIN 81 MG CHEW TAB 324 MG PO (17:43)
[2024-03-14] MEDS: KETOROLAC 30 MG/ML VIAL 15 MG IV (17:43)
--- NOTE | 2024-03-14 18:04 | ED_ITS ---
HPI - Chest Pain General Chief Complaint: Chest Pain Stated Complaint: chest pain Time Seen by Provider: 03/14/24 17:14 Source: patient Mode of arrival: Wheelchair History of Present Illness HPI narrative: 74-year-old female with history of coronary artery disease status post stents, recent cholecystectomy, costochondritis, Eliquis use presents for chest pain. Patient is seen less than 24 hours ago by myself for same complaint. Patient reports central chest pain and back pain. Patient had intermediate risk cardiac MRI on 03/08 due to vasodilation abnormality in the anteroseptal regions. 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 Patient denies shortness of breath, leg swelling, other complaints. She states this is the same type of pain that she had when she came to the emergency department last night. Cholecystectomy on 03/01/[address] Stauffer Related Data Home Medications Medication Instructions Recorded Confirmed ascorbic acid (vitamin C) 500 mg 1,000 mg PO DAILY 02/05/19 02/25/24 tablet lisinopril 10 mg tablet 10 mg PO DAILY 10/25/19 02/25/24 cholecalciferol (vitamin D3) 100 100 mcg PO DAILY 07/29/20 02/25/24 mcg (4,000 unit) capsule multivitamin with folic acid 400 1 tab PO DAILY 07/29/20 02/25/24 mcg tablet (One Daily Multivitamin) atorvastatin 80 mg tablet 80 mg PO BEDTIME 10/18/23 02/25/24 furosemide 20 mg tablet 20 mg PO DAILY 10/18/23 02/25/24 loperamide 2 mg capsule 2 mg PO Q6H PRN Diarrhea 10/18/23 02/25/24 metoprolol tartrate 100 mg tablet 100 mg PO BID 10/18/23 02/25/24 lorazepam 0.5 mg tablet 0.5 mg PO DAILY Panic 02/22/24 02/25/24 apixaban 5 mg tablet (Eliquis) 5 mg PO BID 02/28/24 02/28/24 estradiol 0.01% (0.1 mg/gram) 1 applic vaginal BEDTIME 02/28/24 02/28/24 vaginal cream Previous Rx's Medication Instructions Recorded duloxetine 60 mg capsule,delayed 60 mg PO DAILY #90 caps 11/29/23 release mirtazapine 45 mg tablet 45 mg PO BEDTIME #90 tabs 12/06/23 quetiapine 50 mg tablet 50 mg PO BEDTIME #90 tabs 12/06/23 temazepam 15 mg capsule 15 mg PO BEDTIME PRN sleep #14 caps 02/10/24 clopidogrel 75 mg tablet 75 mg PO DAILY #30 tabs 03/03/24 ondansetron 4 mg disintegrating 4 mg sublingual Q4HR PRN Nausea 30 03/03/24 tablet days #30 tabs pantoprazole 20 mg tablet,delayed 20 mg PO 0700 30 days #30 tabs 03/03/24 release isosorbide mononitrate 30 mg 30 mg PO QAM #30 tabs 03/14/24 tablet,extended release 24 hr metoprolol tartrate 50 mg tablet 50 mg PO BID #60 tabs 03/14/24 Allergies Allergy/AdvReac Type Severity Reaction Status Date / Time aripiprazole [From ABILIFY] Allergy Severe TREMORS, Verified 03/14/24 16:37 ANAPHYLAXIS adhesive tape Allergy Mild Rash Verified 03/14/24 16:37 bupropion [From WELLBUTRIN] AdvReac Severe HEADACHE Verified 03/14/24 16:37 propoxyphene AdvReac Severe Headache Verified 03/14/24 16:37 citalopram [CITALOPRAM] AdvReac Intermediate headache, Verified 03/14/24 16:37 difficulty thinking desvenlafaxine [From Pristiq] AdvReac Intermediate Shakiness Verified 03/14/24 16:37 indomethacin [INDOMETHACIN] AdvReac Intermediate GI UPSET Verified 03/14/24 16:37 phenobarbital [PHENOBARBITAL] AdvReac Intermediate DEPRESSION Verified 03/14/24 16:37 morphine [MORPHINE] AdvReac Mild 'LOOPY' Verified 03/14/24 16:37 Patient History Medical History Hard of hearing History of angina (~11/2019) Unstable angina Paraesophageal hernia Hyperlipidemia GERD (gastroesophageal reflux disease) Coronary artery disease Concussion Myocardial infarction Mild sleep apnea Arthritis of both hands Balance problem Bilateral hearing loss Hypertension Diabetes Surgical History History of cardiac cath H/O heart artery stent S/P scar revision H/O exploratory laparotomy (~2011) Status post cataract extraction of both eyes with insertion of intraocular lens History of total right hip arthroplasty S/P foot surgery, left History of total knee arthroplasty Social History household members: spouse Smoking Status: Never smoker alcohol intake: current Smoking Status: Never smoker alcohol intake frequency: holidays/special occasions only Substance Use Type: marijuana Exam Initial Vital Signs Initial Vital Signs: Vital Signs Temperature 99 F 03/14/24 16:33 Pulse Rate 61 03/14/24 16:33 Respiratory Rate 17 03/14/24 16:33 Blood Pressure 155/85 H 03/14/24 16:33 Pulse Oximetry 96 03/14/24 16:33 Oxygen Delivery Method Room Air 03/14/24 16:33 Const: Awake, alert, no acute distress, nontoxic appearing Cardiac: regular rate, regular rhythm RESP: unlabored, clear bilaterally, no wheezing GI: Soft, nontender, nondistended MSK: Atraumatic, full range of motion, pulses equal Skin: Warm, Dry, intact, no rashes Neuro: AO x3, CN II-XII grossly intact, moves all extremities Course Orders Ordered: ED Orders 03/14/24 16:33 XR chest 1V Stat EKG-12 Lead Stat 03/14/24 16:41 Complete Blood Count AUTO DIFF Stat Comprehensive Metabolic Panel Stat D Dimer Stat ETOH [Ethanol (ETOH)] Stat Lipase Stat Magnesium Stat NT-proBNP (BNP-Adult 18+) Stat PTT Partial Thromboplastin [place] Stat Prothrombin Time INR Stat Troponin & CK Cardiac Panel Stat 03/14/24 17:14 US abdomen limited Stat Discontinued Medications Acetaminophen (Acetaminophen 325 Mg Tablet) 975 mg PO NOW ONE Stop: 03/14/24 19:35 Last Admin: 03/14/24 19:39 Dose: 975 mg Documented By: KAR Aspirin (Aspirin 81 Mg Chew Tab) 324 mg PO NOW ONE Stop: 03/14/24 16:34 Last Admin: 03/14/24 17:43 Dose: 324 mg Documented By: MUKUL Ketorolac Tromethamine (Ketorolac 30 Mg/Ml Vial) 15 mg IV NOW ONE Stop: 03/14/24 17:17 Last Admin: 03/14/24 17:43 Dose: 15 mg Documented By: MUKUL Ondansetron HCl (Ondansetron 4 Mg Odt) 4 mg SL NOW ONE Stop: 03/14/24 19:36 Last Admin: 03/14/24 19:39 Dose: 4 mg Documented By: KAR Oxycodone HCl (Oxycodone Ir 5 Mg Tablet) 5 mg PO NOW ONE Stop: 03/14/24 19:28 Last Admin: 03/14/24 19:40 Dose: 5 mg Documented By: KAR Vital Signs Vital signs: Vital Signs - 8 hr 03/14/24 19:47 Pulse Rate 75 Respiratory Rate 18 Blood Pressure 144/64 H Pulse Oximetry 96 Oxygen Delivery Method Room Air MDM - Chest Pain Differential Diagnosis Differential diagnosis: Likely pneumothorax, stable angina and costochondritis Lab Data 03/14/24 16:41 03/14/24 16:41 Labs: Lab Results 03/14/24 Range/Units 16:41 WBC 5.0 (4.5-11.0) X10^3/uL RBC 3.60 L (4.0-5.2) X10^6/uL Hgb 11.2 L (12.0-16.0) g/dL Hct 34.0 L (36-46) % MCV 94.3 (80-100) fL MCH 31.0 (26-34) PG MCHC 32.9 (30-36) % RDW 14.8 (11.6-14.8) % Plt Count 345 (150-400) X10^3/uL Neut % (Auto) 53.8 (50-75) % Lymph % (Auto) 31.4 (25-40) % [place] % (Auto) 10.7 (3-14) % Eos % (Auto) 3.6 (2-4) % Baso % (Auto) 0.5 (0-2) % Neut # (Auto) 2700 (9787-4857) /uL Lymph # (Auto) 1600 (0936-4572) /uL [place] # (Auto) 500 (0-900) /uL Eos # (Auto) 200 (0-450) /uL Baso # (Auto) 0 (0-100) /uL PT 10.3 (9.4-12.5) SECONDS INR 0.9 (0.9-1.3) APTT 30 (25.1-36.5) SECONDS D-Dimer 1879 H (<500) ng/ml Sodium 139 (137-145) mmol/L Potassium 4.3 (3.4-5.1) mmol/L Chloride 108 H (98-107) mmol/L Carbon Dioxide 27 (22-32) mmol/L BUN 28 H (7-17) mg/dL Creatinine 0.85 (0.52-1.04) mg/dL Estimated GFR > 60 (>60) mL/min BUN/Creatinine Ratio 32.9 H (6-22) Glucose 109 (80-110) mg/dL Calcium 8.5 (8.4-10.2) mg/dL Magnesium 2.1 (1.6-2.3) mg/dL Total Bilirubin 0.6 (0.2-1.3) mg/dL AST 251 H (14-36) IU/L ALT 204 H (<35) IU/L Alkaline Phosphatase 221 H (38-126) U/L Total Creatine Kinase 89 (30-135) U/L Troponin I < 0.012 (0.01-0.034) ng/mL NT-Pro-B Natriuret Pep 349 (<450) pg/mL Total Protein 6.7 (6.3-8.2) g/dL Albumin 3.9 (3.5-5.0) g/dL Globulin 2.8 (1.7-4.1) g/dL Albumin/Globulin Ratio 1.4 (1.0-2.8) Lipase 137 (23-300) U/L Ethyl Alcohol < 10 ( - 10) mg/dL Imaging Data Chest x-ray: Radiologist's Impression: PROCEDURE: XR CHEST 1V INDICATIONS: chest pain TECHNIQUE: One view of the chest was acquired. COMPARISON: [facility], XR CHEST 1V, 03/13/2024, 23:13. [facility], XR CHEST 1V, 02/24/2024, 13:43. FINDINGS: Surgical changes and devices: None. Lungs and pleura: Lungs are clear. No pleural effusions or pneumothorax. Mediastinum: Mediastinal contours appear normal. Heart size is normal. Bones and chest wall: No suspicious bony lesions. Overlying soft tissues appear unremarkable. IMPRESSION: No acute cardiopulmonary abnormality is seen. Dictated by: Frederic Mays M.D. on 03/14/2024 at 17:15 Approved by: Frederic Mays M.D. on 03/14/2024 at 17:15 US - abdomen: Radiologist's Impression: PROCEDURE: US ABDOMEN LIMITED INDICATIONS: ruq TECHNIQUE: Real-time scanning was performed of the abdominal and retroperitoneal organs, with image documentation. COMPARISON: [facility], MR, MR AB PANCREATIC/MRCP PROTOCOL, 02/26/2024, 13:06. [facility], US, US ABDOMEN LIMITED, 02/24/2024, 16:23. FINDINGS: Liver: Liver is normal in size and homogeneous in echotexture. Gallbladder: Status post cholecystectomy. Biliary ducts: Intrahepatic bile ducts are non-dilated. Extrahepatic bile duct caliber measures 13 mm. Normal is 6-7 mm or less in diameter, or 10 mm or less post-cholecystectomy. Pancreas: Visualized portions of the pancreas are sonographically normal. Miscellaneous: No free abdominal fluid. IMPRESSION: 1. Status post cholecystectomy. No fluid in the gallbladder fossa. 2. Mildly dilated common bile duct is likely related to the recent postcholecystectomy state, but correlation with clinical laboratory findings is recommended to exclude biliary obstruction. Approved by: Thomas Schmitz M.D. on 03/14/2024 at 19:05 [facility] Narrative Medical decision making narrative: Patient presenting again for chest pain similar to last night. Patient is seen multiple times in the last month for chest pain. She has had [address] angiograms, echocardiogram, and out patient cardiac MRI with reassuring results. EKG normal sinus rhythm, unchanged from last night, no acute ischemic findings. Troponin undetectable. D-dimer is elevated today, however patient had intra- abdominal surgery less than 2 weeks ago and this is nonspecific. Patient is also taking Eliquis. Case discussed with Dr. Araujo of Cardiology, who stated that there was no need for hospitalization, or inpatient testing at this time based on multiple negative recent testing. He recommended patient follow up with her original cardiology group in [place], but her pain does not sound like ACS at this time. Patient's case and workup today discussed with Dr. Skinner of patient's cardiology group in [place]. She recommended that patient's medications be changed to metoprolol 50 mg b.i.d. and Imdur 30 mg daily. She will have the office reach out to the patient for a follow up appointment and ordered a stat stress test for the patient, but she stated that patient did not need to be admitted or transferred at this time and could be evaluated as an outpatient. Patient and at bedside counseled of all lab and imaging findings as well as plans for her cardiology group to order a stress test for her and medication changes.. Patient also states that she has a history of paraesophageal hernia and they are concerned that an issue with the hernia may be causing her symptoms. states that patient has a pending appointment at [facility] for a barium swallow study. Discharge Plan Departure Patient Disposition: Home Clinical Impression: Chest pain Instructions: DI for Chest Pain Activity Restrictions/Additional Instructions: I spoke with Dr. Skinner of your cardiology team and she was made the following recommendations: Decrease your metoprolol to 50 mg two times daily Start taking isosorbide mononitrate 30 mg daily She has placed an order for a stress test stat and her office should call you tomorrow to schedule your appointment Prescriptions: New isosorbide mononitrate 30 mg tablet extended release 24 hr 30 mg PO QAM Qty: 30 0RF metoprolol tartrate 50 mg tablet 50 mg PO BID Qty: 60 0RF No Action cholecalciferol (vitamin D3) 100 mcg (4,000 unit) capsule 100 mcg PO DAILY One Daily Multivitamin 400 mcg tablet 1 tab PO DAILY atorvastatin 80 mg tablet 80 mg PO BEDTIME furosemide 20 mg tablet 20 mg PO DAILY loperamide 2 mg capsule 2 mg PO Q6H PRN (Reason: Diarrhea) metoprolol tartrate 100 mg tablet 100 mg PO BID duloxetine 60 mg capsule,delayed release(DR/EC) 60 mg PO DAILY Qty: 90 3RF mirtazapine 45 mg tablet 45 mg PO BEDTIME Qty: 90 1RF quetiapine 50 mg tablet 50 mg PO BEDTIME Qty: 90 1RF temazepam 15 mg capsule 15 mg PO BEDTIME PRN (Reason: sleep) Qty: 14 0RF lisinopril 10 mg Tablet 10 mg PO DAILY estradiol 0.01 % (0.1 mg/gram) cream 1 applic vaginal BEDTIME Eliquis 5 mg tablet 5 mg PO BID clopidogrel 75 mg Tablet 75 mg PO DAILY Qty: 30 0RF pantoprazole 20 mg Tablet,Delayed Release (Dr/Ec) 20 mg PO 0700 30 Days Qty: 30 0RF ondansetron 4 mg Tablet,Disintegrating 4 mg sublingual Q4HR PRN (Reason: Nausea) 30 Days Qty: 30 0RF ascorbic acid (vitamin C) 500 mg Tablet 1,000 mg PO DAILY lorazepam 0.5 mg Tablet 0.5 mg PO DAILY Referrals: Salena Long PA-C [Primary Care Provider] - Stand Alone Forms: Patient Portal/API
[2024-03-14] MEDS: ACETAMINOPHEN 325 MG TABLET 975 MG PO (19:39)
[2024-03-14] MEDS: ONDANSETRON 4 MG ODT SL (19:39)
[2024-03-14] MEDS: OXYCODONE IR 5 MG TABLET PO (19:40)
[2024-03-14 19:47] VITALS: BP 144/64; PULSE 75; RESP 18; O2SAT 96
== END 2024-03-14 19:49 | disposition home or self-care (01) ==
PROVIDERS: Emergency Medicine; Emergency Provider Emergency Medicine; Family Provider Anesthesiology Pain Medicine; PCP Physician Assistant
DX: R07.9 Chest pain, unspecified (principal)
CPT/HCPCS: 36415; 71045; 76705; 80053; 80320; 82550; 83690; 83735; 83880; 84484; 85025; 85379; 85610; 85730; 93005; 96374; 99284; J1885

== ENCOUNTER 2024-03-15 23:10 | Emergency (ER) | payer MEDICARE, OTHER, SELFPAY ==
[2024-02-24 17:56] VITALS: BMI 40.8
[2024-03-15 23:14] VITALS: PULSE 91; O2SAT 97
[2024-03-15 23:15] VITALS: BP 184/79; PULSE 91; O2SAT 97
--- NOTE | 2024-03-15 23:27 | ED_ITS ---
HPI - Chest Pain <Matthias Mcfarland MD - Last Filed: 03/17/24 16:00> General Chief Complaint: Chest Pain Stated Complaint: Left chest pain, left arm pain Time Seen by Provider: 03/15/24 23:23 History of Present Illness HPI narrative: 74-year-old female with history of coronary artery disease, last coronary vessel stenting 15 years ago, status post cholecystectomy by Dr. Stauffer here 03/01/2024, seen here twice yesterday 03/14/2024 for chest pain, serial troponins and EKG studies negative, results recent cardiac MRI located, patient was discharged home after 2nd visit on new Rx isosorbide mononitrate 30 mg daily, which she has filled, took first dose this morning. Approximately 9:00 p.m. tonight she had left anterior chest discomfort, nonpleuritic, with some radiation to left arm and left jaw, some diaphoresis, similar to her recent chest pain symptoms. She is still having chest pain. She recalls having numerous studies that did not show pulmonary embolus, on Eliquis in the past, however she says that she has not been taking Eliquis since September 2021. Related Data Home Medications Medication Instructions Recorded Confirmed lisinopril 10 mg tablet 10 mg PO DAILY 10/25/19 03/17/24 atorvastatin 80 mg tablet 80 mg PO BEDTIME 10/18/23 03/17/24 furosemide 20 mg tablet 20 mg PO DAILY 10/18/23 03/17/24 metoprolol tartrate 100 mg tablet 100 mg PO BID 10/18/23 03/17/24 mirtazapine 15 mg tablet (Remeron) 60 mg PO BEDTIME 03/17/24 03/17/24 Previous Rx's Medication Instructions Recorded duloxetine 60 mg capsule,delayed 60 mg PO DAILY #90 caps 11/29/23 release quetiapine 50 mg tablet 50 mg PO BEDTIME #90 tabs 12/06/23 pantoprazole 20 mg tablet,delayed 20 mg PO 0700 30 days #30 tabs 03/03/24 release Allergies Allergy/AdvReac Type Severity Reaction Status Date / Time aripiprazole [From ABILIFY] Allergy Severe TREMORS, Verified 03/14/24 16:37 ANAPHYLAXIS adhesive tape Allergy Mild Rash Verified 03/14/24 16:37 morphine [MORPHINE] Allergy Mild Swelling Verified 03/16/24 00:34 of Lip/Tongue/Throat bupropion [From WELLBUTRIN] AdvReac Severe HEADACHE Verified 03/14/24 16:37 propoxyphene AdvReac Severe Headache Verified 03/14/24 16:37 citalopram [CITALOPRAM] AdvReac Intermediate headache, Verified 03/14/24 16:37 difficulty thinking desvenlafaxine [From Pristiq] AdvReac Intermediate Shakiness Verified 03/14/24 16:37 indomethacin [INDOMETHACIN] AdvReac Intermediate GI UPSET Verified 03/14/24 16:37 phenobarbital [PHENOBARBITAL] AdvReac Intermediate DEPRESSION Verified 03/14/24 16:37 Patient History <Matthias Mcfarland MD - Last Filed: 03/17/24 16:00> Medical History (Updated 03/16/24 @ 19:49 by Matthias Mcfarland MD) Hard of hearing History of angina (~11/2019) Unstable angina Paraesophageal hernia Hyperlipidemia GERD (gastroesophageal reflux disease) Coronary artery disease Concussion Myocardial infarction Mild sleep apnea Arthritis of both hands Balance problem Bilateral hearing loss Hypertension Diabetes Surgical History (Updated 03/16/24 @ 19:49 by Matthias Mcfarland MD) History of cardiac cath H/O heart artery stent S/P scar revision H/O exploratory laparotomy (~2011) Status post cataract extraction of both eyes with insertion of intraocular lens History of total right hip arthroplasty S/P foot surgery, left History of total knee arthroplasty Social History household members: spouse Smoking Status: Never smoker alcohol intake: current Smoking Status: Never smoker alcohol intake frequency: holidays/special occasions only Substance Use Type: marijuana Exam <Matthias Mcfarland MD - Last Filed: 03/17/24 16:00> Narrative Exam Narrative: GENERAL: Well-developed patient, in mild distress. HEAD: Atraumatic. Normocephalic. EYES: Pupils equal round and reactive. Extraocular motions intact. No scleral icterus. No injection or drainage. ENT: Nose without bleeding, purulent drainage. Throat without erythema, tonsillar hypertrophy or exudate. Airway patent. NECK: Trachea midline. Non tender CARDIOVASCULAR: Regular rate and rhythm without murmurs, gallops, or rubs. RESPIRATORY: Clear to auscultation. Breath sounds equal bilaterally. No wheezes, rales, or rhonchi. GASTROINTESTINAL: Abdomen soft, non-tender, nondistended. EXTREMITIES: No edema or joint tenderness. BACK: Nontender without deformity or crepitance. No flank tenderness. NEURO: AOx3. SKIN: No rash or erythema of visible areas Initial Vital Signs Initial Vital Signs: Vital Signs Pulse Rate 91 H 03/15/24 23:14 Pulse Oximetry 97 03/15/24 23:14 <Robb Pettit DO - Last Filed: 03/17/24 11:14> Initial Vital Signs Initial Vital Signs: Vital Signs Pulse Rate 91 H 03/15/24 23:14 Pulse Oximetry 97 03/15/24 23:14 Course <Matthias Mcfarland MD - Last Filed: 03/17/24 16:00> Orders Ordered: ED Orders 03/17/24 09:03 PTT [PTT Partial Thromboplastin Travon] Stat Discontinued Medications Acetaminophen (Acetaminophen 325 Mg Tablet) 650 mg PO Q6H PRN PRN Reason: Fever/Mild Pain (1-3) Last Admin: 03/17/24 10:32 Dose: 650 mg Documented By: Admin: 03/17/24 01:43 Dose: 650 mg Documented By: Admin: 03/16/24 08:32 Dose: 650 mg Documented By: Admin: 03/16/24 02:28 Dose: 650 mg Documented By: Atorvastatin Calcium (Atorvastatin 20 Mg Tablet) 80 mg PO NOW ONE Stop: 03/17/24 00:33 Last Admin: 03/17/24 00:53 Dose: 80 mg Documented By: Al Hydrox/Mg Hydrox/Simethicone 20 ml/ Lidocaine HCl 15 ml 0 ml PO NOW ONE Stop: 03/16/24 03:07 Last Admin: 03/16/24 03:11 Dose: 35 ml Documented By: SHANTA Dicyclomine HCl (Dicyclomine 10 Mg Capsule) 10 mg PO NOW ONE Stop: 03/16/24 03:36 Last Admin: 03/16/24 03:56 Dose: 10 mg Documented By: Diphenhydramine HCl (Diphenhydramine 50 Mg/Ml Vial) 50 mg IV NOW ONE Stop: 03/16/24 00:51 Last Admin: 03/16/24 00:50 Dose: 50 mg Documented By: Famotidine (Famotidine 20 Mg/2 Ml Vial) 20 mg IV NOW DOTTY Last Admin: 03/16/24 00:45 Dose: 20 mg Documented By: Glycerin (Glycerin Ped Supp 1 Supp) 1 each ND NOW ONE Stop: 03/16/24 03:04 Last Admin: 03/16/24 03:08 Dose: Not Given Documented By: Heparin Sodium (Porcine) (Heparin 5,000 Unit/Ml Vial) 5,000 unit IV NOW ONE Stop: 03/16/24 20:14 Last Admin: 03/16/24 20:35 Dose: 5,000 unit Documented By: AB Hydromorphone HCl (Hydromorphone 0.5 Mg Inj) 0.5 mg IV NOW ONE Stop: 03/16/24 17:49 Last Admin: 03/16/24 18:36 Dose: 0.5 mg Documented By: MUKUL Sodium Chloride (Normal Saline 0.9%) 1,000 mls @ 150 mls/hr IV CONT DOTTY Last Infusion: 03/17/24 11:34 Dose: Infused Documented By: Admin: 03/17/24 05:34 Dose: 150 mls/hr Documented By: Infusion: 03/17/24 05:34 Dose: Infused Documented By: Admin: 03/17/24 02:38 Dose: 150 mls/hr Documented By: Infusion: 03/16/24 14:54 Dose: Infused Documented By: Admin: 03/16/24 07:17 Dose: 150 mls/hr Documented By: Infusion: 03/16/24 07:16 Dose: Infused Documented By: Admin: 03/16/24 00:50 Dose: 150 mls/hr Documented By: Acetaminophen (Ofirmev) 1,000 mg in 100 mls @ 400 mls/hr IV NOW ONE Stop: 03/16/24 17:28 Last Infusion: 03/16/24 17:40 Dose: Infused Documented By: Admin: 03/16/24 17:23 Dose: 400 mls/hr Documented By: MPO Nitroglycerin (Nitroglycerin) 50 mg in 250 mls @ 1.5 mls/hr IV TITRATE DOTTY; Protocol Last Titration: 03/17/24 14:03 Dose: 0 mcg/min, 0 mls/hr Documented By: Admin: 03/17/24 09:26 Dose: 5 mcg/min, 1.5 mls/hr Documented By: Titration: 03/17/24 09:26 Dose: Infused Documented By: Titration: 03/17/24 02:15 Dose: 0 mcg/min, 0 mls/hr Documented By: Titration: 03/16/24 22:00 Dose: 10 mcg/min, 3 mls/hr Documented By: Admin: 03/16/24 20:14 Dose: 5 mcg/min, 1.5 mls/hr Documented By: Heparin Sodium/Dextrose (Heparin Drip) 25,000 unit in 500 mls @ 26.671 mls/hr IV CONT DOTTY; Protocol Last Admin: 03/16/24 20:46 Dose: Not Given Documented By: Heparin Sodium/Dextrose (Heparin Drip) 25,000 unit in 500 mls @ 20 mls/hr IV CONT DOTTY; Protocol Last Titration: 03/17/24 14:03 Dose: 0 units/hr, 0 mls/hr Documented By: JAYSON Co-signed By: WANDA Titration: 03/17/24 10:14 Dose: 1,110 units/hr, 22.2 mls/hr Documented By: CATRACHITO Co-signed By: AUGUSTO Titration: 03/17/24 09:35 Dose: 0 units/hr, 0 mls/hr Documented By: HARLEY Co-signed By: CATRACHITO Titration: 03/17/24 07:49 Dose: 1,330 units/hr, 26.6 mls/hr Documented By: AUGUSTO Co-signed By: CATRACHITO Admin: 03/16/24 20:36 Dose: 1,000 units/hr, 20 mls/hr Documented By: Co-signed By: SHANTA Lisinopril (Lisinopril 10 Mg Tablet) 10 mg PO NOW ONE Stop: 03/16/24 03:52 Last Admin: 03/16/24 04:02 Dose: 10 mg Documented By: Lorazepam (Lorazepam 2 Mg/Ml Inj) 1 mg IV NOW ONE Stop: 03/16/24 03:56 Last Admin: 03/16/24 09:09 Dose: 1 mg Documented By: MUKUL Methylprednisolone (Methylprednisolone 125 Mg/2 Ml Vial) 125 mg IV NOW ONE Stop: 03/16/24 00:51 Last Admin: 03/16/24 00:50 Dose: 125 mg Documented By: Metoprolol Tartrate (Metoprolol Ir 25 Mg Tablet) 100 mg PO NOW ONE Stop: 03/16/24 03:52 Last Admin: 03/16/24 03:56 Dose: 100 mg Documented By: Metoprolol Tartrate (Metoprolol Ir 25 Mg Tablet) 100 mg PO NOW ONE Stop: 03/17/24 00:32 Last Admin: 03/17/24 00:52 Dose: 100 mg Documented By: Mirtazapine (Mirtazapine 15 Mg Tablet) 60 mg PO BEDTIME DOTTY Mirtazapine (Mirtazapine 15 Mg Tablet) 60 mg PO BEDTIME DOTTY Last Admin: 03/17/24 00:55 Dose: 60 mg Documented By: Morphine Sulfate (Morphine 4 Mg/Ml Inj) 4 mg IV NOW ONE Stop: 03/16/24 00:08 Last Admin: 03/16/24 00:12 Dose: 4 mg Documented By: Nitroglycerin (Nitroglycerin 0.4 Mg Sl Tab) 0.4 mg SL [id number] PRN PRN Reason: Chest Pain Last Admin: 03/16/24 18:23 Dose: 0.4 mg Documented By: Admin: 03/16/24 18:09 Dose: 0.4 mg Documented By: Admin: 03/16/24 17:55 Dose: 0.4 mg Documented By: MUKUL Ondansetron HCl (Ondansetron 4 Mg/2 Ml Inj) 4 mg IV NOW ONE Stop: 03/16/24 06:31 Last Admin: 03/16/24 06:33 Dose: 4 mg Documented By: SHANTA Ondansetron HCl (Ondansetron 4 Mg/2 Ml Inj) 4 mg IV Q4HR PRN PRN Reason: Nausea And Vomiting Last Admin: 03/17/24 12:05 Dose: 4 mg Documented By: Admin: 03/17/24 08:55 Dose: 4 mg Documented By: Admin: 03/16/24 22:54 Dose: 4 mg Documented By: Admin: 03/16/24 18:45 Dose: 4 mg Documented By: Admin: 03/16/24 08:32 Dose: 4 mg Documented By: MUKUL Quetiapine Fumarate (Quetiapine 100 Mg Tablet) 100 mg PO BEDTIME DOTTY Quetiapine Fumarate (Quetiapine 25 Mg Tablet) 50 mg PO NOW ONE Stop: 03/17/24 00:34 Last Admin: 03/17/24 00:51 Dose: 50 mg Documented By: Quetiapine Fumarate (Quetiapine 100 Mg Tablet) 100 mg PO BEDTIME DOTTY Last Admin: 03/17/24 00:53 Dose: 100 mg Documented By: Vital Signs Vital signs: Vital Signs - 8 hr 03/17/24 08:00 03/17/24 08:00 03/17/24 08:15 Temperature Pulse Rate 67 Respiratory Rate 18 Blood Pressure 138/62 112/56 L Pulse Oximetry 95 03/17/24 08:15 03/17/24 08:30 03/17/24 08:31 Temperature 98.7 F Pulse Rate 68 80 Respiratory Rate 14 Blood Pressure 148/68 H Pulse Oximetry 97 96 03/17/24 08:31 03/17/24 08:45 03/17/24 08:54 Temperature Pulse Rate 84 83 Respiratory Rate 24 21 Blood Pressure 131/65 Pulse Oximetry 96 96 03/17/24 08:54 03/17/24 09:00 03/17/24 09:00 Temperature Pulse Rate 106 H 81 Respiratory Rate 27 H 26 H Blood Pressure 145/68 H Pulse Oximetry 97 97 03/17/24 09:32 03/17/24 09:45 03/17/24 10:00 Temperature Pulse Rate 76 76 81 Respiratory Rate 25 H 33 H Blood Pressure Pulse Oximetry 94 94 03/17/24 10:09 03/17/24 10:09 03/17/24 10:15 Temperature Pulse Rate 77 80 Respiratory Rate 32 H 33 H Blood Pressure 114/52 L Pulse Oximetry 94 94 03/17/24 10:16 03/17/24 10:16 03/17/24 10:30 Temperature Pulse Rate 78 Respiratory Rate 33 H Blood Pressure 110/52 L 111/53 L Pulse Oximetry 94 03/17/24 10:30 03/17/24 10:45 03/17/24 10:45 Temperature Pulse Rate 74 76 Respiratory Rate 17 27 H Blood Pressure 118/57 L Pulse Oximetry 94 94 03/17/24 11:00 03/17/24 11:00 03/17/24 11:15 Temperature Pulse Rate 76 78 Respiratory Rate 27 H 21 Blood Pressure 116/61 Pulse Oximetry 94 96 03/17/24 11:15 03/17/24 11:30 03/17/24 11:45 Temperature Pulse Rate 96 H Respiratory Rate 20 Blood Pressure 113/56 L 148/69 H Pulse Oximetry 92 03/17/24 11:45 03/17/24 12:00 Temperature Pulse Rate 71 78 Respiratory Rate 21 Blood Pressure Pulse Oximetry 97 98 <Robb Pettit, DO - Last Filed: 03/17/24 11:14> Orders Ordered: ED Orders 03/17/24 09:03 PTT [PTT Partial Thromboplastin Travon] Stat Discontinued Medications Acetaminophen (Acetaminophen 325 Mg Tablet) 650 mg PO Q6H PRN PRN Reason: Fever/Mild Pain (1-3) Last Admin: 03/17/24 10:32 Dose: 650 mg Documented By: Admin: 03/17/24 01:43 Dose: 650 mg Documented By: Admin: 03/16/24 08:32 Dose: 650 mg Documented By: Admin: 03/16/24 02:28 Dose: 650 mg Documented By: Atorvastatin Calcium (Atorvastatin 20 Mg Tablet) 80 mg PO NOW ONE Stop: 03/17/24 00:33 Last Admin: 03/17/24 00:53 Dose: 80 mg Documented By: Al Hydrox/Mg Hydrox/Simethicone 20 ml/ Lidocaine HCl 15 ml 0 ml PO NOW ONE Stop: 03/16/24 03:07 Last Admin: 03/16/24 03:11 Dose: 35 ml Documented By: SHANTA Dicyclomine HCl (Dicyclomine 10 Mg Capsule) 10 mg PO NOW ONE Stop: 03/16/24 03:36 Last Admin: 03/16/24 03:56 Dose: 10 mg Documented By: Diphenhydramine HCl (Diphenhydramine 50 Mg/Ml Vial) 50 mg IV NOW ONE Stop: 03/16/24 00:51 Last Admin: 03/16/24 00:50 Dose: 50 mg Documented By: Famotidine (Famotidine 20 Mg/2 Ml Vial) 20 mg IV NOW DOTTY Last Admin: 03/16/24 00:45 Dose: 20 mg Documented By: Glycerin (Glycerin Ped Supp 1 Supp) 1 each ND NOW ONE Stop: 03/16/24 03:04 Last Admin: 03/16/24 03:08 Dose: Not Given Documented By: Heparin Sodium (Porcine) (Heparin 5,000 Unit/Ml Vial) 5,000 unit IV NOW ONE Stop: 03/16/24 20:14 Last Admin: 03/16/24 20:35 Dose: 5,000 unit Documented By: AB Hydromorphone HCl (Hydromorphone 0.5 Mg Inj) 0.5 mg IV NOW ONE Stop: 03/16/24 17:49 Last Admin: 03/16/24 18:36 Dose: 0.5 mg Documented By: MPO Sodium Chloride (Normal Saline 0.9%) 1,000 mls @ 150 mls/hr IV CONT DOTTY Last Infusion: 03/17/24 11:34 Dose: Infused Documented By: Admin: 03/17/24 05:34 Dose: 150 mls/hr Documented By: Infusion: 03/17/24 05:34 Dose: Infused Documented By: Admin: 03/17/24 02:38 Dose: 150 mls/hr Documented By: Infusion: 03/16/24 14:54 Dose: Infused Documented By: Admin: 03/16/24 07:17 Dose: 150 mls/hr Documented By: Infusion: 03/16/24 07:16 Dose: Infused Documented By: Admin: 03/16/24 00:50 Dose: 150 mls/hr Documented By: Acetaminophen (Ofirmev) 1,000 mg in 100 mls @ 400 mls/hr IV NOW ONE Stop: 03/16/24 17:28 Last Infusion: 03/16/24 17:40 Dose: Infused Documented By: Admin: 03/16/24 17:23 Dose: 400 mls/hr Documented By: MPO Nitroglycerin (Nitroglycerin) 50 mg in 250 mls @ 1.5 mls/hr IV TITRATE DOTTY; Protocol Last Titration: 03/17/24 14:03 Dose: 0 mcg/min, 0 mls/hr Documented By: Admin: 03/17/24 09:26 Dose: 5 mcg/min, 1.5 mls/hr Documented By: Titration: 03/17/24 09:26 Dose: Infused Documented By: Titration: 03/17/24 02:15 Dose: 0 mcg/min, 0 mls/hr Documented By: Titration: 03/16/24 22:00 Dose: 10 mcg/min, 3 mls/hr Documented By: Admin: 03/16/24 20:14 Dose: 5 mcg/min, 1.5 mls/hr Documented By: Heparin Sodium/Dextrose (Heparin Drip) 25,000 unit in 500 mls @ 26.671 mls/hr IV CONT DOTTY; Protocol Last Admin: 03/16/24 20:46 Dose: Not Given Documented By: AB Heparin Sodium/Dextrose (Heparin Drip) 25,000 unit in 500 mls @ 20 mls/hr IV CONT DOTTY; Protocol Last Titration: 03/17/24 14:03 Dose: 0 units/hr, 0 mls/hr Documented By: JAYSON Co-signed By: WANDA Titration: 03/17/24 10:14 Dose: 1,110 units/hr, 22.2 mls/hr Documented By: CATRACHITO Co-signed By: AUGUSTO Titration: 03/17/24 09:35 Dose: 0 units/hr, 0 mls/hr Documented By: HARLEY Co-signed By: CATRACHITO Titration: 03/17/24 07:49 Dose: 1,330 units/hr, 26.6 mls/hr Documented By: AUGUSTO Co-signed By: CATRACHITO Admin: 03/16/24 20:36 Dose: 1,000 units/hr, 20 mls/hr Documented By: Co-signed By: SHANTA Lisinopril (Lisinopril 10 Mg Tablet) 10 mg PO NOW ONE Stop: 03/16/24 03:52 Last Admin: 03/16/24 04:02 Dose: 10 mg Documented By: Lorazepam (Lorazepam 2 Mg/Ml Inj) 1 mg IV NOW ONE Stop: 03/16/24 03:56 Last Admin: 03/16/24 09:09 Dose: 1 mg Documented By: MUKUL Methylprednisolone (Methylprednisolone 125 Mg/2 Ml Vial) 125 mg IV NOW ONE Stop: 03/16/24 00:51 Last Admin: 03/16/24 00:50 Dose: 125 mg Documented By: Metoprolol Tartrate (Metoprolol Ir 25 Mg Tablet) 100 mg PO NOW ONE Stop: 03/16/24 03:52 Last Admin: 03/16/24 03:56 Dose: 100 mg Documented By: Metoprolol Tartrate (Metoprolol Ir 25 Mg Tablet) 100 mg PO NOW ONE Stop: 03/17/24 00:32 Last Admin: 03/17/24 00:52 Dose: 100 mg Documented By: AB Mirtazapine (Mirtazapine 15 Mg Tablet) 60 mg PO BEDTIME DOTTY Mirtazapine (Mirtazapine 15 Mg Tablet) 60 mg PO BEDTIME DOTTY Last Admin: 03/17/24 00:55 Dose: 60 mg Documented By: Morphine Sulfate (Morphine 4 Mg/Ml Inj) 4 mg IV NOW ONE Stop: 03/16/24 00:08 Last Admin: 03/16/24 00:12 Dose: 4 mg Documented By: Nitroglycerin (Nitroglycerin 0.4 Mg Sl Tab) 0.4 mg SL [id number] PRN PRN Reason: Chest Pain Last Admin: 03/16/24 18:23 Dose: 0.4 mg Documented By: Admin: 03/16/24 18:09 Dose: 0.4 mg Documented By: Admin: 03/16/24 17:55 Dose: 0.4 mg Documented By: MUKUL Ondansetron HCl (Ondansetron 4 Mg/2 Ml Inj) 4 mg IV NOW ONE Stop: 03/16/24 06:31 Last Admin: 03/16/24 06:33 Dose: 4 mg Documented By: SHANTA Ondansetron HCl (Ondansetron 4 Mg/2 Ml Inj) 4 mg IV Q4HR PRN PRN Reason: Nausea And Vomiting Last Admin: 03/17/24 12:05 Dose: 4 mg Documented By: Admin: 03/17/24 08:55 Dose: 4 mg Documented By: Admin: 03/16/24 22:54 Dose: 4 mg Documented By: Admin: 03/16/24 18:45 Dose: 4 mg Documented By: Admin: 03/16/24 08:32 Dose: 4 mg Documented By: MUKUL Quetiapine Fumarate (Quetiapine 100 Mg Tablet) 100 mg PO BEDTIME DOTTY Quetiapine Fumarate (Quetiapine 25 Mg Tablet) 50 mg PO NOW ONE Stop: 03/17/24 00:34 Last Admin: 03/17/24 00:51 Dose: 50 mg Documented By: Quetiapine Fumarate (Quetiapine 100 Mg Tablet) 100 mg PO BEDTIME DOTTY Last Admin: 03/17/24 00:53 Dose: 100 mg Documented By: Vital Signs Vital signs: Vital Signs - 8 hr 03/17/24 08:00 03/17/24 08:00 03/17/24 08:15 Temperature Pulse Rate 67 Respiratory Rate 18 Blood Pressure 138/62 112/56 L Pulse Oximetry 95 03/17/24 08:15 03/17/24 08:30 03/17/24 08:31 Temperature 98.7 F Pulse Rate 68 80 Respiratory Rate 14 Blood Pressure 148/68 H Pulse Oximetry 97 96 03/17/24 08:31 03/17/24 08:45 03/17/24 08:54 Temperature Pulse Rate 84 83 Respiratory Rate 24 21 Blood Pressure 131/65 Pulse Oximetry 96 96 03/17/24 08:54 03/17/24 09:00 03/17/24 09:00 Temperature Pulse Rate 106 H 81 Respiratory Rate 27 H 26 H Blood Pressure 145/68 H Pulse Oximetry 97 97 03/17/24 09:32 03/17/24 09:45 03/17/24 10:00 Temperature Pulse Rate 76 76 81 Respiratory Rate 25 H 33 H Blood Pressure Pulse Oximetry 94 94 03/17/24 10:09 03/17/24 10:09 03/17/24 10:15 Temperature Pulse Rate 77 80 Respiratory Rate 32 H 33 H Blood Pressure 114/52 L Pulse Oximetry 94 94 03/17/24 10:16 03/17/24 10:16 03/17/24 10:30 Temperature Pulse Rate 78 Respiratory Rate 33 H Blood Pressure 110/52 L 111/53 L Pulse Oximetry 94 03/17/24 10:30 03/17/24 10:45 03/17/24 10:45 Temperature Pulse Rate 74 76 Respiratory Rate 17 27 H Blood Pressure 118/57 L Pulse Oximetry 94 94 03/17/24 11:00 03/17/24 11:00 03/17/24 11:15 Temperature Pulse Rate 76 78 Respiratory Rate 27 H 21 Blood Pressure 116/61 Pulse Oximetry 94 96 03/17/24 11:15 03/17/24 11:30 03/17/24 11:45 Temperature Pulse Rate 96 H Respiratory Rate 20 Blood Pressure 113/56 L 148/69 H Pulse Oximetry 92 03/17/24 11:45 03/17/24 12:00 Temperature Pulse Rate 71 78 Respiratory Rate 21 Blood Pressure Pulse Oximetry 97 98 MDM - Chest Pain <Matthias Mcfarland MD - Last Filed: 03/17/24 16:00> Lab Data Attestation: I reviewed the patient's lab results. 03/16/24 20:25 03/16/24 20:25 Labs: Lab Results 03/15/24 03/16/24 03/16/24 Range/Units 23:30 02:15 20:25 WBC 6.4 6.2 (4.5-11.0) X10^3/uL RBC 3.69 L 3.80 L (4.0-5.2) X10^6/uL Hgb 11.6 L 11.9 L (12.0-16.0) g/dL Hct 35.0 L 36.0 (36-46) % MCV 94.8 94.7 (80-100) fL MCH 31.5 31.3 (26-34) PG MCHC 33.2 33.0 (30-36) % RDW 15.0 H 14.6 (11.6-14.8) % Plt Count 330 337 (150-400) X10^3/uL Neut % (Auto) 46.6 L 68.9 D (50-75) % Lymph % (Auto) 38.1 20.3 L (25-40) % [place] % (Auto) 10.6 10.3 (3-14) % Eos % (Auto) 3.8 0.2 L (2-4) % Baso % (Auto) 0.9 0.3 (0-2) % Neut # (Auto) 3000 4300 (6323-6897) /uL Lymph # (Auto) 2400 1300 (9718-9405) /uL [place] # (Auto) 700 600 (0-900) /uL Eos # (Auto) 200 0 (0-450) /uL Baso # (Auto) 100 0 (0-100) /uL PT 11.4 (9.4-12.5) SECONDS INR 1.0 (0.9-1.3) APTT 29 (25.1-36.5) SECONDS D-Dimer 1622 H (<500) ng/ml Sodium 139 138 (137-145) mmol/L Potassium 3.7 3.9 (3.4-5.1) mmol/L Chloride 113 H 113 H (98-107) mmol/L Carbon Dioxide 23 22 (22-32) mmol/L BUN 26 H 20 H (7-17) mg/dL Creatinine 0.76 0.66 (0.52-1.04) mg/dL Estimated GFR > 60 > 60 (>60) mL/min BUN/Creatinine Ratio 34.2 H 30.3 H (6-22) Glucose 96 137 H (80-110) mg/dL Calcium 8.7 9.0 (8.4-10.2) mg/dL Total Bilirubin 0.5 0.8 (0.2-1.3) mg/dL AST 147 H 138 H (14-36) IU/L ALT 186 H 192 H (<35) IU/L Alkaline Phosphatase 241 H 260 H (38-126) U/L Total Creatine Kinase 90 58 (30-135) U/L Troponin I < 0.012 < 0.012 < 0.012 (0.01-0.034) ng/mL Total Protein 6.9 6.8 (6.3-8.2) g/dL Albumin 3.9 3.9 (3.5-5.0) g/dL Globulin 3.0 2.9 (1.7-4.1) g/dL Albumin/Globulin Ratio 1.3 1.3 (1.0-2.8) Lipase 56 D (23-300) U/L 03/17/24 03/17/24 Range/Units 03:25 09:03 WBC (4.5-11.0) X10^3/uL RBC (4.0-5.2) X10^6/uL Hgb (12.0-16.0) g/dL Hct (36-46) % MCV (80-100) fL MCH (26-34) PG MCHC (30-36) % RDW (11.6-14.8) % Plt Count (150-400) X10^3/uL Neut % (Auto) (50-75) % Lymph % (Auto) (25-40) % [place] % (Auto) (3-14) % Eos % (Auto) (2-4) % Baso % (Auto) (0-2) % Neut # (Auto) (4320-5321) /uL Lymph # (Auto) (6528-2011) /uL [place] # (Auto) (0-900) /uL Eos # (Auto) (0-450) /uL Baso # (Auto) (0-100) /uL PT (9.4-12.5) SECONDS INR (0.9-1.3) APTT 69 H D 89 H* D (25.1-36.5) SECONDS D-Dimer (<500) ng/ml Sodium (137-145) mmol/L Potassium (3.4-5.1) mmol/L Chloride (98-107) mmol/L Carbon Dioxide (22-32) mmol/L BUN (7-17) mg/dL Creatinine (0.52-1.04) mg/dL Estimated GFR (>60) mL/min BUN/Creatinine Ratio (6-22) Glucose (80-110) mg/dL Calcium (8.4-10.2) mg/dL Total Bilirubin (0.2-1.3) mg/dL AST (14-36) IU/L ALT (<35) IU/L Alkaline Phosphatase (38-126) U/L Total Creatine Kinase (30-135) U/L Troponin I (0.01-0.034) ng/mL Total Protein (6.3-8.2) g/dL Albumin (3.5-5.0) g/dL Globulin (1.7-4.1) g/dL Albumin/Globulin Ratio (1.0-2.8) Lipase (23-300) U/L Imaging Data Chest x-ray: Radiologist's Impression: [place] [address] XRay Report Signed Patient: Sia Turcios MR#: [id number] : 07/17/1958 Acct:[id number] Age/Sex: 65 / F Date of Service: 03/15/24 Loc: ED Accession Number: [id number] Procedure: XR chest 1V Ordering Provider: Matthias Mcfarland MD PROCEDURE: XR CHEST 1V INDICATIONS: chest pain TECHNIQUE: One view of the chest was acquired. COMPARISON: [facility], CR, XR CHEST 2V, 04/15/2019, 5:52. FINDINGS: Surgical changes and devices: None. Lungs and pleura: Lungs are clear. No pleural effusions or pneumothorax. Mediastinum: Mediastinal contours appear normal. Heart size is normal. Bones and chest wall: No suspicious bony lesions. Overlying soft tissues appear unremarkable. IMPRESSION: No acute cardiopulmonary pathology. Dictated by: Víctor Dotson M.D. on 03/15/2024 at 22:48 Approved by: Víctor Dotson M.D. on 03/15/2024 at 22:48 ECG Data Attestation: I personally reviewed and interpreted this ECG as follows: Interpretation: Normal sinus rhythm with rate of 94, no obvious ST segment elevation or depression changes. T-wave inversion noted in lead 3, similar to prior study from yesterday. ND 154, QRS 74, QTC 430. MDM Narrative Medical decision making narrative: 74-year-old female with known CAD, remote coronary stenting, more recent laparoscopic cholecystectomy earlier this month 03/01/24, seen yesterday for 2 visits chest pain, EKG and serial troponins negative, discharged on isosorbide mononitrate, had similar left anterior chest pain with some diaphoresis and radiation to the back and left jaw. EKG unchanged from prior study. Patient had been on Eliquis in the past but apparently not since September 2023, D-dimer elevated, GFR favorable, consider CTA chest imaging, prior negative studies but she is off Eliquis, she prefers to have testing when options discussed. CTA chest study ordered. IV morphine, chest pain better. Troponin negative. We will obtain an interval troponin. Some itching and tongue tingling sensation after morphine dose, before IV contrast, no lip or tongue swelling obvious on exam, no rash or hives noted. IV Solu-Medrol, IV Benadryl. Patient has headache, CT head noncontrast. CTA chest report pending CT head without contrast. Impressions: ?No acute intracranial findings.? See telerad report CT chest abdomen pelvis with IV contrast. Impressions: ?No evidence of aortoiliac dissection or aneurysm. Mild to moderate compression fracture of the L1 superior endplate is likely acute. Clinical correlation for presence or absence of focal tenderness at this level is recommended. Gallbladder not visualized and may be surgically absent. The main and common hepatic ducts are dilated measuring to 19 mm width (more than expected for the post cholecystectomy state? finding could be further evaluated with an MRCP if clinically indicated.? See tele radiology report 0320, MRCP ordered, cannot be performed now but could be performed later today, if her discomfort is GI related and perhaps non-cardiac, recent cholecystectomy 03/01/2024 noted. Repeat troponin also negative. Elevated blood pressure, we will give oral dose lisinopril and metoprolol usual evening meds. Feels anxious, history of bipolar disorder, IV Ativan 0700, awaiting MRCP study, [facility] Wilver pettit: Received turned over. Review patient's history and physical and workup at his point. Has had an nonischemic EKG. Has had 2- troponins. Waiting MRCP which eventually showed no common bile duct stone. She has had a cholecystectomy. Had a long discussion with the patient regarding her symptoms. It appears that her chest discomfort is recurrent and does get better with nitroglycerin. She did not have much discomfort throughout the day today however this evening her chest pain returned. She is known coronary disease she had an angioplasty about 10 years ago. Has been somewhat hypertensive since being here in the emergency department. Care turned back over to Dr. Mcfarland to follow-up and have discussion with Cardiology about potential transfer for unstable angina. Bartolo, 03/16/2024, 7:15 p.m., reassumed care. Sign-out from Dr. Pettit. During the day today she had MRCP showing no acute changes. This evening she developed more chest pain, EKG again unchanged, history of known CAD, numerous previous visits, unstable angina, transfer to [facility] planned, IV nitroglycerin drip, IV heparin. Patient believes that she is scheduled for stress test 9:00 a.m. in the morning tomorrow and [facility] with Dr. Skinner. We will contact Cardiology on-call [facility] [place], she recalls seeing scientific database curator Dr. Rodriges and Dr. Douglas as well. Assumed care 2134, case discussed with [facility] intake, await call back, possible transfer 2199, call back from [facility], they are saturated, we will try alternate resources. CREDIT REPORTER comunication with [facility], beds not available in [facility] including [facility], [facility] Elias, [place], [facility] Sw[place] 0530, still no prospects for transfer identified, patient states that she is scheduled for cardiac stress test 0900 later this morning with cardiology Dr. Skinner at [facility], will reach out to [facility] to see if they can accommodate patient for transfer for cardiac catheterization or other evaluation later today 0700, seems to be having control of her chest pain on nitroglycerin drip, also on IV heparin, being treated for presumed unstable angina, was due for stress test scheduled 9:00 a.m. later this morning with Dr. Skinner of [facility], she has also been seen by [facility] cardiologists Dr. Doulgas and Antelmo, seems reasonable to attempt to reach [facility] for possible transfer, possible cardiac catheterization perhaps after morning discharges and some bed availability. Signed out to oncoming ED shift physician Dr. Pettit <Robb Pettit, DO - Last Filed: 03/17/24 11:14> Lab Data Labs: Lab Results 03/15/24 03/16/24 03/16/24 Range/Units 23:30 02:15 20:25 WBC 6.4 6.2 (4.5-11.0) X10^3/uL RBC 3.69 L 3.80 L (4.0-5.2) X10^6/uL Hgb 11.6 L 11.9 L (12.0-16.0) g/dL Hct 35.0 L 36.0 (36-46) % MCV 94.8 94.7 (80-100) fL MCH 31.5 31.3 (26-34) PG MCHC 33.2 33.0 (30-36) % RDW 15.0 H 14.6 (11.6-14.8) % Plt Count 330 337 (150-400) X10^3/uL Neut % (Auto) 46.6 L 68.9 D (50-75) % Lymph % (Auto) 38.1 20.3 L (25-40) % [place] % (Auto) 10.6 10.3 (3-14) % Eos % (Auto) 3.8 0.2 L (2-4) % Baso % (Auto) 0.9 0.3 (0-2) % Neut # (Auto) 3000 4300 (9971-5293) /uL Lymph # (Auto) 2400 1300 (5469-3991) /uL [place] # (Auto) 700 600 (0-900) /uL Eos # (Auto) 200 0 (0-450) /uL Baso # (Auto) 100 0 (0-100) /uL PT 11.4 (9.4-12.5) SECONDS INR 1.0 (0.9-1.3) APTT 29 (25.1-36.5) SECONDS D-Dimer 1622 H (<500) ng/ml Sodium 139 138 (137-145) mmol/L Potassium 3.7 3.9 (3.4-5.1) mmol/L Chloride 113 H 113 H (98-107) mmol/L Carbon Dioxide 23 22 (22-32) mmol/L BUN 26 H 20 H (7-17) mg/dL Creatinine 0.76 0.66 (0.52-1.04) mg/dL Estimated GFR > 60 > 60 (>60) mL/min BUN/Creatinine Ratio 34.2 H 30.3 H (6-22) Glucose 96 137 H (80-110) mg/dL Calcium 8.7 9.0 (8.4-10.2) mg/dL Total Bilirubin 0.5 0.8 (0.2-1.3) mg/dL AST 147 H 138 H (14-36) IU/L ALT 186 H 192 H (<35) IU/L Alkaline Phosphatase 241 H 260 H (38-126) U/L Total Creatine Kinase 90 58 (30-135) U/L Troponin I < 0.012 < 0.012 < 0.012 (0.01-0.034) ng/mL Total Protein 6.9 6.8 (6.3-8.2) g/dL Albumin 3.9 3.9 (3.5-5.0) g/dL Globulin 3.0 2.9 (1.7-4.1) g/dL Albumin/Globulin Ratio 1.3 1.3 (1.0-2.8) Lipase 56 D (23-300) U/L 03/17/03/17/24 Range/Units 03:25 09:03 WBC (4.5-11.0) X10^3/uL RBC (4.0-5.2) X10^6/uL Hgb (12.0-16.0) g/dL Hct (36-46) % MCV (80-100) fL MCH (26-34) PG MCHC (30-36) % RDW (11.6-14.8) % Plt Count (150-400) X10^3/uL Neut % (Auto) (50-75) % Lymph % (Auto) (25-40) % [place] % (Auto) (3-14) % Eos % (Auto) (2-4) % Baso % (Auto) (0-2) % Neut # (Auto) (8859-6591) /uL Lymph # (Auto) (3508-2012) /uL [place] # (Auto) (0-900) /uL Eos # (Auto) (0-450) /uL Baso # (Auto) (0-100) /uL PT (9.4-12.5) SECONDS INR (0.9-1.3) APTT 69 H D 89 H* D (25.1-36.5) SECONDS D-Dimer (<500) ng/ml Sodium (137-145) mmol/L Potassium (3.4-5.1) mmol/L Chloride (98-107) mmol/L Carbon Dioxide (22-32) mmol/L BUN (7-17) mg/dL Creatinine (0.52-1.04) mg/dL Estimated GFR (>60) mL/min BUN/Creatinine Ratio (6-22) Glucose (80-110) mg/dL Calcium (8.4-10.2) mg/dL Total Bilirubin (0.2-1.3) mg/dL AST (14-36) IU/L ALT (<35) IU/L Alkaline Phosphatase (38-126) U/L Total Creatine Kinase (30-135) U/L Troponin I (0.01-0.034) ng/mL Total Protein (6.3-8.2) g/dL Albumin (3.5-5.0) g/dL Globulin (1.7-4.1) g/dL Albumin/Globulin Ratio (1.0-2.8) Lipase (23-300) U/L Imaging Data MRCP: Radiologist's Impression: PROCEDURE: MR ABDOMEN WO/W CON INDICATIONS: abd pain, inc LFTs, CBD dilated on CT, manjit 03/01/24 TECHNIQUE: Coronal HASTE, axial 2D FLASH in- and tal-ye-acgno; axial breath-hold T2 FSE with fat saturation from the hepatic dome to the iliac crests. Oblique coronal thin- slice and radial thick slab HASTE through the biliary system. Dynamic axial VIBE during administration of contrast. Post-contrast coronal VIBE or 2D FLASH with fat saturation from the hepatic dome to the iliac crests. Optional diffusion weighted imaging and ADC may be performed. COMPARISON: [facility], CT, CT ANGIO CHEST ABDOMEN PELVIS, 03/16/2024, 2:00. FINDINGS: Image quality: Diagnostic. Gallbladder: Absent. Biliary ducts: Intrahepatic and extrahepatic biliary dilation. Common bile duct measures 14 mm. Smooth tapering as the common bile duct approaches the ampulla. No periampullary mass identified. Pancreas: No ductal dilation. OTHER: Lung bases: Small hiatal hernia. Liver: No solid mass. Spleen: Size is within normal limits. Adrenal Glands: No adrenal nodules. Kidneys and Ureters: No hydronephrosis. No solid mass. No complex renal cystic lesion which requires follow up. Stomach and Bowel: Normal colonic caliber, without significant wall thickening. Colonic diverticulosis without evidence of diverticulitis. Peritoneum: No abnormal intraperitoneal fluid. No free air. Ventral Wall: No hernia. Abdominal Nodes: No retroperitoneal or mesenteric adenopathy by size criteria. Vessels: Aorta and inferior vena cava are normal in size. Bones: No aggressive osseous abnormality. IMPRESSION: Cholecystectomy. Dilated common bile duct. Normal tapering of the common bile duct is approaches the ampulla. Findings favor reservoir affect over stricture of the sphincter or periampullary mass. Small hiatal hernia. Colonic diverticulosis without evidence of diverticulitis. MDM Narrative Medical decision making narrative: 74-year-old female with known CAD, remote coronary stenting, more recent laparoscopic cholecystectomy earlier this month 03/01/24, seen yesterday for 2 visits chest pain, EKG and serial troponins negative, discharged on isosorbide mononitrate, had similar left anterior chest pain with some diaphoresis and radiation to the back and left jaw. EKG unchanged from prior study. Patient had been on Eliquis in the past but apparently not since September 2023, D-dimer elevated, GFR favorable, consider CTA chest imaging, prior negative studies but she is off Eliquis, she prefers to have testing when options discussed. CTA chest study ordered. IV morphine, chest pain better. Troponin negative. We will obtain an interval troponin. Some itching and tongue tingling sensation after morphine dose, before IV contrast, no lip or tongue swelling obvious on exam, no rash or hives noted. IV Solu-Medrol, IV Benadryl. Patient has headache, CT head noncontrast. CTA chest report pending CT head without contrast. Impressions: ?No acute intracranial findings.? See telerad report CT chest abdomen pelvis with IV contrast. Impressions: ?No evidence of aortoiliac dissection or aneurysm. Mild to moderate compression fracture of the L1 superior endplate is likely acute. Clinical correlation for presence or absence of focal tenderness at this level is recommended. Gallbladder not visualized and may be surgically absent. The main and common hepatic ducts are dilated measuring to 19 mm width (more than expected for the post cholecystectomy state? finding could be further evaluated with an MRCP if clinically indicated.? See tele radiology report 0320, MRCP ordered, cannot be performed now but could be performed later today, if her discomfort is GI related and perhaps non-cardiac, recent cholecystectomy 03/01/2024 noted. Repeat troponin also negative. Elevated blood pressure, we will give oral dose lisinopril and metoprolol usual evening meds. Feels anxious, history of bipolar disorder, IV Ativan 0700, awaiting MRCP study, signed out to oncoming ED attending Dr Wilver pettit: Received turned over. Review patient's history and physical and workup at his point. Has had an nonischemic EKG. Has had 2- troponins. Waiting MRCP which eventually showed no common bile duct stone. She has had a cholecystectomy. Had a long discussion with the patient regarding her symptoms. It appears that her chest discomfort is recurrent and does get better with nitroglycerin. She did not have much discomfort throughout the day today however this evening her chest pain returned. She is known coronary disease she had an angioplasty about 10 years ago. Has been somewhat hypertensive since being here in the emergency department. Care turned back over to Dr. Mcfarland to follow-up and have discussion with Cardiology about potential transfer for unstable angina. Bartolo, 03/16/2024, 7:15 p.m., reassumed care. Sign-out from Dr. Pettit. During the day today she had MRCP showing no acute changes. This evening she developed more chest pain, EKG again unchanged, history of known CAD, numerous previous visits, unstable angina, transfer to [facility] planned, IV nitroglycerin drip, IV heparin. Patient believes that she is scheduled for stress test 9:00 a.m. in the morning tomorrow and [place] with Dr. Skinner. We will contact Cardiology on-call [place], she recalls seeing scientific database curator Dr. Rodriges and Dr. Douglas as well. Assumed care 2134, case discussed with [facility] intake, await call back, possible transfer 2199, call back from [facility], they are saturated, we will try alternate resources. CREDIT REPORTER comunication with [facility], beds not available in [facility] including [facility], [facility], [facility], [facility] 0530, still no prospects for transfer identified, patient states that she is scheduled for cardiac stress test 0900 later this morning with cardiology Dr. Skinner at [facility], will reach out to [facility] to see if they can accommodate patient for transfer for cardiac catheterization or other evaluation later today 0700, seems to be having control of her chest pain on nitroglycerin drip, also on IV heparin, being treated for presumed unstable angina, was due for stress test scheduled 9:00 a.m. later this morning with Dr. Skinner of [facility], she has also been seen by [facility] cardiologists Dr. Douglas and Antelmo, seems reasonable to attempt to reach [facility] for possible transfer, possible cardiac catheterization perhaps after morning discharges and some bed availability. [facility] Dr. Wilver pettit received turned over. Reviewed the patient's overnight events. She was on a heparin drip. She had to be taken off the nitroglycerin drip because of low blood pressures. She had a return of the chest discomfort so she was started back on the nitroglycerin drip. Has not had any pain since then. Her troponins have been negative. I did discuss the case with Dr. Blanchard hospitalist at [facility] who accepts the patient for transfer. I do think that the patient would benefit from a transfer given her continued chest discomfort which seems to be improved with nitroglycerin. Patient is stable for transport. Critical Care Time <Matthias Mcfarland MD - Last Filed: 03/17/24 16:00> Critical Care Time Critical Care Time: Yes Total Critical Care Time: 75 Attestation: The high probability of a clinically significant, sudden or life threatening deterioration of the [cardiopulmonary] system(s) required my full and direct attention, intervention and personal management. The aggregate critical care time was [75] minutes. This time is in addition to time spent performing reported procedures but includes the following: [x] Data Review and interpretation [x] Patient assessment and monitoring of vital signs [x] Documentation [x] Medication orders and management Discharge Plan Departure [facility] Disposition: [facility] Clinical Impression: Chest pain, Unstable angina, History of coronary artery disease Activity Restrictions/Additional Instructions: I do recommend that you take all of your medications as directed. I recommend that tomorrow you contact your scientific database curator office for a follow-up. Return to the emergency department for new or worsening symptoms. Prescriptions: No Action atorvastatin 80 mg tablet 80 mg PO BEDTIME furosemide 20 mg tablet 20 mg PO DAILY metoprolol tartrate 100 mg tablet 100 mg PO BID duloxetine 60 mg capsule,delayed release(DR/EC) 60 mg PO DAILY Qty: 90 3RF quetiapine 50 mg tablet 50 mg PO BEDTIME Qty: 90 1RF lisinopril 10 mg Tablet 10 mg PO DAILY pantoprazole 20 mg Tablet,Delayed Release (Dr/Ec) 20 mg PO 0700 30 Days Qty: 30 0RF mirtazapine [Remeron] 15 mg Tablet 60 mg PO BEDTIME Rx Instructions: pt states she takes 45mg and 15mg. Referrals: Salena Long PA-C [Primary Care Provider] - Stand Alone Forms: Patient Portal/API
[2024-03-15 23:30] VITALS: BP 169/72; PULSE 83; RESP 20; O2SAT 96
[2024-03-15 23:34] VITALS: BP 184/79; PULSE 90; RESP 18; TEMP 37; O2SAT 98
[2024-03-15 23:45] VITALS: BP 159/71; PULSE 82; RESP 20; O2SAT 97
[2024-03-16] VITALS (152 sets, daily range): BP systolic 116–217; BP diastolic 55–115; PULSE 67–143; RESP 12–45; TEMP 36.9; O2SAT 91–98
[2024-03-16] MEDS: MORPHINE 4 MG/ML INJ IV (00:12)
--- NOTE | 2024-03-16 00:16 | PC.NURSE ---
pt stated they wanted to go pee, commode was offered pt stated i don't want to get up anywhere brandi was offered pt agreed. brandi placed pt education given
--- NOTE | 2024-03-16 00:23 | PC.NURSE ---
Pt reports that she has swelling to left foot. No swelling noted. Says that she feels like her left arm is going to sleep. Pt is able to move arm and has sensation to fingers and hand.
--- NOTE | 2024-03-16 00:34 | PC.NURSE ---
Pt states that she is feeling itchy all over and feels like her tongue us swelling up. Dr Mcfarland aware. New orders received.
--- NOTE | 2024-03-16 00:42 | DI.RAD.S_ITS ---
PROCEDURE: XR CHEST 1V INDICATIONS: chest pain TECHNIQUE: One view of the chest was acquired. COMPARISON: [facility], CR, XR CHEST 1V, 03/14/2024, 16:44. FINDINGS: Surgical changes and devices: None. Lungs and pleura: Mild pulmonary vascular congestion is seen. No pleural effusions or pneumothorax. Mediastinum: There is tortuous thoracic aorta. Heart size is enlarged. Bones and chest wall: No suspicious bony lesions. Overlying soft tissues appear unremarkable. IMPRESSION: Cardiomegaly and mild congestion. No focal infiltrate, pleural effusion or pneumothorax. Dictated by: Víctor Dotson M.D. on 03/16/2024 at 1:03 Approved by: Víctor Dotson M.D. on 03/16/2024 at 1:04
[2024-03-16] MEDS: FAMOTIDINE 20 MG/2 ML VIAL IV (00:45)
[2024-03-16 00:47] LABS: D Dimer 1622 ng/ml (<500)
[2024-03-16] MEDS: methylPREDNISolone 125 MG/2 ML VIAL IV (00:50)
[2024-03-16] MEDS: diphenhydrAMINE 50 MG/ML VIAL IV (00:50)
[2024-03-16] MEDS: SODIUM CHLORIDE 0.9% 1,000 ML 150 ML IV ×2 (00:50→07:17)
[2024-03-16 00:54] LABS: Add Manual Diff / Slide Review NO; Basophils Absolute Auto 100 /uL (0-100); Basophils Percent Auto 0.9 % (0-2); Eosinophils Absolute Auto 200 /uL (0-450); Eosinophils Percent Auto 3.8 % (2-4); Hemoglobin 11.6 g/dL (12.0-16.0); Lymphocytes Absolute Auto 2400 /uL (1100-4500); Lymphocytes Percent Auto 38.1 % (25-40); Mean Corpuscular HGB Conc 33.2 % (30-36); Mean Corpuscular Hemoglobin 31.5 PG (26-34); Mean Corpuscular Volume 94.8 fL (80-100); Monocytes Absolute Auto 700 /uL (0-900); Monocytes Percent Auto 10.6 % (3-14); Neutrophils Absolute Auto 3000 /uL (1500-7000); Neutrophils Percent Auto 46.6 % (50-75); Platelet Count 330 X10^3/uL (150-400); Red Blood Cell Count 3.69 X10^6/uL (4.0-5.2); White Blood Cell Count 6.4 X10^3/uL (4.5-11.0)
--- NOTE | 2024-03-16 00:55 | EKG_ITS ---
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
[2024-03-16 00:58] LABS: Alanine Aminotransferase 186 IU/L (<35); Albumin 3.9 g/dL (3.5-5.0); Albumin Globulin Ratio 1.3 (1.0-2.8); Alkaline Phosphatase 241 U/L (38-126); Aspartate Aminotransferase 147 IU/L (14-36); BUN Creatinine Ratio 34.2 (6-22); Bilirubin Total 0.5 mg/dL (0.2-1.3); Blood Urea Nitrogen 26 mg/dL (7-17); Calcium 8.7 mg/dL (8.4-10.2); Carbon Dioxide 23 mmol/L (22-32); Chloride 113 mmol/L (98-107); Creatine Kinase 90 U/L (30-135); Estimated Glomerular Filt Rate > 60 mL/min (>60); Glucose 96 mg/dL (80-110); HEMOLYSIS 21 (0-50); Lipase 56 U/L (23-300); Potassium 3.7 mmol/L (3.4-5.1); Sodium 139 mmol/L (137-145); Total Protein 6.9 g/dL (6.3-8.2)
--- NOTE | 2024-03-16 01:04 | PC.NURSE ---
Pt is hypertensive . Dr Mcfarland notified.
[2024-03-16 01:09] LABS: Troponin I < 0.012 ng/mL (0.01-0.034)
--- NOTE | 2024-03-16 01:22 | DI.CT.S_ITS ---
PROCEDURE: CT HEAD/BRAIN WO CON INDICATIONS: headache, weakness, numbness TECHNIQUE: Noncontrast 4.5 mm thick angled axial sections acquired from the foramen magnum to the vertex, with coronal and sagittal reformats. For radiation dose reduction, the following was used: automated exposure control, adjustment of mA and/or kV according to patient size. COMPARISON: [facility], CT, CT HEAD/BRAIN WO CON, 12/11/2021, 18:46. FINDINGS: Image quality: Diagnostic. CSF spaces: Basal cisterns are patent. No extra-axial fluid collections. The ventricles are symmetric in size and shape. Brain: No intracranial bleeds or masses. There is cerebral volume loss for age, with resultant ventricular and sulcal prominence. There are periventricular and deep white matter chronic small vessel ischemic changes. There is intracranial internal carotid artery atherosclerosis. Skull and face: Calvarium and visualized facial bones appear intact, without suspicious lesions. Sinuses: Visualized sinuses and mastoids are clear. IMPRESSION: 1. No acute intracranial process. 2. Moderate atrophy and chronic microvascular ischemic changes. The above findings are concordant with preliminary report. Dictated by: Aurora Cruz M.D. on 03/16/2024 at 8:14 Approved by: Aurora Cruz M.D. on 03/16/2024 at 8:15
--- NOTE | 2024-03-16 01:23 | DI.CT.S_ITS ---
PROCEDURE: CT ANGIO CHEST ABDOMEN PELVIS INDICATIONS: dissection protocol, CP with hi Ddimer TECHNIQUE: Precontrast 5 mm thick sections acquired from the lung apices to the iliac crests. After the administration of intravenous contrast, 2.5 mm thick sections again acquired from the lung apices to the iliac crests. Maximum intensity projection (MIP) oblique sagittal and coronal reformats were then acquired. For radiation dose reduction, the following was used: automated exposure control. COMPARISON: [facility], CT, CT ANGIO CHEST PE PROTOCOL, 02/22/2024, 19:32. [facility], CR, XR CHEST 1V, 03/16/2024, 0:40. FINDINGS: Image quality: Portions of the lower pelvis are suboptimally evaluated secondary to metallic streak artifact from hip arthroplasty as well as lumbar fixation hardware.. AORTA: No aortic aneurysm. No acute aortic syndrome. CHEST: Lower Neck: No enlarged lymph nodes. Thyroid: No thyroid nodules which require sonographic evaluation. Axillae: No enlarged lymph nodes. Chest Wall: Unremarkable. Lungs and Pleura: No pneumothorax or pleural effusions. No consolidation or suspicious nodules. Heart: Heart size is enlarged.. No pericardial effusion. Thoracic Vessels: Pulmonary arteries demonstrate normal size. Mediastinum and [place]: No enlarged lymph nodes. Esophagus: No wall thickening. Prominent hiatal hernia. ABDOMEN: Liver: No solid mass. Gallbladder: Gallbladder is not visualized secondary to noted removal from ultrasound of 03/14/2024. Biliary ducts: There is prominent dilation of the common bile duct measuring approximately 1.6 cm slightly more prominent when compared to prior exam at 1.3 cm. No obstructing mass is clearly identified. Mild intrahepatic dilation is also present. Pancreas: No ductal dilation. Spleen: Size is within normal limits. Adrenal Glands: No adrenal nodules. Kidneys and Ureters: No hydronephrosis. No solid mass. No complex renal cystic lesion which requires follow up. Stomach and Bowel: Normal colonic caliber, without significant wall thickening. Minimal diverticula without inflammatory change. Peritoneum: No abnormal intraperitoneal fluid. No free air. Ventral Wall: Fat containing hernia. Abdominal Nodes: No retroperitoneal or mesenteric adenopathy by size criteria. Vessels: Inferior vena cava is normal in size. PELVIS: Pelvic Organs: Unremarkable. Bladder: Unremarkable. Pelvic Nodes: No enlarged lymph nodes. Miscellaneous: No inguinal hernias are seen. Bones: L1 superior endplate compression fracture is present IMPRESSION: Cholecystectomy with mild increased intra and extrahepatic biliary dilation. No definitive source of obstruction is identified. MRCP is recommended. Diverticulosis. L1 compression deformity of indeterminate age. However, cannot rule out subacute etiology. Recommend correlation to any history of recent trauma as well as point tenderness. The above findings are concordant with preliminary report. Dictated by: Aurora Cruz M.D. on 03/16/2024 at 8:15 Approved by: Aurora Cruz M.D. on 03/16/2024 at 8:38
--- NOTE | 2024-03-16 01:34 | PC.NURSE ---
Discussed D dimer with Dr Mcfarland. New orders received.
--- NOTE | 2024-03-16 01:35 | PC.NURSE ---
Pt reports that her tongue is not as swollen. And cheeks are no longer flushed.
[2024-03-16] MEDS: ACETAMINOPHEN 325 MG TABLET 650 MG PO ×2 (02:28→08:32)
[2024-03-16 02:46] LABS: Troponin I < 0.012 ng/mL (0.01-0.034)
[2024-03-16] MEDS: MAG HYDROX/ALUMINUM/SIMETH SUS 20 ML, LIDOCAINE VISCOUS 2% 15 ML PO (03:11)
--- NOTE | 2024-03-16 03:19 | DI.MRI.S_ITS ---
PROCEDURE: MR ABDOMEN WO/W CON INDICATIONS: abd pain, inc LFTs, CBD dilated on CT, manjit 03/01/24 TECHNIQUE: Coronal HASTE, axial 2D FLASH in- and [id number]; axial breath-hold T2 FSE with fat saturation from the hepatic dome to the iliac crests. Oblique coronal thin-slice and radial thick slab HASTE through the biliary system. Dynamic axial VIBE during administration of contrast. Post-contrast coronal VIBE or 2D FLASH with fat saturation from the hepatic dome to the iliac crests. Optional diffusion weighted imaging and ADC may be performed. COMPARISON: [facility], CT, CT ANGIO CHEST ABDOMEN PELVIS, 03/16/2024, 2:00. FINDINGS: Image quality: Diagnostic. Gallbladder: Absent. Biliary ducts: Intrahepatic and extrahepatic biliary dilation. Common bile duct measures 14 mm. Smooth tapering as the common bile duct approaches the ampulla. No periampullary mass identified. Pancreas: No ductal dilation. OTHER: Lung bases: Small hiatal hernia. Liver: No solid mass. Spleen: Size is within normal limits. Adrenal Glands: No adrenal nodules. Kidneys and Ureters: No hydronephrosis. No solid mass. No complex renal cystic lesion which requires follow up. Stomach and Bowel: Normal colonic caliber, without significant wall thickening. Colonic diverticulosis without evidence of diverticulitis. Peritoneum: No abnormal intraperitoneal fluid. No free air. Ventral Wall: No hernia. Abdominal Nodes: No retroperitoneal or mesenteric adenopathy by size criteria. Vessels: Aorta and inferior vena cava are normal in size. Bones: No aggressive osseous abnormality. IMPRESSION: Cholecystectomy. Dilated common bile duct. Normal tapering of the common bile duct is approaches the ampulla. Findings favor reservoir affect over stricture of the sphincter or periampullary mass. Small hiatal hernia. Colonic diverticulosis without evidence of diverticulitis. Dictated by: Danyel Naidu M.D. on 03/16/2024 at 15:55 Approved by: Danyel Naidu M.D. on 03/16/2024 at 16:00
[2024-03-16] MEDS: DICYCLOMINE 10 MG CAPSULE PO (03:56)
[2024-03-16] MEDS: METOPROLOL IR 25 MG TABLET 100 MG PO (03:56)
[2024-03-16] MEDS: lisinopriL 10 MG TABLET PO (04:02)
--- NOTE | 2024-03-16 06:14 | PC.NURSE ---
Pt describes pain as a pressure
[2024-03-16] MEDS: ONDANSETRON 4 MG/2 ML INJ IV ×4 (06:33→22:54)
[2024-03-16] MEDS: LORazepam 2 MG/ML INJ 1 MG IV (09:09)
--- NOTE | 2024-03-16 14:33 | PC.NURSE ---
Spoke with pt prior to MRI. Pt states that her anxiety is resolved and that she is not having pain at this time. Pt sleepy but arousable to sound and touch. at bedside. VS WNL
--- NOTE | 2024-03-16 15:56 | PC.NURSE ---
irene paz placed pt education given
[2024-03-16] MEDS: ACETAMINOPHEN IV 1,000 MG/100 ML VIAL 400 MG IV (17:23)
[2024-03-16] MEDS: NITROGLYCERIN 0.4 MG SL TAB SL ×3 (17:55→18:23)
--- NOTE | 2024-03-16 17:57 | PC.NURSE ---
Pt c/o cp that she describes as an elephant sitting on her chest and states that the pain is a 8/10. Dr hensley notified and placed order for SL nitro. Pt states that she is feeling very sick and her HARDIN has come back. Pt VS WNL and skin warm and dry. Pt a&Ox4. No SOB noted.
--- NOTE | 2024-03-16 18:14 | EKG_ITS ---
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
--- NOTE | 2024-03-16 18:25 | PC.NURSE ---
Pt [id number] dose of nitro and reports no relief. Dr notified.
[2024-03-16] MEDS: HYDROMORPHONE 0.5 MG INJ IV (18:36)
[2024-03-16] MEDS: NITROGLYCERIN 50 MG/250 ML INFUS..BTL IV (20:14)
[2024-03-16] MEDS: HEPARIN 5,000 UNIT/ML VIAL 5000 UNIT IV (20:35)
[2024-03-16] MEDS: HEPARIN DRIP 25,000 UNIT/500 ML IV.SOLN 20 UNIT IV (20:36)
[2024-03-16 21:15] LABS: PTT Partial Thromboplastin Tim 29 SECONDS (25.1-36.5)
[2024-03-16 21:16] LABS: Add Manual Diff / Slide Review NO; Basophils Absolute Auto 0 /uL (0-100); Basophils Percent Auto 0.3 % (0-2); Eosinophils Absolute Auto 0 /uL (0-450); Eosinophils Percent Auto 0.2 % (2-4); Hemoglobin 11.9 g/dL (12.0-16.0); Lymphocytes Absolute Auto 1300 /uL (1100-4500); Lymphocytes Percent Auto 20.3 % (25-40); Mean Corpuscular Hemoglobin 31.3 PG (26-34); Mean Corpuscular Volume 94.7 fL (80-100); Monocytes Absolute Auto 600 /uL (0-900); Monocytes Percent Auto 10.3 % (3-14); Neutrophils Absolute Auto 4300 /uL (1500-7000); Neutrophils Percent Auto 68.9 % (50-75); Platelet Count 337 X10^3/uL (150-400); Red Cell Distribution Width 14.6 % (11.6-14.8); White Blood Cell Count 6.2 X10^3/uL (4.5-11.0)
[2024-03-16 21:22] LABS: Alanine Aminotransferase 192 IU/L (<35); Albumin 3.9 g/dL (3.5-5.0); Albumin Globulin Ratio 1.3 (1.0-2.8); Alkaline Phosphatase 260 U/L (38-126); Aspartate Aminotransferase 138 IU/L (14-36); BUN Creatinine Ratio 30.3 (6-22); Bilirubin Total 0.8 mg/dL (0.2-1.3); Blood Urea Nitrogen 20 mg/dL (7-17); Carbon Dioxide 22 mmol/L (22-32); Chloride 113 mmol/L (98-107); Creatine Kinase 58 U/L (30-135); Estimated Glomerular Filt Rate > 60 mL/min (>60); Globulin 2.9 g/dL (1.7-4.1); Glucose 137 mg/dL (80-110); HEMOLYSIS < 15 (0-50); Potassium 3.9 mmol/L (3.4-5.1); Sodium 138 mmol/L (137-145); Total Protein 6.8 g/dL (6.3-8.2)
[2024-03-16 21:25] LABS: Prothrombin Time 11.4 SECONDS (9.4-12.5)
[2024-03-16 21:34] LABS: Troponin I < 0.012 ng/mL (0.01-0.034)
--- NOTE | 2024-03-16 22:34 | PC.NURSE ---
Pt seems anxious. Since this nurses arrival at 1900, she has pressed her call light every 5-10 minutes asking for different things. Even after asking her each time is she needs anything else. She seems a little confused at times. Depressed, Anxious, even when her is in the room with her she is calling and asking for things again that have been discussed already.
--- NOTE | 2024-03-16 22:55 | PC.NURSE ---
Addendum entered by Gloria Mueller CNA 03/17/24 05:31: IVONNE note: Spoke to Jens at [facility] and told him patient has a stress test at [facility] today if that helps with helping find her a bed. Jens said they currently have no beds and so he will put her on his priority list, but they don't have any expected discharges currently. 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 Thanked Jens for his help and passed the message to RN December. Addendum entered by Gloria Mueller CNA 03/16/24 23:37: IVONNE note: Spoke to Guerrero at 2315 from [facility], part of the Dipika Swanson group. He was calling from [place]. He asked if patient would be willing to come down to [facility], once I asked patient if she'd be willing to go down to [place]. Patient agreed. Spoke to Guerrero and gave him information. Guerrero said he would look into finding a bed, but said it maybe difficult to find bed. Thanked him for his help. Original Note: IVONNE note: Attempting to find placement for patient. Called the following places and had the following results: [facility]: 1909 Spoke w/ Sheila. Pushed images and facesheet. They currently have no beds. [facility]: 1915 Spoke with Janene, they said they'd call back. Currently have no beds. Dipika Swanson: 1923 spoke with Haydee, said she would call back, at 2099 said she is currently still looking but as of 2199 no beds. /[facility]: 2103 Spoke w/ Clau, pushed images and face sheet. Dr. Mcfarland spoke to them, they asked we continue to look around. [facility]: 2214 Spoke with the house sup. Stated they had no beds and no wait list. Spoke with Erma at [facility] at 2236, she said she could take two patients for her list but that the state was all looking for beds and even [place] was calling for beds. Erma took other two patients for the [facility] list, based on acuity.
[2024-03-17] VITALS (68 sets, daily range): BP systolic 68–148; BP diastolic 36–104; PULSE 58–106; RESP 12–50; TEMP 36.9–37.1; O2SAT 92–98; BMI 43.4
[2024-03-17] MEDS: QUETIAPINE 25 MG TABLET 50 MG PO (00:51)
[2024-03-17] MEDS: METOPROLOL IR 25 MG TABLET 100 MG PO (00:52)
[2024-03-17] MEDS: ATORVASTATIN 20 MG TABLET 80 MG PO (00:53)
[2024-03-17] MEDS: QUETIAPINE 100 MG TABLET PO (00:53)
[2024-03-17] MEDS: MIRTAZAPINE 15 MG TABLET 60 MG PO (00:55)
[2024-03-17] MEDS: ACETAMINOPHEN 325 MG TABLET 650 MG PO ×2 (01:43→10:32)
[2024-03-17] MEDS: SODIUM CHLORIDE 0.9% 1,000 ML 150 ML IV ×2 (02:38→05:34)
[2024-03-17 03:43] LABS: PTT Partial Thromboplastin Tim 69 SECONDS (25.1-36.5)
--- NOTE | 2024-03-17 04:26 | PC.NURSE ---
Changed pt over to hospital bed. Brief changed, gown, and new purewick applied. Pt can manage her CPAP machine independently. IVs running per order.
--- NOTE | 2024-03-17 07:41 | PC.NURSE ---
No signs of bleeding. skin in tact.
--- NOTE | 2024-03-17 08:03 | PC.NURSE ---
When rounding on pt at 0749 pt pump found to be running at higher than documented MAR dose. MAR stated pump running at 20ml/hr, however pump noted at 26.6ml/hr w/ no documented history of increased infusion rate. Order and pump double checked w/ Francheska LOVELACE. Dr. Pettit promptly notified about medication error; MD Pettit stated to wait until 0930 PTT draw before titrating pump dose down.
[2024-03-17] MEDS: ONDANSETRON 4 MG/2 ML INJ IV ×2 (08:55→12:05)
[2024-03-17] MEDS: NITROGLYCERIN 50 MG/250 ML INFUS..BTL IV (09:26)
[2024-03-17 09:31] LABS: PTT Partial Thromboplastin Tim 89 SECONDS (25.1-36.5)
== END 2024-03-17 12:19 | disposition short-term general hospital (02) ==
PROVIDERS: Emergency Medicine; Emergency Provider Emergency Medicine; Family Provider Anesthesiology Pain Medicine; PCP Physician Assistant
DX: I20.0 Unstable angina (principal); R07.9 Chest pain, unspecified; Z86.79 Personal history of other diseases of the circulatory system
CPT/HCPCS: 36415; 70450; 71045; 71275; 74174; 74183; 80053; 82550; 83690; 84484; 85025; 85379; 85610; 85730; 93005; 96361; 96365; 96366; 96367; 96368; 96375; 96376; 99285; 99291; A9579; J0136; J1170; J1200; J1644; J2060; J2270; J2405; J2919; Q9967

== ENCOUNTER 2024-03-26 21:34 | Emergency (ER) | payer MEDICARE, OTHER, SELFPAY ==
[2024-03-17 01:13] VITALS: BMI 43.4
--- NOTE | 2024-03-26 21:38 | ED_ITS ---
HPI - Abdominal Pain General Chief Complaint: Abdominal Pain Stated Complaint: LUQ pain Time Seen by Provider: 03/26/24 21:34 History of Present Illness HPI narrative: 74-year-old female complains of left upper quadrant abdominal pain and left middle quadrant abdominal pain, after released from [facility] earlier today, had medical transport from [place] to her home in [place], started developing left-sided abdominal symptoms EN route. Patient with history of coronary artery disease, previous remote stenting 15 years ago, more recent cholecystectomy at [facility] 03/01/2024, seen by me for evaluation of unrelenting left-sided chest pain 03/15/2024 for which she was transferred to [facility], had cardiac stress testing there, reports her coronaries were felt to be clean, no coronary interventions. She recalls consultations by Gastroenterology during her hospital stay [facility], as well as Cardiology, and as well as Cardiothoracic surgery. She feels that she has been told she will have revision of a paraesophageal hernia, to be planned by Cardiothoracic surgeon Dr. Cabrera at [facility] on 03/30/2024. She recalls prior esophageal procedure 2011 [facility], also 2013 revision paraesophageal surgery [facility]. She has allergy to morphine, arrived by EMS for further evaluation of her left-sided abdominal pain that developed post discharge today. She denies nausea or vomiting. She denies black or red stools. Denies loose stools. Denies pain on urination. She has no longer having chest pain that she had before. No arm pain, shoulder blade pain, neck pain, jaw pain. Related Data Home Medications Medication Instructions Recorded Confirmed lisinopril 10 mg tablet 10 mg PO DAILY 10/25/19 03/17/24 atorvastatin 80 mg tablet 80 mg PO BEDTIME 10/18/23 03/17/24 furosemide 20 mg tablet 20 mg PO DAILY 10/18/23 03/17/24 metoprolol tartrate 100 mg tablet 100 mg PO BID 10/18/23 03/17/24 mirtazapine 15 mg tablet (Remeron) 60 mg PO BEDTIME 03/17/24 03/17/24 Previous Rx's Medication Instructions Recorded duloxetine 60 mg capsule,delayed 60 mg PO DAILY #90 caps 11/29/23 release quetiapine 50 mg tablet 50 mg PO BEDTIME #90 tabs 12/06/23 pantoprazole 20 mg tablet,delayed 20 mg PO 0700 30 days #30 tabs 03/03/24 release Allergies Allergy/AdvReac Type Severity Reaction Status Date / Time aripiprazole [From ABILIFY] Allergy Severe TREMORS, Verified 03/14/24 16:37 ANAPHYLAXIS morphine [MORPHINE] Allergy Severe Swelling Verified 03/26/24 21:51 of Lip/Tongue/Throat adhesive tape Allergy Mild Rash Verified 03/14/24 16:37 bupropion [From WELLBUTRIN] AdvReac Severe HEADACHE Verified 03/14/24 16:37 propoxyphene AdvReac Severe Headache Verified 03/14/24 16:37 citalopram [CITALOPRAM] AdvReac Intermediate headache, Verified 03/14/24 16:37 difficulty thinking desvenlafaxine [From Pristiq] AdvReac Intermediate Shakiness Verified 03/14/24 16:37 indomethacin [INDOMETHACIN] AdvReac Intermediate GI UPSET Verified 03/14/24 16:37 phenobarbital [PHENOBARBITAL] AdvReac Intermediate DEPRESSION Verified 03/14/24 16:37 Review of Systems Review of Systems Narrative: per HPI Patient History Medical History (Updated 03/27/24 @ 02:24 by Matthias Mcfarland MD) Hard of hearing History of angina (~11/2019) Unstable angina Paraesophageal hernia Hyperlipidemia GERD (gastroesophageal reflux disease) Coronary artery disease Concussion Myocardial infarction Mild sleep apnea Arthritis of both hands Balance problem Bilateral hearing loss Hypertension Diabetes Surgical History (Updated 03/16/24 @ 19:49 by Matthias Mcfarland MD) History of cardiac cath H/O heart artery stent S/P scar revision H/O exploratory laparotomy (~2011) Status post cataract extraction of both eyes with insertion of intraocular lens History of total right hip arthroplasty S/P foot surgery, left History of total knee arthroplasty Social History household members: spouse Smoking Status: Never smoker alcohol intake: current Smoking Status: Never smoker alcohol intake frequency: holidays/special occasions only Substance Use Type: marijuana Exam Narrative Exam Narrative: GENERAL: Well-developed patient, in mild distress. HEAD: Atraumatic. Normocephalic. EYES: Pupils equal round and reactive. Extraocular motions intact. No scleral icterus. No injection or drainage. ENT: Nose without bleeding, purulent drainage. Throat without erythema, tonsillar hypertrophy or exudate. Airway patent. NECK: Trachea midline. Non tender CARDIOVASCULAR: Regular rate and rhythm without murmurs, gallops, or rubs. RESPIRATORY: Clear to auscultation. Breath sounds equal bilaterally. No wheezes, rales, or rhonchi. GASTROINTESTINAL: Abdomen soft, non-tender, nondistended. EXTREMITIES: No edema or joint tenderness. BACK: Nontender without deformity or crepitance. No flank tenderness. NEURO: AOx3. SKIN: No rash or erythema of visible areas Initial Vital Signs Initial Vital Signs: Vital Signs Temperature 98.7 F 03/26/24 21:45 Pulse Rate 77 03/26/24 21:45 Respiratory Rate 16 03/26/24 21:45 Blood Pressure 158/75 H 03/26/24 21:45 Pulse Oximetry 94 03/26/24 21:45 Oxygen Delivery Method Room Air 03/26/24 21:45 Course Orders Ordered: ED Orders 03/26/24 22:10 Complete Blood Count AUTO DIFF Stat Comprehensive Metabolic Panel Stat Lipase Stat 03/26/24 22:41 EKG-12 Lead Stat 03/26/24 22:42 CT abdomen pelvis w con Stat Discontinued Medications Hydromorphone HCl (Hydromorphone 0.5 Mg Inj) 0.5 mg IV NOW ONE Stop: 03/26/24 22:31 Last Admin: 03/26/24 23:10 Dose: 0.5 mg Documented By: JAYSON Tramadol HCl (Tramadol 50 Mg Prepack) 1 bottle MISC DIRECTED ONE Stop: 03/27/24 02:04 Last Admin: 03/27/24 02:08 Dose: 1 bottle Documented By: JOSÉ Tramadol HCl (Tramadol 50 Mg Tablet) 50 mg PO NOW ONE Stop: 03/27/24 02:05 Last Admin: 03/27/24 02:08 Dose: 50 mg Documented By: JOSÉ Vital Signs Vital signs: Vital Signs - 8 hr 03/26/24 21:45 03/26/24 22:07 03/26/24 22:30 Temperature 98.7 F Pulse Rate 77 75 75 Respiratory Rate 16 17 Blood Pressure 158/75 H Pulse Oximetry 94 95 Oxygen Delivery Method Room Air Oxygen Flow Rate 03/26/24 22:30 03/26/24 23:02 03/26/24 23:07 Temperature Pulse Rate 77 Respiratory Rate 15 Blood Pressure 137/63 141/64 H Pulse Oximetry 93 Oxygen Delivery Method Oxygen Flow Rate 03/26/24 23:07 03/26/24 23:30 03/26/24 23:30 Temperature Pulse Rate 78 85 Respiratory Rate 20 22 Blood Pressure 153/68 H Pulse Oximetry 95 95 Oxygen Delivery Method Room Air Oxygen Flow Rate 03/27/24 00:00 03/27/24 00:00 03/27/24 00:30 Temperature Pulse Rate 91 H Respiratory Rate 18 Blood Pressure 164/74 H 139/62 Pulse Oximetry 93 Oxygen Delivery Method Room Air Oxygen Flow Rate 03/27/24 00:30 03/27/24 00:50 03/27/24 00:51 Temperature Pulse Rate 90 Respiratory Rate 13 Blood Pressure Pulse Oximetry 95 90 L 94 Oxygen Delivery Method Room Air Room Air Nasal Cannula Oxygen Flow Rate 1.5 03/27/24 01:00 03/27/24 01:00 03/27/24 01:30 Temperature Pulse Rate 89 Respiratory Rate 12 Blood Pressure 133/63 137/63 Pulse Oximetry 94 Oxygen Delivery Method Oxygen Flow Rate 03/27/24 01:30 Temperature Pulse Rate 90 Respiratory Rate 12 Blood Pressure Pulse Oximetry 95 Oxygen Delivery Method Room Air Oxygen Flow Rate MDM - Abdominal Pain Lab Data Attestation: I reviewed the patient's lab results. 03/26/24 22:10 03/26/24 22:10 Labs: Lab Results 03/26/24 Range/Units 22:10 WBC 7.5 (4.5-11.0) X10^3/uL RBC 3.83 L (4.0-5.2) X10^6/uL Hgb 12.0 (12.0-16.0) g/dL Hct 36.3 (36-46) % MCV 94.8 (80-100) fL MCH 31.4 (26-34) PG MCHC 33.1 (30-36) % RDW 14.7 (11.6-14.8) % Plt Count 246 (150-400) X10^3/uL Neut % (Auto) 66.4 (50-75) % Lymph % (Auto) 19.4 L (25-40) % [facility] % (Auto) 11.3 (3-14) % Eos % (Auto) 2.4 (2-4) % Baso % (Auto) 0.5 (0-2) % Neut # (Auto) 5000 (0648-2699) /uL Lymph # (Auto) 1500 (3659-9627) /uL [facility] # (Auto) 800 (0-900) /uL Eos # (Auto) 200 (0-450) /uL Baso # (Auto) 0 (0-100) /uL Sodium 138 (137-145) mmol/L Potassium 4.1 (3.4-5.1) mmol/L Chloride 106 (98-107) mmol/L Carbon Dioxide 30 (22-32) mmol/L BUN 32 H (7-17) mg/dL Creatinine 1.00 (0.52-1.04) mg/dL Estimated GFR 59 L (>60) mL/min BUN/Creatinine Ratio 32.0 H (6-22) Glucose 124 H (80-110) mg/dL Calcium 9.5 (8.4-10.2) mg/dL Total Bilirubin 0.4 (0.2-1.3) mg/dL AST 32 (14-36) IU/L ALT 34 (<35) IU/L Alkaline Phosphatase 172 H (38-126) U/L Total Protein 6.9 (6.3-8.2) g/dL Albumin 3.9 (3.5-5.0) g/dL Globulin 3.0 (1.7-4.1) g/dL Albumin/Globulin Ratio 1.3 (1.0-2.8) Lipase 44 (23-300) U/L Point of care testing: Urine Dip Bedside Urine Glucose Negative Bedside Urine Bilirubin - Negative Bedside Urine Ketone - Negative Urine Specific [place] 1.010 Bedside Urine Occult Blood - Negative Bedside Urine pH 6.0 Bedside Urine Protein - Negative Bedside Urine Urobilinogen - Negative Bedside Urine Nitrite - Negative Bedside Urine Leukocytes - Negative Esterase Imaging Data CT scan - abdomen/pelvis: Radiologist's Impression: [address] [address] [address] Scan Report Signed Patient: Nora Gil MR#: [id number] : 1950 Acct:[id number] Age/Sex: 74 / F Date of Service: 03/26/24 Loc: ED Accession Number: [id number] Procedure: CT abdomen pelvis w con Ordering Provider: Matthias Mcfarland MD PROCEDURE: CT ABDOMEN PELVIS W CON INDICATIONS: LUQ pain, recent heart cath VMason, new LUQ pain TECHNIQUE: After the administration of intravenous contrast, axial sections acquired from the lung bases to the pubic symphysis. Coronal and sagittal reformats were performed. For radiation dose reduction, the following was used: automated exposure control, adjustment of mA and/or kV according to patient size. COMPARISON: MRI abdomen 03/16/2024, CT angio chest abdomen pelvis on 03/16/2024 FINDINGS: Image quality: Diagnostic. Lower Chest: No significant findings. ABDOMEN: Liver: No solid mass. Gallbladder: Surgically absent Biliary ducts: Moderate intrahepatic and common bile duct dilation, likely related to post cholecystectomy changes. Pancreas: No ductal dilation. Spleen: Size is within normal limits. Adrenal Glands: No adrenal nodules. Kidneys and Ureters: No hydronephrosis. No solid mass. No complex renal cystic lesion which requires follow up. Stomach and Bowel: Small to moderate hiatal hernia. Normal colonic caliber, without significant wall thickening. Colonic diverticulosis without acute inflammation. Peritoneum: No abnormal intraperitoneal fluid. No free air. Ventral Wall: Fat containing ventral hernia. Abdominal Nodes: No retroperitoneal or mesenteric adenopathy by size criteria. Vessels: Aorta and inferior vena cava are normal in size. Aorto bi iliac atherosclerotic calcifications PELVIS: Pelvic Organs: Unremarkable. Bladder: No bladder wall thickening, accounting for underdistention. Pelvic Nodes: No enlarged lymph nodes. Miscellaneous: No inguinal hernias are seen. Bones: No aggressive osseous abnormality. Multilevel degenerative changes. Status post or L4-S1 posterior fixation and intervertebral disc spacer. Chronic L1 vertebral body compression fracture. Multilevel degenerative changes. No acute vertebral body compression fracture. IMPRESSION: No acute process in the abdomen or pelvis. Colonic diverticulosis without CT evidence of acute diverticulitis. Cholecystectomy with intra and extrahepatic biliary dilatation, not significantly changed compared to prior and likely related to reservoir effect. Approved by: Fely Scott M.D.,Ph.D. on 03/26/2024 at 23:58 ECG Data Attestation: I personally reviewed and interpreted this ECG as follows: Interpretation: Normal sinus rhythm with rate of 74. No obvious ST segment elevation or depression changes. VA 178, QRS 66, QTC 432. MDM Narrative Medical decision making narrative: 74-year-old female with complex medical history, prior coronary artery stenting, recent evaluation for unstable angina at [facility] with reported clean cardiac catheterization per patient, remote esophageal surgeries 2011 and 2012, patient reporting there is a suspected problem with her esophagus, awaiting elective repair outpatient at [facility] now on 03/30/2024. [facility], during transport she had left upper quadrant abdominal pain, no fall trauma. Afebrile on triage, arrival by EMS, history of morphine associated allergy. She as able to take Dilaudid. We will give IV Dilaudid dose for now. EKG, chest x-ray, labs pending. Anticipate CT abdominopelvic imaging. Labs largely unremarkable, normal white blood cell count, urinalysis negative. Liver functions and lipase normal. Renal function normal. CT abdomen and pelvis with IV contrast ordered CT abdomen and pelvis showed no acute changes. See Radiology report above She had improved symptoms, oral tramadol dose given in ED, home pack tramadol to use if needed. Advised to follow up with Cardiothoracic surgery as scheduled. Post hospitalization follow up with her PCP also advised. Copy of CT abdomen and pelvis imaging provided onto a disc should she need her Cardiothoracic surgeon to review at upcoming appointment. Copy of radiology report provided. Home with Critical Care Time Critical Care Time Critical Care Time: Yes Total Critical Care Time: 31 Attestation: The high probability of a clinically significant, sudden or life threatening deterioration of the [abdominopelvic, gastrointestinal, cardiovascular] system(s) required my full and direct attention, intervention and personal management. The aggregate critical care time was [31] minutes. This time is in addition to time spent performing reported procedures but includes the following: [x] Data Review and interpretation [x] Patient assessment and monitoring of vital signs [x] Documentation [x] Medication orders and management Discharge Plan Departure Patient Disposition: Home Clinical Impression: Abdominal pain Activity Restrictions/Additional Instructions: Left-sided abdominal cane after extensive workup Dipika swanson for upper abdominal lower chest discomfort, reported cardiac catheterization was cleaned during that evaluation, concern for future revision of your esophageal surgery later this month by Cardiothoracic surgeon, taking antacid medication. Labs sent, unremarkable results today. CT abdomen and pelvis showed no acute changes. Consider use of tramadol pain medication, home pack for discharge. Follow up with your regular provider post hospitalization as planned. Follow up with Dipika Swanson for revision of your esophagus surgery as planned. Return earlier to this/nearest emergency department for any change worsening symptoms or any concerns prior Prescriptions: No Action atorvastatin 80 mg tablet 80 mg PO BEDTIME furosemide 20 mg tablet 20 mg PO DAILY metoprolol tartrate 100 mg tablet 100 mg PO BID duloxetine 60 mg capsule,delayed release(DR/EC) 60 mg PO DAILY Qty: 90 3RF quetiapine 50 mg tablet 50 mg PO BEDTIME Qty: 90 1RF lisinopril 10 mg Tablet 10 mg PO DAILY pantoprazole 20 mg Tablet,Delayed Release (Dr/Ec) 20 mg PO 0700 30 Days Qty: 30 0RF mirtazapine [Remeron] 15 mg Tablet 60 mg PO BEDTIME Rx Instructions: pt states she takes 45mg and 15mg. Referrals: Salena Long PA-C [Primary Care Provider] - Stand Alone Forms: Patient Portal/API
[2024-03-26 21:45] VITALS: BP 158/75; PULSE 77; RESP 16; TEMP 37.1; O2SAT 94; BMI 39.2
[2024-03-26 22:07] VITALS: PULSE 75; O2SAT 95
[2024-03-26 22:22] LABS: Add Manual Diff / Slide Review NO; Basophils Absolute Auto 0 /uL (0-100); Basophils Percent Auto 0.5 % (0-2); Eosinophils Absolute Auto 200 /uL (0-450); Eosinophils Percent Auto 2.4 % (2-4); Hematocrit 36.3 % (36-46); Lymphocytes Absolute Auto 1500 /uL (1100-4500); Lymphocytes Percent Auto 19.4 % (25-40); Mean Corpuscular HGB Conc 33.1 % (30-36); Mean Corpuscular Hemoglobin 31.4 PG (26-34); Mean Corpuscular Volume 94.8 fL (80-100); Monocytes Absolute Auto 800 /uL (0-900); Monocytes Percent Auto 11.3 % (3-14); Neutrophils Absolute Auto 5000 /uL (1500-7000); Neutrophils Percent Auto 66.4 % (50-75); Platelet Count 246 X10^3/uL (150-400); Red Blood Cell Count 3.83 X10^6/uL (4.0-5.2); Red Cell Distribution Width 14.7 % (11.6-14.8); White Blood Cell Count 7.5 X10^3/uL (4.5-11.0)
[2024-03-26 22:30] VITALS: BP 137/63; PULSE 75; RESP 17
[2024-03-26 22:33] LABS: Alanine Aminotransferase 34 IU/L (<35); Albumin 3.9 g/dL (3.5-5.0); Albumin Globulin Ratio 1.3 (1.0-2.8); Alkaline Phosphatase 172 U/L (38-126); Aspartate Aminotransferase 32 IU/L (14-36); Bilirubin Total 0.4 mg/dL (0.2-1.3); Blood Urea Nitrogen 32 mg/dL (7-17); Calcium 9.5 mg/dL (8.4-10.2); Carbon Dioxide 30 mmol/L (22-32); Chloride 106 mmol/L (98-107); Estimated Glomerular Filt Rate 59 mL/min (>60); Glucose 124 mg/dL (80-110); HEMOLYSIS < 15 (0-50); Lipase 44 U/L (23-300); Potassium 4.1 mmol/L (3.4-5.1); Sodium 138 mmol/L (137-145); Total Protein 6.9 g/dL (6.3-8.2)
--- NOTE | 2024-03-26 22:42 | DI.CT.S_ITS ---
PROCEDURE: CT ABDOMEN PELVIS W CON INDICATIONS: LUQ pain, recent heart cath VMason, new LUQ pain TECHNIQUE: After the administration of intravenous contrast, axial sections acquired from the lung bases to the pubic symphysis. Coronal and sagittal reformats were performed. For radiation dose reduction, the following was used: automated exposure control, adjustment of mA and/or kV according to patient size. COMPARISON: MRI abdomen 03/16/2024, CT angio chest abdomen pelvis on 03/16/2024 FINDINGS: Image quality: Diagnostic. Lower Chest: No significant findings. ABDOMEN: Liver: No solid mass. Gallbladder: Surgically absent Biliary ducts: Moderate intrahepatic and common bile duct dilation, likely related to post cholecystectomy changes. Pancreas: No ductal dilation. Spleen: Size is within normal limits. Adrenal Glands: No adrenal nodules. Kidneys and Ureters: No hydronephrosis. No solid mass. No complex renal cystic lesion which requires follow up. Stomach and Bowel: Small to moderate hiatal hernia. Normal colonic caliber, without significant wall thickening. Colonic diverticulosis without acute inflammation. Peritoneum: No abnormal intraperitoneal fluid. No free air. Ventral Wall: Fat containing ventral hernia. Abdominal Nodes: No retroperitoneal or mesenteric adenopathy by size criteria. Vessels: Aorta and inferior vena cava are normal in size. Aorto bi iliac atherosclerotic calcifications PELVIS: Pelvic Organs: Unremarkable. Bladder: No bladder wall thickening, accounting for underdistention. Pelvic Nodes: No enlarged lymph nodes. Miscellaneous: No inguinal hernias are seen. Bones: No aggressive osseous abnormality. Multilevel degenerative changes. Status post or L4-S1 posterior fixation and intervertebral disc spacer. Chronic L1 vertebral body compression fracture. Multilevel degenerative changes. No acute vertebral body compression fracture. IMPRESSION: No acute process in the abdomen or pelvis. Colonic diverticulosis without CT evidence of acute diverticulitis. Cholecystectomy with intra and extrahepatic biliary dilatation, not significantly changed compared to prior and likely related to reservoir effect. Approved by: Fely Scott M.D.,Ph.D. on 03/26/2024 at 23:58
--- NOTE | 2024-03-26 22:45 | EKG_ITS ---
[address] [address] Test Date: 2024-03-26 Pat Name: Nora Gil Department: [facility] Room: Gender: Female Jackerman: EUGENE : 1950 Requested By: Order Number: [id number] Reading MD: Yovanny Gutierrez MD Measurements Intervals [place] Rate: 74 P: 46 IL: 178 QRS: 7 QRSD: 66 T: 2 QT: 390 QTc: 432 Interpretive Statements Normal sinus rhythm Electronically Signed On 03-27-2024 7:55:15 PDT by Yovanny Gutierrez MD
[2024-03-26 23:02] VITALS: PULSE 77; RESP 15; O2SAT 93
[2024-03-26 23:07] VITALS: BP 141/64; PULSE 78; RESP 20; O2SAT 95
[2024-03-26] MEDS: HYDROMORPHONE 0.5 MG INJ IV (23:10)
[2024-03-26 23:30] VITALS: BP 153/68; PULSE 85; RESP 22; O2SAT 95
[2024-03-27] VITALS: BP 164/74; PULSE 91; RESP 18; O2SAT 93
[2024-03-27 00:30] VITALS: BP 139/62; PULSE 90; RESP 13; O2SAT 95
[2024-03-27 00:50] VITALS: O2SAT 90
[2024-03-27 00:51] VITALS: O2SAT 94
[2024-03-27 01:00] VITALS: BP 133/63; PULSE 89; RESP 12; O2SAT 94
[2024-03-27 01:30] VITALS: BP 137/63; PULSE 90; RESP 12; O2SAT 95
[2024-03-27] MEDS: TRAMADOL 50 MG PREPACK 1 BOTTLE MISC (02:08)
[2024-03-27] MEDS: TRAMADOL 50 MG TABLET PO (02:08)
== END 2024-03-27 03:09 | disposition home or self-care (01) ==
PROVIDERS: Emergency Provider Emergency Medicine; Family Provider Anesthesiology Pain Medicine; PCP Physician Assistant
DX: R10.12 Left upper quadrant pain (principal)
CPT/HCPCS: 36415; 74177; 80053; 81003; 83690; 85025; 93005; 96374; 99284; 99285; J1170; Q9967

== ENCOUNTER 2024-04-19 15:34 | Emergency (ER) | payer MEDICARE, OTHER, SELFPAY ==
[2024-03-17 01:13] VITALS: BMI 43.4
[2024-04-19] VITALS (16 sets, daily range): BP systolic 135–188; BP diastolic 57–86; PULSE 69–97; RESP 16–185; TEMP 36.7; O2SAT 91–98; BMI 36.6
--- NOTE | 2024-04-19 15:57 | EKG_ITS ---
[address] [address] Test Date: 2024-04-19 Pat Name: Nora Gil Department: Room: Gender: Female Web Pressman: CARMEL : 1950 Requested By: Order Number: [id number] Reading MD: Conner Vickers Measurements Intervals [place] Rate: 69 P: 22 AL: 180 QRS: -9 QRSD: 66 T: -11 QT: 390 QTc: 417 Interpretive Statements Normal sinus rhythm Minimal voltage criteria for LVH, may be normal variant ( R in aVL ) Electronically Signed On 04-20-2024 8:36:03 PDT by Conner Vickers
--- NOTE | 2024-04-19 15:57 | DI.RAD.S_ITS ---
PROCEDURE: XR CHEST 1V INDICATIONS: Flu like symptoms TECHNIQUE: One view of the chest was acquired. COMPARISON: [facility], CR, XR CHEST 1V, 03/16/2024, 0:40. FINDINGS: Surgical changes and devices: None. Lungs and pleura: Lungs are clear. No pleural effusions or pneumothorax. Mediastinum: Mediastinal contours appear normal. Heart size is normal. Bones and chest wall: No suspicious bony lesions. Overlying soft tissues appear unremarkable. IMPRESSION: No acute cardiopulmonary abnormality is seen. Dictated by: Federico Howard M.D. on 04/19/2024 at 16:44 Approved by: Federico Howard M.D. on 04/19/2024 at 16:45
[2024-04-19 16:30] LABS: Troponin I < 0.012 ng/mL (0.01-0.034)
[2024-04-19] MEDS: ACETAMINOPHEN 325 MG TABLET 975 MG PO (16:36)
--- NOTE | 2024-04-19 16:40 | PC.NURSE ---
pt requesting nitroglycerin. Discussed w/ provider. None indicated as pt has reproducable chest pain by palpation, movement and deep breath.
--- NOTE | 2024-04-19 16:55 | DI.US.S_ITS ---
PROCEDURE: US PERIP VENOUS LOW EXTREM BI INDICATIONS: bilat swelling w/ h/o clots TECHNIQUE: Real-time imaging, as well as color and pulse Doppler interrogation, were performed of the deep veins of both legs from the inguinal ligament to the popliteal fossa, with documentation of the visualized calf veins. COMPARISON: [facility], , [facility] VENOUS LOW EXTREM BI, 10/27/2019, 11:34. FINDINGS: Right: The common femoral, femoral, popliteal, and the visualized calf veins are normally compressible, and free of intraluminal thrombus. Color and pulse Doppler demonstrate normal phasic intravascular flow. There is normal augmentation response to distal compression maneuver. Left: The common femoral, femoral, popliteal, and the visualized calf veins are normally compressible, and free of intraluminal thrombus. Color and pulse Doppler demonstrate normal phasic intravascular flow. There is normal augmentation response to distal compression maneuver. IMPRESSION: No findings of deep venous thrombosis in either lower extremity. Dictated by: Cornell Pal M.D. on 04/19/2024 at 18:39 Approved by: Cornell Pal M.D. on 04/19/2024 at 18:39
--- NOTE | 2024-04-19 16:56 | PC.NURSE ---
Pt and asked to speak with me. Pt and very upset at wait. States she feels horrid and is very insistent on being roomed. Pt has been medicated w/ tylenol. EKG reviewed by Dr. Pandya w/ no acute findings. Troponin is negative. Pt also states she has lower extremity edema and has h/o clots. Discussed w/ Dr. pandya, new orders obtained. Discussed w/ pt and triage protocols and that her results thus far are reassuring. Discussed that we need to see the most ill person first in the ED. Pt asked how we didn't know she was the sickest. I reviewed her care thus far and the fact that she has been able to advocate for herself. Pt called our care [facility]. Discussed that she was welcome to receive care anywhere and we would see her olvin. Updated on new orders. Gave them my name for follow up.
--- NOTE | 2024-04-19 17:11 | EKG_ITS ---
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
[2024-04-19 17:29] LABS: NT-proBNP (BNP-Adult 18+) 264 pg/mL (<450)
[2024-04-19 17:59] LABS: Add Manual Diff / Slide Review NO; Basophils Absolute Auto 0 /uL (0-100); Basophils Percent Auto 0.6 % (0-2); Eosinophils Absolute Auto 200 /uL (0-450); Eosinophils Percent Auto 3.2 % (2-4); Hematocrit 35.9 % (36-46); Hemoglobin 11.9 g/dL (12.0-16.0); Lymphocytes Absolute Auto 1600 /uL (1100-4500); Mean Corpuscular HGB Conc 33.2 % (30-36); Mean Corpuscular Hemoglobin 31.4 PG (26-34); Mean Corpuscular Volume 94.7 fL (80-100); Monocytes Absolute Auto 600 /uL (0-900); Monocytes Percent Auto 10.8 % (3-14); Neutrophils Absolute Auto 2900 /uL (1500-7000); Neutrophils Percent Auto 55.4 % (50-75); Platelet Count 314 X10^3/uL (150-400); White Blood Cell Count 5.3 X10^3/uL (4.5-11.0)
[2024-04-19] MEDS: ONDANSETRON 4 MG/2 ML INJ IV (18:04)
[2024-04-19 18:58] LABS: INR 0.9 (0.9-1.3); Prothrombin Time 10.5 SECONDS (9.4-12.5)
[2024-04-19 19:00] LABS: PTT Partial Thromboplastin Tim 32 SECONDS (25.1-36.5)
[2024-04-19 19:16] LABS: Alanine Aminotransferase 172 IU/L (<35); Albumin 3.7 g/dL (3.5-5.0); Albumin Globulin Ratio 1.3 (1.0-2.8); Alkaline Phosphatase 268 U/L (38-126); Aspartate Aminotransferase 129 IU/L (14-36); BUN Creatinine Ratio 34.8 (6-22); Bilirubin Total 0.3 mg/dL (0.2-1.3); Blood Urea Nitrogen 24 mg/dL (7-17); Calcium 8.5 mg/dL (8.4-10.2); Carbon Dioxide 26 mmol/L (22-32); Chloride 108 mmol/L (98-107); Creatine Kinase 50 U/L (30-135); Estimated Glomerular Filt Rate > 60 mL/min (>60); Globulin 2.8 g/dL (1.7-4.1); Glucose 100 mg/dL (80-110); HEMOLYSIS < 15 (0-50); Lipase 27 U/L (23-300); Magnesium 1.9 mg/dL (1.6-2.3); Potassium 3.8 mmol/L (3.4-5.1); Sodium 138 mmol/L (137-145); Total Protein 6.5 g/dL (6.3-8.2)
[2024-04-19 19:27] LABS: Troponin I < 0.012 ng/mL (0.01-0.034)
--- NOTE | 2024-04-19 19:36 | ED_ITS ---
HPI - Chest Pain General Chief Complaint: Chest Pain Stated Complaint: Chest Pain Time Seen by Provider: 04/19/24 17:53 Source: patient and EMS Mode of arrival: EMS Limitations: no limitations History of Present Illness HPI narrative: Patient is a 74-year-old female history of coronary artery disease with remote history of stents 15 years ago recently admitted to [facility] February 24 through March 03 during that stay she was diagnosed with costochondritis she was then transferred to [facility] on March 15 were cardiac testing was done there coronaries were felt to be clean without cardiac interventions. She was told that she needed a revision of her paraesophageal surgery for her hiatal hernia today she is presenting today with chest pain. She reports that her chest pain started this morning it was heavy nonradiating she took a nitro it resolved however she reports that she went to lunch and eat very much and did not feel quite right still came in. Patient was requesting troponin test only and refusing most all other testing but ultimately agreed. Related Data Home Medications Medication Instructions Recorded Confirmed lisinopril 10 mg tablet 10 mg PO DAILY 10/25/19 03/17/24 atorvastatin 80 mg tablet 80 mg PO BEDTIME 10/18/23 03/17/24 furosemide 20 mg tablet 20 mg PO DAILY 10/18/23 03/17/24 metoprolol tartrate 100 mg tablet 100 mg PO BID 10/18/23 03/17/24 mirtazapine 15 mg tablet (Remeron) 60 mg PO BEDTIME 03/17/24 03/17/24 Previous Rx's Medication Instructions Recorded duloxetine 60 mg capsule,delayed 60 mg PO DAILY #90 caps 11/29/23 release quetiapine 50 mg tablet 50 mg PO BEDTIME #90 tabs 12/06/23 ciprofloxacin HCl 500 mg tablet 500 mg PO BID #20 tabs 04/19/24 (Cipro) metronidazole 500 mg tablet 500 mg PO Q8H 7 days #30 tabs 04/19/24 Allergies Allergy/AdvReac Type Severity Reaction Status Date / Time aripiprazole [From ABILIFY] Allergy Severe TREMORS, Verified 04/19/24 22:18 ANAPHYLAXIS morphine [MORPHINE] Allergy Severe Swelling Verified 04/19/24 22:18 of Lip/Tongue/Throat adhesive tape Allergy Mild Rash Verified 04/19/24 22:18 bupropion [From WELLBUTRIN] AdvReac Severe HEADACHE Verified 04/19/24 22:18 propoxyphene AdvReac Severe Headache Verified 04/19/24 22:18 citalopram [CITALOPRAM] AdvReac Intermediate headache, Verified 04/19/24 22:18 difficulty thinking desvenlafaxine [From Pristiq] AdvReac Intermediate Shakiness Verified 04/19/24 22:18 indomethacin [INDOMETHACIN] AdvReac Intermediate GI UPSET Verified 04/19/24 22:18 phenobarbital [PHENOBARBITAL] AdvReac Intermediate DEPRESSION Verified 04/19/24 22:18 Patient History Medical History (Updated 04/19/24 @ 22:04 by Anny Blanca DO) Hard of hearing History of angina (~11/2019) Unstable angina Paraesophageal hernia Hyperlipidemia GERD (gastroesophageal reflux disease) Coronary artery disease Concussion Myocardial infarction Mild sleep apnea Arthritis of both hands Balance problem Bilateral hearing loss Hypertension Diabetes Surgical History (Updated 03/16/24 @ 19:49 by Matthias Mcfarland MD) History of cardiac cath H/O heart artery stent S/P scar revision H/O exploratory laparotomy (~2011) Status post cataract extraction of both eyes with insertion of intraocular lens History of total right hip arthroplasty S/P foot surgery, left History of total knee arthroplasty Social History household members: spouse Smoking Status: Never smoker alcohol intake: current Smoking Status: Never smoker alcohol intake frequency: holidays/special occasions only Substance Use Type: marijuana Exam Initial Vital Signs Initial Vital Signs: Vital Signs Temperature 98.0 F 04/19/24 15:51 Pulse Rate 69 04/19/24 15:51 Respiratory Rate 16 04/19/24 15:51 Blood Pressure 149/70 H 04/19/24 15:51 Pulse Oximetry 97 04/19/24 15:51 Oxygen Delivery Method Room Air 04/19/24 15:51 GENERAL: Alert 74-year-old female and in no acute distress. HEENT: Head atraumatic,EOMI, pupils reactive, face symmetric, moist mucous membranes CARDIOVASCULAR: Regular rate and rhythm without murmurs, rubs or gallops. RESPIRATORY: Breath sounds equal bilaterally, no wheezes rales or rhonchi. ABDOMEN: Soft, mild abdominal pain no significant guarding distention EXTREMITIES: Normal range of motion, no clubbing or edema. Neurovascularly intact NEUROLOGICAL: Alert and oriented x4.Normal gait and speech. SKIN: Warm, dry, no laceration, no petechiae, no rashes or lesions. Course Orders Ordered: ED Orders 04/19/24 19:51 CT abdomen pelvis w con Stat Discontinued Medications Acetaminophen (Acetaminophen 325 Mg Tablet) 975 mg PO NOW ONE Stop: 04/19/24 16:29 Last Admin: 04/19/24 16:36 Dose: 975 mg Documented By: TL Ciprofloxacin (Ciprofloxacin 250 Mg Tablet) 500 mg PO NOW ONE Stop: 04/19/24 22:02 Last Admin: 04/19/24 22:12 Dose: 500 mg Documented By: Hydromorphone HCl (Hydromorphone 0.5 Mg Inj) 0.5 mg IV NOW ONE Stop: 04/19/24 21:32 Last Admin: 04/19/24 21:38 Dose: 0.5 mg Documented By: Metronidazole (Metronidazole 500 Mg Tablet) 500 mg PO NOW ONE Stop: 04/19/24 22:02 Last Admin: 04/19/24 22:13 Dose: 500 mg Documented By: Ondansetron HCl (Ondansetron 4 Mg/2 Ml Inj) 4 mg IV NOW PRN PRN Reason: Nausea And Vomiting Last Admin: 04/19/24 18:04 Dose: 4 mg Documented By: SILVIO Ondansetron HCl (Ondansetron 4 Mg Odt) 4 mg SL NOW PRN PRN Reason: Nausea And Vomiting Last Admin: 04/19/24 22:13 Dose: 4 mg Documented By: Vital Signs Vital signs: Vital Signs - 8 hr 04/19/24 20:00 04/19/24 20:00 04/19/24 20:30 Pulse Rate 77 Respiratory Rate 24 Blood Pressure 155/71 H 168/75 H Pulse Oximetry 95 04/19/24 20:30 04/19/24 21:03 04/19/24 21:44 Pulse Rate 83 88 Respiratory Rate 20 Blood Pressure 188/86 H Pulse Oximetry 93 94 04/19/24 21:44 04/19/24 22:00 Pulse Rate 88 97 H Respiratory Rate 23 Blood Pressure Pulse Oximetry 93 91 MDM - Chest Pain Lab Data 04/19/24 17:38 04/19/24 18:41 Labs: Lab Results 07/31/24 07/31/24 07/31/24 Range/Units 13:45 17:38 18:41 WBC 5.3 (4.5-11.0) X10^3/uL RBC 3.80 L (4.0-5.2) X10^6/uL Hgb 11.9 L (12.0-16.0) g/dL Hct 35.9 L (36-46) % MCV 94.7 (80-100) fL MCH 31.4 (26-34) PG MCHC 33.2 (30-36) % RDW 14.0 (11.6-14.8) % Plt Count 314 (150-400) X10^3/uL Neut % (Auto) 55.4 (50-75) % Lymph % (Auto) 30.0 (25-40) % [place] % (Auto) 10.8 (3-14) % Eos % (Auto) 3.2 (2-4) % Baso % (Auto) 0.6 (0-2) % Neut # (Auto) 2900 (0366-7439) /uL Lymph # (Auto) 1600 (4063-3293) /uL [place] # (Auto) 600 (0-900) /uL Eos # (Auto) 200 (0-450) /uL Baso # (Auto) 0 (0-100) /uL PT 10.5 (9.4-12.5) SECONDS INR 0.9 (0.9-1.3) APTT 32 (25.1-36.5) SECONDS Sodium 138 (137-145) mmol/L Potassium 3.8 (3.4-5.1) mmol/L Chloride 108 H (98-107) mmol/L Carbon Dioxide 26 (22-32) mmol/L BUN 24 H (7-17) mg/dL Creatinine 0.69 (0.52-1.04) mg/dL Estimated GFR > 60 (>60) mL/min BUN/Creatinine Ratio 34.8 H (6-22) Glucose 100 (80-110) mg/dL Calcium 8.5 (8.4-10.2) mg/dL Magnesium 1.9 (1.6-2.3) mg/dL Total Bilirubin 0.3 (0.2-1.3) mg/dL AST 129 H (14-36) IU/L ALT 172 H (<35) IU/L Alkaline Phosphatase 268 H (38-126) U/L Total Creatine Kinase 50 (30-135) U/L Troponin I < 0.012 < 0.012 (0.01-0.034) ng/mL NT-Pro-B Natriuret Pep 264 (<450) pg/mL Total Protein 6.5 (6.3-8.2) g/dL Albumin 3.7 (3.5-5.0) g/dL Globulin 2.8 (1.7-4.1) g/dL Albumin/Globulin Ratio 1.3 (1.0-2.8) Lipase 27 (23-300) U/L Imaging Data Chest x-ray: Radiologist's Impression: PROCEDURE: XR CHEST 1V INDICATIONS: Flu like symptoms TECHNIQUE: One view of the chest was acquired. COMPARISON: [facility], CR, XR CHEST 1V, 03/16/2024, 0:40. FINDINGS: Surgical changes and devices: None. Lungs and pleura: Lungs are clear. No pleural effusions or pneumothorax. Mediastinum: Mediastinal contours appear normal. Heart size is normal. Bones and chest wall: No suspicious bony lesions. Overlying soft tissues appear unremarkable. IMPRESSION: No acute cardiopulmonary abnormality is seen. Dictated by: Federico Howard M.D. on 04/19/2024 at 16:44 CT scan - abdomen/pelvis: Radiologist's Impression: PROCEDURE: CT ABDOMEN PELVIS W CON INDICATIONS: pain hx recent manjit, and volvulus TECHNIQUE: After the administration of intravenous contrast, axial sections acquired from the lung bases to the pubic symphysis. Coronal and sagittal reformats were performed. For radiation dose reduction, the following was used: automated exposure control, adjustment of mA and/or kV according to patient size. COMPARISON: [facility], CT, CT ABDOMEN PELVIS W CON, 03/26/2024, 22:51. FINDINGS: Image quality: Diagnostic. Lower Chest: No significant findings. ABDOMEN: Liver: No solid mass. Gallbladder: Status post cholecystectomy. Biliary ducts: Mild large main of the intrahepatic and extrahepatic biliary ducts again seen, likely related to post cholecystectomy state. Pancreas: No ductal dilation. Spleen: Size is within normal limits. Adrenal Glands: No adrenal nodules. Kidneys and Ureters: No hydronephrosis. No solid mass. No complex renal cystic lesion which requires follow up. Stomach and Bowel: Moderate hiatal hernia. Multiple diverticula are seen in the colon. Mild inflammatory fat stranding is seen adjacent to the distal sigmoid colon, which is suspicious for mild acute diverticulitis. Normal appendix. No signs of small bowel obstruction. Peritoneum: No abnormal intraperitoneal fluid. No free air. Ventral Wall: Small fat containing periumbilical hernia. Abdominal Nodes: No retroperitoneal or mesenteric adenopathy by size criteria. Vessels: Aorta and inferior vena cava are normal in size. PELVIS: Pelvic Organs: Unremarkable. Bladder: No bladder wall thickening, accounting for underdistention. Pelvic Nodes: No enlarged lymph nodes. Miscellaneous: No inguinal hernias are seen. Bones: No aggressive osseous abnormality. Postsurgical changes from right total hip arthroplasty. Postsurgical changes also seen in the lumbar spine. Chronic L1 compression fracture appears unchanged. IMPRESSION: 1. Sigmoid diverticulosis with mild focal pericolonic inflammatory changes suspicious for acute uncomplicated diverticulitis. 2. Status post cholecystectomy. Biliary duct dilatation is likely related to post cholecystectomy status. 3. Moderate hiatal hernia. Approved by: Thomas Schmitz M.D. on 04/19/2024 at 21:52 ECG Data Attestation: I personally reviewed and interpreted this ECG as follows: Prior ECG tracings: available for review Interpretation: Normal sinus rhythm rate 69 KS interval 180 QRS 66 QTC 417 T-wave inversion noted in lead 3 similar to previous EKGs no acute ST changes MDM Narrative Medical decision making narrative: Patient is a 74-year-old female presenting today with chest pain and abdominal pain along with variety of other symptoms. She initially was refusing workup that was recommended to her but ultimately agreed. She has been seen and evaluated multiple times multiple admissions recently. Chest pain was diagnosed as costochondritis she had an echocardiogram in February found have a EF of 60-65% MDM CC: Chest pain abdominal pain Complicating co-morbidities: [ ] Corroborating data: [ ] Data collected from: [ ] Medical records reviewed: Admitted to this hospital February 23 through March 03, ACS was ruled out chest pain due to chronic costochondritis developed cholelithiasis with biliary colic 02/24/2024 echo 60-65% no wall motion abnormalities 03/16/2024 MRI of the abdomen showed a dilated bile duct diverticulosis without diverticulitis and a small hiatal hernia 03/18/2024 VM reports reviewed left heart catheterization and coronary angiography, right coronary artery stent present without restenosis, left main artery free of narrowing, AD gave off large distribution proximal diagonal vessel which appeared to have 30-40% proximal narrowing. There is stenting in the midportion just proximal to the stent there was a 40% to 50% proximal narrowing and a very mild 30% in the stent restenosis. Circumflex vessel was non dominant with eccentric 40% midstenosis normal flow. In summary this catheterizations demonstrates no significant high-grade coronary stenosis either by angiography or pressure gradient to account for her recurrent episodes of chest pain. Differential considered: ACS, hiatal hernia, behavioral, post cholecystectomy complication Exam documented above, pertinent findings include: Abdomen is soft minimally tender in her epigastric region Lab Test results independently reviewed as above. Pertinent findings: WBC 5.9, hemoglobin 11.9, hematocrit 35.9 platelets 314 sodium 138, potassium 3.8, chloride 108, carbon dioxide 26 BUN 24 creatinine 0.69 AST 129, previously 251, 147, 138 ALT 172, 204, 186, 192 Alk-phos 268, 221, 241, 260 Bilirubin 0.3 Troponin negative Lipase 27 Independently reviewed EKG as above Imaging studies independently reviewed: CT abdomen pelvis does show mild diverticulitis Consultations: [ ] Treatments: [ ] Re-evaluations: [ ] Discussion: Patient presenting today with chest pain abdominal pain she has had multiple ED visits for the same. She had a recent heart catheterization which did not show any sort of significant coronary artery disease she has chronically elevated liver enzymes which actually seem mildly more improved today. CT abdomen does show possibly mild uncomplicated diverticulitis. She has no fever or leukocytosis. Possibly correlates with her pain in her abdomen. She is having chronic ongoing chest pain but is not acute coronary syndrome. Low suspicion for pulmonary embolism, she actually had a CT angio 03/16/2024. She is given Cipro and Flagyl for possible diverticulitis noted on CT. She was given Tylenol earlier for pain when I saw her she was not complaining of pain however while waiting for her CT results she wanted to leave because we had not given her anything for pain. She was given Dilaudid which seemed to help. At this time she has had chronic ongoing chest pain proven to be not cardiac related that this time she can follow up with the primary care provider in regards to pain control. Discharge Plan Departure Patient Disposition: Home Clinical Impression: Diverticulitis Instructions: DI for Diverticulitis Activity Restrictions/Additional Instructions: *You have been diagnosed with mild diverticulitis *What to do: This is not causing your chest pain but maybe some of your abdominal *Continue to take medications as directed Cipro 500 mg twice a day for 10 days Flagyl 500 mg 3 times a day for 10 days *Follow up with your primary care provider in 2-3 days or call [phone] *Return to ER if you should have any new, worsening or concerning symptoms Prescriptions: New metronidazole 500 mg tablet 500 mg PO Q8H 7 Days Qty: 30 0RF ciprofloxacin HCl [Cipro] 500 mg tablet 500 mg PO BID Qty: 20 0RF No Action atorvastatin 80 mg tablet 80 mg PO BEDTIME furosemide 20 mg tablet 20 mg PO DAILY metoprolol tartrate 100 mg tablet 100 mg PO BID duloxetine 60 mg capsule,delayed release(DR/EC) 60 mg PO DAILY Qty: 90 3RF quetiapine 50 mg tablet 50 mg PO BEDTIME Qty: 90 1RF lisinopril 10 mg Tablet 10 mg PO DAILY mirtazapine [Remeron] 15 mg Tablet 60 mg PO BEDTIME Rx Instructions: pt states she takes 45mg and 15mg. Referrals: Salena Long PA-C [Primary Care Provider] - Stand Alone Forms: Patient Portal/API
--- NOTE | 2024-04-19 19:51 | DI.CT.S_ITS ---
PROCEDURE: CT ABDOMEN PELVIS W CON INDICATIONS: pain hx recent manjit, and volvulus TECHNIQUE: After the administration of intravenous contrast, axial sections acquired from the lung bases to the pubic symphysis. Coronal and sagittal reformats were performed. For radiation dose reduction, the following was used: automated exposure control, adjustment of mA and/or kV according to patient size. COMPARISON: [facility], CT, CT ABDOMEN PELVIS W CON, 03/26/2024, 22:51. FINDINGS: Image quality: Diagnostic. Lower Chest: No significant findings. ABDOMEN: Liver: No solid mass. Gallbladder: Status post cholecystectomy. Biliary ducts: Mild large main of the intrahepatic and extrahepatic biliary ducts again seen, likely related to post cholecystectomy state. Pancreas: No ductal dilation. Spleen: Size is within normal limits. Adrenal Glands: No adrenal nodules. Kidneys and Ureters: No hydronephrosis. No solid mass. No complex renal cystic lesion which requires follow up. Stomach and Bowel: Moderate hiatal hernia. Multiple diverticula are seen in the colon. Mild inflammatory fat stranding is seen adjacent to the distal sigmoid colon, which is suspicious for mild acute diverticulitis. Normal appendix. No signs of small bowel obstruction. Peritoneum: No abnormal intraperitoneal fluid. No free air. Ventral Wall: Small fat containing periumbilical hernia. Abdominal Nodes: No retroperitoneal or mesenteric adenopathy by size criteria. Vessels: Aorta and inferior vena cava are normal in size. PELVIS: Pelvic Organs: Unremarkable. Bladder: No bladder wall thickening, accounting for underdistention. Pelvic Nodes: No enlarged lymph nodes. Miscellaneous: No inguinal hernias are seen. Bones: No aggressive osseous abnormality. Postsurgical changes from right total hip arthroplasty. Postsurgical changes also seen in the lumbar spine. Chronic L1 compression fracture appears unchanged. IMPRESSION: 1. Sigmoid diverticulosis with mild focal pericolonic inflammatory changes suspicious for acute uncomplicated diverticulitis. 2. Status post cholecystectomy. Biliary duct dilatation is likely related to post cholecystectomy status. 3. Moderate hiatal hernia. Approved by: Thomas Schmitz M.D. on 04/19/2024 at 21:52
--- NOTE | 2024-04-19 20:00 | PC.NURSE ---
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 asked what she takes at home for pain pt says tylenol and ibuprofen. notified.
[2024-04-19] MEDS: HYDROMORPHONE 0.5 MG INJ IV (21:38)
--- NOTE | 2024-04-19 22:02 | PC.NURSE ---
Pt and continue to voice dissatisfaction with care. Call bells answered swiftly. Verbal updates and reassurance given. Took names of staff and was upset with me when I declined to give my last name. Discussed staff safety and privacy. Reassured mgt would know who was on with first names only. Dr. Blanca aware.
[2024-04-19] MEDS: CIPROFLOXACIN 250 MG TABLET 500 MG PO (22:12)
[2024-04-19] MEDS: ONDANSETRON 4 MG ODT SL (22:13)
[2024-04-19] MEDS: metroNIDAZOLE 500 MG TABLET PO (22:13)
--- NOTE | 2024-04-19 22:18 | PC.NURSE ---
Pt requesting pain meds for home use. Discussed w/ Dr. Blanca declined new orders.
== END 2024-04-19 22:24 | disposition home or self-care (01) ==
PROVIDERS: Emergency Medicine; Emergency Provider Emergency Medicine; Family Provider Anesthesiology Pain Medicine; PCP Physician Assistant
DX: K57.92 Diverticulitis of intestine, part unspecified, without perforation or abscess without bleeding (principal); R07.9 Chest pain, unspecified; Z95.5 Presence of coronary angioplasty implant and graft
CPT/HCPCS: 36415; 71045; 74177; 80053; 82550; 83690; 83735; 83880; 84484; 85025; 85610; 85730; 93005; 93970; 96374; 96375; 99284; J1170; J2405; Q9967

== ENCOUNTER 2024-04-25 22:48 | Emergency (ER) | payer MEDICARE, OTHER, SELFPAY ==
[2024-03-17 01:13] VITALS: BMI 43.4
[2024-04-25 22:51] VITALS: BP 160/81; PULSE 74; O2SAT 94
[2024-04-25 22:58] VITALS: BP 160/81; PULSE 75; RESP 22; TEMP 37.2; O2SAT 94; BMI 36.6
--- NOTE | 2024-04-25 22:58 | EKG_ITS ---
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
[2024-04-25 23:00] VITALS: BP 162/80; PULSE 73; RESP 13; O2SAT 94
--- NOTE | 2024-04-25 23:04 | ED_ITS ---
HPI - Chest Pain General Chief Complaint: Abdominal Pain Stated Complaint: ABD/Chest pain Time Seen by Provider: 04/25/24 22:56 History of Present Illness HPI narrative: 74-year-old female with history of recurrent chest pain, paraesophageal hernia, waxing and waning LFTs presents by EMS from home for left upper quadrant pain and chest pain. Patient was seen at [facility] on 04/19 for chest pain. During that evaluation per ED note patient had mild midepigastric tenderness and a CT of the abdomen and pelvis was performed that showed ?sigmoid diverticulosis with mild focal pericolonic inflammatory changes suspicious for acute uncomplicated diverticulitis?. Patient was discharged from the hospital on ciprofloxacin and Flagyl. She states that she stopped taking these antibiotics on 04/21 due to diarrhea. She was changed to ?a different antibiotic? by her PCP, but she did not feel any better with this antibiotic and so she states that her PCP told her to stop taking all antibiotics. This evening patient reports worsening of general malaise as well as left lower quadrant and left upper quadrant pain and called 911. EMS reportedly gave her 100 mcg of fentanyl, Zofran EN route. Summary of Hospital course from Dipika Swanson 03/15/24-03/26/24: Mrs. Gil was admitted to the hospital medicine service with consultation from Cardiology, GI, and thoracic surgery for management of her chest pain with a negative cardiac workup. Her workup in the ER was notable for elevated liver enzymes and mild dilation of the common bile duct. Troponin was negative and EKG was without ischemic changes, but due to concern for unstable angina she underwent cardiac catheterization on 03/18 which was negative for significant CAD. Her hospital course on 03/19 was complicated by an episode of acute left leg and arm weakness/numbness and a code stroke was called. She was assessed by Neurology and it was thought her symptoms were due to a somatoform disorder or stroke mimic. She completed a stroke evaluation with CT/CTA/MRI brain which was negative for stroke. She underwent EGD on 03/22 with findings of slippage of her fundoplication wrap and residual food in her stomach. Thoracic surgery recommended repair of the hernia (this will be her 2nd revision) but that this procedure could happen as an outpatient. Her pain was thought to be related to either diaphragmatic/esophageal spasms (considering she had a positive response to nitroglycerin), esophageal/gastric dysmotility, or from slippage of her fundoplication wrap. Both GI and thoracic surgery recommended optimization of her pain regimen and discharged home with follow up over the coming weeks for an ERCP to evaluate her elevated liver enzymes (which down trended significantly during this admission). She was medically ready for discharge home on 03/23 but her ride could not get her until 7 5 in the morning. On 03/24 she was still medically ready for discharge but she appealed her discharge with Medicare. On 03/25 Medicare agreed with her discharge and gave her until 772 discharged from the hospital. She was discharged home the morning of 7 7. She will follow up with both GI and thoracic surgery for her outpatient procedures. I discussed the plan of care with the GI team and they are working to schedule her ERCP ahead of her hernia repair by thoracic surgery Related Data Home Medications Medication Instructions Recorded Confirmed lisinopril 10 mg tablet 10 mg PO DAILY 10/25/19 03/17/24 atorvastatin 80 mg tablet 80 mg PO BEDTIME 10/18/23 03/17/24 furosemide 20 mg tablet 20 mg PO DAILY 10/18/23 03/17/24 metoprolol tartrate 100 mg tablet 100 mg PO BID 10/18/23 03/17/24 mirtazapine 15 mg tablet (Remeron) 60 mg PO BEDTIME 03/17/24 03/17/24 Previous Rx's Medication Instructions Recorded duloxetine 60 mg capsule,delayed 60 mg PO DAILY #90 caps 11/29/23 release quetiapine 50 mg tablet 50 mg PO BEDTIME #90 tabs 12/06/23 ciprofloxacin HCl 500 mg tablet 500 mg PO BID #20 tabs 04/19/24 (Cipro) metronidazole 500 mg tablet 500 mg PO Q8H 7 days #30 tabs 04/19/24 Allergies Allergy/AdvReac Type Severity Reaction Status Date / Time aripiprazole [From ABILIFY] Allergy Severe TREMORS, Verified 04/19/24 22:18 ANAPHYLAXIS morphine [MORPHINE] Allergy Severe Swelling Verified 04/19/24 22:18 of Lip/Tongue/Throat adhesive tape Allergy Mild Rash Verified 04/19/24 22:18 bupropion [From WELLBUTRIN] AdvReac Severe HEADACHE Verified 04/19/24 22:18 propoxyphene AdvReac Severe Headache Verified 04/19/24 22:18 citalopram [CITALOPRAM] AdvReac Intermediate headache, Verified 04/19/24 22:18 difficulty thinking desvenlafaxine [From Pristiq] AdvReac Intermediate Shakiness Verified 04/19/24 22:18 indomethacin [INDOMETHACIN] AdvReac Intermediate GI UPSET Verified 04/19/24 22:18 phenobarbital [PHENOBARBITAL] AdvReac Intermediate DEPRESSION Verified 04/19/24 22:18 Patient History Medical History (Updated 04/26/24 @ 01:56 by Whitney Gonzalez MD) Hard of hearing History of angina (~11/2019) Unstable angina Paraesophageal hernia Hyperlipidemia GERD (gastroesophageal reflux disease) Coronary artery disease Concussion Myocardial infarction Mild sleep apnea Arthritis of both hands Balance problem Bilateral hearing loss Hypertension Diabetes Surgical History History of cardiac cath H/O heart artery stent S/P scar revision H/O exploratory laparotomy (~2011) Status post cataract extraction of both eyes with insertion of intraocular lens History of total right hip arthroplasty S/P foot surgery, left History of total knee arthroplasty Social History household members: spouse Smoking Status: Never smoker alcohol intake: current Smoking Status: Never smoker alcohol intake frequency: holidays/special occasions only Substance Use Type: marijuana Exam Initial Vital Signs Initial Vital Signs: Vital Signs Pulse Rate 74 04/25/24 22:51 Blood Pressure 160/81 H 04/25/24 22:51 Pulse Oximetry 94 04/25/24 22:51 Const: Awake, alert, no acute distress, nontoxic appearing Cardiac: regular rate, regular rhythm RESP: unlabored, clear bilaterally, no wheezing GI: Soft, nontender, nondistended, no rebound, no guarding Skin: Warm, Dry, intact, no rashes Neuro: AO x3, CN II-XII grossly intact, moves all extremities Course Orders Ordered: ED Orders 04/25/24 22:58 CBC Auto Diff [Complete Blood Count AUTO DIFF] Stat CMP [Comprehensive Metabolic Panel] Stat PT [Prothrombin Time INR] Stat Troponin & CK Cardiac Panel Stat EKG-12 Lead Stat Discontinued Medications Droperidol (Droperidol 5 Mg/2 Ml Vial) 2.5 mg IV NOW ONE Stop: 04/25/24 23:00 Last Admin: 04/25/24 23:10 Dose: 2.5 mg Documented By: KAR Sodium Chloride (Normal Saline 0.9%) 1,000 mls @ 1,000 mls/hr IV BOLUS ONE Stop: 04/26/24 00:45 Last Infusion: 04/26/24 01:50 Dose: Infused Documented By: Admin: 04/25/24 23:50 Dose: 1,000 mls/hr Documented By: ELIJAH Ketorolac Tromethamine (Ketorolac 30 Mg/Ml Vial) 15 mg IV NOW ONE Stop: 04/25/24 22:57 Last Admin: 04/25/24 23:09 Dose: 15 mg Documented By: KAR Vital Signs Vital signs: Vital Signs - 8 hr 04/25/24 22:51 04/25/24 22:51 04/25/24 22:58 Temperature 99.0 F Pulse Rate 74 75 Respiratory Rate 22 Blood Pressure 160/81 H 160/81 H Pulse Oximetry 94 94 Oxygen Delivery Method Nasal Cannula Oxygen Flow Rate 2 04/25/24 23:00 04/25/24 23:00 04/25/24 23:30 Temperature Pulse Rate 73 65 Respiratory Rate 13 18 Blood Pressure 162/80 H Pulse Oximetry 94 94 Oxygen Delivery Method Oxygen Flow Rate 04/25/24 23:31 04/25/24 23:31 04/26/24 00:00 Temperature Pulse Rate 64 60 Respiratory Rate 20 25 H Blood Pressure 112/60 Pulse Oximetry 95 94 Oxygen Delivery Method Oxygen Flow Rate 04/26/24 00:00 04/26/24 00:30 04/26/24 00:30 Temperature Pulse Rate 60 Respiratory Rate 21 Blood Pressure 95/54 L 100/54 L Pulse Oximetry 96 Oxygen Delivery Method Oxygen Flow Rate 04/26/24 01:00 04/26/24 01:00 04/26/24 01:30 Temperature Pulse Rate 58 L 58 L Respiratory Rate 22 18 Blood Pressure 100/53 L Pulse Oximetry 96 97 Oxygen Delivery Method Oxygen Flow Rate 04/26/24 01:49 04/26/24 01:49 04/26/24 01:50 Temperature Pulse Rate 60 61 Respiratory Rate 18 20 Blood Pressure 93/54 L Pulse Oximetry 95 95 Oxygen Delivery Method Room Air Oxygen Flow Rate 04/26/24 01:52 04/26/24 01:52 Temperature Pulse Rate 60 Respiratory Rate 19 Blood Pressure 94/55 L Pulse Oximetry 95 Oxygen Delivery Method Room Air Oxygen Flow Rate MDM - Chest Pain Lab Data 04/25/24 22:58 04/25/24 22:58 Labs: Lab Results 04/25/24 Range/Units 22:58 WBC 5.8 (4.5-11.0) X10^3/uL RBC 3.99 L (4.0-5.2) X10^6/uL Hgb 12.6 (12.0-16.0) g/dL Hct 37.6 (36-46) % MCV 94.3 (80-100) fL MCH 31.6 (26-34) PG MCHC 33.5 (30-36) % RDW 14.1 (11.6-14.8) % Plt Count 345 (150-400) X10^3/uL Neut % (Auto) 53.7 (50-75) % Lymph % (Auto) 26.9 (25-40) % [place] % (Auto) 15.6 H (3-14) % Eos % (Auto) 3.4 (2-4) % Baso % (Auto) 0.4 (0-2) % Neut # (Auto) 3100 (9770-2958) /uL Lymph # (Auto) 1600 (5550-9363) /uL [place] # (Auto) 900 (0-900) /uL Eos # (Auto) 200 (0-450) /uL Baso # (Auto) 0 (0-100) /uL PT 11.3 (9.4-12.5) SECONDS INR 1.0 (0.9-1.3) Sodium 140 (137-145) mmol/L Potassium 4.1 (3.4-5.1) mmol/L Chloride 109 H (98-107) mmol/L Carbon Dioxide 28 (22-32) mmol/L BUN 21 H (7-17) mg/dL Creatinine 1.01 (0.52-1.04) mg/dL Estimated GFR 58 L (>60) mL/min BUN/Creatinine Ratio 20.8 (6-22) Glucose 92 (80-110) mg/dL Calcium 9.4 (8.4-10.2) mg/dL Total Bilirubin 0.5 (0.2-1.3) mg/dL AST 207 H (14-36) IU/L ALT 225 H (<35) IU/L Alkaline Phosphatase 284 H (38-126) U/L Total Creatine Kinase 94 (30-135) U/L Troponin I < 0.012 (0.01-0.034) ng/mL Total Protein 7.2 (6.3-8.2) g/dL Albumin 3.9 (3.5-5.0) g/dL Globulin 3.3 (1.7-4.1) g/dL Albumin/Globulin Ratio 1.2 (1.0-2.8) ECG Data Interpretation: Normal sinus rhythm at 70 beats per minute, normal NV, no ST T wave changes, no STEMI MDM Narrative Medical decision making narrative: Patient with multiple ER visits presenting for left upper quadrant pain, chest pain. Diagnosed with diverticulitis 1 week ago but stopped taking antibiotics due to reported intolerance. On my evaluation patient's exam is soft, she has no reproducible tenderness to light or deep palpation in the upper or lower quadrants of her abdomen. Patient has had multiple abdominal and chest CTs in the last 2 months, with normal vitals and reassuring exam I am hesitant to rescan tonight. Laboratory work is reviewed, no significant change from priors. WBC count 5.8, hemoglobin 12.6, platelets 345, neutrophil % 54%, sodium 140, potassium 4.1, creatinine 1.01, T bili 0.5, AST 207, ALT 225, alk phos 284. Reviewing both patient's previous results both at [facility] and at [facility] patient has waxing and waning values of both AST and ALT. She is followed by GI and is in the process of getting an ERCP with [facility] Gastroenterology. Order GI panel to assess patient's diarrhea, however despite being here for several hours she was not been able to provide a sample. Symptoms improved after the administered medications. Patient informed of lab results, recommended close follow up with her GI team at [facility]. Discharged in stable condition to care for has been. ED return precautions provided. Discharge Plan Departure Patient Disposition: Home Clinical Impression: Chest pain, Abdominal pain Instructions: DI for Abdominal Pain-Adult Activity Restrictions/Additional Instructions: Your workup today is overall reassuring. Your liver enzymes were elevated today, however not higher than they have been before. Continue to follow up with Gastroenterology at [facility] to schedule your ERCP Prescriptions: No Action atorvastatin 80 mg tablet 80 mg PO BEDTIME furosemide 20 mg tablet 20 mg PO DAILY metoprolol tartrate 100 mg tablet 100 mg PO BID duloxetine 60 mg capsule,delayed release(DR/EC) 60 mg PO DAILY Qty: 90 3RF quetiapine 50 mg tablet 50 mg PO BEDTIME Qty: 90 1RF lisinopril 10 mg Tablet 10 mg PO DAILY mirtazapine [Remeron] 15 mg Tablet 60 mg PO BEDTIME Rx Instructions: pt states she takes 45mg and 15mg. metronidazole 500 mg tablet 500 mg PO Q8H 7 Days Qty: 30 0RF ciprofloxacin HCl [Cipro] 500 mg tablet 500 mg PO BID Qty: 20 0RF Referrals: Salena Long PA-C [Primary Care Provider] - Stand Alone Forms: Patient Portal/API
[2024-04-25] MEDS: KETOROLAC 30 MG/ML VIAL 15 MG IV (23:09)
[2024-04-25] MEDS: DROPERIDOL 5 MG/2 ML VIAL 2.5 MG IV (23:10)
[2024-04-25 23:11] LABS: Add Manual Diff / Slide Review NO; Basophils Absolute Auto 0 /uL (0-100); Basophils Percent Auto 0.4 % (0-2); Eosinophils Absolute Auto 200 /uL (0-450); Eosinophils Percent Auto 3.4 % (2-4); Hematocrit 37.6 % (36-46); Hemoglobin 12.6 g/dL (12.0-16.0); Lymphocytes Absolute Auto 1600 /uL (1100-4500); Lymphocytes Percent Auto 26.9 % (25-40); Mean Corpuscular HGB Conc 33.5 % (30-36); Mean Corpuscular Hemoglobin 31.6 PG (26-34); Mean Corpuscular Volume 94.3 fL (80-100); Monocytes Absolute Auto 900 /uL (0-900); Monocytes Percent Auto 15.6 % (3-14); Neutrophils Absolute Auto 3100 /uL (1500-7000); Neutrophils Percent Auto 53.7 % (50-75); Platelet Count 345 X10^3/uL (150-400); Red Blood Cell Count 3.99 X10^6/uL (4.0-5.2); Red Cell Distribution Width 14.1 % (11.6-14.8); White Blood Cell Count 5.8 X10^3/uL (4.5-11.0)
[2024-04-25 23:14] LABS: Prothrombin Time 11.3 SECONDS (9.4-12.5)
[2024-04-25 23:19] LABS: Alanine Aminotransferase 225 IU/L (<35); Albumin 3.9 g/dL (3.5-5.0); Albumin Globulin Ratio 1.2 (1.0-2.8); Alkaline Phosphatase 284 U/L (38-126); Aspartate Aminotransferase 207 IU/L (14-36); BUN Creatinine Ratio 20.8 (6-22); Bilirubin Total 0.5 mg/dL (0.2-1.3); Blood Urea Nitrogen 21 mg/dL (7-17); Calcium 9.4 mg/dL (8.4-10.2); Carbon Dioxide 28 mmol/L (22-32); Chloride 109 mmol/L (98-107); Creatine Kinase 94 U/L (30-135); Estimated Glomerular Filt Rate 58 mL/min (>60); Globulin 3.3 g/dL (1.7-4.1); Glucose 92 mg/dL (80-110); HEMOLYSIS < 15 (0-50); Potassium 4.1 mmol/L (3.4-5.1); Sodium 140 mmol/L (137-145); Total Protein 7.2 g/dL (6.3-8.2)
[2024-04-25 23:30] VITALS: PULSE 65; RESP 18; O2SAT 94
[2024-04-25 23:31] VITALS: BP 112/60; PULSE 64; RESP 20; O2SAT 95
[2024-04-25 23:31] LABS: Troponin I < 0.012 ng/mL (0.01-0.034)
[2024-04-25] MEDS: SODIUM CHLORIDE 0.9% 1,000 ML 1000 ML IV (23:50)
[2024-04-26] VITALS (7 sets, daily range): BP systolic 93–100; BP diastolic 53–55; PULSE 58–61; RESP 18–25; O2SAT 94–97
--- NOTE | 2024-04-26 02:02 | PC.NURSE ---
Patient has a BP of 94/55 with MAP of [address] Dr[address] Gonzalez notified. Carlos aware and states pt is safe for discharge with MAP of 72. Patient is asymptomatic.
== END 2024-04-26 02:14 | disposition home or self-care (01) ==
PROVIDERS: Emergency Provider Emergency Medicine; Family Provider Anesthesiology Pain Medicine; PCP Physician Assistant
DX: R07.9 Chest pain, unspecified (principal); R10.12 Left upper quadrant pain
CPT/HCPCS: 80053; 82550; 84484; 85025; 85610; 93005; 93010; 96374; 96375; 99284; J1790; J1885

== ENCOUNTER 2024-06-20 14:58 | Emergency (ER) | payer MEDICARE, OTHER, SELFPAY ==
[2024-03-17 01:13] VITALS: BMI 43.4
[2024-06-20 15:03] VITALS: BP 159/77; PULSE 75; RESP 15; TEMP 36.9; O2SAT 96; BMI 34.9
--- NOTE | 2024-06-20 15:03 | ED.CHESTPAIN ---
HPI - Chest Pain General Chief Complaint: Chest Pain Stated Complaint: sternum pain Time Seen by Provider: 06/20/24 15:40 History of Present Illness HPI narrative: Patient is a 74-year-old female with past medical history of hyperlipidemia chest pain/sternal pain, after she swallowed a pill. She states that she has a history of esophageal spasms, states that when she took her vitamin she started having pain, she states that afterwards she started having chest pain similar to the previous that she has had in the past. She states that it is now slightly improved but still having the pain therefore decided come into the ED for further evaluation treatment. No other symptoms Related Data Home Medications Medication Instructions Recorded Confirmed lisinopril 10 mg tablet 10 mg PO DAILY 10/25/19 05/08/24 atorvastatin 80 mg tablet 80 mg PO BEDTIME 10/18/23 05/08/24 metoprolol tartrate 100 mg tablet 100 mg PO BID 10/18/23 05/08/24 acetaminophen 325 mg capsule 650 mg PO Q6H PRN 05/08/24 05/08/24 ascorbic acid (vitamin C) 1,000 mg 2 g PO DAILY 05/08/24 05/08/24 tablet aspirin 81 mg tablet,delayed 81 mg PO DAILY 05/08/24 05/08/24 release biotin 5 mg tablet 5 mg PO DAILY 05/08/24 05/08/24 cholecalciferol (vitamin D3) 75 20,000 unit PO DAILY 05/08/24 05/08/24 mcg (3,000 unit) tablet clopidogrel 75 mg tablet (Plavix) 75 mg PO TID 05/08/24 05/08/24 diltiazem HCl 60 mg 60 mg PO BID 05/08/24 05/08/24 capsule,extended release 12 hr furosemide 20 mg tablet 30 mg PO DAILY 05/08/24 05/08/24 ibuprofen 600 mg tablet 600 mg PO TID 05/08/24 05/08/24 isosorbide mononitrate 30 mg 30 mg PO QAM 05/08/24 05/08/24 tablet,extended release 24 hr lidocaine 5 % topical patch 1 patch topical DAILY 05/08/24 05/08/24 multivitamin 1 tab PO DAILY 05/08/24 05/08/24 nitroglycerin 0.4 mg sublingual 0.4 mg sublingual Q5M PRN 05/08/24 05/08/24 tablet omega-3 fatty acids 1,000 mg 1,000 mg PO DAILY 05/08/24 05/08/24 capsule pantoprazole 20 mg tablet,delayed 20 mg PO DAILY 05/08/24 05/08/24 release sucralfate malate, polymerized 1 10 ml mucous membrane BID 05/08/24 05/08/24 gram/10 mL mucosal paste tizanidine 2 mg capsule 2 mg PO Q8H PRN 05/08/24 05/08/24 Previous Rx's Medication Instructions Recorded duloxetine 60 mg capsule,delayed 60 mg PO DAILY #90 caps 11/29/23 release quetiapine 50 mg tablet 50 mg PO BEDTIME #90 tabs 05/08/24 mirtazapine 45 mg tablet 45 mg PO BEDTIME #30 tabs 05/10/24 Allergies Allergy/AdvReac Type Severity Reaction Status Date / Time aripiprazole [From ABILIFY] Allergy Severe TREMORS, Verified 06/20/24 15:06 ANAPHYLAXIS morphine [MORPHINE] Allergy Severe Swelling Verified 06/20/24 15:06 of Lip/Tongue/Throat adhesive tape Allergy Mild Rash Verified 06/20/24 15:06 bupropion [From WELLBUTRIN] AdvReac Severe HEADACHE Verified 06/20/24 15:06 propoxyphene AdvReac Severe Headache Verified 06/20/24 15:06 citalopram [CITALOPRAM] AdvReac Intermediate headache, Verified 06/20/24 15:06 difficulty thinking desvenlafaxine [From Pristiq] AdvReac Intermediate Shakiness Verified 06/20/24 15:06 indomethacin [INDOMETHACIN] AdvReac Intermediate GI UPSET Verified 06/20/24 15:06 phenobarbital [PHENOBARBITAL] AdvReac Intermediate DEPRESSION Verified 06/20/24 15:06 Review of Systems Review of Systems Narrative: HEENT: Denies headache, eye drainage, eye irritation, head trauma, sore throat, voice change Cardiovascular: Positive chest pain, Denies palpitations, shortness of breath, tachycardia Respiratory: Denies any shortness of breath, cough, wheeze, stridor GI/: Denies any abdominal pain, nausea, vomiting, diarrhea, bright red blood per rectum, melanotic stools, urinary frequency, urinary retention, dysuria, hematuria MSK: Denies any joint pain, muscle pains, swelling Skin: Denies any rashes, lesions, discoloration Neuro: Denies any headache, lightheadedness, dizziness, fainting, weakness Psych: Denies SI/HI Patient History Medical History (Updated 06/20/24 @ 16:32 by Pierce Butler DO) Hard of hearing History of angina (~11/2019) Unstable angina Paraesophageal hernia Hyperlipidemia GERD (gastroesophageal reflux disease) Coronary artery disease Concussion Myocardial infarction Mild sleep apnea Arthritis of both hands Balance problem Bilateral hearing loss Hypertension Diabetes Surgical History History of cardiac cath H/O heart artery stent S/P scar revision H/O exploratory laparotomy (~2011) Status post cataract extraction of both eyes with insertion of intraocular lens History of total right hip arthroplasty S/P foot surgery, left History of total knee arthroplasty Social History household members: spouse Smoking Status: Never smoker alcohol intake: current Smoking Status: Never smoker alcohol intake frequency: holidays/special occasions only Substance Use Type: marijuana Exam Narrative Exam Narrative: General: Cooperative, comfortable, well-developed, not in acute distress HEENT: Normocephalic, atraumatic, PERRLA, normal sclera, eyelids normal, Neck: Active full range of motion, atraumatic Chest: Normal to inspection, negative crepitus, no overlying erythema ecchymosis Respiratory: Normal respiratory effort, not in acute respiratory distress, clear to auscultation bilaterally negative cough, wheeze, tachypnea, rhonchi, rales Cardiology: Regular rate rhythm negative gallop, murmur, rubs GI/: Normal to inspection, soft, nonrigid, no tenderness to palpation, exam deferred MSK: Full range of active range of motion of all 4 extremities, atraumatic Skin: No rashes lesions noted Neuro: Alert awake oriented x3, moves all 4 extremities spontaneously, cranial nerves intact, able to answer all questions appropriately follows commands appropriately Psych: Cooperative, negative suicidal or homicidal ideations Initial Vital Signs Initial Vital Signs: Vital Signs Temperature 98.4 F 06/20/24 15:03 Pulse Rate 75 06/20/24 15:03 Respiratory Rate 15 06/20/24 15:03 Blood Pressure 159/77 H 06/20/24 15:03 Pulse Oximetry 96 06/20/24 15:03 Oxygen Delivery Method Room Air 06/20/24 15:03 Course Orders Ordered: ED Orders 06/20/24 15:06 XR chest 1V Stat EKG-12 Lead Stat 06/20/24 15:30 Complete Blood Count AUTO DIFF Stat Comprehensive Metabolic Panel Stat Lipase Stat Magnesium Stat NT-proBNP (BNP-Adult 18+) Stat PTT Partial Thromboplastin [place] Stat Prothrombin Time INR Stat Troponin & CK Cardiac Panel Stat Discontinued Medications Al Hydrox/Mg Hydrox/Simethicone (Mag Hydrox/Alum/Simeth 30 Ml Udc) 30 ml PO NOW ONE Stop: 06/20/24 16:32 Ketorolac Tromethamine (Ketorolac 30 Mg/Ml Vial) 15 mg IV NOW ONE Stop: 06/20/24 16:32 Vital Signs Vital signs: Vital Signs - 8 hr 06/20/24 15:03 06/20/24 15:15 06/20/24 15:30 Temperature 98.4 F Pulse Rate 75 75 70 Respiratory Rate 15 19 15 Blood Pressure 159/77 H Pulse Oximetry 96 96 96 Oxygen Delivery Method Room Air 06/20/24 15:31 06/20/24 15:31 Temperature Pulse Rate 69 Respiratory Rate 18 Blood Pressure 185/84 H Pulse Oximetry 95 Oxygen Delivery Method Room Air MDM - Chest Pain Differential Diagnosis Differential diagnosis: Likely chest pain and other (Electrolyte abnormality, pneumonia, pill esophagitis) Lab Data 06/20/24 15:30 06/20/24 15:30 Labs: Lab Results 06/20/24 Range/Units 15:30 WBC 5.9 (4.5-11.0) X10^3/uL RBC 4.10 (4.0-5.2) X10^6/uL Hgb 12.7 (12.0-16.0) g/dL Hct 38.3 (36-46) % MCV 93.3 (80-100) fL MCH 30.9 (26-34) PG MCHC 33.1 (30-36) % RDW 13.6 (11.6-14.8) % Plt Count 276 (150-400) X10^3/uL Neut % (Auto) 60.6 (50-75) % Lymph % (Auto) 26.1 (25-40) % [place] % (Auto) 10.5 (3-14) % Eos % (Auto) 2.0 (2-4) % Baso % (Auto) 0.8 (0-2) % Neut # (Auto) 3600 (3249-7587) /uL Lymph # (Auto) 1500 (8681-3610) /uL [place] # (Auto) 600 (0-900) /uL Eos # (Auto) 100 (0-450) /uL Baso # (Auto) 0 (0-100) /uL PT 10.5 (9.4-12.5) SECONDS INR 0.9 (0.9-1.3) APTT 29 (25.1-36.5) SECONDS Sodium 140 (137-145) mmol/L Potassium 3.7 (3.4-5.1) mmol/L Chloride 105 (98-107) mmol/L Carbon Dioxide 30 (22-32) mmol/L BUN 19 H (7-17) mg/dL Creatinine 0.68 (0.52-1.04) mg/dL Estimated GFR > 60 (>60) mL/min BUN/Creatinine Ratio 27.9 H (6-22) Glucose 104 (80-110) mg/dL Calcium 9.2 (8.4-10.2) mg/dL Magnesium 1.8 (1.6-2.3) mg/dL Total Bilirubin 0.4 (0.2-1.3) mg/dL AST 104 H (14-36) IU/L ALT 147 H (<35) IU/L Alkaline Phosphatase 242 H (38-126) U/L Total Creatine Kinase 97 (30-135) U/L Troponin I < 0.012 (0.01-0.034) ng/mL NT-Pro-B Natriuret Pep 210 (<450) pg/mL Total Protein 6.9 (6.3-8.2) g/dL Albumin 3.8 (3.5-5.0) g/dL Globulin 3.1 (1.7-4.1) g/dL Albumin/Globulin Ratio 1.2 (1.0-2.8) Lipase 22 L (23-300) U/L ECG Data Attestation: I personally reviewed and interpreted this ECG as follows: Interpretation: EKG interpreted by ED physician, sinus at 71 beats per minute QTC 417, normal axis nonspecific ST changes no STEMI MDM Narrative Medical decision making narrative: Patient is a 74-year-old female presents for chest pain pain after swallowing a pill, she has a history of recurrent chest pain, lab work imaging unremarkable EKG nonischemic, most likely patient having pill esophagitis, instructed to follow up with her PCP and GI for continued evaluation treatment, also told her to avoid taking large pills, advised her to cut pills in half. Strict return precautions given safe for discharge home with outpatient follow up Discharge Plan Departure Patient Disposition: Home Clinical Impression: Pill esophagitis Activity Restrictions/Additional Instructions: Please read the discharge instructions sheet carefully and bring all papers to all doctor follow-up visits, as it may contain information that your doctor may want to see. Disease processes change and evolve, if your symptoms worsen or if you develop any new symptoms that are concerning to you please return for evaluation. Your evaluation today does not show any evidence of any life-threatening/serious illnesses requiring admission to the hospital or surgery. Please follow-up with your doctor for re-evaluation in approximately 1 day. Seek immediate medical attention for any worrisome symptoms. Prescriptions: No Action atorvastatin 80 mg tablet 80 mg PO BEDTIME metoprolol tartrate 100 mg tablet 100 mg PO BID furosemide 20 mg tablet 30 mg PO DAILY duloxetine 60 mg capsule,delayed release(DR/EC) 60 mg PO DAILY Qty: 90 3RF acetaminophen 325 mg capsule 650 mg PO Q6H PRN ibuprofen 600 mg tablet 600 mg PO TID tizanidine 2 mg capsule 2 mg PO Q8H PRN lidocaine 5 % adhesive patch,medicated 1 patch topical DAILY Rx Instructions: leave on most painful area for up to 12 hrs nitroglycerin 0.4 mg tablet, sublingual 0.4 mg sublingual Q5M PRN Rx Instructions: do not exceed 3 doses per episode ascorbic acid (vitamin C) 1,000 mg tablet 2 g PO DAILY multivitamin Tablet 1 tab PO DAILY omega-3 fatty acids 1,000 mg capsule 1,000 mg PO DAILY sucralfate malate, polymerized 1 gram/10 mL paste 10 ml mucous membrane BID cholecalciferol (vitamin D3) 75 mcg (3,000 unit) tablet 20,000 unit PO DAILY aspirin 81 mg tablet,delayed release (DR/EC) 81 mg PO DAILY biotin 5 mg tablet 5 mg PO DAILY clopidogrel [Plavix] 75 mg tablet 75 mg PO TID diltiazem HCl 60 mg capsule,extended release 12 hr 60 mg PO BID pantoprazole 20 mg tablet,delayed release (DR/EC) 20 mg PO DAILY isosorbide mononitrate 30 mg tablet extended release 24 hr 30 mg PO QAM quetiapine 50 mg tablet 50 mg PO BEDTIME Qty: 90 3RF mirtazapine 45 mg tablet 45 mg PO BEDTIME Qty: 30 2RF lisinopril 10 mg Tablet 10 mg PO DAILY Referrals: Salena Long, BRENDA [Primary Care Provider] - Stand Alone Forms: Patient Portal/API
--- NOTE | 2024-06-20 15:06 | DI.RAD.S_ITS ---
PROCEDURE: XR CHEST 1V INDICATIONS: chest pain TECHNIQUE: One view of the chest was acquired. COMPARISON: [facility], CR, XR CHEST 1V, 04/19/2024, 16:05. [facility], CR, XR CHEST 1V, 03/16/2024, 0:40. FINDINGS: Surgical changes and devices: None. Lungs and pleura: Lungs are clear. No pleural effusions or pneumothorax. Mediastinum: Mediastinal contours appear normal. Heart size is normal. Bones and chest wall: No suspicious bony lesions. Overlying soft tissues appear unremarkable. IMPRESSION: No acute cardiopulmonary abnormality is seen. Dictated by: Danyel Naidu M.D. on 06/20/2024 at 16:02 Approved by: Danyel Nadiu M.D. on 06/20/2024 at 16:04
[2024-06-20 15:15] VITALS: PULSE 75; RESP 19; O2SAT 96
--- NOTE | 2024-06-20 15:19 | EKG_ITS ---
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
[2024-06-20 15:30] VITALS: PULSE 70; RESP 15; O2SAT 96
[2024-06-20 15:31] VITALS: BP 185/84; PULSE 69; RESP 18; O2SAT 95
[2024-06-20 15:45] LABS: Add Manual Diff / Slide Review NO; Basophils Absolute Auto 0 /uL (0-100); Basophils Percent Auto 0.8 % (0-2); Eosinophils Absolute Auto 100 /uL (0-450); Hematocrit 38.3 % (36-46); Hemoglobin 12.7 g/dL (12.0-16.0); Lymphocytes Absolute Auto 1500 /uL (1100-4500); Lymphocytes Percent Auto 26.1 % (25-40); Mean Corpuscular HGB Conc 33.1 % (30-36); Mean Corpuscular Hemoglobin 30.9 PG (26-34); Mean Corpuscular Volume 93.3 fL (80-100); Monocytes Absolute Auto 600 /uL (0-900); Monocytes Percent Auto 10.5 % (3-14); Neutrophils Absolute Auto 3600 /uL (1500-7000); Neutrophils Percent Auto 60.6 % (50-75); Platelet Count 276 X10^3/uL (150-400); Red Cell Distribution Width 13.6 % (11.6-14.8); White Blood Cell Count 5.9 X10^3/uL (4.5-11.0)
[2024-06-20 15:47] LABS: INR 0.9 (0.9-1.3); Prothrombin Time 10.5 SECONDS (9.4-12.5)
[2024-06-20 15:49] LABS: PTT Partial Thromboplastin Tim 29 SECONDS (25.1-36.5)
[2024-06-20 15:51] LABS: Alanine Aminotransferase 147 IU/L (<35); Albumin 3.8 g/dL (3.5-5.0); Albumin Globulin Ratio 1.2 (1.0-2.8); Alkaline Phosphatase 242 U/L (38-126); Aspartate Aminotransferase 104 IU/L (14-36); BUN Creatinine Ratio 27.9 (6-22); Bilirubin Total 0.4 mg/dL (0.2-1.3); Blood Urea Nitrogen 19 mg/dL (7-17); Calcium 9.2 mg/dL (8.4-10.2); Carbon Dioxide 30 mmol/L (22-32); Chloride 105 mmol/L (98-107); Creatine Kinase 97 U/L (30-135); Estimated Glomerular Filt Rate > 60 mL/min (>60); Globulin 3.1 g/dL (1.7-4.1); Glucose 104 mg/dL (80-110); HEMOLYSIS < 15 (0-50); Lipase 22 U/L (23-300); Magnesium 1.8 mg/dL (1.6-2.3); Potassium 3.7 mmol/L (3.4-5.1); Sodium 140 mmol/L (137-145); Total Protein 6.9 g/dL (6.3-8.2)
[2024-06-20 16:02] LABS: NT-proBNP (BNP-Adult 18+) 210 pg/mL (<450); Troponin I < 0.012 ng/mL (0.01-0.034)
[2024-06-20] MEDS: KETOROLAC 30 MG/ML VIAL 15 MG IV (16:46)
[2024-06-20] MEDS: MAG HYDROX/ALUM/SIMETH 30 ML UDC PO (16:46)
== END 2024-06-20 17:28 | disposition home or self-care (01) ==
PROVIDERS: Emergency Provider Student in an Organized Health Care Education/Training Program; Family Provider Anesthesiology Pain Medicine; PCP Physician Assistant
DX: K20.80 Other esophagitis without bleeding (principal); R07.9 Chest pain, unspecified; Z79.899 Other long term (current) drug therapy
CPT/HCPCS: 36415; 71045; 80053; 82550; 83690; 83735; 83880; 84484; 85025; 85610; 85730; 93005; 93010; 96374; 99284; J1885

== ENCOUNTER → 2024-08-24 07:43 | Outpatient (CLI) | payer MEDICARE, OTHER, SELFPAY ==
[2024-03-17 01:13] VITALS: BMI 43.4
--- NOTE | 2024-08-24 07:44 | DI.MRI.S_ITS ---
PROCEDURE: MR LUMBAR SPINE WO CON INDICATIONS: THORACIC SPONDYLOSIS/POSTLAMINECTOMY SYNDROME TECHNIQUE: Noncontrast sagittal T1 spin echo and T2 fast echo, sagittal STIR, and T2 fast spin echo through the lumbar spine. In cases with scoliosis, additional coronal T2 fast spin echo may be performed. COMPARISON: [facility], MR, MR LUMBAR SPINE WO CON, 07/14/2019, 12:20. FINDINGS: Image quality: Excellent. Alignment and Curvature: There is normal bony alignment. Bone Marrow: Marrow is of normal overall signal. Compression deformity at L1 is redemonstrated and is unchanged from the CT dated April 19, 2024. No marrow edema. No acute vertebral body compression fractures. Patient is status post posterior fixation and discectomy at L4-5. Spinal Cord: Conus medullaris terminates at the L1 level. Visualized cord demonstrates normal signal and size. Paraspinous Soft Tissues: No paravertebral masses. T12-L1: Moderate disc desiccation and height loss. Broad-based disc bulge. Moderate facet ligamentum flavum hypertrophy. Moderate right and mild left neural foraminal stenosis. L1-L2: Mild disc desiccation and height loss. No canal stenosis. Mild right and moderate left foraminal stenosis. L2-L3: Mild disc desiccation and height loss. Severe facet ligamentum flavum hypertrophy. Broad-based disc bulge. No canal stenosis. Moderate right and mild left foraminal stenosis. L3-L4: Mild disc desiccation and height loss. Broad-based disc bulge. Severe facet ligamentum flavum hypertrophy. Moderate to severe canal stenosis. Moderate bilateral foraminal stenosis. L4-L5: Status post discectomy. No canal stenosis. Mild right foraminal narrowing. No left foraminal stenosis. L5-S1: Status post discectomy. No canal stenosis. No foraminal stenosis. IMPRESSION: 1. Stable L1 compression deformity. 2. Multilevel disc desiccation and height loss with posterior broad-based disc bulges and facet ligamentum flavum hypertrophy with resultant moderate to severe canal stenosis at L3-4. 3. Moderate right neural foraminal stenosis at T12-L1, L2-3, moderate left foraminal stenosis at L1-2, and moderate bilateral foraminal stenosis at L3-4. Dictated by: Margo Sawyer M.D. on 08/24/2024 at 16:56 Approved by: Margo Sawyer M.D. on 08/24/2024 at 17:11
--- NOTE | 2024-08-24 07:44 | DI.MRI.S_ITS ---
PROCEDURE: MR THORACIC SPINE WO CON INDICATIONS: THORACIC SPONDYLOSIS/POSTLAMINECTOMY SYNDROME TECHNIQUE: Noncontrast sagittal T1 spine echo and T2 fast spin echo, sagittal STIR, and T2 fast spin echo through the thoracic spine. COMPARISON: [facility], CT, CT ABDOMEN PELVIS W CON, 04/19/2024, 20:31. FINDINGS: Image quality: Excellent. Alignment and Curvature: There is normal bony alignment. Bone Marrow: Marrow is of normal overall signal. No acute vertebral body compression fractures. There is diffuse mild to moderate degenerative change within the mid and lower cervical spine including intervertebral disc space narrowing, endplate sclerosis and osteophytosis. A compression deformity is noted at L1 with approximately 50% vertebral body height loss. Findings are unchanged from the CT dated April 19, 2024. Spinal Cord: Visualized spinal cord is normal in size and signal. Paraspinous Soft Tissues: No paravertebral masses. Miscellaneous: Small posterior disc bulges are present at T5-6, and T6-7. Moderate disc bulges are present at T9-10 T10-11, and T11-12. Mild to moderate stenosis is present at these levels. There is no deformity of the cord or cord signal abnormality. IMPRESSION: 1. Mild to moderate canal stenosis of the mid and lower thoracic spine as above. No deformity of the cord or cord signal abnormality. 2. Mild to moderate degenerative change of the thoracic spine. 3. Stable L1 compression deformity. Dictated by: Margo Sawyer M.D. on 08/24/2024 at 13:36 Approved by: Margo Sawyer M.D. on 08/24/2024 at 16:55
== END ==
PROVIDERS: Family Provider Anesthesiology Pain Medicine; PCP Physician Assistant; Referring Provider Physical Medicine & Rehabilitation; Visit Provider Physical Medicine & Rehabilitation
DX: M96.1 Postlaminectomy syndrome, not elsewhere classified (principal); M47.814 Spondylosis without myelopathy or radiculopathy, thoracic region; M51.34 Other intervertebral disc degeneration, thoracic region; M48.04 Spinal stenosis, thoracic region; M48.05 Spinal stenosis, thoracolumbar region; M51.369 Other intervertebral disc degeneration, lumbar region without mention of lumbar back pain or lower extremity pain; M47.816 Spondylosis without myelopathy or radiculopathy, lumbar region; M48.061 Spinal stenosis, lumbar region without neurogenic claudication; M43.8X6 Other specified deforming dorsopathies, lumbar region
CPT/HCPCS: 72146; 72148